=== PATIENT | male | born 1950 | race Caucasian/White ===

== ENCOUNTER → 2019-10-04 11:01 | Outpatient (CLI) | payer MEDICARE, OTHER, SELFPAY ==
[2019-10-04 12:27] LABS: Add Manual Diff / Slide Review NO; Basophils Absolute Auto 100 /uL (0-100); Basophils Percent Auto 0.8 % (0-2); Eosinophils Absolute Auto 200 /uL (0-450); Hematocrit 40.2 % (41-53); Hemoglobin 13.8 g/dL (13.5-17.5); Lymphocytes Absolute Auto 1700 /uL (1100-4500); Lymphocytes Percent Auto 20.3 % (25-40); Mean Corpuscular HGB Conc 34.2 % (30-36); Mean Corpuscular Hemoglobin 29.4 PG (26-34); Mean Corpuscular Volume 85.8 fL (80-100); Monocytes Absolute Auto 500 /uL (0-900); Monocytes Percent Auto 6.4 % (3-14); Neutrophils Absolute Auto 6000 /uL (1500-7000); Neutrophils Percent Auto 70.5 % (50-75); Platelet Count 158 X10^3/uL (150-400); Red Blood Cell Count 4.69 X10^6/uL (4.5-5.9); Red Cell Distribution Width 13.5 % (11.6-14.8); White Blood Cell Count 8.5 X10^3/uL (4.5-11.0)
[2019-10-04 13:00] LABS: Carbon Dioxide 23 mmol/L (22-32); Chloride 107 mmol/L (98-107); HEMOLYSIS < 15 (0-50); Potassium 4.8 mmol/L (3.4-5.1); Sodium 138 mmol/L (137-145)
== END ==
PROVIDERS: PCP Family Medicine; Referring Provider Orthopaedic Surgery; Visit Provider Orthopaedic Surgery
DX: Z01.818 Encounter for other preprocedural examination (principal); Z01.812 Encounter for preprocedural laboratory examination
CPT/HCPCS: 36415; 80051; 85025; 93005; 93010

== ENCOUNTER → 2019-12-07 07:02 | Outpatient (CLI) | payer MEDICARE, OTHER, SELFPAY ==
[2019-12-07 09:09] LABS: Cholesterol 230 mg/dL (140-199); HDL Cholesterol 44 mg/dL (40-60); LDL Cholesterol Calculated 153 mg/dL (<100); Triglycerides 167 mg/dL (35-150)
[2019-12-07 09:20] LABS: Vitamin D 25 Hydroxy (D3) 37.9 ng/mL (30.0-100.0)
[2019-12-07 09:24] LABS: Free T3, Triiodothyronine Free 3.13 pg/mL (2.77-5.27); Free T4, Direct Thyroxine 0.95 ng/dL (0.78-2.19)
[2019-12-07 09:38] LABS: Thyroid Stimulating Hormone 0.705 uIU/mL (0.47-4.68)
[2019-12-07 09:40] LABS: Prostate Specific Antigen 13.8 ng/mL (0.10-4.00)
== END ==
PROVIDERS: PCP Family Medicine; Referring Provider Family Medicine; Visit Provider Family Medicine
DX: E55.9 Vitamin D deficiency, unspecified (principal); Z13.220 Encounter for screening for lipoid disorders; Z13.29 Encounter for screening for other suspected endocrine disorder; E78.5 Hyperlipidemia, unspecified; R97.20 Elevated prostate specific antigen [PSA]
CPT/HCPCS: 36415; 80061; 82306; 84153; 84439; 84443; 84481

== ENCOUNTER → 2020-01-13 08:03 | Outpatient (CLI) | payer MEDICARE, OTHER, SELFPAY ==
--- NOTE | 2020-01-13 09:28 | DI.CT.S_ITS ---
PROCEDURE: CT HEAD/BRAIN WO CON INDICATIONS: new headache, right eye pain x 1 month TECHNIQUE: Noncontrast 4.5 mm thick angled axial sections acquired from the foramen magnum to the vertex, with coronal and sagittal reformats. For radiation dose reduction, the following was used: automated exposure control, adjustment of mA and/or kV according to patient size. COMPARISON: None. FINDINGS: Image quality: Excellent. CSF spaces: Basal cisterns are patent. No extra-axial fluid collections. The ventricles are symmetric in size and shape. Brain: No intracranial bleeds or masses. There is cerebral volume loss for age, with resultant ventricular and sulcal prominence. There are periventricular and deep white matter chronic small vessel ischemic changes. There is intracranial internal carotid artery and vertebral artery atherosclerosis. Skull and face: Calvarium and visualized facial bones appear intact, without suspicious lesions. Sinuses: Visualized sinuses and mastoids are clear. IMPRESSION: No acute intracranial disease process. Dictated by: Shira Ha MD, PhD on 01/13/2020 at 10:49 Approved by: Shira Ha MD, PhD on 01/13/2020 at 10:52
== END ==
PROVIDERS: PCP Family Medicine; Referring Provider Family Medicine; Visit Provider Family Medicine
DX: H57.11 Ocular pain, right eye (principal); R51.9 Headache, unspecified
CPT/HCPCS: 70450

== ENCOUNTER → 2020-08-30 07:11 | Outpatient (CLI) | payer MEDICARE, OTHER, SELFPAY ==
[2020-08-30 08:07] LABS: Add Manual Diff / Slide Review NO; Basophils Absolute Auto 100 /uL (0-100); Basophils Percent Auto 0.8 % (0-2); Eosinophils Absolute Auto 300 /uL (0-450); Eosinophils Percent Auto 3.3 % (2-4); Hematocrit 42.8 % (41-53); Hemoglobin 14.3 g/dL (13.5-17.5); Lymphocytes Absolute Auto 1900 /uL (1100-4500); Lymphocytes Percent Auto 19.7 % (25-40); Mean Corpuscular HGB Conc 33.3 % (30-36); Mean Corpuscular Hemoglobin 29.1 PG (26-34); Mean Corpuscular Volume 87.4 fL (80-100); Monocytes Absolute Auto 600 /uL (0-900); Neutrophils Absolute Auto 6700 /uL (1500-7000); Neutrophils Percent Auto 70.2 % (50-75); Platelet Count 146 X10^3/uL (150-400); Red Cell Distribution Width 13.7 % (11.6-14.8); White Blood Cell Count 9.5 X10^3/uL (4.5-11.0)
[2020-08-30 08:26] LABS: Alanine Aminotransferase 14 IU/L (<50); Albumin 4.3 g/dL (3.5-5.0); Albumin Globulin Ratio 1.9 (1.0-2.8); Alkaline Phosphatase 60 U/L (38-126); Aspartate Aminotransferase 20 IU/L (17-59); BUN Creatinine Ratio 22.8 (6-22); Bilirubin Total 0.4 mg/dL (0.2-1.3); Blood Urea Nitrogen 28 mg/dL (9-20); Calcium 10.4 mg/dL (8.4-10.2); Carbon Dioxide 23 mmol/L (22-32); Chloride 108 mmol/L (98-107); Cholesterol 198 mg/dL (140-199); Globulin 2.3 g/dL (1.7-4.1); Glucose 92 mg/dL (80-110); HDL Cholesterol 44 mg/dL (40-60); HEMOLYSIS < 15 (0-50); LDL Cholesterol Calculated 135 mg/dL (<100); Potassium 5.1 mmol/L (3.4-5.1); Sodium 139 mmol/L (137-145); Total Protein 6.6 g/dL (6.3-8.2); Triglycerides 97 mg/dL (35-150)
[2020-08-31 09:33] LABS: Fecal Immunochemical Test Positive (Negative)
== END ==
PROVIDERS: PCP Family Medicine; Referring Provider Family Medicine; Visit Provider Family Medicine
DX: E78.2 Mixed hyperlipidemia (principal); Z12.11 Encounter for screening for malignant neoplasm of colon
CPT/HCPCS: 36415; 80053; 80061; 82274; 85025

== ENCOUNTER → 2020-08-31 09:09 | Outpatient (CLI) | payer MEDICARE, OTHER, SELFPAY ==
--- NOTE | 2020-08-31 | DI.US.S_ITS ---
PROCEDURE: US RENAL COMPLETE INDICATIONS: URINARY RETENTION TECHNIQUE: Real-time scanning was performed of the kidneys and bladder, with image documentation. COMPARISON: [facility], CT, IVP (ABD & PEL WWO CONTRAST), 01/17/2015, 10:00. FINDINGS: Kidneys: Kidneys are normal in size. Right kidney measures 9.7 cm long; left kidney measures 11.6 cm long. Right renal cortical thickness is 1.4 cm; left renal cortical thickness is 1.4 cm. Renal cortical echotexture is normal. No hydronephrosis. No suspicious solid mass lesions. On the right, there is a nonobstructing 6 mm stone seen anteriorly and inferiorly. On the left, there is a 3 cm simple appearing cyst seen involving the medial mid kidney. Bladder: Pre-void bladder volume is 386 mL. Post-void residual is 348 mL. Pre-void images demonstrate no intraluminal masses or stones. On pre-void images, neither of the ureteral jets are noted with color Doppler interrogation. (Of note, ureteral jets may not be detectable in up to 25% of cases due to insufficient differences in specific gravity between ureteral and bladder urine). Miscellaneous: No free pelvic fluid. IMPRESSION: Urinary retention, with a postvoid residual of 348 cc. There is no hydronephrosis. There is an apparent nonobstructing right-sided kidney stone measuring 6 mm. Eighth 3 cm simple cyst is seen involving the left kidney. Dictated by: Benja Rene M.D. on 08/31/2020 at 11:09 Approved by: Benja Rene M.D. on 08/31/2020 at 11:12
== END ==
PROVIDERS: PCP Family Medicine; Referring Provider Urology; Visit Provider Urology
DX: R33.9 Retention of urine, unspecified (principal); N20.0 Calculus of kidney; N28.1 Cyst of kidney, acquired
CPT/HCPCS: 76770

== ENCOUNTER → 2020-09-22 11:57 | Outpatient (CLI) | payer MEDICARE, OTHER, SELFPAY ==
--- NOTE | 2020-09-22 11:59 | DI.CT.S_ITS ---
PROCEDURE: CT LUMBAR SPINE WO CON INDICATIONS: pain TECHNIQUE: Noncontrast 3 mm thick sections acquired from the T12 level to the sacrum. Sagittal and coronal reformats were constructed. For radiation dose reduction, the following was used: automated exposure control. COMPARISON: [facility], CT, L-SPINE WITHOUT CONTRAST, 04/20/2013, 10:30. FINDINGS: Image quality: Excellent. Bones: There is mild grade 1 retrolisthesis of L1 on L2 and L2 on L3. There is posterior fusion L2-S1 with paired posterior rods and pedicle screws. Interbody devices at L2-L3, L3-L4, L4-L5, and L5-S1 are present. There is new anterior fusion hardware at L5-S1. T12-L1: Severe disc height loss. Mild diffuse disc bulge with superimposed right paracentral protrusion. Mild bilateral facet hypertrophy. Mild canal stenosis. Moderate bilateral foraminal stenosis, increased from the prior examination. L1-L2: Severe disc height loss. Disc vacuum phenomenon. Moderate diffuse disc bulge/osteophyte. Mild facet and and ligamentum flavum hypertrophy. Mild epidural lipomatosis. Increased, moderate canal stenosis. Increased, moderate to severe bilateral foraminal stenosis with probable L1 nerve root compression. L2-L3: Status post fusion. Mild facet and ligamentum flavum hypertrophy. Mild canal stenosis. Moderate bilateral foraminal stenosis. No significant change. L3-L4: Status post fusion. Mild facet hypertrophy bilaterally. Mild canal stenosis. Mild bilateral foraminal stenosis. No significant change L4-L5: Status post fusion. Mild bilateral facet hypertrophy. Mild canal stenosis. Moderate bilateral foraminal stenosis. No significant change. L5-S1: Status post fusion. Bilateral facet hypertrophy. Mild canal stenosis. Moderate to severe bilateral foraminal stenosis with mild L5 nerve root compression. No significant change. Soft tissues: No retroperitoneal masses or hematomas. Visualized aorta is normal in caliber. There is a nonobstructing 3 mm calculus within the inferior pole right kidney posteriorly. IMPRESSION: 1. Postsurgical sequelae. 2. Multilevel degenerative disc and facet disease, as well as ligamentum flavum hypertrophy and epidural lipomatosis. 3. Mild multilevel canal stenosis. 4. Multilevel foraminal stenoses, worst at L1-L2 and L5-S1 where there is probable associated intraforaminal nerve root compression. 5. Nonobstructing right renal calculus. Dictated by: Susan Carranza M.D. on 09/22/2020 at 12:49 Approved by: Susan Carranza M.D. on 09/22/2020 at 12:54
--- NOTE | 2020-09-22 11:59 | DI.CT.S_ITS ---
PROCEDURE: CT SOFT TISSUE NECK WO CON INDICATIONS: pain TECHNIQUE: Non-contrast 3.0 mm axial sections acquired from the sella to the aortic arch. Additional oblique axial 3.0 mm sections acquired through the pharynx. 3 mm thick coronal and sagittal reformats were generated. For radiation dose reduction, the following was used: automated exposure control. COMPARISON: None. FINDINGS: Skull Base: The visualized intracranial contents, skull, and orbits are unremarkable. Visualized paranasal sinuses are clear. Pharynx and Larynx: The nasopharyngeal airway is patent and midline. Parapharyngeal soft tissues including palantine tonsils and base of the tongue are normal. Retropharyngeal space unremarkable. Normal appearance of the false and true vocal cords. Muscles and Fascial Planes: Fascial planes are well maintained. No abscess or mass lesion. Lymph Nodes: No evidence of adenopathy. Vasculature: Unremarkable. Submandibular and Parotid Glands: Normal in size and attenuation. Thyroid: Unremarkable. No enlarged or calcified nodules. Bones: No acute fracture. No osteolytic or blastic lesion is evident. Normal bone mineralization. C5-6 and C6-7 well-healed interbody fusion with posterior nelia and screw instrumentation in position. No hardware failure loosening. Disc space narrowing and endplate sclerosis noted at C3-4, C4-5 and C7-T1. Moderate severe central stenosis C3-4. Lung Apices: The visualized lung apices are clear. Lack of intravenous contrast precludes definitive evaluation of solid and vascular structures IMPRESSION: C5-6 and C6-7 interbody fusion and instrumentation with degenerative cervical spine changes. Otherwise unremarkable non-contrast CT neck Dictated by: Naveen Cabrera M.D. on 09/22/2020 at 14:29 Approved by: Naveen Cabrera M.D. on 09/22/2020 at 14:36
--- NOTE | 2020-09-22 11:59 | DI.CT.S_ITS ---
PROCEDURE: CT PEL WO CON INDICATIONS: pain TECHNIQUE: Noncontrast 3 mm axial sections acquired through the bony pelvis, with coronal and sagittal reformatting. COMPARISON: None. FINDINGS: Image quality: Excellent. Bones: Patient is status post prior fusion of lumbar spine with beam hardening artifact seen in lower lumbar spine. No acute pelvic fracture or dislocation is seen. Pelvic ring is intact. Symmetric appearing bilateral hip joint [id number] osteoarthritic changes are seen with joint space narrowing and subchondral sclerosis. There is prior fixation of left femoral neck with surgical screw tracts seen. No evidence of avascular necrosis of femoral head. Mild bilateral sacroiliac joint osteoarthritic changes are noted without evidence of ankylosis or bony erosion. No compression fracture is seen in visualized lower lumbar spine. Soft tissues: There is no pelvic free fluid or free air. No bowel wall thickening. Extensive sigmoid diverticulosis is seen without evidence of acute diverticulitis. Bladder wall thickness is normal. No pelvic lymphadenopathy. No muscle or soft tissue abnormality is seen. IMPRESSION: 1. [id number]-[id number] bilateral hip joint osteoarthritis. No acute hip fracture or dislocation. No evidence of avascular necrosis of femoral head. 2. Prior internal fixation of left femoral neck with postsurgical changes. Patient is status post extensive fusion of lumbar spine. No gross acute compression fracture or spondylolisthesis. 3. No ankylosis or bony erosion is seen in bilateral sacroiliac joints. 4. No gross pelvic soft tissue abnormality. Dictated by: Hany Mann M.D. on 09/22/2020 at 13:29 Approved by: Hany Mann M.D. on 09/22/2020 at 13:55
--- NOTE | 2020-09-22 12:47 | DI.CT.S_ITS ---
PROCEDURE: CT THORACIC SPINE WO CON INDICATIONS: pain TECHNIQUE: Noncontrast 3 mm thick sections acquired through the region of interest in the thoracic spine. Sagittal and coronal reformats were then constructed. For radiation dose reduction, the following was used: automated exposure control. COMPARISON: [facility], CT, ABDOMEN/PELVIS WITH CONTRAST, 12/27/2013, 16:54. FINDINGS: Image quality: Excellent. Bones: Diffuse osteopenia. Postsurgical change with partially visualized posterior lumbar spinal fixation. Multilevel degenerative endplate sclerosis and spurring. Diffuse facet arthropathy. Spinal electrodes are noted at the level of the midthoracic spine. Multilevel degenerative vacuum disc phenomenon is seen. There is severe T10-T11 and T12-L1 disc height loss. Chronic osseous fusion of C6-C7 is only partially visualized. Soft tissues: No paravertebral masses or hematomas. Visualized posteromedial lungs appear clear. Large hiatal hernia. Nonspecific 2.5 cm exophytic right renal cystic lesion which is probably unchanged since 2013. IMPRESSION: Multilevel spondylosis and facet arthropathy as above. Diffuse osteopenia Large hiatal hernia. No acute fracture. Dictated by: Willis Montaño M.D. on 09/22/2020 at 13:24 Approved by: Willis Montaño M.D. on 09/22/2020 at 13:29
== END ==
PROVIDERS: PCP Family Medicine; Referring Provider Family Medicine; Visit Provider Family Medicine
DX: M54.2 Cervicalgia (principal); M47.812 Spondylosis without myelopathy or radiculopathy, cervical region; M47.814 Spondylosis without myelopathy or radiculopathy, thoracic region; M48.9 Spondylopathy, unspecified; M47.816 Spondylosis without myelopathy or radiculopathy, lumbar region; M51.36 Other intervertebral disc degeneration, lumbar region; M48.061 Spinal stenosis, lumbar region without neurogenic claudication; M48.07 Spinal stenosis, lumbosacral region; M85.88 Other specified disorders of bone density and structure, other site; M16.0 Bilateral primary osteoarthritis of hip; N20.0 Calculus of kidney; K44.9 Diaphragmatic hernia without obstruction or gangrene; Z98.1 Arthrodesis status; Z98.890 Other specified postprocedural states
CPT/HCPCS: 70490; 72128; 72131; 72192

== ENCOUNTER → 2020-10-11 09:45 | Outpatient (CLI) | payer MEDICARE, OTHER, SELFPAY ==
[2020-10-11 11:06] LABS: COVID19 -Nasal RAPID Negative (Negative)
== END ==
PROVIDERS: PCP Family Medicine; Referring Provider Surgery; Visit Provider Surgery
DX: Z20.822 Contact with and (suspected) exposure to COVID-19 (principal)
CPT/HCPCS: 87635; C9803

== ENCOUNTER 2020-10-12 12:33 | Day surgery (SDC) | payer MEDICARE, OTHER, SELFPAY ==
[2020-10-12] MEDS: LACTATED RINGERS 1,000 ML 100 ML IV (12:43)
[2020-10-12 12:50] VITALS: BMI 25.8
[2020-10-12 12:56] VITALS: BP 125/78; PULSE 60; RESP 16; TEMP 36.6; O2SAT 100
--- NOTE | 2020-10-12 13:52 | PM.HP.1 ---
History of Present Illness History of Present Illness Date Patient Seen: 10/12/20 Time Patient Seen: 13:53 Chief complaint: COLONOSCOPY Narrative: Screening colonoscopy for colon cancer, last scope was 10 years ago. He was told he has diverticulosis on CT scan. No GI symptoms to speak of. Father was in his 60's when diagnosed with colon cancer and he was a drinker. Patient History Medical History Asthma (~2016) Bladder cancer (~2009) Cervical spine disease (~1997) Degenerative joint disease (DJD) of lumbar spine (~2012) Depression (~1997) Elevated blood pressure reading without diagnosis of hypertension Elevated PSA, between 10 and less than 20 ng/ml Fractures (~2000) GERD (gastroesophageal reflux disease) Hearing loss (~2011) Hyperlipidemia, mixed Vitamin D deficiency Wears glasses Surgical History Anesthesia History of bladder surgery (~2009) History of fusion of cervical spine (~1997) History of fusion of lumbar spine (~2012) History of surgery (~2014) Family & Social History Family History Father No problems noted. Mother Renal failure Brother Cancer Brother Cancer Grandfather History of heart disease Grandmother History of heart disease Grandfather Black lung disease Grandmother Stroke Social History: household members spouse Tobacco & Substance use: Smoking Status Former smoker alcohol intake never Substance Use Type does not use Meds Home Medications and Allergies Home Medications Medication Instructions Recorded Confirmed Type CHOLECALCIFEROL (VITAMIN D3) #0 02/19/10 08/25/20 History (Vitamin D3) VITAMIN C - #0 02/19/10 08/25/20 History (VITAMIN C) [BETA GLUCON] #0 02/19/10 08/25/20 History [GLUCOSAMINE] #0 02/19/10 08/25/20 History [OMEGA 3] #0 02/19/10 08/25/20 History acetaminophen 500 mg capsule 1,000 mg PO Q6H PRN 01/04/20 10/12/20 History ibuprofen 200 mg capsule 400 mg PO Q8H 01/04/20 10/12/20 History omeprazole 20 mg capsule,delayed 20 mg PO DAILY 01/04/20 08/25/20 History release pregabalin 150 mg capsule See Rx Instructions .ROUTE 07/27/20 10/12/20 Rx .COMPLEX #180 cap sodium,potassium,mag sulfates 17.5 See Rx Instructions PO .COMPLEX 09/28/20 Rx gram-3.13 gram-1.6 gram oral soln #354 ml (Suprep Bowel Prep Kit) fexofenadine 180 mg tablet 180 mg PO DAILY 10/12/20 10/12/20 History pregabalin 150 mg capsule mg 10/12/20 History Allergies Allergy/AdvReac Type Severity Reaction Status Date / Time No Known Allergies Allergy Uncoded 10/12/20 12:44 Review of Systems Review of Systems ROS: Yes All systems reviewed with the patient and are negative except as otherwise documented Exam Vital Signs (past 8 hours): - 10/12/20 12:56 Temperature 97.9 F Pulse Rate 60 Respiratory Rate 16 Blood Pressure 125/78 Pulse Oximetry 100 Oxygen Delivery Method Room Air Const General: cooperative and healthy appearing Nutritional Appearance: average body habitus HENND Head: normocephalic and atraumatic Ears: external ears normal Nose: external nose normal Face and sinus: normal facial exam Eyes Alignment and Position: alignment normal Sclera: sclerae normal Neck Neck: trachea midline Chest Chest: normal inspection of the chest Resp Effort & Inspection: normal respiratory effort and able to speak in complete sentences Cardio Rate: regular rate Rhythm: regular rhythm GI Inspection: normal to inspection and distended Palpation: soft Skin General: no rashes or lesions noted Hair: normal Neuro General: patient alert, patient awake and patient oriented x3 Extrem General: full ROM Psych Appearance: grossly normal Affect: normal affect Judgment: judgment good Assessment & Plan Assessment & Plan narrative: colon cancer screening with colonoscopy using moderate sedation COVID-19 COVID-19 status: Negative Time Spent With Patient Time with patient: less than 15 minutes
[2020-10-12] MEDS: MIDAZOLAM 5 MG/5 ML VIAL IV (14:13)
[2020-10-12] MEDS: fentaNYL 250 MCG/5 ML INJ IV (14:13)
[2020-10-12 14:25] VITALS: BP 117/65; PULSE 80; RESP 18; TEMP 36.6; O2SAT 96
[2020-10-12 14:30] VITALS: BP 111/73; PULSE 78; RESP 16; O2SAT 96
[2020-10-12 14:37] VITALS: BP 120/82; PULSE 74; RESP 16; O2SAT 96
[2020-10-12 14:39] VITALS: BP 132/84; PULSE 75; RESP 18; TEMP 36.7; O2SAT 97
--- NOTE | 2020-10-12 16:14 | PM.OP.1 ---
Operative Date/Time/Diagnoses Date of procedure: 10/12/20 Time of procedure: 16:14 Pre-op diagnosis: colon cancer screening Post-op diagnosis: same Procedure & Clinicians Procedure: Colonoscopy with moderate sedation Same procedure as scheduled: Yes Indications: Colon cancer screening Surgeon: Brianne Rausch Click Yes if Unassisted: Yes Anesthesia Type: Sedation Operative Notes Findings: Moderate diverticulosis. No polyps. Blood products transfused: none Procedure in detail: Preop diagnosis: Colon cancer screening Postop diagnosis: Same Operative procedure: Colonoscopy with moderate sedation Surgeon: Marjorie Rausch MD Anesthetic fentanyl and Versed, see nursing notes for doses Findings: Moderate diverticulosis in the sigmoid colon. No polyps identified. Patient placed in lateral position. Rectal exam performed showing normal tone no masses. Colonoscope inserted into the rectum and advanced to the ileocecal valve with minimal difficulty. Insufflation and extractions scope with the above findings. Impression: no polyps identified. Moderate diverticulosis. Plan: Repeat colonoscopy in 10 years Complications: none Post-operative Condition: stable Disposition: PACU
== END 2020-10-12 15:00 | disposition home or self-care (01) ==
PROVIDERS: PCP Family Medicine; Referring Provider Surgery; Visit Provider Surgery
PROC: 0DJD8ZZ Inspection of Lower Intestinal Tract, Via Natural or Artificial Opening Endoscopic (ICD-10-PCS; CPT 45378; principal; 2020-10-12 13:45)
DX: Z12.11 Encounter for screening for malignant neoplasm of colon (principal); Z80.0 Family history of malignant neoplasm of digestive organs; K57.30 Diverticulosis of large intestine without perforation or abscess without bleeding
CPT/HCPCS: G0105; J2250; J3010

== ENCOUNTER → 2021-01-03 14:37 | Outpatient (CLI) | payer MEDICARE, OTHER, SELFPAY ==
[2021-01-03 15:34] LABS: COVID19 -Nasal RAPID Negative (Negative)
== END ==
PROVIDERS: PCP Family Medicine; Referring Provider Nurse Practitioner Family; Visit Provider Nurse Practitioner Family
DX: R30.9 Painful micturition, unspecified (principal); R35.0 Frequency of micturition; R50.9 Fever, unspecified; R52 Pain, unspecified; Z20.822 Contact with and (suspected) exposure to COVID-19
CPT/HCPCS: 87077; 87086; 87186; 87635

== ENCOUNTER → 2021-08-09 10:31 | Outpatient (CLI) | payer MEDICARE, OTHER, SELFPAY ==
[2021-08-09 12:12] LABS: BUN Creatinine Ratio 21.7 (6-22); Blood Urea Nitrogen 26 mg/dL (9-20); Calcium 9.1 mg/dL (8.4-10.2); Carbon Dioxide 19 mmol/L (22-32); Chloride 112 mmol/L (98-107); Estimated Glomerular Filt Rate > 60 mL/min (>60); Glucose 98 mg/dL (80-110); HEMOLYSIS < 15 (0-50); Potassium 4.8 mmol/L (3.4-5.1); Sodium 139 mmol/L (137-145)
== END ==
PROVIDERS: Family Provider Family Medicine; PCP Family Medicine; Referring Provider Specialist; Visit Provider Specialist
DX: E55.9 Vitamin D deficiency, unspecified (principal); E78.2 Mixed hyperlipidemia; N39.0 Urinary tract infection, site not specified; R03.0 Elevated blood-pressure reading, without diagnosis of hypertension; R97.20 Elevated prostate specific antigen [PSA]
CPT/HCPCS: 36415; 80048; 84153

== ENCOUNTER 2021-09-27 11:15 | Outpatient (RCR) | payer MEDICARE, OTHER, SELFPAY ==
--- NOTE | 2021-08-09 18:39 | PT.OIE ---
Current Diagnoses Retention of urine, unspecified (08/09/21) Extravasation of urine (08/09/21) Past Medical History (Last Updated 07/31/21 @ 08:17 by Marshall Anguiano MD) Asthma (~2016) Bladder cancer (~2009) Cervical spine disease (~1997) Degenerative joint disease (DJD) of lumbar spine (~2012) Depression (~1997) Elevated blood pressure reading without diagnosis of hypertension Elevated PSA, between 10 and less than 20 ng/ml Fractures (~2000) GERD (gastroesophageal reflux disease) Hearing loss (~2011) History of arthritis History of bladder surgery (~2009) History of fusion of cervical spine (~1997) History of fusion of lumbar spine (~2012) History of kidney stones History of knee replacement History of primary bladder cancer History of surgery (~2014) Hx of prostate biopsy Hx of vasectomy Hyperlipidemia, mixed Prostate cancer Right nephrolithiasis Urinary retention Vitamin D deficiency Wears glasses Past Surgical History (Last Reviewed 07/31/21 @ 08:08 by Marshall Anguiano MD) Anesthesia History of bladder surgery (~2009) History of fusion of cervical spine (~1997) History of fusion of lumbar spine (~2012) History of knee replacement History of surgery (~2014) Hx of prostate biopsy Hx of vasectomy Visit Care Team Role Provider Type Brian Abdalla DO Family Provider Physician Primary Care Provider Specialty: Family Practice Address: [address] [place] [address], [facility] Email: Marshall Anguiano MD Attending Provider Physician Referring Provider Specialty: Urology Address: [address] [place] [address], [facility] Email: Physical Therapy Initial Evaluation PT-OP-A Visit Information Start: 08/09/21 13:48 Freq: Status: Active Protocol: Document 08/09/21 13:45 [facility] (Rec: 08/09/21 14:19 [facility] [id number]) Out-Patient Physical Therapy Visit Information Visit Information Visit Type Initial Evaluation Visit Start Time 13:45 Visit Stop Time 14:30 Total Visit Minutes 45 Visit Number 1 Evaluation Information Evaluation Date 08/09/21 PT-OP-B Current Condition Start: 08/09/21 13:48 Freq: Status: Active Protocol: Document 08/09/21 13:45 [facility] (Rec: 08/09/21 14:19 [facility] [id number]) Current Condition History of Current Condition Onset Date 2009 Current Complaints urinary retention History of Current Condition 71 yo male with Hx of bladder cancer in 2009, tuberculine infusion and at that time he wasn't fully emptying his bladder. Mr Woodward reports has had 6 spinal surgeries and last summer he was feeling like if he got up at night he couldn't pee at all His back surgeries were from L2-S1 In 2012 he underwent a 5 level fusion then the next year he had a non union and he went back in for a complete revision. He reports there was a lot of bony growth in the fusion itself. He spends his winter in [place] he walks 3 miles per day. He reports lack of sensation of needing to void, he needs to self catherathizes x the past 9 months. Recently Mr. Woodward was diagnosed with [place] 3=3+6 adenocarcinoma of the prostate with a PSA of 19. He is referred to PT for his urinary retention Treatment Goals Patient/Caregiver Goals pt reports his goals include improved voiding and ability to fully empty his bladder PT-OP-C Subjective Start: 08/09/21 13:48 Freq: Status: Active Protocol: Document 08/09/21 17:41 [facility] (Rec: 08/16/21 18:39 [facility] [id number]) Patient Questionnaires Pelvic Pain and Urgency/Frequency Patient Symptom Scale Pelvic Pain Score 9 PT-OP-I Pelvic Floor Start: 08/09/21 13:48 Freq: Status: Active Protocol: Document 08/09/21 17:41 [facility] (Rec: 08/16/21 18:39 [facility] [id number]) Pelvic Floor Assessment Urine Pelvic Floor Surgery Yes Urinary Symptoms Incomplete Emptying Other Urinary Symptoms difficulty starting and stopping the stream of urine, pt self catheterizes 3 times per day and voids on his own 3 -4 times per day. He goes to bed at 10:00 and wakes up to void at 2:00 and at 4:00 pt also reports decreased sensation that he needs to void SEMG (uV) Baseline 4.0 Recruitment Pattern Fair Holding Poor/Slow Stability of Hold Poor/Slow Contraction Ability Muscle Endurance (Seconds) 5 Comments Pelvic Floor Comments There is tightness in the suprapubic fasica and surrounding the bladder, pt has a resting tone of 4.0 uv on EMG biofeedback. His average contraction on EMG biofeedback is 7.1 uv with a max of 27.9 uv PT-OP-J Posture/Palpation/Skin Start: 08/09/21 13:48 Freq: Status: Active Protocol: Document 08/09/21 17:41 [facility] (Rec: 08/16/21 18:39 [facility] [id number]) Palpation Assessment Location suprapubic fascia Palpation Location suprapubic fascia Palpation Findings Soft Tissue Tightness,Muscle Guarding Palpation Details tightness and guarding surrounding the bladder and suprapubic fascia PT-OP-Q Treatments Start: 08/09/21 13:48 Freq: Status: Active Protocol: Document 08/09/21 13:45 [facility] (Rec: 08/09/21 14:19 [facility] [id number]) Therapeutic Exercises Supine Exercises pelvic floor long holds Reps/Minutes x 10 reps cobra stretch Reps/Minutes 2 reps holding 30-60 seconds PT-OP-T Assessment and Plan Start: 08/09/21 13:48 Freq: Status: Active Protocol: Document 08/09/21 17:41 [facility] (Rec: 08/16/21 18:39 [facility] [id number]) Physical Therapy Assessment Rehab Potential Rehabilitation Potential Good Evaluation Complexity Number of Personal Factors/Comorbidities 1-2 Number of Body Systems Impaired 3 Clinical Presentation at Evaluation Stable Impairments Impairments Activity Tolerance,Sensation, Soft Tissue Mobility,Strength Goals 4 Impairment Elevated resting tone of the pelvic floor muscles at 4.0 on EMG biofeedback Short Term Goal (STG) Mr Woodward is able to relax his pelvic floor to baseline on EMG biofeedback to promote improved ability to void STG Duration 6 weeks 3 Impairment Decreased pelvic floor endurance [employer] Goal (LTG) Mr Woodward is able to increase his pelvic floor endurance to 10 second hold time in supine with full pelvic floor relaxation in between contractions LTG Duration 12 weeks 2 Impairment pt reports decreased sensation that he needs to void Short Term Goal (STG) Mr. Woodward is educated on timed voiding using the catheter and /or self voiding every 2.5-3 hours throughout the day STG Duration 4 weeks 1 Impairment urinary retention and pt need to self catheterize 3 times per day [employer] Goal (LTG) pt is educated on relaxed awarensess of the pelvic floor and abdominal wall to improve fully emptying his bladder LTG Duration 12 weeks Assessment Summary Assessment Mr. Woodward is a 71 year old male referred to PT with urinary retention. He has a history of bladder cancer in 2009 and was treated with 6 weeks of BCG installations. On cystocopic report in October 2020 there was bilobar prostate obstruction found. He has a history of post void residual volumes of 4-600 cc. 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 He has a history of cervical fusions in which he feels he has gotten weaker overall from. He does report walking 3 times a day despite decreased strength. He notes that it seems his sensation that he needs to void also seems to be decreasing. He self catheterizes 3 times per day and tries to void on his own 3-4 times per day. With exam today there is tightness in the suprapubic fascia and surrounding the bladder. Mr Woodward was educated in stretches for this area to help decrease myofascial tightness. With EMG biofeedback the resting tone of his pelvic floor was elevated at 4.0 uv demonstrating decreased ability to fully relax his pelvic floor. He was able to contract to 27.9 uv but his average was lower at 7.1 uv. His endurance for pelvic floor contractions is limited. I started Mr. Woodward with pelvic floor contract/relax today focusing on fully relaxing his pelvic floor between contraction. He was educated on relaxed awareness of his abdomen and pelvic floor with voiding. Mr Woodward is a good candidate for PT. Physical Therapy Plan Frequency and Duration Frequency of Treatment 1x/Week Duration of Treatment 12 Plan of Care Start Date 08/09/21 Plan of Care End Date 11/01/21 Therapeutic Interventions Therapeutic Interventions Home Exercise Program,Manual Therapy,Neuromuscular Re- education,Patient/Caregiver Education,Self-Care/Home Management,Soft Tissue Mobilization Modalities Biofeedback Next Visit Focus/Plan Next Note Type Treatment Note Next Visit Plan MFR over the suprapubic fascia , stretches for the pelvic floor. EMG biofeedback for pelvic floor endruance training
--- NOTE | 2021-08-09 18:40 | PT.OPPOC ---
Physical, Occupational & Speech Therapy At [facility] Current Diagnoses Retention of urine, unspecified (08/09/21) Extravasation of urine (08/09/21) Visit Care Team Role Provider Type Brian Abdalla DO Family Provider Physician Primary Care Provider Specialty: Family Practice Address: [address] [place] [address], [facility] Email: Marshall Anguiano MD Attending Provider Physician Referring Provider Specialty: Urology Address: [address] [place] [address], [id number] Email: Plan Of Care PT-OP-T Assessment and Plan Start: 08/09/21 13:48 Freq: Status: Active Protocol: Document 08/09/21 17:41 [facility] (Rec: 08/16/21 18:39 [facility] [id number]) Physical Therapy Assessment Rehab Potential Rehabilitation Potential Good Evaluation Complexity Number of Personal Factors/Comorbidities 1-2 Number of Body Systems Impaired 3 Clinical Presentation at Evaluation Stable Impairments Impairments Activity Tolerance,Sensation, Soft Tissue Mobility,Strength Goals 4 Impairment Elevated resting tone of the pelvic floor muscles at 4.0 on EMG biofeedback Short Term Goal (STG) Mr Woodward is able to relax his pelvic floor to baseline on EMG biofeedback to promote improved ability to void STG Duration 6 weeks 3 Impairment Decreased pelvic floor endurance Grain Combine Driver Goal (LTG) Mr Woodward is able to increase his pelvic floor endurance to 10 second hold time in supine with full pelvic floor relaxation in between contractions LTG Duration 12 weeks 2 Impairment pt reports decreased sensation that he needs to void Short Term Goal (STG) Mr. Woodward is educated on timed voiding using the catheter and /or self voiding every 2.5-3 hours throughout the day STG Duration 4 weeks 1 Impairment urinary retention and pt need to self catheterize 3 times per day Assisted Goal (LTG) pt is educated on relaxed awareness of the pelvic floor and abdominal wall to improve fully emptying his bladder LTG Duration 12 weeks Assessment Summary Assessment Mr. Woodward is a 71 year old male referred to PT with urinary retention. He has a history of bladder cancer in 2009 and was treated with 6 weeks of BCG installations. On cystocopic report in October 2020 there was bilobar prostate obstruction found. He has a history of post void residual volumes of 4-600 cc. 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 He has a history of cervical fusions in which he feels he has gotten weaker overall from. He does report walking 3 times a day despite decreased strength. He notes that it seems his sensation that he needs to void also seems to be decreasing. He self catheterizes 3 times per day and tries to void on his own 3-4 times per day. With exam today there is tightness in the suprapubic fascia and surrounding the bladder. Mr Woodward was educated in stretches for this area to help decrease myofascial tightness. With EMG biofeedback the resting tone of his pelvic floor was elevated at 4.0 uv demonstrating decreased ability to fully relax his pelvic floor. He was able to contract to 27.9 uv but his average was lower at 7.1 uv. His endurance for pelvic floor contractions is limited. I started Mr. Woodward with pelvic floor contract/relax today focusing on fully relaxing his pelvic floor between contraction. He was educated on relaxed awareness of his abdomen and pelvic floor with voiding. Mr Woodward is a good candidate for PT. Physical Therapy Plan Frequency and Duration Frequency of Treatment 1x/Week Duration of Treatment 12 Plan of Care Start Date 08/09/21 Plan of Care End Date 11/01/21 Therapeutic Interventions Therapeutic Interventions Home Exercise Program,Manual Therapy,Neuromuscular Re- education,Patient/Caregiver Education,Self-Care/Home Management,Soft Tissue Mobilization Modalities Biofeedback Next Visit Focus/Plan Next Note Type Treatment Note Next Visit Plan MFR over the suprapubic fascia , stretches for the pelvic floor. EMG biofeedback for pelvic floor endruance training Plan of Care Dates Plan of Care Start Date 08/09/21 Plan of Care End Date 11/01/21 Electronically Signed by: Natalie Pizarro, PT 08/16/21 [id number] If you are in agreement with this Plan of Care, please return a signed and dated copy. I have reviewed this Plan of Care and certify that the skilled therapy services above are required to meet the patient?s needs. Physician Signature Date Printed Name and Credentials Clinical Instructor Signature Printed Name and Credentials
--- NOTE | 2021-08-23 18:39 | PT.OTN ---
Current Diagnoses Retention of urine, unspecified (08/23/21) Extravasation of urine (08/23/21) Physical Therapy Treatment Note PT-OP-A Visit Information Start: 08/09/21 13:48 Freq: Status: Active Protocol: Document 08/23/21 09:00 [facility] (Rec: 08/23/21 09:48 [facility] [id number]) Out-Patient Physical Therapy Visit Information Visit Information Visit Type Treatment Note Visit Start Time 09:00 Visit Stop Time 09:45 Total Visit Minutes 45 Visit Number 2 PT-OP-B Current Condition Start: 08/09/21 13:48 Freq: Status: Active Protocol: Document 08/09/21 13:45 [facility] (Rec: 08/09/21 14:19 [facility] [id number]) Current Condition History of Current Condition Onset Date 2009 Current Complaints urinary retention History of Current Condition 71 yo male with Hx of bladder cancer in 2009, tuberculine infusion and at that time he wasn't fully emptying his bladder. Mr Woodward reports has had 6 spinal surgeries and last summer he was feeling like if he got up at night he couldn't pee at all His back surgeries were from L2-S1 In 2012 he underwent a 5 level fusion then the next year he had a non union and he went back in for a complete revision. He reports there was a lot of bony growth in the fusion itself. He spends his winter in [place] he walks 3 miles per day. He reports lack of sensation of needing to void, he needs to self catherathizes x the past 9 months. Recently Mr. 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 He is referred to PT for his urinary retention Treatment Goals Patient/Caregiver Goals pt reports his goals include improved voiding and ability to fully empty his bladder PT-OP-C Subjective Start: 08/09/21 13:48 Freq: Status: Active Protocol: Document 08/23/21 09:00 [facility] (Rec: 08/23/21 09:48 [facility] [id number]) OP-PT Subjective Patient Comments Patient Comments pt notes he feels like when he started doing his exercises he can do the contraction on the left side but her is not feeling it on the right and he does get a hot burning pain on the right side. He has a history of having his appendix out at age 12 and a hernia repair in 1972 with sutures He does have a history of lumbar fusions 2013 fused from L2-S1 PT-OP-I Pelvic Floor Start: 08/09/21 13:48 Freq: Status: Active Protocol: Document 08/09/21 17:41 [facility] (Rec: 08/16/21 18:39 [facility] [id number]) Pelvic Floor Assessment Urine Pelvic Floor Surgery Yes Urinary Symptoms Incomplete Emptying Other Urinary Symptoms difficulty starting and stopping the stream of urine, pt self catheterizes 3 times per day and voids on his own 3 -4 times per day. He goes to bed at 10:00 and wakes up to void at 2:00 and at 4:00 pt also reports decreased sensation that he needs to void SEMG (uV) Baseline 4.0 Recruitment Pattern Fair Holding Poor/Slow Stability of Hold Poor/Slow Contraction Ability Muscle Endurance (Seconds) 5 Comments Pelvic Floor Comments There is tightness in the suprapubic fasica and surrounding the bladder, pt has a resting tone of 4.0 uv on EMG biofeedback. His average contraction on EMG biofeedback is 7.1 uv with a max of 27.9 uv PT-OP-J Posture/Palpation/Skin Start: 08/09/21 13:48 Freq: Status: Active Protocol: Document 08/09/21 17:41 [facility] (Rec: 08/16/21 18:39 [facility] [id number]) Palpation Assessment Location suprapubic fascia Palpation Location suprapubic fascia Palpation Findings Soft Tissue Tightness,Muscle Guarding Palpation Details tightness and guarding surrounding the bladder and suprapubic fascia PT-OP-Q Treatments Start: 08/09/21 13:48 Freq: Status: Active Protocol: Document 08/23/21 09:00 [facility] (Rec: 08/23/21 09:48 [facility] [id number]) Therapeutic Exercises Supine Exercises pelvic floor long holds Reps/Minutes x 10 reps 15.4 uv and max 41.1 uv Comments elevated resting tone at 7 uv cobra stretch Reps/Minutes hold on this stretch as it was bothering pts back Standing Exercises standing doorway stretch Reps/Minutes 2 reps hold 1-2 min each Manual Therapy Treatment Soft Tissue Mobilization bladder mobilizations Body Position Supine Comments good tolerance, right sided tightness due to hx of appendix surgery and hernia MFR of the suprapubic fascia Body Position Supine Self-Care/Home Management Treatment Education Other Education education on miracle balls to release the sacral attachments B as pt has pain in this area and is having a difficult time relaxing pelvic floor. PT-OP-T Assessment and Plan Start: 08/09/21 13:48 Freq: Status: Active Protocol: Document 08/23/21 09:00 [facility] (Rec: 08/23/21 09:48 [facility] [id number]) Physical Therapy Assessment Goals 4 Impairment Elevated resting tone of the pelvic floor muscles at 4.0 on EMG biofeedback Short Term Goal (STG) Mr Woodward is able to relax his pelvic floor to baseline on EMG biofeedback to promote improved ability to void STG Duration 6 weeks 3 Impairment Decreased pelvic floor endurance Halfway Goal (LTG) Mr Woodward is able to increase his pelvic floor endurance to 10 second hold time in supine with full pelvic floor relaxation in between contractions LTG Duration 12 weeks 2 Impairment pt reports decreased sensation that he needs to void Short Term Goal (STG) Mr. Woodward is educated on timed voiding using the catheter and /or self voiding every 2.5-3 hours throughout the day STG Duration 4 weeks 1 Impairment urinary retention and pt need to self catheterize 3 times per day Glove Cleaner Goal (LTG) pt is educated on relaxed awarensess of the pelvic floor and abdominal wall to improve fully emptying his bladder LTG Duration 12 weeks Assessment Summary Assessment worked on fascial release in the suprapubic fascia and right side of abdominal wall. When performing his pelvic floor exercises Fabian was pushing his abdomen away from his spine which was most likely irritating the hernia region. We reviewed how to do his exercises correctly to avoid straining. Physical Therapy Plan Frequency and Duration Frequency of Treatment 1x/Week Duration of Treatment 12 Plan of Care Start Date 08/09/21 Plan of Care End Date 11/01/21 Therapeutic Interventions Therapeutic Interventions Home Exercise Program,Manual Therapy,Neuromuscular Re- education,Patient/Caregiver Education,Self-Care/Home Management,Soft Tissue Mobilization Modalities Biofeedback Next Visit Focus/Plan Next Note Type Treatment Note Next Visit Plan MFR over the suprapubic fascia , stretches for the pelvic floor. EMG biofeedback for pelvic floor endruance training
--- NOTE | 2021-08-29 13:50 | PT.OTN ---
Current Diagnoses Retention of urine, unspecified (08/29/21) Extravasation of urine (08/29/21) Physical Therapy Treatment Note PT-OP-A Visit Information Start: 08/09/21 13:48 Freq: Status: Active Protocol: Document 08/29/21 11:15 [facility] (Rec: 08/29/21 12:00 [facility] [id number]) Out-Patient Physical Therapy Visit Information Visit Information Visit Type Treatment Note Visit Start Time 11:15 Visit Stop Time 12:00 Total Visit Minutes 45 Visit Number 3 PT-OP-B Current Condition Start: 08/09/21 13:48 Freq: Status: Active Protocol: Document 08/09/21 13:45 [facility] (Rec: 08/09/21 14:19 [facility] [id number]) Current Condition History of Current Condition Onset Date 2009 Current Complaints urinary retention History of Current Condition 71 yo male with Hx of bladder cancer in 2009, tuberculine infusion and at that time he wasn't fully emptying his bladder. Mr Woodward reports has had 6 spinal surgeries and last summer he was feeling like if he got up at night he couldn't pee at all His back surgeries were from L2-S1 In 2012 he underwent a 5 level fusion then the next year he had a non union and he went back in for a complete revision. He reports there was a lot of bony growth in the fusion itself. He spends his winter in [place] he walks 3 miles per day. He reports lack of sensation of needing to void, he needs to self catherathizes x the past 9 months. Recently Mr. 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 He is referred to PT for his urinary retention Treatment Goals Patient/Caregiver Goals pt reports his goals include improved voiding and ability to fully empty his bladder PT-OP-C Subjective Start: 08/09/21 13:48 Freq: Status: Active Protocol: Document 08/29/21 11:15 [facility] (Rec: 08/29/21 12:00 [facility] [id number]) OP-PT Subjective Patient Comments Patient Comments pt is measuring his urine and 60% catheter and 40 void until now and the last couple of days it has been 50/50 percent . He is noticing that his strength is still left sided and he feels he lacks endurance. PT-OP-I Pelvic Floor Start: 08/09/21 13:48 Freq: Status: Active Protocol: Document 08/09/21 17:41 [facility] (Rec: 08/16/21 18:39 [facility] [id number]) Pelvic Floor Assessment Urine Pelvic Floor Surgery Yes Urinary Symptoms Incomplete Emptying Other Urinary Symptoms difficulty starting and stopping the stream of urine, pt self catheterizes 3 times per day and voids on his own 3 -4 times per day. He goes to bed at 10:00 and wakes up to void at 2:00 and at 4:00 pt also reports decreased sensation that he needs to void SEMG (uV) Baseline 4.0 Recruitment Pattern Fair Holding Poor/Slow Stability of Hold Poor/Slow Contraction Ability Muscle Endurance (Seconds) 5 Comments Pelvic Floor Comments There is tightness in the suprapubic fasica and surrounding the bladder, pt has a resting tone of 4.0 uv on EMG biofeedback. His average contraction on EMG biofeedback is 7.1 uv with a max of 27.9 uv PT-OP-J Posture/Palpation/Skin Start: 08/09/21 13:48 Freq: Status: Active Protocol: Document 08/09/21 17:41 [facility] (Rec: 08/16/21 18:39 [facility] [id number]) Palpation Assessment Location suprapubic fascia Palpation Location suprapubic fascia Palpation Findings Soft Tissue Tightness,Muscle Guarding Palpation Details tightness and guarding surrounding the bladder and suprapubic fascia PT-OP-Q Treatments Start: 08/09/21 13:48 Freq: Status: Active Protocol: Document 08/29/21 11:15 [facility] (Rec: 08/29/21 12:00 [facility] [id number]) Therapeutic Exercises Supine Exercises iliopsoas stretch Reps/Minutes x 1 min Comments марина test position pelvic floor long holds Comments 5.8 average rest as low as 3.4 uv Manual Therapy Treatment Soft Tissue Mobilization bladder mobilizations Body Position Supine Comments good tolerance, right sided tightness due to hx of appendix surgery and hernia MFR of the suprapubic fascia Body Position Supine Comments Right >Left sided tightness PT-OP-T Assessment and Plan Start: 08/09/21 13:48 Freq: Status: Active Protocol: Document 08/29/21 11:15 [facility] (Rec: 08/29/21 12:00 [facility] [id number]) Physical Therapy Assessment Goals 4 Impairment Elevated resting tone of the pelvic floor muscles at 4.0 on EMG biofeedback Short Term Goal (STG) Mr Woodward is able to relax his pelvic floor to baseline on EMG biofeedback to promote improved ability to void STG Duration 6 weeks 3 Impairment Decreased pelvic floor endurance Dog Or Horse Racing Official Goal (LTG) Mr Woodward is able to increase his pelvic floor endurance to 10 second hold time in supine with full pelvic floor relaxation in between contractions LTG Duration 12 weeks 2 Impairment pt reports decreased sensation that he needs to void Short Term Goal (STG) Mr. Woodward is educated on timed voiding using the catheter and /or self voiding every 2.5-3 hours throughout the day STG Duration 4 weeks 1 Impairment urinary retention and pt need to self catheterize 3 times per day Dog Or Horse Racing Official Goal (LTG) pt is educated on relaxed awareness of the pelvic floor and abdominal wall to improve fully emptying his bladder LTG Duration 12 weeks Physical Therapy Plan Frequency and Duration Frequency of Treatment 1x/Week Duration of Treatment 12 Plan of Care Start Date 08/09/21 Plan of Care End Date 11/01/21 Therapeutic Interventions Therapeutic Interventions Home Exercise Program,Manual Therapy,Neuromuscular Re- education,Patient/Caregiver Education,Self-Care/Home Management,Soft Tissue Mobilization Modalities Biofeedback Next Visit Focus/Plan Next Note Type Treatment Note Next Visit Plan diaphragmatic breathing, MFR over the suprapubic fascia, stretches for the pelvic floor . EMG biofeedback for pelvic floor endruance training
--- NOTE | 2021-08-29 13:55 | PT.OTN ---
Current Diagnoses Retention of urine, unspecified (08/29/21) Extravasation of urine (08/29/21) Physical Therapy Treatment Note PT-OP-A Visit Information Start: 08/09/21 13:48 Freq: Status: Active Protocol: Document 08/29/21 11:15 [facility] (Rec: 08/29/21 12:00 [facility] [id number]) Out-Patient Physical Therapy Visit Information Visit Information Visit Type Treatment Note Visit Start Time 11:15 Visit Stop Time 12:00 Total Visit Minutes 45 Visit Number 3 PT-OP-B Current Condition Start: 08/09/21 13:48 Freq: Status: Active Protocol: Document 08/09/21 13:45 [facility] (Rec: 08/09/21 14:19 [facility] [id number]) Current Condition History of Current Condition Onset Date 2009 Current Complaints urinary retention History of Current Condition 71 yo male with Hx of bladder cancer in 2009, tuberculine infusion and at that time he wasn't fully emptying his bladder. Mr Woodward reports has had 6 spinal surgeries and last summer he was feeling like if he got up at night he couldn't pee at all His back surgeries were from L2-S1 In 2012 he underwent a 5 level fusion then the next year he had a non union and he went back in for a complete revision. He reports there was a lot of bony growth in the fusion itself. He spends his winter in [place] he walks 3 miles per day. He reports lack of sensation of needing to void, he needs to self catherathizes x the past 9 months. Recently Mr. 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 He is referred to PT for his urinary retention Treatment Goals Patient/Caregiver Goals pt reports his goals include improved voiding and ability to fully empty his bladder PT-OP-C Subjective Start: 08/09/21 13:48 Freq: Status: Active Protocol: Document 08/29/21 11:15 [facility] (Rec: 08/29/21 12:00 [facility] [id number]) OP-PT Subjective Patient Comments Patient Comments pt is measuring his urine and 60% catheter and 40 void until now and the last couple of days it has been 50/50 percent . He is noticing that his strength is still left sided and he feels he lacks endurance. PT-OP-I Pelvic Floor Start: 08/09/21 13:48 Freq: Status: Active Protocol: Document 08/09/21 17:41 [facility] (Rec: 08/16/21 18:39 [facility] [id number]) Pelvic Floor Assessment Urine Pelvic Floor Surgery Yes Urinary Symptoms Incomplete Emptying Other Urinary Symptoms difficulty starting and stopping the stream of urine, pt self catheterizes 3 times per day and voids on his own 3 -4 times per day. He goes to bed at 10:00 and wakes up to void at 2:00 and at 4:00 pt also reports decreased sensation that he needs to void SEMG (uV) Baseline 4.0 Recruitment Pattern Fair Holding Poor/Slow Stability of Hold Poor/Slow Contraction Ability Muscle Endurance (Seconds) 5 Comments Pelvic Floor Comments There is tightness in the suprapubic fasica and surrounding the bladder, pt has a resting tone of 4.0 uv on EMG biofeedback. His average contraction on EMG biofeedback is 7.1 uv with a max of 27.9 uv PT-OP-J Posture/Palpation/Skin Start: 08/09/21 13:48 Freq: Status: Active Protocol: Document 08/09/21 17:41 [facility] (Rec: 08/16/21 18:39 [facility] [id number]) Palpation Assessment Location suprapubic fascia Palpation Location suprapubic fascia Palpation Findings Soft Tissue Tightness,Muscle Guarding Palpation Details tightness and guarding surrounding the bladder and suprapubic fascia PT-OP-Q Treatments Start: 08/09/21 13:48 Freq: Status: Active Protocol: Document 08/29/21 11:15 [facility] (Rec: 08/29/21 12:00 [facility] [id number]) Therapeutic Exercises Supine Exercises iliopsoas stretch Reps/Minutes x 1 min Comments марина test position pelvic floor long holds Comments 5.8 average rest as low as 3.4 uv Manual Therapy Treatment Soft Tissue Mobilization bladder mobilizations Body Position Supine Comments good tolerance, right sided tightness due to hx of appendix surgery and hernia MFR of the suprapubic fascia Body Position Supine Comments Right >Left sided tightness Self-Care/Home Management Treatment Activities Self-Care/Home Management Activities HEP reviewed, modified chest stretch in doorway, time spent discussing previous bladder surgery with resulting scar tissue PT-OP-T Assessment and Plan Start: 08/09/21 13:48 Freq: Status: Active Protocol: Document 08/29/21 11:15 [facility] (Rec: 08/29/21 12:00 [facility] [id number]) Physical Therapy Assessment Goals 4 Impairment Elevated resting tone of the pelvic floor muscles at 4.0 on EMG biofeedback Short Term Goal (STG) Mr Woodward is able to relax his pelvic floor to baseline on EMG biofeedback to promote improved ability to void STG Duration 6 weeks 3 Impairment Decreased pelvic floor endurance Skilled Nursing Goal (LTG) Mr Woodward is able to increase his pelvic floor endurance to 10 second hold time in supine with full pelvic floor relaxation in between contractions LTG Duration 12 weeks 2 Impairment pt reports decreased sensation that he needs to void Short Term Goal (STG) Mr. Woodward is educated on timed voiding using the catheter and /or self voiding every 2.5-3 hours throughout the day STG Duration 4 weeks 1 Impairment urinary retention and pt need to self catheterize 3 times per day Skilled Nursing Goal (LTG) pt is educated on relaxed awarensess of the pelvic floor and abdominal wall to improve fully emptying his bladder LTG Duration 12 weeks Assessment Summary Assessment Fabian was able to lower his resting tone on EMG biofeedback today as compared to previous visit. He is working on pelvic floor relaxation with voiding and feels it is a little better. Continue working the suprapubic fascia and pelvic floor coordination/relaxation Physical Therapy Plan Frequency and Duration Frequency of Treatment 1x/Week Duration of Treatment 12 Plan of Care Start Date 08/09/21 Plan of Care End Date 11/01/21 Therapeutic Interventions Therapeutic Interventions Home Exercise Program,Manual Therapy,Neuromuscular Re- education,Patient/Caregiver Education,Self-Care/Home Management,Soft Tissue Mobilization Modalities Biofeedback Next Visit Focus/Plan Next Note Type Treatment Note Next Visit Plan diaphragmatic breathing, MFR over the suprapubic fascia, stretches for the pelvic floor . EMG biofeedback for pelvic floor endruance training
--- NOTE | 2021-08-29 13:55 | PT.OTN ---
Current Diagnoses Retention of urine, unspecified (08/29/21) Extravasation of urine (08/29/21) Physical Therapy Treatment Note PT-OP-A Visit Information Start: 08/09/21 13:48 Freq: Status: Active Protocol: Document 08/29/21 11:15 [facility] (Rec: 08/29/21 12:00 [facility] [id number]) Out-Patient Physical Therapy Visit Information Visit Information Visit Type Treatment Note Visit Start Time 11:15 Visit Stop Time 12:00 Total Visit Minutes 45 Visit Number 3 PT-OP-B Current Condition Start: 08/09/21 13:48 Freq: Status: Active Protocol: Document 08/09/21 13:45 [facility] (Rec: 08/09/21 14:19 [facility] [id number]) Current Condition History of Current Condition Onset Date 2009 Current Complaints urinary retention History of Current Condition 71 yo male with Hx of bladder cancer in 2009, tuberculine infusion and at that time he wasn't fully emptying his bladder. Mr Woodward reports has had 6 spinal surgeries and last summer he was feeling like if he got up at night he couldn't pee at all His back surgeries were from L2-S1 In 2012 he underwent a 5 level fusion then the next year he had a non union and he went back in for a complete revision. He reports there was a lot of bony growth in the fusion itself. He spends his winter in [place] he walks 3 miles per day. He reports lack of sensation of needing to void, he needs to self catherathizes x the past 9 months. Recently Mr. 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 He is referred to PT for his urinary retention Treatment Goals Patient/Caregiver Goals pt reports his goals include improved voiding and ability to fully empty his bladder PT-OP-C Subjective Start: 08/09/21 13:48 Freq: Status: Active Protocol: Document 08/29/21 11:15 [facility] (Rec: 08/29/21 12:00 [facility] [id number]) OP-PT Subjective Patient Comments Patient Comments pt is measuring his urine and 60% catheter and 40 void until now and the last couple of days it has been 50/50 percent . He is noticing that his strength is still left sided and he feels he lacks endurance. PT-OP-I Pelvic Floor Start: 08/09/21 13:48 Freq: Status: Active Protocol: Document 08/09/21 17:41 [facility] (Rec: 08/16/21 18:39 [facility] [id number]) Pelvic Floor Assessment Urine Pelvic Floor Surgery Yes Urinary Symptoms Incomplete Emptying Other Urinary Symptoms difficulty starting and stopping the stream of urine, pt self catheterizes 3 times per day and voids on his own 3 -4 times per day. He goes to bed at 10:00 and wakes up to void at 2:00 and at 4:00 pt also reports decreased sensation that he needs to void SEMG (uV) Baseline 4.0 Recruitment Pattern Fair Holding Poor/Slow Stability of Hold Poor/Slow Contraction Ability Muscle Endurance (Seconds) 5 Comments Pelvic Floor Comments There is tightness in the suprapubic fasica and surrounding the bladder, pt has a resting tone of 4.0 uv on EMG biofeedback. His average contraction on EMG biofeedback is 7.1 uv with a max of 27.9 uv PT-OP-J Posture/Palpation/Skin Start: 08/09/21 13:48 Freq: Status: Active Protocol: Document 08/09/21 17:41 [facility] (Rec: 08/16/21 18:39 [facility] [id number]) Palpation Assessment Location suprapubic fascia Palpation Location suprapubic fascia Palpation Findings Soft Tissue Tightness,Muscle Guarding Palpation Details tightness and guarding surrounding the bladder and suprapubic fascia PT-OP-Q Treatments Start: 08/09/21 13:48 Freq: Status: Active Protocol: Document 08/29/21 11:15 [facility] (Rec: 08/29/21 12:00 [facility] [id number]) Therapeutic Exercises Supine Exercises TA with heel slides Reps/Minutes x 10 reps iliopsoas stretch Reps/Minutes x 1 min Comments марина test position pelvic floor long holds Comments 5.8 average rest as low as 3.4 uv Manual Therapy Treatment Soft Tissue Mobilization bladder mobilizations Body Position Supine Comments good tolerance, right sided tightness due to hx of appendix surgery and hernia MFR of the suprapubic fascia Body Position Supine Comments Right >Left sided tightness Self-Care/Home Management Treatment Activities Self-Care/Home Management Activities HEP reviewed, modified chest stretch in doorway, time spent discussing previous bladder surgery with resulting scar tissue PT-OP-T Assessment and Plan Start: 08/09/21 13:48 Freq: Status: Active Protocol: Document 08/29/21 11:15 [facility] (Rec: 08/29/21 12:00 [facility] [id number]) Physical Therapy Assessment Goals 4 Impairment Elevated resting tone of the pelvic floor muscles at 4.0 on EMG biofeedback Short Term Goal (STG) Mr Woodward is able to relax his pelvic floor to baseline on EMG biofeedback to promote improved ability to void STG Duration 6 weeks 3 Impairment Decreased pelvic floor endurance Grants Assistant Goal (LTG) Mr Woodward is able to increase his pelvic floor endurance to 10 second hold time in supine with full pelvic floor relaxation in between contractions LTG Duration 12 weeks 2 Impairment pt reports decreased sensation that he needs to void Short Term Goal (STG) Mr. Woodward is educated on timed voiding using the catheter and /or self voiding every 2.5-3 hours throughout the day STG Duration 4 weeks 1 Impairment urinary retention and pt need to self catheterize 3 times per day Detention Goal (LTG) pt is educated on relaxed awarensess of the pelvic floor and abdominal wall to improve fully emptying his bladder LTG Duration 12 weeks Assessment Summary Assessment Fabian was able to lower his resting tone on EMG biofeedback today as compared to previous visit. He is working on pelvic floor relaxation with voiding and feels it is a little better. Continue working the suprapubic fascia and pelvic floor coordination/relaxation Physical Therapy Plan Frequency and Duration Frequency of Treatment 1x/Week Duration of Treatment 12 Plan of Care Start Date 08/09/21 Plan of Care End Date 11/01/21 Therapeutic Interventions Therapeutic Interventions Home Exercise Program,Manual Therapy,Neuromuscular Re- education,Patient/Caregiver Education,Self-Care/Home Management,Soft Tissue Mobilization Modalities Biofeedback Next Visit Focus/Plan Next Note Type Treatment Note Next Visit Plan diaphragmatic breathing, MFR over the suprapubic fascia, stretches for the pelvic floor . EMG biofeedback for pelvic floor endruance training
--- NOTE | 2021-09-11 13:15 | PT.OTN ---
Current Diagnoses Retention of urine, unspecified (09/11/21) Extravasation of urine (09/11/21) Physical Therapy Treatment Note PT-OP-A Visit Information Start: 08/09/21 13:48 Freq: Status: Active Protocol: Document 09/11/21 09:00 [facility] (Rec: 09/11/21 09:43 [facility] [id number]) Out-Patient Physical Therapy Visit Information Visit Information Visit Type Treatment Note Visit Start Time 09:00 Visit Stop Time 09:45 Total Visit Minutes 45 Visit Number 4 PT-OP-B Current Condition Start: 08/09/21 13:48 Freq: Status: Active Protocol: Document 08/09/21 13:45 [facility] (Rec: 08/09/21 14:19 [facility] [id number]) Current Condition History of Current Condition Onset Date 2009 Current Complaints urinary retention History of Current Condition 71 yo male with Hx of bladder cancer in 2009, tuberculine infusion and at that time he wasn't fully emptying his bladder. Mr Woodward reports has had 6 spinal surgeries and last summer he was feeling like if he got up at night he couldn't pee at all His back surgeries were from L2-S1 In 2012 he underwent a 5 level fusion then the next year he had a non union and he went back in for a complete revision. He reports there was a lot of bony growth in the fusion itself. He spends his winter in [place] he walks 3 miles per day. He reports lack of sensation of needing to void, he needs to self catherathizes x the past 9 months. Recently Mr. 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 He is referred to PT for his urinary retention Treatment Goals Patient/Caregiver Goals pt reports his goals include improved voiding and ability to fully empty his bladder PT-OP-C Subjective Start: 08/09/21 13:48 Freq: Status: Active Protocol: Document 09/11/21 09:00 [facility] (Rec: 09/11/21 09:43 [facility] [id number]) OP-PT Subjective Patient Comments Patient Comments pt reports he is still staying 50/50. With the exercises the left side will feel like tired muscles and the right side can be a little sore. He saw Dr Zhong for his appt and it sounds like he will need his prostate out. His cystoscopy is the middle of next month. Patient Reported Progress Same PT-OP-I Pelvic Floor Start: 08/09/21 13:48 Freq: Status: Active Protocol: Document 08/09/21 17:41 [facility] (Rec: 08/16/21 18:39 [facility] [id number]) Pelvic Floor Assessment Urine Pelvic Floor Surgery Yes Urinary Symptoms Incomplete Emptying Other Urinary Symptoms difficulty starting and stopping the stream of urine, pt self catheterizes 3 times per day and voids on his own 3 -4 times per day. He goes to bed at 10:00 and wakes up to void at 2:00 and at 4:00 pt also reports decreased sensation that he needs to void SEMG (uV) Baseline 4.0 Recruitment Pattern Fair Holding Poor/Slow Stability of Hold Poor/Slow Contraction Ability Muscle Endurance (Seconds) 5 Comments Pelvic Floor Comments There is tightness in the suprapubic fasica and surrounding the bladder, pt has a resting tone of 4.0 uv on EMG biofeedback. His average contraction on EMG biofeedback is 7.1 uv with a max of 27.9 uv PT-OP-J Posture/Palpation/Skin Start: 08/09/21 13:48 Freq: Status: Active Protocol: Document 08/09/21 17:41 [facility] (Rec: 08/16/21 18:39 [facility] [id number]) Palpation Assessment Location suprapubic fascia Palpation Location suprapubic fascia Palpation Findings Soft Tissue Tightness,Muscle Guarding Palpation Details tightness and guarding surrounding the bladder and suprapubic fascia PT-OP-Q Treatments Start: 08/09/21 13:48 Freq: Status: Active Protocol: Document 09/11/21 09:00 [facility] (Rec: 09/11/21 09:43 [facility] [id number]) Therapeutic Exercises Supine Exercises hip roll outs Reps/Minutes 2 x 10 reps Comments given to pt for HEP, able to get to baseline on EMG biofeedback diaphragmatic breathing Reps/Minutes x 4 min iliopsoas stretch Supine Exercise Name right side Reps/Minutes x 1 min Comments марина test position pelvic floor long holds Reps/Minutes x 10 reps average 8.6 uv 2.1 resting Comments resting tone 2.0 following diaphragmatic breathing Manual Therapy Treatment Soft Tissue Mobilization bladder mobilizations Body Position Supine Comments good tolerance, right sided tightness due to hx of appendix surgery and hernia MFR of the suprapubic fascia Body Position Supine Comments Right >Left sided tightness PT-OP-T Assessment and Plan Start: 08/09/21 13:48 Freq: Status: Active Protocol: Document 09/11/21 09:00 [facility] (Rec: 09/11/21 13:15 [facility] [id number]) Physical Therapy Assessment Goals 4 Impairment Elevated resting tone of the pelvic floor muscles at 4.0 on EMG biofeedback Short Term Goal (STG) Mr Woodward is able to relax his pelvic floor to baseline on EMG biofeedback to promote improved ability to void STG Duration 6 weeks 3 Impairment Decreased pelvic floor endurance [facility] Goal (LTG) Mr Woodward is able to increase his pelvic floor endurance to 10 second hold time in supine with full pelvic floor relaxation in between contractions LTG Duration 12 weeks 2 Impairment pt reports decreased sensation that he needs to void Short Term Goal (STG) Mr. Woodward is educated on timed voiding using the catheter and /or self voiding every 2.5-3 hours throughout the day STG Duration 4 weeks 1 Impairment urinary retention and pt need to self catheterize 3 times per day Stevedoring Superintendent Goal (LTG) pt is educated on relaxed awareness of the pelvic floor and abdominal wall to improve fully emptying his bladder LTG Duration 12 weeks Assessment Summary Assessment With roll outs Fabian was able to relax to baseline, he was given roll outs for HEP Physical Therapy Plan Frequency and Duration Frequency of Treatment 1x/Week Duration of Treatment 12 Plan of Care Start Date 08/09/21 Plan of Care End Date 11/01/21 Therapeutic Interventions Therapeutic Interventions Home Exercise Program,Manual Therapy,Neuromuscular Re- education,Patient/Caregiver Education,Self-Care/Home Management,Soft Tissue Mobilization Modalities Biofeedback Next Visit Focus/Plan Next Note Type Treatment Note Next Visit Plan check in with pts ability to void with working on roll outs to relax baseline and diaphragmatic breathing.
--- NOTE | 2021-09-27 11:57 | PT.OTN ---
Current Diagnoses Retention of urine, unspecified (09/27/21) Extravasation of urine (09/27/21) Physical Therapy Treatment Note PT-OP-A Visit Information Start: 08/09/21 13:48 Freq: Status: Active Protocol: Document 09/27/21 11:22 [facility] (Rec: 09/27/21 11:56 [facility] [id number]) Out-Patient Physical Therapy Visit Information Visit Information Visit Type Treatment Note Visit Start Time 11:22 Visit Stop Time 11:42 Total Visit Minutes 20 Visit Number 6 PT-OP-B Current Condition Start: 08/09/21 13:48 Freq: Status: Active Protocol: Document 08/09/21 13:45 [facility] (Rec: 08/09/21 14:19 [facility] [id number]) Current Condition History of Current Condition Onset Date 2009 Current Complaints urinary retention History of Current Condition 71 yo male with Hx of bladder cancer in 2009, tuberculine infusion and at that time he wasn't fully emptying his bladder. Mr Woodward reports has had 6 spinal surgeries and last summer he was feeling like if he got up at night he couldn't pee at all His back surgeries were from L2-S1 In 2012 he underwent a 5 level fusion then the next year he had a non union and he went back in for a complete revision. He reports there was a lot of bony growth in the fusion itself. He spends his winter in [place] he walks 3 miles per day. He reports lack of sensation of needing to void, he needs to self catherathizes x the past 9 months. Recently Mr. 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 He is referred to PT for his urinary retention Treatment Goals Patient/Caregiver Goals pt reports his goals include improved voiding and ability to fully empty his bladder PT-OP-C Subjective Start: 08/09/21 13:48 Freq: Status: Active Protocol: Document 09/27/21 11:22 [facility] (Rec: 09/27/21 11:56 [facility] [id number]) OP-PT Subjective Patient Comments Patient Comments pt is scheduled for surgery friday as additional cancer was found in the bladder, he will under go bladder resection, no prostate surgery at this point. The section of the urethra is scared and inflammed. He will be catherazied x 5 days post surgery. He is doing a bone scan next friday and surgery is scheduled for Friday the . He is noticing it doesn't take as long to establish a stream now and the stream seems to be pretty good. PT-OP-I Pelvic Floor Start: 08/09/21 13:48 Freq: Status: Active Protocol: Document 08/09/21 17:41 [facility] (Rec: 08/16/21 18:39 [facility] [id number]) Pelvic Floor Assessment Urine Pelvic Floor Surgery Yes Urinary Symptoms Incomplete Emptying Other Urinary Symptoms difficulty starting and stopping the stream of urine, pt self catheterizes 3 times per day and voids on his own 3 -4 times per day. He goes to bed at 10:00 and wakes up to void at 2:00 and at 4:00 pt also reports decreased sensation that he needs to void SEMG (uV) Baseline 4.0 Recruitment Pattern Fair Holding Poor/Slow Stability of Hold Poor/Slow Contraction Ability Muscle Endurance (Seconds) 5 Comments Pelvic Floor Comments There is tightness in the suprapubic fasica and surrounding the bladder, pt has a resting tone of 4.0 uv on EMG biofeedback. His average contraction on EMG biofeedback is 7.1 uv with a max of 27.9 uv PT-OP-J Posture/Palpation/Skin Start: 08/09/21 13:48 Freq: Status: Active Protocol: Document 08/09/21 17:41 [facility] (Rec: 08/16/21 18:39 [facility] [id number]) Palpation Assessment Location suprapubic fascia Palpation Location suprapubic fascia Palpation Findings Soft Tissue Tightness,Muscle Guarding Palpation Details tightness and guarding surrounding the bladder and suprapubic fascia PT-OP-Q Treatments Start: 08/09/21 13:48 Freq: Status: Active Protocol: Document 09/27/21 11:22 [facility] (Rec: 09/27/21 11:56 [facility] [id number]) Self-Care/Home Management Treatment Activities Self-Care/Home Management Activities time was spent today reviewing HEP and post surgical anti inflammatory measures. Pt was educated in seated verses supine posture for post op strengthening care PT-OP-T Assessment and Plan Start: 08/09/21 13:48 Freq: Status: Active Protocol: Document 09/27/21 11:22 [facility] (Rec: 09/27/21 11:56 [facility] [id number]) Physical Therapy Assessment Goals 4 Impairment Elevated resting tone of the pelvic floor muscles at 4.0 on EMG biofeedback Short Term Goal (STG) Mr Woodward is able to relax his pelvic floor to baseline on EMG biofeedback to promote improved ability to void Excellent progress with pelvic floor relaxation to baseline, this however has not make significant improvements with his ability to void STG Duration 6 weeks 3 Impairment Decreased pelvic floor endurance Senior Program Planner Goal (LTG) Mr Woodward is able to increase his pelvic floor endurance to 10 second hold time in supine with full pelvic floor relaxation in between contractions GOAL MET LTG Duration 12 weeks 2 Impairment pt reports decreased sensation that he needs to void Short Term Goal (STG) Mr. Woodward is educated on timed voiding using the catheter and /or self voiding every 2.5-3 hours throughout the day No change STG Duration 4 weeks 1 Impairment urinary retention and pt need to self catheterize 3 times per day Senior Program Planner Goal (LTG) pt is educated on relaxed awarensess of the pelvic floor and abdominal wall to improve fully emptying his bladder Pt has been educated on relaxed awareness of his abdominals and pelvic floor. LTG Duration 12 weeks Assessment Summary Assessment At this point pt will be DC's from PT as he is undergoing bladder resection due to additional cancer being present within his bladder. We discussed his HEP today and he feels comfortable with what to do post op for pelvic floor strengthening. He was given exercises that assist with pelvic floor strength to do post op until he feels ready to contract his pelvic floor or until he is able to isolate his pelvic floor. Fbaian is demonstrating full pelvic floor relaxation on EMG biofeedback and he is able to sustain a pelvic floor contraction x 10 seconds in supine. I would be happy to assit with any pelvic floor strengthening and relaxation again in the future should Fabian need further care Physical Therapy Plan Discharge Physical Therapy Discharge Reasons Change in Medical Status Discharge Comments pt undergoing bladder resection surgery for additional bladder cancer found. He will be d/c from PT at this time
== END 2022-08-02 13:12 ==
LOC: PHYS 11:15
PROVIDERS: Family Provider Family Medicine; PCP Family Medicine; Referring Provider Specialist; Visit Provider Specialist
DX: R39.0 Extravasation of urine (principal); R33.9 Retention of urine, unspecified
CPT/HCPCS: 97110; 97140; 97161; 97535

== ENCOUNTER → 2021-09-28 11:57 | Outpatient (CLI) | payer MEDICARE, OTHER, SELFPAY ==
--- NOTE | 2021-09-28 11:58 | DI.CT.S_ITS ---
PROCEDURE: CT CHEST ABD PEL W CON INDICATIONS: 71-year-old male with recurrent prostate cancer, staging for bladder cancer TECHNIQUE: After the administration of intravenous contrast, 5 mm thick sections acquired from the lung apices to the symphysis. 2.5 mm thick coronal and sagittal reformats were acquired. Additional 7 mm thick coronal maximum intensity projection (MIP) reformats acquired through the lungs. For radiation dose reduction, the following was used: automated exposure control, adjustment of mA and/or kV according to patient size. COMPARISON: [facility], CT, L-SPINE WITH CONTRAST, 05/16/2017, 11:18. [facility], CT, CT LUMBAR SPINE WO CON, 09/22/2020, 12:09. FINDINGS: Chest: Cardiovascular: Heart size is normal. No evidence of pulmonary embolism, aortic aneurysm or dissection. Lungs and pleural spaces: Small scattered calcified granulomas noted. Left upper lobe 4 mm nodule noted on image 5/160. Platelike atelectasis or scarring noted in both lower lobes. Lymph nodes: No mediastinal, hilar or axillary adenopathy. Mediastinum: Unremarkable. Moderate hiatal hernia noted. Thyroid within normal limits. Chest Wall and Bones: Sclerotic degenerative endplate changes noted at T11-12 and T2 and at L1-2, similar prior exam. Epidural stimulator noted. No suspicious lytic or blastic lesion. Abdomen and Pelvis: Liver: The liver is diffusely decreased in attenuation without focal mass lesion. Biliary system: No calcified cholelithiasis or pericholecystic inflammation. No intra or extrahepatic bile duct dilatation. Pancreas: Unremarkable without mass or inflammation evident. Spleen: Normal in size and density. Adrenals: Normal morphology and density. Reproductive system: Unremarkable as visualized. Urinary system: Normal renal size and attenuation. Tiny 3 mm right renal nonobstructive calculus noted. No hydronephrosis bilaterally.. Urinary bladder unremarkable. Gastrointestinal system: The bowel is unremarkable with no evidence of bowel obstruction or inflammation. The stomach appears unremarkable. No findings to suggest acute appendicitis. Multiple diverticula arise from the sigmoid colon without evidence of diverticulitis. Lymph nodes: No mesenteric or retroperitoneal adenopathy. Peritoneal spaces: No free air. No free fluid. Vasculature: Aortic atherosclerotic vascular calcification noted without evidence of aneurysm. Abdominal wall: Left inguinal hernia contains fat without bowel involvement Musculoskeletal: Extensive interbody and posterolateral fusion with large a nelia and screw posterior construct as well as low-profile L5-S1 instrumentation. No evidence of hardware failure loosening. No lytic or blastic lesion. Left posterolateral intramuscular lipoma noted measuring 4.5 cm involving the abdominal wall IMPRESSION: 1. Unremarkable appearing urinary bladder and prostate. No lytic or blastic osseous lesion. 2. Non-specific 4 mm left upper lobe nodule noted. Consider short-term interval follow-up in 6 months. 3. Moderate hiatal hernia, atherosclerotic vascular calcification without aneurysm, additional chronic changes detailed above Approved by: Naveen Cabrera M.D. on 09/28/2021 at 18:15
[2021-09-28 12:29] LABS: Blood Urea Nitrogen 26 mg/dL (9-20); Calcium 9.1 mg/dL (8.4-10.2); Carbon Dioxide 22 mmol/L (22-32); Chloride 107 mmol/L (98-107); Estimated Glomerular Filt Rate > 60 mL/min (>60); Glucose 89 mg/dL (80-110); HEMOLYSIS < 15 (0-50); Potassium 4.7 mmol/L (3.4-5.1); Sodium 138 mmol/L (137-145)
[2021-09-28 12:59] LABS: Prostate Specific Antigen 14.9 ng/mL (0.10-4.00)
== END ==
PROVIDERS: Family Provider Family Medicine; PCP Family Medicine; Referring Provider Specialist; Visit Provider Specialist
DX: C61 Malignant neoplasm of prostate (principal); C67.9 Malignant neoplasm of bladder, unspecified; K57.30 Diverticulosis of large intestine without perforation or abscess without bleeding; K40.90 Unilateral inguinal hernia, without obstruction or gangrene, not specified as recurrent; R91.1 Solitary pulmonary nodule; I70.0 Atherosclerosis of aorta; Z98.1 Arthrodesis status
CPT/HCPCS: 36415; 71260; 74177; 80048; 84153

== ENCOUNTER → 2021-10-02 09:59 | Outpatient (CLI) | payer MEDICARE, OTHER, SELFPAY ==
--- NOTE | 2021-10-02 10:00 | DI.NM.S_ITS ---
PROCEDURE: NM BONE SCAN WHOLE BODY RADIOPHARMACEUTICAL: 21.3 mCi Tc-99m MDP IV. INDICATIONS: recurrent prostate cancer TECHNIQUE: Delayed whole-body scintigrams were obtained approximately 3-4 hours after intravenous injection of radiotracer. Anterior and posterior views were acquired from vertex to feet. Additional left and right oblique views of the thoracic cage were obtained. COMPARISON: [facility], CT, CT CHEST ABD PEL W CON, 09/28/2021, 13:51. [facility], CT, CT LUMBAR SPINE WO CON, 09/22/2020, 12:09. [facility], CT, CT THORACIC SPINE WO CON, 09/22/2020, 12:09. FINDINGS: There is increased activity in the sternomanubrial junction. The comparison CT dated 09/28/2021 showed degenerative changes in the area. No blastic bone lesions. There is intense abnormal uptake is also seen in T12 and L1. There is severe degenerative disc disease in the lower thoracic and upper lumbar spine. Extensive postsurgical changes are noted in the lower thoracic and lumbar spine. No lesions are identified in skull, clavicles, scapulae, ribs, bony pelvis, and visualized shafts of the long bones. There is low level increased uptake in cervical, thoracic and lumbar spine with distribution indistinguishable from degenerative disc and facet disease; early metastasis to spine could be obscured by degenerative changes. There are foci of increased periarticular activity involving shoulders, sternoclavicular joints, elbows, wrists, hands, hips, SI joints, left knee, left ankle and both feet, compatible with degenerative/arthritic changes. There is total knee arthroplasty in right knee. IMPRESSION: 1. Intense abnormal uptake in the area T11 and L1. On the comparison CT dated 09/28/2021, there are severe degenerative disc disease and extensive postsurgical changes in the lower thoracic and lumbar spine. If there is high clinical suspicion for metastatic disease, MRI with and without contrast is recommended. 2. Increased uptake at the sternomanubrial junction is most likely degenerative in nature. 3. Degenerative/arthritic changes in multiple peripheral joints. Dictated by: Porfirio Potter M.D. on 10/02/2021 at 16:34 Approved by: Porfirio Potter M.D. on 10/02/2021 at 16:40
== END ==
PROVIDERS: Family Provider Family Medicine; PCP Family Medicine; Referring Provider Specialist; Visit Provider Specialist
DX: C61 Malignant neoplasm of prostate (principal); M51.35 Other intervertebral disc degeneration, thoracolumbar region
CPT/HCPCS: 78306; A9503

== ENCOUNTER → 2021-10-03 15:11 | Outpatient (CLI) | payer MEDICARE, OTHER, SELFPAY ==
[2021-10-03 15:48] LABS: COVID19 -Nasal RAPID Negative (Negative)
== END ==
PROVIDERS: Family Provider Family Medicine; PCP Family Medicine; Visit Provider Specialist
DX: Z20.822 Contact with and (suspected) exposure to COVID-19 (principal)
CPT/HCPCS: 87635; C9803

== ENCOUNTER 2021-10-05 07:41 | Day surgery (SDC) | payer MEDICARE, OTHER, SELFPAY ==
[2021-10-02 12:39] VITALS: BMI 25.8
[2021-10-05] VITALS (8 sets, daily range): BP systolic 107–144; BP diastolic 60–80; PULSE 53–80; RESP 14–16; TEMP 36.6–36.8; O2SAT 94–98; BMI 25.8
--- NOTE | 2021-10-05 | PATH_ITS ---
[facility] Accession Number: [id number] . 01 Material submitted: . bladder, trigone - LEFT TRIGONE BIOPSY . 01 Diagnosis: Left Trigone Biopsy: Low grade papillary urothelial carcinoma, non-invasive. Please see cancer case summary. . CASE SUMMARY: . Specimen Procedure: Biopsy. . Tumor Tumor site: Trigone. Histologic type: Papillary urothelial carcinoma, noninvasive. Histologic grade: Low grade. . Tumor extent: Non-invasive; no invasion into lamina propria identified. . Lymphovascular invasion: Not identified. . Muscularis propria: Present and not involved by tumor. MRV 10/08/2021 1520 Local . 01 Comment: As part of routine quality control systems manager, this case was also reviewed by Dr. Rizzo, who agrees with the interpretation. . 01 Electronically signed: . Rachel Goss MD, Pathologist NPI- [id number] . 01 Gross description: . LEFT TRIGONE BIOPSY: Received in formalin are multiple fragment(s) of jorge, soft tissue measuring 0.1 x 0.1 x 0.1 cm to 0.7 x 0.6 x 0.2 cm submitted entirely in 1 cassette(s) /WINNIE 10/08/2021 0902 Local . 01 Pathologist provided ICD-10: C67.9 . 01 CPT . 590326 Specimen Comment: A courtesy copy of this report has been sent to [phone] Performed at: 01 [facility] [address] [place] [address], [place], [place] [id number] MD Roge Cruz MD Phone: [phone]
[2021-10-05] MEDS: LACTATED RINGERS 1,000 ML 42 ML IV (08:22)
--- NOTE | 2021-10-05 08:48 | PM.PREOP ---
Pre-operative Note COVID-19 Criteria for continued procedure: Expected advancement of disease process, Possibility delay results in more complex future surgery or treatment, Deterioration of the patient's condition or overall health, Delay expected to result in less-positive ultimate med/surg outcome and Non-surgical alternatives not available or appropriate per current SOC Interval Note History & Physical reviewed/Exam performed by Physician: Yes Changes to H&P: No
[2021-10-05] MEDS: CEFAZOLIN 2 GM/20 ML SYRINGE IV (09:35)
[2021-10-05] MEDS: WATER FOR INJECTION,STERILE 20 ML, mitoMYcin 20 MG INTRAVESIC (09:57)
--- NOTE | 2021-10-05 09:58 | SUR.OPER ---
Lithotomy on padded OR bed, head on pillow, arms secured on padded arm boards at <90 degrees abduction. Legs secured in padded yellow fins stirrups.
[2021-10-05] MEDS: BELLADONNA/OPIUM SUPPOSITORIES 1 EACH PR (10:00)
[2021-10-05] MEDS: fentaNYL 100 MCG/2 ML INJ IV (10:10)
--- NOTE | 2021-10-05 10:10 | PM.OP.1 ---
Operative Date/Time/Diagnoses Date of procedure: 10/05/21 Time of procedure: 09:50 Pre-op diagnosis: 1. Recurrent bladder cancer. Post-op diagnosis: same Procedure & Clinicians Procedure: 1. Transurethral resection of bladder tumor (0.5-2 cm). 2. Cystoscopy/installation mitomycin-C (20 mg). Same procedure as scheduled: Yes Indications: 1. Recurrent bladder cancer. Surgeon: Marshall Anguiano Click Yes if Unassisted: Yes Anesthesia Type: General Operative Notes Findings: 1. Urethra-normal caliber without annular stricture or lesion. 2. External sphincter-coapted with normal overlying urothelium. 3. Prostate-approximately 4 cm length with obstructing lateral lobe hyperplasia. 4. Bladder-2+ trabeculation. Normal right ureteral orifice. Left ureteral orifice is somewhat patulous and somewhat retracted adjacent to previous well-healed resection bed. There is a exophytic papillary, and a adjacent flat neoplasm immediately medial and slightly posterior to the right ureteral orifice. Closure Type: not applicable Specimen(s): other (Bladder neoplasm-left trigone) Applied: catheter ([address] Lora catheter.) Estimated Blood Loss (mL): 1 Blood products transfused: none Procedure in detail: The patient was positioned supine was administered general anesthesia. He was then repositioned semi lithotomy and the lower abdomen, genitalia, and groin were then prepped and draped in sterile fashion. The resectoscope was then advanced lower urinary tract under direct visualization with the findings as described above. The resectoscope was then fitted with the cold cup biopsy forceps. Multiple cold cup resections were then performed with consequent removal of the entire visible neoplasm. The specimens were submitted to pathology for routine gross and microscopic examination. The cold cup forceps were then removed and the resectoscope was fitted with a cautery loop. The cold cup resection bed and surrounding urothelium were then cauterized for hemostasis and residual tissue destruction. Left ureteral orifice remained intact. The bladder was then left partially filled and the resectoscope was removed. A [address] Lora catheter was then passed lower urinary tract, the balloon was inflated to 10 cc, and the contents were drained. A 20 cc solution containing 20 mg of mitomycin-C were then instilled in the bladder and the integral catheter plug was left in place for anticipated 2 hour postoperative retention of mitomycin. The patient was then repositioned in supine, was awakened, was transferred to a gurney and transported to recovery in stable condition. Complications: none Post-operative Condition: stable Disposition: PACU Plan for aftercare: 1. Discharge home. 2. Supervised catheter removal and voiding trial in the Urology Clinic 10/08/2021.
[2021-10-05] MEDS: OXYCODONE/ACETAMINOPHEN 5/325 TABLET 1 TAB PO ×2 (11:27→12:29)
--- NOTE | 2021-10-05 13:53 | SUR.PHASEII ---
1200 - Mytocycin drained per protocol. Leg bag attached with instructions given. Large delgadillo drainage sent for night-time usage. Pt verbalizes understanding. delgadillo draining light pink-colored urine initially then clears to clear yellow.
== END 2021-10-05 12:30 | disposition home or self-care (01) ==
PROVIDERS: Family Provider Family Medicine; PCP Family Medicine; Referring Provider Specialist; Visit Provider Specialist
PROC: 0TBB8ZZ Excision of Bladder, Via Natural or Artificial Opening Endoscopic (ICD-10-PCS; CPT 52234; principal; 2021-10-05 09:15)
DX: C67.0 Malignant neoplasm of trigone of bladder (principal); C61 Malignant neoplasm of prostate; R33.9 Retention of urine, unspecified
CPT/HCPCS: 52234; 00912; J0690; J2250; J2405; J2704; J3010; J9280

== ENCOUNTER → 2021-10-07 09:27 | Outpatient (CLI) | payer MEDICARE, OTHER, SELFPAY | PROVIDERS: Family Provider Family Medicine; PCP Family Medicine; Visit Provider Physician Assistant | DX: R50.9 Fever, unspecified (principal) | CPT/HCPCS: 87086 ==

== ENCOUNTER → 2022-02-02 10:41 | Outpatient (CLI) | payer MEDICARE, OTHER, SELFPAY ==
--- NOTE | 2022-02-02 10:44 | DI.MRI.S_ITS ---
PROCEDURE: MR THORACIC SPINE WO/W CON INDICATIONS: abnormal bone scan TECHNIQUE: Noncontrast sagittal T1 spin echo and T2 fast spin echo, sagittal STIR, axial T1 and T2 fast spin echo through the thoracic spine. After the administration of contrast, axial and sagittal T1 spin echo with fat saturation through the thoracic spine. COMPARISON: [facility], CT, CT CHEST ABD PEL W CON, 09/28/2021, 13:51. [facility], MR, T-SPINE WITHOUT CONTRAST, 11/01/2015, 10:21. [facility], NM, NM BONE SCAN WHOLE BODY, 10/02/2021, 14:14. FINDINGS: Image quality: Postsurgical artifact from fusion as well as stimulator cord wires are noted. Alignment and curvature: There is osseous fusion within the lower lumbar spine. Posterior fusion is present at L1-2. Spinal cord stimulator wires are noted within the posterior aspect of the CT canal to approximately the level of T6-7. Marrow: Marrow is of normal overall signal. Prominent appearance of reactive endplate changes are present at T10-11, T11-12 and T12-L1. There is no appreciable abnormal enhancement within this region. No acute vertebral body compression fractures. Spinal cord: Visualized spinal cord is of normal signal and size, without abnormal enhancement. Paraspinous soft tissues: No paravertebral masses or abnormal enhancement. Miscellaneous: The foramina appear widely patent at all scanned levels. Multilevel scattered disc bulges are present including a small posterior central protrusion at T8-9. There has been marked progression of spinal stenosis at T10-11 and T11-12 compared to prior exam secondary to disc bulges. Multilevel disc desiccation is present throughout the thoracic spine. IMPRESSION: Multilevel degenerative disc space narrowing as above. Areas of abnormal bone scan at T11 and L1 corresponds to prominent degenerative and postsurgical change. However, there are no findings to indicate metastatic disease. Dictated by: Ayla Crooks M.D. on 02/04/2022 at 10:27 Approved by: Ayla Crooks M.D. on 02/04/2022 at 11:04
--- NOTE | 2022-02-02 10:59 | DI.MRI.S_ITS ---
PROCEDURE: MR PELIS WO/W CON INDICATIONS: Prostate CA TECHNIQUE: Coronal HASTE, axial T1 FSE with fat saturation, 3-plane nonbreath-hold T2 FSE. After the administration of contrast, dynamic axial, delayed axial and coronal VIBE or 2-D FLASH with fat saturation through the pelvis. Optional diffusion weighted imaging and ADC may be performed. COMPARISON: None. FINDINGS: Image quality: Degraded by metallic artifact from the spine. Prostate: 3.9 x 5.3 x 4.5 cm, for an estimated volume of 48 cc. Transitional zone heterogenous nodules are present, either well encapsulated or mostly encapsulated, compatible with PI-RADS 1 or 2 likely BPH nodules. Mildly T2 hypointense heterogenous striated appearance of the peripheral zone is commonly seen with current or prior prostatitis, PI-RADS 2. These findings can obscure small cancers. Right base anterior peripheral zone measuring 13 x 13 mm. T2 score 3. DWI score 3. DCE positive. PI-RADS 4. Left base anterior peripheral zone measuring 11 x 10 mm. T2 score 3. DWI score 3. DCE positive. PI-RADS 4. Genitourinary system: Bladder is irregular with mucosal hyperemia. No hydronephrosis. Bowel and peritoneum: No pathologic ascites or bowel obstruction. There are colonic diverticula. Nodes and vessels: Indeterminate prominent pelvic lymph nodes are present. None are seen none enlarged by size criteria. No aneurysm in the field of view. Soft tissues: Fat containing left inguinal hernia. Bones: No suspicious osseous lesions. Partially visualized lumbar fusion hardware. IMPRESSION: PI-RADS 4 lesions bilaterally as above. Irregular appearance with mucosal enhancement of the urinary bladder. Correlate with cystoscopy findings. Prominent pelvic lymph nodes are indeterminate, not enlarged by size criteria at this time. Dictated by: Nj Infante M.D. on 02/04/2022 at 9:05 Approved by: Nj Infante M.D. on 02/04/2022 at 9:17
== END ==
PROVIDERS: Family Provider Family Medicine; PCP Family Medicine; Referring Provider Family Medicine; Visit Provider Family Medicine
DX: C61 Malignant neoplasm of prostate (principal); R94.8 Abnormal results of function studies of other organs and systems; K57.90 Diverticulosis of intestine, part unspecified, without perforation or abscess without bleeding; K40.90 Unilateral inguinal hernia, without obstruction or gangrene, not specified as recurrent; Z98.1 Arthrodesis status
CPT/HCPCS: 72157; 72197; A9579

== ENCOUNTER → 2022-02-02 11:00 | Outpatient (CLI) | payer MEDICARE, OTHER, SELFPAY | PROVIDERS: Family Provider Family Medicine; PCP Family Medicine; Referring Provider Specialist; Visit Provider Specialist | DX: C61 Malignant neoplasm of prostate (principal) ==

== ENCOUNTER 2022-02-05 17:25 | Inpatient (IN) | payer MEDICARE, OTHER, SELFPAY ==
[2022-02-05] VITALS (19 sets, daily range): BP systolic 102–118; BP diastolic 56–67; PULSE 76–111; RESP 17–22; TEMP 36.8–38.4; O2SAT 93–97; BMI 28.5; BMI 28.1
--- NOTE | 2022-02-05 17:27 | DI.RAD.S_ITS ---
PROCEDURE: XR CHEST 1V INDICATIONS: suspected sepsis TECHNIQUE: One view of the chest was acquired. COMPARISON: [facility], CT, CT CHEST ABD PEL W CON, 09/28/2021, 13:51. The comparison exams may be incomplete. FINDINGS: Surgical changes and devices: None. Lungs and pleura: Lungs are clear. No pleural effusions or pneumothorax. Mediastinum: Mediastinal contours appear normal. Heart size is normal. Bones and chest wall: No suspicious bony lesions. Overlying soft tissues appear unremarkable. There is a nerve stimulator in the mid to lower thoracic spine. IMPRESSION: No acute cardiopulmonary disease. Dictated by: Porfirio Potter M.D. on 02/05/2022 at 18:14 Approved by: Porfirio Potter M.D. on 02/05/2022 at 18:16
[2022-02-05] MEDS: SODIUM CHLORIDE 0.9% 1,000 ML 1000 ML IV ×2 (17:39→18:37)
[2022-02-05 17:45] LABS: Add Manual Diff / Slide Review NO; Basophils Absolute Auto 0 /uL (0-100); Basophils Percent Auto 0.4 % (0-2); Eosinophils Absolute Auto 0 /uL (0-450); Eosinophils Percent Auto 0.2 % (2-4); Hematocrit 37.2 % (41-53); Hemoglobin 12.7 g/dL (13.5-17.5); Lymphocytes Absolute Auto 500 /uL (1100-4500); Mean Corpuscular HGB Conc 34.2 % (30-36); Mean Corpuscular Hemoglobin 27.9 PG (26-34); Mean Corpuscular Volume 81.8 fL (80-100); Monocytes Absolute Auto 400 /uL (0-900); Monocytes Percent Auto 4.7 % (3-14); Neutrophils Absolute Auto 7100 /uL (1500-7000); Neutrophils Percent Auto 88.7 % (50-75); Platelet Count 145 X10^3/uL (150-400); Red Blood Cell Count 4.55 X10^6/uL (4.5-5.9); Red Cell Distribution Width 13.9 % (11.6-14.8)
--- NOTE | 2022-02-05 17:45 | PC.NURSE ---
Addendum entered by Yaw Amaro R.N. 02/06/22 01:06: Pt reports he self cath's and has not been able to do so since Friday due to my hands shaking and not feeling well. Pt states he can make a little dribble out from time to time but has not had a full void since Friday. Provider aware. Verbal order of bladder scan. Original Note: RT called for consult. RT at bedside.
[2022-02-05 17:56] LABS: INR 1.3 (0.9-1.3); Prothrombin Time 14.5 SECONDS (10.1-12.7)
[2022-02-05 17:58] LABS: PTT Partial Thromboplastin Tim 30 SECONDS (26-36)
[2022-02-05 18:00] LABS: Alanine Aminotransferase 21 IU/L (<50); Albumin 3.7 g/dL (3.5-5.0); Albumin Globulin Ratio 1.1 (1.0-2.8); Alkaline Phosphatase 89 U/L (38-126); Aspartate Aminotransferase 21 IU/L (17-59); BUN Creatinine Ratio 20.9 (6-22); Bilirubin Total 0.6 mg/dL (0.2-1.3); Blood Urea Nitrogen 58 mg/dL (9-20); Calcium 8.7 mg/dL (8.4-10.2); Carbon Dioxide 16 mmol/L (22-32); Chloride 102 mmol/L (98-107); Creatine Kinase 51 U/L (55-170); Estimated Glomerular Filt Rate 23 mL/min (>60); Globulin 3.3 g/dL (1.7-4.1); Glucose 158 mg/dL (80-110); HEMOLYSIS < 15 (0-50); Lipase 35 U/L (23-300); Potassium 3.9 mmol/L (3.4-5.1); Sodium 138 mmol/L (137-145)
--- NOTE | 2022-02-05 18:07 | DI.CT.S_ITS ---
PROCEDURE: CT ABDOMEN PELVIS WO CON INDICATIONS: sepsis prostate ca, [place] TECHNIQUE: Axial sections were acquired from the lung bases to the pubic symphysis. Coronal and sagittal reformats were performed. For radiation dose reduction, the following was used: automated exposure control, adjustment of mA and/or kV according to patient size. COMPARISON: CT, IVP (ABD & PEL WWO CONTRAST), 01/17/2015, 10:00. [facility], CT, CT CHEST ABD PEL W CON, 09/28/2021, 13:51. The comparison exams may be incomplete. FINDINGS: Image quality: Excellent. Lung bases: Bibasilar consolidation or atelectasis. There is a moderate-sized hiatal hernia. Heart: No significant findings. URINARY: Right Kidney: There is a 2 mm nonobstructive stone in the inferior pole of the right kidney. No hydronephrosis. Right Ureter: No hydroureter. Left Kidney: No stones or hydronephrosis. There is a 2 cm exophytic cyst in left kidney. Left Ureter: No hydroureter. Bladder: No stones. Bladder is contracted with a Lora catheter. Bladder wall appears thickened. ABDOMEN: Liver: Unremarkable. Gallbladder: Gallbladder is distended. No radiopaque stones. Biliary ducts: Unremarkable. Pancreas: Unremarkable. Spleen: Unremarkable. Adrenal Glands: Unremarkable. Stomach and Bowel: Stomach, small bowel loops, and colon are normal in caliber. There are numerous colonic diverticula. No CT findings to suggest acute diverticulitis. Peritoneum: There is a small amount of intraperitoneal fluid. No free air. Ventral Wall: There is a fat containing left flank hernia. Abdominal Nodes: No enlarged retroperitoneal or mesenteric lymph nodes. Vessels: Aorta and inferior vena cava are normal in size. PELVIS: Pelvic Organs: Unremarkable. Pelvic Nodes: Unremarkable. Miscellaneous: Small fat containing inguinal inguinal hernia is seen. Bones: Severe degenerative and postsurgical changes in lumbar spine. There is [id number] levoscoliosis. A nerve stimulator is noted. IMPRESSION: 1. A source for sepsis is not definitively identified. 2. Bladder wall appears thickened. Bladder is, however, contracted with a Lora catheter. Recommend clinical correlation for cystitis. 3. Diverticulosis without diverticulitis. 4. Hydropic gallbladder. No radiopaque gallstones. If there is clinically indicated, ultrasound may be helpful. 5. A 2 mm nonobstructive right renal stone. New line 6. A fat containing hernia in the left flank. 6. Moderate-sized hiatal hernia. 7. A small amount of free fluid in pelvis. 8. Bibasilar consolidation or atelectasis. The preliminary result was discussed with Dr. Holloway. Dictated by: Porfirio Potter M.D. on 02/05/2022 at 18:43 Approved by: Porfirio Potter M.D. on 02/05/2022 at 19:37
--- NOTE | 2022-02-05 18:09 | ED_ITS ---
HPI - Fever General Chief Complaint: Fever Stated Complaint: Fever Time Seen by Provider: 02/05/22 17:32 History of Present Illness HPI Narrative: Patient is a 72-year-old male history of prostate cancer, self catheterize presents today with fever chills and inability to self cath for the last 4 days. He says 4 days ago he started having fever and shaking and due to that shaking he was unable to self catheterize. He had multiple episodes of diarrhea the following day was nonbloody. He has since taken Imodium which is stop the diarrhea. He denies any abdominal pain any nausea. He is currently febrile. He started having cough. Denies any severe abdominal pain. He has had de creased intake. He is followed by Dr. Anguiano urology. He denies any chest pain or shortness of breath. He has nonproductive cough now. Related Data Home Medications Medication Instructions Recorded Confirmed ascorbic acid (vitamin C) 500 mg 500 mg PO DAILY ##0 02/19/10 02/05/22 tablet (Vitamin C) cholecalciferol (vitamin D3) 10 10 mcg PO DAILY ##0 02/19/10 02/05/22 mcg (400 unit) tablet (Vitamin D3) glucosamine sulfate 500 mg tablet 1 tab PO DAILY ##0 02/19/10 02/05/22 acetaminophen 500 mg capsule 1,300 mg PO TID 01/04/20 02/05/22 omeprazole 20 mg capsule,delayed 20 mg PO DAILY 01/04/20 02/05/22 release fexofenadine 30 mg tablet 30 mg PO DAILY 10/05/21 02/05/22 Previous Rx's Medication Instructions Recorded tamsulosin 0.4 mg capsule 0.8 mg PO DAILY #180 caps 09/06/21 pregabalin 150 mg capsule See Rx Instructions .Route 11/08/21 .COMPLEX #270 caps lorazepam 0.5 mg tablet 0.5 mg PO DAILY PRN Claustrophobia 11/19/21 #2 tabs Allergies Allergy/AdvReac Type Severity Reaction Status Date / Time No Known Drug Allergies Allergy Verified 01/03/22 09:23 Review of Systems Review of Systems Narrative: GENERAL: See HPI HEENT: Denies sinus pain, ear pain, sore throat, difficulty swallowing, neck pain RESPIRATORY: + cough see HPI CARDIOVASCULAR: Denies chest pain, palpitations, orthopnea, edema GASTROINTESTINAL: Denies nausea, vomiting, abdominal pain, diarrhea, constipation, melena. : See HPI MUSCULOSKELETAL: Denies weakness, joint pain, or bony pain SKIN: No rash, no erythema, no pruritus NEUROLOGIC: Denies weakness, dizziness, headache, numbness, change in speech, confusion PSYCHIATRIC: No concerning psychosocial issues. 12 point review of systems is negative except for those stated above and HPI Patient History Medical History Asthma (~2016) Bladder cancer (~2009) Cervical spine disease (~1997) Degenerative joint disease (DJD) of lumbar spine (~2012) Depression (~1997) Elevated blood pressure reading without diagnosis of hypertension Elevated PSA, between 10 and less than 20 ng/ml Fractures (~2000) GERD (gastroesophageal reflux disease) Hearing loss (~2011) History of arthritis History of kidney stones History of primary bladder cancer Hyperlipidemia, mixed Macular degeneration of right eye (01/2022) Presence of neurostimulator (01/25/22) Prostate cancer Recurrent malignant neoplasm of bladder Right nephrolithiasis Self-catheterizes urinary bladder Urinary retention Urinary retention Vitamin D deficiency Wears glasses Surgical History Anesthesia History of bladder surgery (~2009) History of fusion of cervical spine (~1997) History of fusion of lumbar spine (~2012) History of knee replacement History of surgery (~2014) History of urologic surgery (10/05/21) Hx of appendectomy (1963) Hx of colonoscopy (10/12/20) Hx of prostate biopsy Hx of right inguinal hernia repair (1971) Hx of vasectomy Family History Father Cancer Mother Renal failure Brother Cancer Hypertension Brother Cancer Grandfather History of heart disease Grandmother History of heart disease Grandfather Black lung disease Grandmother Stroke Mother Renal failure Daughter Urinary tract infection Son Kidney stones Social History marital status: number of children: 2 household members: spouse Smoking Status: Former smoker Tobacco: How many years used: 10 alcohol intake: former substance use type: does not use caffeine: Yes Type(s) of exercise: independent ambulation, bicycling and regular exercise frequency: daily duration: > 90 minutes/day Smoking Status: Former smoker Substance Use Type: does not use Exam Initial Vital Signs Initial Vital Signs: Vital Signs Temperature 101.2 F H 02/05/22 17:16 Pulse Rate 93 H 02/05/22 17:16 Respiratory Rate 22 02/05/22 17:16 Blood Pressure 118/60 02/05/22 17:16 Pulse Oximetry 93 02/05/22 17:16 Oxygen Delivery Method 02/05/22 17:16 GENERAL: Awake alert 72-year-old male, warm to touch HEENT: Head atraumatic,EOMI, pupils reactive, face symmetric, moist mucous membranes CARDIOVASCULAR: Regular rate and rhythm without murmurs, rubs or gallops. RESPIRATORY: Breath sounds equal bilaterally, no wheezes rales or rhonchi. ABDOMEN: Soft, nontender. Normoactive bowel sounds all 4 quadrants. No guarding or rebound. : No CVA tenderness Lora catheter is replaced and draining EXTREMITIES: Normal range of motion, no clubbing or edema. Neurovascularly intact NEUROLOGICAL: Alert and oriented x4.Normal gait and speech. SKIN: Warm, dry, no laceration, no petechiae, no rashes or lesions. Course Orders Ordered: ED Orders 02/05/22 18:41 Blood Culture Stat 02/05/22 19:35 Covid-19 + FLU A/B + RSV - PCR Stat Albuterol/Ipratropium (Albuterol/Ipratropium 3 Ml Ampul) 3 ml INH [id number] [facility] Last Admin: 02/06/22 01:14 Dose: 3 ml Documented By: ECTOR Enoxaparin Sodium (Enoxaparin 30 Mg/0.3 Ml Syringe) 30 mg SUBCUT DAILY [facility] Sodium Chloride (Normal Saline 0.9%) 1,000 mls @ 100 mls/hr IV CONT [facility] Last Admin: 02/05/22 20:58 Dose: 100 mls/hr Documented By: HERNAN Meropenem 500 mg/ Sodium (Chloride) 100 mls @ 200 mls/hr IV Q12H [facility] Last Infusion: 02/05/22 21:30 Dose: 0 mls/hr Documented By: Admin: 02/05/22 20:59 Dose: 200 mls/hr Documented By: HERNAN Vancomycin HCl (Vancomycin) 1,250 mg in 250 mls @ 250 mls/hr IV Q24H [facility] Lorazepam (Lorazepam 0.5 Mg Tablet) 0.5 mg PO DAILY PRN PRN Reason: Claustrophobia Last Admin: 02/05/22 21:55 Dose: 0.5 mg Documented By: HERNAN Naloxone HCl (Naloxone 0.4 Mg/Ml Vial) 0.2 mg IV Q2MIN PRN PRN Reason: Opiate Reversal Ondansetron HCl (Ondansetron 4 Mg/2 Ml Inj) 4 mg IV Q8HR PRN PRN Reason: Nausea And Vomiting Oxycodone HCl (Oxycodone Ir 5 Mg Tablet) 5 mg PO Q3H PRN PRN Reason: Pain, Moderate (4-10) Last Admin: 02/05/22 22:18 Dose: 5 mg Documented By: HERNAN Pantoprazole Sodium (Pantoprazole Dr 20 Mg Tablet) 20 mg PO DAILY [facility] Prednisone (Prednisone 20 Mg Tablet) 40 mg PO DAILY [facility] Pregabalin (Pregabalin 75 Mg Capsule) 150 mg PO Q8H [facility] Last Admin: 02/05/22 20:59 Dose: 150 mg Documented By: HERNAN Tamsulosin HCl (Tamsulosin 0.4 Mg Capsule) 0.8 mg PO DAILY [facility] Discontinued Medications Acetaminophen (Acetaminophen 325 Mg Tablet) 975 mg PO NOW ONE Stop: 02/05/22 18:14 Last Admin: 02/05/22 19:43 Dose: Not Given Documented By: AMIRA Albuterol/Ipratropium (Albuterol/Ipratropium 3 Ml Ampul) 3 ml INH RTQ4HR PRN PRN Reason: Shortness Of Breath Last Admin: 02/05/22 21:14 Dose: 3 ml Documented By: ECTOR Sodium Chloride (Normal Saline 0.9%) 1,000 mls @ 1,000 mls/hr IV BOLUS ONE Stop: 02/05/22 18:25 Last Infusion: 02/05/22 19:29 Dose: 0 mls/hr Documented By: Admin: 02/05/22 17:39 Dose: 1,000 mls/hr Documented By: AMIRA Sodium Chloride (Normal Saline 0.9%) 1,000 mls @ 1,000 mls/hr IV BOLUS ONE Stop: 02/05/22 19:06 Last Infusion: 02/05/22 19:43 Dose: 0 mls/hr Documented By: Admin: 02/05/22 18:37 Dose: 1,000 mls/hr Documented By: AMIRA Piperacillin Sod/Tazobactam (Sod 4.5 gm/ Sodium Chloride) 100 mls @ 200 mls/hr IV NOW ONE Stop: 02/05/22 18:09 Last Infusion: 02/05/22 19:15 Dose: 0 mls/hr Documented By: Admin: 02/05/22 18:40 Dose: 200 mls/hr Documented By: AMIRA Sodium Chloride (Normal Saline 0.9%) 2,548.74 mls @ 849.58 mls/hr 30 ml/kg infuse over 3 hr (2548.74 ml) IV NOW ONE Stop: 02/05/22 21:35 Last Infusion: 02/05/22 20:23 Dose: 0 mls/hr Documented By: Admin: 02/05/22 19:11 Dose: 849.58 mls/hr Documented By: AMIRA Vancomycin HCl/Dextrose (Vancomycin) 1,500 mg in 300 mls @ 200 mls/hr IV NOW ONE Stop: 02/05/22 20:05 Last Infusion: 02/05/22 20:24 Dose: 0 mls/hr Documented By: Admin: 02/05/22 19:16 Dose: 200 mls/hr Documented By: AMIRA Meropenem 1 gm/ Sodium (Chloride) 100 mls @ 200 mls/hr IV Q8H [facility] Last Admin: 02/05/22 22:39 Dose: Not Given Documented By: HERNAN Vancomycin HCl (Vancomycin Per Pharmacy) 1 request MISC NOW ONE Stop: 02/05/22 20:34 Vital Signs Vital signs: Vital Signs - 8 hr 02/05/22 19:42 02/05/22 19:20 02/05/22 19:20 Temperature 99.0 F Pulse Rate 77 Respiratory Rate 19 Blood Pressure 109/60 Pulse Oximetry 95 02/05/22 19:30 02/05/22 19:30 02/05/22 19:41 Temperature Pulse Rate 78 76 Respiratory Rate 19 17 Blood Pressure 111/62 Pulse Oximetry 96 97 02/05/22 19:41 Temperature Pulse Rate Respiratory Rate Blood Pressure 105/61 Pulse Oximetry MDM - Fever Lab Data Result diagrams: 02/05/22 17:05 02/05/22 17:05 Labs: Lab Results 02/05/22 02/05/22 02/05/22 Range/Units 17:05 17:05 17:05 WBC 8.0 (4.5-11.0) X10^3/uL RBC 4.55 (4.5-5.9) X10^6/uL Hgb 12.7 L (13.5-17.5) g/dL Hct 37.2 L (41-53) % MCV 81.8 (80-100) fL MCH 27.9 (26-34) PG MCHC 34.2 (30-36) % RDW 13.9 (11.6-14.8) % Plt Count 145 L (150-400) X10^3/uL Neut % (Auto) 88.7 H (50-75) % Lymph % (Auto) 6.0 L (25-40) % Ada % (Auto) 4.7 (3-14) % Eos % (Auto) 0.2 L (2-4) % Baso % (Auto) 0.4 (0-2) % Neut # (Auto) 7100 H (1044-1496) /uL Lymph # (Auto) 500 L (9129-7884) /uL Ada # (Auto) 400 (0-900) /uL Eos # (Auto) 0 (0-450) /uL Baso # (Auto) 0 (0-100) /uL PT 14.5 H (10.1-12.7) SECONDS INR 1.3 (0.9-1.3) APTT 30 (26-36) SECONDS Sodium 138 (137-145) mmol/L Potassium 3.9 (3.4-5.1) mmol/L Chloride 102 (98-107) mmol/L Carbon Dioxide 16 L (22-32) mmol/L BUN 58 H (9-20) mg/dL Creatinine 2.78 H (0.66-1.25) mg/dL Estimated GFR 23 L (>60) mL/min BUN/Creatinine Ratio 20.9 (6-22) Glucose 158 H (80-110) mg/dL Hemoglobin A1c (4.0-6.0) % Lactate (0.7-2.1) mmol/L Calcium 8.7 (8.4-10.2) mg/dL Magnesium (1.6-2.3) mg/dL Total Bilirubin 0.6 (0.2-1.3) mg/dL AST 21 (17-59) IU/L ALT 21 (<50) IU/L Alkaline Phosphatase 89 (38-126) U/L Total Creatine Kinase 51 L (55-170) U/L CK-MB (CK-2) TNP CK-MB (CK-2) Rel Index TNP Troponin I 0.041 H (0.01-0.034) ng/mL NT-Pro-B Natriuret Pep (<125) pg/mL Total Protein 7.0 (6.3-8.2) g/dL Albumin 3.7 (3.5-5.0) g/dL Globulin 3.3 (1.7-4.1) g/dL Albumin/Globulin Ratio 1.1 (1.0-2.8) Lipase 35 (23-300) U/L Procalcitonin 40.8 H (<0.5) ng/mL Urine Color Urine Appearance Urine pH (4.5-8.0) Ur Specific [place] (1.000-1.035) Urine Protein (Negative) Urine Glucose (UA) (Negative) g/dL Urine Ketones (NEGATIVE) Urine Occult Blood (Negative) Urine Nitrate (Negative) Urine Bilirubin (NEGATIVE) Ur Bilirubin Confirm (Negative) Urine Urobilinogen (0.2) E.U./dL Ur Leukocyte Esterase (NEGATIVE) Urine RBC (0-5/HPF) Urine WBC (0-5/HPF) Urine Bacteria (None) Ur Culture Indicated? SARS-CoV-2 (PCR) (Negative) Influenza A (RT-PCR) (NEGATIVE) Influenza B (RT-PCR) (NEGATIVE) RSV (PCR) (Negative) 02/05/22 02/05/22 02/05/22 Range/Units 17:05 17:55 17:55 WBC (4.5-11.0) X10^3/uL RBC (4.5-5.9) X10^6/uL Hgb (13.5-17.5) g/dL Hct (41-53) % MCV (80-100) fL MCH (26-34) PG MCHC (30-36) % RDW (11.6-14.8) % Plt Count (150-400) X10^3/uL Neut % (Auto) (50-75) % Lymph % (Auto) (25-40) % Ada % (Auto) (3-14) % Eos % (Auto) (2-4) % Baso % (Auto) (0-2) % Neut # (Auto) (1276-6580) /uL Lymph # (Auto) (8091-1107) /uL Ada # (Auto) (0-900) /uL Eos # (Auto) (0-450) /uL Baso # (Auto) (0-100) /uL PT (10.1-12.7) SECONDS INR (0.9-1.3) APTT (26-36) SECONDS Sodium (137-145) mmol/L Potassium (3.4-5.1) mmol/L Chloride (98-107) mmol/L Carbon Dioxide (22-32) mmol/L BUN (9-20) mg/dL Creatinine (0.66-1.25) mg/dL Estimated GFR (>60) mL/min BUN/Creatinine Ratio (6-22) Glucose (80-110) mg/dL Hemoglobin A1c 5.9 (4.0-6.0) % Lactate 3.0 H (0.7-2.1) mmol/L Calcium (8.4-10.2) mg/dL Magnesium 1.9 (1.6-2.3) mg/dL Total Bilirubin (0.2-1.3) mg/dL AST (17-59) IU/L ALT (<50) IU/L Alkaline Phosphatase (38-126) U/L Total Creatine Kinase (55-170) U/L CK-MB (CK-2) CK-MB (CK-2) Rel Index Troponin I (0.01-0.034) ng/mL NT-Pro-B Natriuret Pep (<125) pg/mL Total Protein (6.3-8.2) g/dL Albumin (3.5-5.0) g/dL Globulin (1.7-4.1) g/dL Albumin/Globulin Ratio (1.0-2.8) Lipase (23-300) U/L Procalcitonin (<0.5) ng/mL Urine Color Urine Appearance Urine pH (4.5-8.0) Ur Specific [place] (1.000-1.035) Urine Protein (Negative) Urine Glucose (UA) (Negative) g/dL Urine Ketones (NEGATIVE) Urine Occult Blood (Negative) Urine Nitrate (Negative) Urine Bilirubin (NEGATIVE) Ur Bilirubin Confirm (Negative) Urine Urobilinogen (0.2) E.U./dL Ur Leukocyte Esterase (NEGATIVE) Urine RBC (0-5/HPF) Urine WBC (0-5/HPF) Urine Bacteria (None) Ur Culture Indicated? SARS-CoV-2 (PCR) (Negative) Influenza A (RT-PCR) (NEGATIVE) Influenza B (RT-PCR) (NEGATIVE) RSV (PCR) (Negative) 02/05/22 02/05/22 02/05/22 Range/Units 17:55 18:15 19:35 WBC (4.5-11.0) X10^3/uL RBC (4.5-5.9) X10^6/uL Hgb (13.5-17.5) g/dL Hct (41-53) % MCV (80-100) fL MCH (26-34) PG MCHC (30-36) % RDW (11.6-14.8) % Plt Count (150-400) X10^3/uL Neut % (Auto) (50-75) % Lymph % (Auto) (25-40) % Ada % (Auto) (3-14) % Eos % (Auto) (2-4) % Baso % (Auto) (0-2) % Neut # (Auto) (1687-1367) /uL Lymph # (Auto) (7484-8685) /uL Ada # (Auto) (0-900) /uL Eos # (Auto) (0-450) /uL Baso # (Auto) (0-100) /uL PT (10.1-12.7) SECONDS INR (0.9-1.3) APTT (26-36) SECONDS Sodium (137-145) mmol/L Potassium (3.4-5.1) mmol/L Chloride (98-107) mmol/L Carbon Dioxide (22-32) mmol/L BUN (9-20) mg/dL Creatinine (0.66-1.25) mg/dL Estimated GFR (>60) mL/min BUN/Creatinine Ratio (6-22) Glucose (80-110) mg/dL Hemoglobin A1c (4.0-6.0) % Lactate (0.7-2.1) mmol/L Calcium (8.4-10.2) mg/dL Magnesium (1.6-2.3) mg/dL Total Bilirubin (0.2-1.3) mg/dL AST (17-59) IU/L ALT (<50) IU/L Alkaline Phosphatase (38-126) U/L Total Creatine Kinase (55-170) U/L CK-MB (CK-2) CK-MB (CK-2) Rel Index Troponin I (0.01-0.034) ng/mL NT-Pro-B Natriuret Pep 473 H (<125) pg/mL Total Protein (6.3-8.2) g/dL Albumin (3.5-5.0) g/dL Globulin (1.7-4.1) g/dL Albumin/Globulin Ratio (1.0-2.8) Lipase (23-300) U/L Procalcitonin (<0.5) ng/mL Urine Color Yellow Urine Appearance Sl cloudy Urine pH 5.0 (4.5-8.0) Ur Specific [place] 1.025 (1.000-1.035) Urine Protein 2+ H (Negative) Urine Glucose (UA) Negative (Negative) g/dL Urine Ketones Trace H (NEGATIVE) Urine Occult Blood 3+ H (Negative) Urine Nitrate Negative (Negative) Urine Bilirubin 1+ H (NEGATIVE) Ur Bilirubin Confirm Negative (Negative) Urine Urobilinogen 0.2 (0.2) E.U./dL Ur Leukocyte Esterase 1+ H (NEGATIVE) Urine RBC 0-1/hpf (0-5/HPF) Urine WBC 30-100/hpf H (0-5/HPF) Urine Bacteria Many (>30) H (None) Ur Culture Indicated? Specimen cultured SARS-CoV-2 (PCR) Negative (Negative) Influenza A (RT-PCR) Flu a negative (NEGATIVE) Influenza B (RT-PCR) Flu b negative (NEGATIVE) RSV (PCR) Negative (Negative) Urine Dip Bedside Urine Glucose Negative Bedside Urine Bilirubin - Negative Bedside Urine Ketone +/- 5 Urine Specific [place] 1.025 Bedside Urine Occult Blood +++ Bedside Urine pH 5.5 Bedside Urine Protein ++ 100 Bedside Urine Leukocytes + 70 Esterase Imaging Data Chest x-ray: Radiologist's Impression: XRay Report Signed Patient: Fabian Woodward MR#: [id number] : 1950 Acct:[id number] Age/Sex: 72 / M Date of Service: 02/05/22 Loc: ED Accession Number: [id number] ?? Procedure: XR chest 1V Ordering Provider: Sea Barragan D.O. PROCEDURE:? XR CHEST 1V ? INDICATIONS:? suspected sepsis ? TECHNIQUE:? One view of the chest was acquired.? ? COMPARISON:? [facility], CT, CT CHEST ABD PEL W CON, 09/28/2021, 13:51.? The comparison exams may be incomplete. ? FINDINGS:? ? Surgical changes and devices:? None.? ? Lungs and pleura:? Lungs are clear.? No pleural effusions or pneumothorax.? ? Mediastinum:? Mediastinal contours appear normal.? Heart size is normal.? ? Bones and chest wall:? No suspicious bony lesions.? Overlying soft tissues appear unremarkable.? There is a nerve stimulator in the mid to lower thoracic spine. ? IMPRESSION:? No acute cardiopulmonary disease. ? ? Dictated by: Porfirio Potter M.D. on 02/05/2022 at 18:14 ? ? CT scan - abdomen/pelvis: Radiologist's Impression: Signed Patient: Fabian Woodward MR#: [id number] : 1950 Acct:[id number] Age/Sex: 72 / M Date of Service: 02/05/22 Loc: ED Accession Number: [id number] ?? Procedure: CT abdomen pelvis wo con Ordering Provider: Ana Holloway D.O. PROCEDURE:? CT ABDOMEN PELVIS WO CON ? INDICATIONS:? sepsis prostate ca, [place] ? TECHNIQUE:? Axial sections were acquired from the lung bases to the pubic symphysis.? Coronal and sagittal reformats were performed.? For radiation dose reduction, the following was used: ?automated exposure control, adjustment of mA and/or kV according to patient size.? ? COMPARISON:? CT, IVP (ABD & PEL WWO CONTRAST), 01/17/2015, 10:00.? [facility], CT, CT CHEST ABD PEL W CON, 09/28/2021, 13:51.? The comparison exams may be incomplete. ? FINDINGS:? Image quality:? Excellent.? ? Lung bases:? Bibasilar consolidation or atelectasis.? There is a moderate-sized hiatal hernia.? Heart:? No significant findings. ? URINARY: Right Kidney:? There is a 2 mm nonobstructive stone in the inferior pole of the right kidney.? No hydronephrosis.? Right Ureter:? No hydroureter.? ? Left Kidney: ? No stones or hydronephrosis.? There is a 2 cm exophytic cyst in left kidney. Left Ureter:? No hydroureter.? ? Bladder:? No stones. Bladder is contracted with a Lora catheter.? Bladder wall appears thickened. ? ABDOMEN: Liver:? Unremarkable.? ? Gallbladder:? Gallbladder is distended.? No radiopaque stones.? ? Biliary ducts:? Unremarkable.? ? Pancreas:? Unremarkable.? ? Spleen:? Unremarkable.? ? Adrenal Glands:? Unremarkable.? ? ? Stomach and Bowel:? Stomach, small bowel loops, and colon are normal in caliber.? There are numerous colonic diverticula.? No CT findings to suggest acute diverticulitis. Peritoneum:? There is a small amount of intraperitoneal fluid.? No free air.? ? Ventral Wall: ? There is a fat containing left flank hernia.? Abdominal Nodes:? No enlarged retroperitoneal or mesenteric lymph nodes.? Vessels:? Aorta and inferior vena cava are normal in size.? ? PELVIS: Pelvic Organs:? Unremarkable.? ? Pelvic Nodes: Unremarkable. Miscellaneous:? Small fat containing inguinal inguinal hernia is seen. ? ? ? Bones:? Severe degenerative and postsurgical changes in lumbar spine.? There is [id number] levoscoliosis.? A nerve stimulator is noted. ? IMPRESSION:? ? 1. A source for sepsis is not definitively identified.? 2. Bladder wall appears thickened.? Bladder is, however, contracted with a Lora catheter.? Recommend clinical correlation for cystitis. 3. Diverticulosis without diverticulitis. 4. Hydropic gallbladder.? No radiopaque gallstones.? If there is clinically indicated, ultrasound may be helpful.? 5. A 2 mm nonobstructive right renal stone.? New line 6. A fat containing hernia in the left flank. 6. Moderate-sized hiatal hernia.? 7. A small amount of free fluid in pelvis.? 8. Bibasilar consolidation or atelectasis. ? The preliminary result was discussed with Dr. Holloway. ? ? ? Dictated by: Porfirio Potter M.D. on 02/05/2022 at 18:43 ? ? Approved by: Porfirio Potter M.D. on 02/05/2022 at 19:37 ? ECG Data Interpretation: Sinus rhythm rate 91 MN old 154 QRS [address] changes or T-wave inversions MDM Narrative Medical decision making narrative: Patient is a 72-year-old male who self catheterizes, his fate febrile urinalysis seems to be the source of infection he has many bacteria and leukocytes. He actually does not have leukocytosis but does have an elevated lactate of 3.0 and his significantly elevated procalcitonin. He has minimal abdominal pain CT does not show any other source. He has no meningeal signs. It was done without IV contrast. He is found to have acute acute kidney injury with creatinine greater than 2 possibly from dehydration and or obstruction Lora catheter has been placed. He is urinating without any difficulty. He is given Zosyn and vancomycin empirically. Chest x-ray is clear COVID influenza RSV also are negative. He has very minimal cough no difficulty breathing is or speaking. Jorge Luis, accepts patient. Discharge Plan Departure Patient Disposition: Admitted As Inpatient Clinical Impression: Sepsis Admit Date/Time: 02/05/22 19:49 Admit Provider: Adela Kang
[2022-02-05 18:12] LABS: Troponin I 0.041 ng/mL (0.01-0.034)
[2022-02-05 18:17] LABS: Procalcitonin 40.8 ng/mL (<0.5)
[2022-02-05] MEDS: PIPERACILLIN/TAZO 4.5 GM in SODIUM CHLORIDE 0.9% 100 ML IV (18:40)
[2022-02-05] MEDS: SODIUM CHLORIDE 0.9% 849.58 ML IV (19:11)
[2022-02-05] MEDS: VANCOMYCIN 1,500 MG/300 ML PIGGYBACK 200 MG IV (19:16)
--- NOTE | 2022-02-05 19:34 | PC.NURSE ---
Pt reports having taken 2300 mg in last 24 hours. Provider aware. Per provider hold tylenol.
[2022-02-05 19:35] LABS: Reflexed Lactate in 2 Hours Y
--- NOTE | 2022-02-05 20:24 | PC.NURSE ---
30 ml / kg completed w/ total IV fluids per Dr. Holloway.
[2022-02-05 20:57] LABS: Influenza A - CEPHEID Flu A NEGATIVE (NEGATIVE); Influenza B - CEPHEID Flu B NEGATIVE (NEGATIVE)
[2022-02-05] MEDS: SODIUM CHLORIDE 0.9% 1,000 ML 100 ML IV (20:58)
[2022-02-05] MEDS: PREGABALIN 75 MG CAPSULE 150 MG PO (20:59)
[2022-02-05] MEDS: MEROPENEM 500 MG in SODIUM CHLORIDE 0.9% 100 ML 200 MG IV (20:59)
--- NOTE | 2022-02-05 21:00 | PC.NURSE ---
Patient admitted to 222 for septic workup and management. Patient A&Ox4, able to answer admission questions. Patient c/o feeling SOB and also started to have severe shivers. Oral temperature on admission 98.9, BP stable, 92% RA. Patient having auditory expiratory wheezes and stated that chest started to feel tight. GREYSON Kang made aware. Scheduled duoneb ordered. RT at bedside. After duoneb, patient still having difficult time breathing and still shaking. Oral temperature 98.3. GREYSON Kang made aware. PO ativan given as well as PRN oxycodone for back pain. ~2300 Patient shivering less and looks more comfortable, but still has expiratory wheezes. GREYSON Kang updated on patient's status.
[2022-02-05 21:01] LABS: Appearance Urine UA SL CLOUDY; Bilirubin Urine UA 1+ (NEGATIVE); Color Urine UA YELLOW; Glucose Urine UA NEGATIVE (Negative); Ketones Urine UA TRACE (NEGATIVE); Leukocyte Esterase Urine UA 1+ (NEGATIVE); Nitrite Urine UA NEGATIVE (Negative); Occult Blood Urine UA 3+ (Negative); Protein Urine UA 2+ (Negative); Specific Gravity Urine UA 1.025 (1.000-1.035); Urobilinogen Urine UA 0.2 E.U./dL (0.2)
[2022-02-05 21:03] LABS: Magnesium 1.9 mg/dL (1.6-2.3)
[2022-02-05 21:05] LABS: Bacteria Urine Many (>30); Culture Indicated Urine Specimen Cultured; Ictotest Urine Negative (Negative); RBC Urine 0-1/HPF (0-5/HPF); WBC Urine 30-100/HPF (0-5/HPF)
[2022-02-05 21:05] LABS: Hemoglobin A1C% w Est Avg Glu 5.9 % (4.0-6.0)
[2022-02-05 21:10] LABS: COVID-19 CEPHEID 4-PLEX PCR Negative (Negative); Respiratory Syncytial Virus Negative (Negative)
[2022-02-05 21:13] LABS: NT-proBNP (BNP-Adult 18+) 473 pg/mL (<125)
[2022-02-05] MEDS: ALBUTEROL/IPRATROPIUM 3 ML AMPUL INH (21:14)
[2022-02-05] MEDS: LORazepam 0.5 MG TABLET PO (21:55)
[2022-02-05] MEDS: OXYCODONE IR 5 MG TABLET PO (22:18)
--- NOTE | 2022-02-05 22:21 | P.HP_ITS ---
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 Patient recently underwent battery change (MRI compatible) for his InterStim device 01/25/[address] [address] Wilson, cystoscopy with Dr. Anguiano urology 01/03/2022 (Q3 months), and is scheduled for a radical prostatectomy 02/25/2022. He presented to the ED complaining of fever, body aches, chills, severe body shaking, diarrhea (nonBloody), non productive cough, SOB, decreased oral intake and inability to self cath for the last 4 days. He took Imodium this past am, diarrhea has since resolved.? He denies chest pain, sore throat, nasal congestion, ear or eye discomfort, recent exposure COVID/viruses abdominal pain, flank pain, suprapubic pain, dysuria, urgency, frequency, hematuria, nausea, skin wounds or infections, is not currently undergoing any treatment for cancer, denies recent illness injury or trauma.? Patient was febrile 101, blood pressures were soft 110/56, 91, slightly tachypneic 22, O2 saturation 94% on room air in ED, and delgadillo was placed. Patient met SIRS/Sepsis criteria, received sepsis rehydration, Zosyn and vancomycin antibiotics. Upon admit patient febrile temp 99? BP 103/58 HR 80 R 19, O2 saturation 93% on room air, severe whole body shaking throughout exam temp recheck 98.3, patient has no white count HGB 12.7, HCT 37.2, platelets 145, does have mild left shift neutrophils #[id number]. BUN 58, bicarb 16, creatinine 2.78, glucose 158, GFR 23. P atient's urine was reported to be negative for nitrates, lipase WNL, lactic 3.0, procalcitonin 40.8, troponin 0.041. (I personally reviewed) EKG NSR at a rate of [address] or T-wave changes. SOFA Score:4. Chest x-ray was negative for any acute cardiopulmonary process. Abdominal pelvis CT: Bladder wall appears thickened, Delgadillo in place. Diverticulosis without diverticulitis, noted Hydropic gallbladder.?no radiopaque gallstones, 2 mm nonobstructive right renal stone, fat containing hernia left flank, moderate-sized hiatal hernia, a small amount of free fluid in pelvis, and lungs with bibasilar consolidation and or atelectasis.? Patient admitted for sepsis without septic shock unknown etiology, [place], and mild anemia Patient History Medical History Asthma (~2016) Bladder cancer (~2009) Cervical spine disease (~1997) Degenerative joint disease (DJD) of lumbar spine (~2012) Depression (~1997) Elevated blood pressure reading without diagnosis of hypertension Elevated PSA, between 10 and less than 20 ng/ml Fractures (~2000) GERD (gastroesophageal reflux disease) Hearing loss (~2011) History of arthritis History of kidney stones History of primary bladder cancer Hyperlipidemia, mixed Macular degeneration of right eye (01/2022) Presence of neurostimulator (01/25/22) Prostate cancer Recurrent malignant neoplasm of bladder Right nephrolithiasis Self-catheterizes urinary bladder Urinary retention Urinary retention Vitamin D deficiency Wears glasses Surgical History Anesthesia History of bladder surgery (~2009) History of fusion of cervical spine (~1997) History of fusion of lumbar spine (~2012) History of knee replacement History of surgery (~2014) History of urologic surgery (10/05/21) Hx of appendectomy (1963) Hx of colonoscopy (10/12/20) Hx of prostate biopsy Hx of right inguinal hernia repair (1971) Hx of vasectomy Family & Social History Family History Father Cancer Mother Renal failure Brother Cancer Hypertension Brother Cancer Grandfather History of heart disease Grandmother History of heart disease Grandfather Black lung disease Grandmother Stroke Mother Renal failure Daughter Urinary tract infection Son Kidney stones Social History: household members spouse Prior Living Arrangements House Safety & Behavioral: Feels Safe in Current Yes Environment Been Physically Hurt or No Threatened By a Person Tobacco & Substance use: Smoking Status Former smoker alcohol intake former Substance Use Type does not use Meds Home Medications and Allergies Home Medications Medication Instructions Recorded Confirmed Type ascorbic acid (vitamin C) 500 mg 500 mg PO DAILY ##0 02/19/10 02/05/22 History tablet (Vitamin C) cholecalciferol (vitamin D3) 10 10 mcg PO DAILY ##0 02/19/10 02/05/22 History mcg (400 unit) tablet (Vitamin D3) glucosamine sulfate 500 mg tablet 1 tab PO DAILY ##0 02/19/10 02/05/22 History acetaminophen 500 mg capsule 1,300 mg PO TID 01/04/20 02/05/22 History omeprazole 20 mg capsule,delayed 20 mg PO DAILY 01/04/20 02/05/22 History release tamsulosin 0.4 mg capsule 0.8 mg PO DAILY #180 caps 09/06/21 02/05/22 Rx fexofenadine 30 mg tablet 30 mg PO DAILY 10/05/21 02/05/22 History pregabalin 150 mg capsule See Rx Instructions .Route 11/08/21 02/05/22 Rx .COMPLEX #270 caps lorazepam 0.5 mg tablet 0.5 mg PO DAILY PRN Claustrophobia 11/19/21 02/05/22 Rx #2 tabs Allergies Allergy/AdvReac Type Severity Reaction Status Date / Time No Known Drug Allergies Allergy Verified 01/03/22 09:23 Review of Systems Review of Systems Narrative: All 12 point systems reviewed with the patient and are negative except otherwise documented. Exam Vital Signs (past 8 hours): - 02/05/22 17:43 02/05/22 17:45 02/05/22 17:45 Temperature Pulse Rate 91 H 91 H Respiratory Rate Blood Pressure 110/56 L Pulse Oximetry 94 94 Oxygen Delivery Method 02/05/22 18:00 02/05/22 18:00 02/05/22 18:20 Temperature Pulse Rate 87 83 Respiratory Rate 22 Blood Pressure 106/59 L Pulse Oximetry 94 94 Oxygen Delivery Method 02/05/22 18:20 02/05/22 18:34 02/05/22 18:41 Temperature Pulse Rate 84 Respiratory Rate Blood Pressure 114/58 L 108/65 Pulse Oximetry Oxygen Delivery Method 02/05/22 18:41 02/05/22 18:50 02/05/22 18:50 Temperature Pulse Rate 81 80 Respiratory Rate 22 19 Blood Pressure 107/59 L Pulse Oximetry 95 94 Oxygen Delivery Method 02/05/22 19:00 02/05/22 19:00 02/05/22 19:02 Temperature Pulse Rate 80 Respiratory Rate 18 Blood Pressure 102/58 L 106/58 L Pulse Oximetry 93 Oxygen Delivery Method 02/05/22 19:02 02/05/22 19:10 02/05/22 19:10 Temperature Pulse Rate 79 80 Respiratory Rate 19 19 Blood Pressure 103/58 L Pulse Oximetry 93 93 Oxygen Delivery Method 02/05/22 19:42 02/05/22 17:16 02/05/22 19:20 Temperature 99.0 F 101.2 F H Pulse Rate 93 H Respiratory Rate 22 Blood Pressure 118/60 109/60 Pulse Oximetry 93 Oxygen Delivery Method Room Air 02/05/22 19:20 02/05/22 19:30 02/05/22 19:30 Temperature Pulse Rate 77 78 Respiratory Rate 19 19 Blood Pressure 111/62 Pulse Oximetry 95 96 Oxygen Delivery Method 02/05/22 19:41 02/05/22 19:41 02/05/22 19:50 Temperature Pulse Rate 76 77 Respiratory Rate 17 18 Blood Pressure 105/61 Pulse Oximetry 97 94 Oxygen Delivery Method 02/05/22 19:50 02/05/22 20:30 02/05/22 21:18 Temperature 98.9 F Pulse Rate 82 Respiratory Rate 21 Blood Pressure 104/59 L 115/58 L Pulse Oximetry 94 Oxygen Delivery Method Room Air Oxygen Delivery Method Room Air Narrative Exam Narrative: General: Patient is a well-developed, well-nourished moderately ill appearing male, constant whole body shaking during admit exam, mild SOB, in no acute distress at this time, hemodynamically stable. HEENT: Normocephalic, atraumatic, extraocular muscles intact, oral pharynx is clear and mucous membranes are dry. Neck is supple and symmetric, trachea is midline, no adenopathy, no thyroid enlargement, nontender, no masses palpated. Negative for JVD Chest: Breathing without no nasal flaring, retractions, abd muscles or tachypneic, is slightly labored. Lungs: Auscultation of all lung morillo are clear without adventitious sounds, wheezes, rhonchi, or rales, significantly decreased bilaterally, poor air exchange, shallow breathing, tight. Cardio: S1 & S2 with regular rate and rhythm without murmur, rubs, or gallops, no carotid bruit, no cardiac pulsations present. Abdomen: Soft nontender, negative for organomegaly, or masses. Bowel sounds are present in all 4 quadrants without guarding or rebound, no CVA tenderness. Musculoskeletal: Muscle strength and tone appear equal within normal limits, no deformity, crepitus, effusions, cyanosis, clubbing or edema present. Full range of motion intact radial and pedal pulses are normal. Skin: Warm dry and intact without rashes, ulcerations or petechiae. Neuro: Alert and orientated x3, all extremities: sensation to touch intact, no gross deficits noted of cranial nerves. Psych: Patient has a well-kept appearance, appropriate affect, mental status attitude thought context and judgment are appropriate for age. Objective Labs Result Diagrams: 02/05/22 17:05 02/05/22 17:05 Labs: Laboratory Results - last 24 hr 02/05/22 02/05/22 02/05/22 17:05 17:05 17:05 WBC 8.0 RBC 4.55 Hgb 12.7 L Hct 37.2 L MCV 81.8 MCH 27.9 MCHC 34.2 RDW 13.9 Plt Count 145 L Neut % (Auto) 88.7 H Lymph % (Auto) 6.0 L [place] % (Auto) 4.7 Eos % (Auto) 0.2 L Baso % (Auto) 0.4 Neut # (Auto) 7100 H Lymph # (Auto) 500 L [place] # (Auto) 400 Eos # (Auto) 0 Baso # (Auto) 0 PT 14.5 H INR 1.3 APTT 30 Sodium 138 Potassium 3.9 Chloride 102 Carbon Dioxide 16 L BUN 58 H Creatinine 2.78 H Estimated GFR 23 L BUN/Creatinine Ratio 20.9 Glucose 158 H Hemoglobin A1c Lactate Calcium 8.7 Magnesium Total Bilirubin 0.6 AST 21 ALT 21 Alkaline Phosphatase 89 Total Creatine Kinase 51 L CK-MB (CK-2) TNP CK-MB (CK-2) Rel Index TNP Troponin I 0.041 H NT-Pro-B Natriuret Pep Total Protein 7.0 Albumin 3.7 Globulin 3.3 Albumin/Globulin Ratio 1.1 Lipase 35 Procalcitonin 40.8 H Urine Color Urine Appearance Urine pH Ur Specific [place] Urine Protein Urine Glucose (UA) Urine Ketones Urine Occult Blood Urine Nitrate Urine Bilirubin Ur Bilirubin Confirm Urine Urobilinogen Ur Leukocyte Esterase Urine RBC Urine WBC Urine Bacteria Ur Culture Indicated? SARS-CoV-2 (PCR) Influenza A (RT-PCR) Influenza B (RT-PCR) RSV (PCR) 02/05/22 02/05/22 02/05/22 17:05 17:55 17:55 WBC RBC Hgb Hct MCV MCH MCHC RDW Plt Count Neut % (Auto) Lymph % (Auto) [place] % (Auto) Eos % (Auto) Baso % (Auto) Neut # (Auto) Lymph # (Auto) [place] # (Auto) Eos # (Auto) Baso # (Auto) PT INR APTT Sodium Potassium Chloride Carbon Dioxide BUN Creatinine Estimated GFR BUN/Creatinine Ratio Glucose Hemoglobin A1c 5.9 Lactate 3.0 H Calcium Magnesium 1.9 Total Bilirubin AST ALT Alkaline Phosphatase Total Creatine Kinase CK-MB (CK-2) CK-MB (CK-2) Rel Index Troponin I NT-Pro-B Natriuret Pep Total Protein Albumin Globulin Albumin/Globulin Ratio Lipase Procalcitonin Urine Color Urine Appearance Urine pH Ur Specific [place] Urine Protein Urine Glucose (UA) Urine Ketones Urine Occult Blood Urine Nitrate Urine Bilirubin Ur Bilirubin Confirm Urine Urobilinogen Ur Leukocyte Esterase Urine RBC Urine WBC Urine Bacteria Ur Culture Indicated? SARS-CoV-2 (PCR) Influenza A (RT-PCR) Influenza B (RT-PCR) RSV (PCR) 02/05/22 02/05/22 02/05/22 17:55 18:15 19:35 WBC RBC Hgb Hct MCV MCH MCHC RDW Plt Count Neut % (Auto) Lymph % (Auto) [place] % (Auto) Eos % (Auto) Baso % (Auto) Neut # (Auto) Lymph # (Auto) [place] # (Auto) Eos # (Auto) Baso # (Auto) PT INR APTT Sodium Potassium Chloride Carbon Dioxide BUN Creatinine Estimated GFR BUN/Creatinine Ratio Glucose Hemoglobin A1c Lactate Calcium Magnesium Total Bilirubin AST ALT Alkaline Phosphatase Total Creatine Kinase CK-MB (CK-2) CK-MB (CK-2) Rel Index Troponin I NT-Pro-B Natriuret Pep 473 H Total Protein Albumin Globulin Albumin/Globulin Ratio Lipase Procalcitonin Urine Color Yellow Urine Appearance Sl cloudy Urine pH 5.0 Ur Specific [place] 1.025 Urine Protein 2+ H Urine Glucose (UA) Negative Urine Ketones Trace H Urine Occult Blood 3+ H Urine Nitrate Negative Urine Bilirubin 1+ H Ur Bilirubin Confirm Negative Urine Urobilinogen 0.2 Ur Leukocyte Esterase 1+ H Urine RBC 0-1/hpf Urine WBC 30-100/hpf H Urine Bacteria Many (>30) H Ur Culture Indicated? Specimen cultured SARS-CoV-2 (PCR) Negative Influenza A (RT-PCR) Flu a negative Influenza B (RT-PCR) Flu b negative RSV (PCR) Negative Assessment & Plan Assessment & Plan narrative: Fabian Woodward is a 72-year-old male presented complaining of fever, body aches, chills, severe body shaking, rigors, diarrhea (nonBloody), non productive cough, SOB, decreased oral intake and inability to self cath for the last 4 days. Patient was febrile 101, blood pressures were soft 110/56, 91, slightly tachypneic 22, O2 saturation 94% on room air in ED, and delgadillo was placed. Patient met SIRS/Sepsis criteria in ED, received sepsis rehydration, Zosyn and vancomycin antibiotics. This patient requires acute care inpatient [facility] for sepsis without septic shock unknown etiology, [place], and mild anemia, likely secondary to urinary retention/ possible UTI, after failing outpatient management. 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 These factors increase the difficulty and complexity of medical and surgical interventions and increases the chances of poor outcomes such as morbidity and mortality. Patient admitted to acute care to determine source of infectious process, monitor for septic shock, empiric antibiotic management, rehydrate to resolve [place], monitor anemia, trend troponins, steroids and nebulizing treatments for worsening shortness of breath, monitor urinary retention, and facilitating patient's ability to self-catheterize. 1. Sepsis without septic shock, as a result of hypovolemia, and infectious process of unknown etiology, likely from chronic urinary retention (UTI) requiring CIC, secondary to adenoma carcinoma of prostate, acute on chronic, hypovolemia (diarrhea) present on admission -hypovolemia resulting in [place] (renal) organ dysfunction. -possible infection has developed status post surgical procedure 01/25/22 for Interstim battery replacement.- If patient condition deteriorates, blood and urine cultures are unremarkable consider LP. -Possible cholecystitis: abd/pelvis CT showed hydropic gallbladder without stones, and patient has no abd pain, WBC, but positive left shift-if clinical suspicion increases-consider abdominal ultrasound. -ED:Temp: 101, 110/56, 91, 22, O2 saturation 94% on room air -met SIRS/Sepsis criteria, received sepsis rehydration, Zosyn and vancomycin antibiotics-In ED -temp 99? BP 103/58 HR 80 R 19, O2 saturation 93% on room air, severe whole body shaking throughout exam, SOFA Score:4, temp recheck 98.3 -no white count, neutrophils #7100. BUN 58, bicarb 16, creatinine 2.78, glucose 158, GFR 23, lactic 3.0, procalcitonin 40.8. -patient initiated meropenem vancomycin: High risk for MDR, ESBL, broad- spectrum antibiotics gram-negative and gram-positive coverage-Complicated UTI- per-up-to date -Chest x-ray negative. -Abdominal pelvis CT: Bladder wall appears thickened, Delgadillo in place. Diverticulosis without diverticulitis, noted Hydropic gallbladder.?no radiopaque gallstones, 2 mm nonobstructive right renal stone, fat containing hernia left flank, moderate-sized hiatal hernia, a small amount of free fluid in pelvis, and lungs with bibasilar consolidation and or atelectasis -urine: negative- culture ordered, Bld cultures pending x2 -history of G3/3, PT1 urothelial carcinoma, current G1/pT1c adenoma carcinoma of prostate, resulting in chronic urinary retention requiring CIC -InterStim neurostimulator in place and intermittent catheterization -battery change (MRI compatible) InterStim device 01/25/2022 Dr. Wilson, -cystoscopy with Dr. Anguiano urology 01/03/2022 (Q3 months) -scheduled for a radical prostatectomy 02/25/2022. -I personally reviewed chart notes from Dr. Anguiano urology, Dr. Rausch general surgery, Dr. [facility], all diagnostic imaging, labs, and EKG. -Delgadillo placed -monitor I&O -NS@100cc/hr -Monitor for septic shock: Notify for SBP<110, DBP<80, HR >110 x 30min, increasing respiratory demand. -monitor for hypothermia, apply Sai Hugger if needed once patient is sustained afebrile. 2. [place], acute, suspect UTI, due to chronic urinary retention resulting from adenoma carcinoma of the prostate, acute on chronic, requiring CIC, present on admission -Admit:BUN 58, bicarb 16, creatinine 2.78, glucose 158, GFR 23. Labs 2021: BUN 26, creatinine 1.24, GFR>60 -patient reports that he was unable to self-catheterize for chronic urinary retention for approximately the last 4 days, Patient normally post void catheterization 3-4 times daily. -Delgadillo in place -Monitor electrolytes, I&O -NS@100cc/hr -Abd/Pelvic CT: 2 mm nonobstructive right renal stone. small amount of free fluid in pelvis 3.History of G3/3, PT1 urothelial carcinoma, Current G1/pT1c adenoma carcinoma of prostate, acute on chronic, with chronic urinary retention, acute on chronic, present on admission -If patient is not improving, or urological complications are worsening recommend Urology Consult -cystoscopy with Dr. Anguiano urology 01/03/2022 (Q3 months) -scheduled for a radical prostatectomy 02/25/2022. -Not on any current medications or treatments for metastatic disease. -continue Flomax -pt able to d/c when her is able to resume self Cath. 4. Myocardial injury, asymptomatic, acute, likely secondary to infectious process demand ischemia, present on admission -initial troponin 0.041-will trend x3 -EKG: NSR, rate 91, without ST or T-wave changes. on tele for monitoring. 5.Asthma, exacerbation with cough & SOB, Mild, acute on chronic, present on admission -patient slightly tachypneic on admission, breath sounds are bilaterally d ecreased poor air exchange, tight, shallow breathing -DuoNeb q.4 hours, hold HFA albuterol inhaler -respiratory consult -incentive spirometry -if patient is able to produce sputum will complete sputum culture -prednisone 40mg PO Qday -COVID,influenza A/B, RSV: negative -Chest x-ray negative, Abd/Pelvic CT:lungs with bibasilar consolidation and or atelectasis 6. Hyperlipidemia, mixed, chronic, present on admission -continue Lipitor 7. DJD, cervical and lumbar status post fusions, OA/spondylosis, acute on chronic, present on admission -continue Lyrica oxycodone for pain management 8. GERD, chronic, present on admission -continue omeprazole 9. Diverticulosis without diverticulitis, as evidence by CT imaging, acute,with multiple hernias, chronic, present on admission -Abd/Pelvis CT: Diverticulosis without diverticulitis, fat containing hernia left flank, moderate-sized hiatal hernia, a small amount of free fluid in pelvis 10. Anemia, mild, acute, with mild thrombocytopenia, likely secondary to acute infectious process and recent surgical interventions, present on admission -HGB 12.7, HCT 37.2, platelets 145. Labs 08/30/2020 H&H WNL, platelet 146. -Monitor hematology coagulation labs, PT/INR WNL -The patient's mild anemia may impact his oxygenation. Code status:Full Surrogate decision maker: Ailin BAUTISTA PCR:Negative DVT/VTE prophylaxis: Lovenox & SCD's Disposition: Patient admitted to acute care to determine source of infectious process, empiric antibiotic management, rehydrate to resolve [place], monitor anemia, steroids and nebulizing treatments for worsening shortness of breath, monitor urinary retention, and facilitating patient's ability to self-ca theterize. Patient's expected length of stay greater than 2 midnights. I have utilized all available immediate resources to obtain, update, or review the patient's current medications. I confirmed that the patient's advanced care plan is present, Code status is documented and/or surrogate decision maker is listed in the patient's medical record. Time Spent With Patient Critical Care time: I spent a total of [] minutes of critical care time on this patient's care today; this time is exclusive of procedural time.
[2022-02-05 23:56] LABS: Troponin I 0.046 ng/mL (0.01-0.034)
[2022-02-06] VITALS (31 sets, daily range): BP systolic 96–139; BP diastolic 53–77; PULSE 73–120; RESP 10–28; TEMP 32–39.9; O2SAT 92–100
[2022-02-06 00:10] LABS: Lactate 2HR (Lactic Acid Rflx) 0.8 mmol/L (0.7-2.1)
[2022-02-06] MEDS: ALBUTEROL/IPRATROPIUM 3 ML AMPUL INH ×4 (01:14→19:05)
[2022-02-06] MEDS: LORazepam 0.5 MG TABLET PO ×2 (03:51→09:53)
[2022-02-06] MEDS: ACETAMINOPHEN 325 MG TABLET 975 MG PO ×2 (03:52→17:41)
--- NOTE | 2022-02-06 04:09 | PC.NURSE ---
0400 telemetry reading showed patient to be in afib. GREYSON Kang made aware. EKG ordered.
[2022-02-06] MEDS: PREGABALIN 75 MG CAPSULE 150 MG PO ×3 (05:21→20:59)
[2022-02-06 06:16] LABS: Add Manual Diff / Slide Review NO; Basophils Absolute Auto 0 /uL (0-100); Basophils Percent Auto 0.5 % (0-2); Eosinophils Absolute Auto 100 /uL (0-450); Eosinophils Percent Auto 1.4 % (2-4); Hematocrit 31.6 % (41-53); Hemoglobin 10.5 g/dL (13.5-17.5); Lymphocytes Absolute Auto 400 /uL (1100-4500); Lymphocytes Percent Auto 5.7 % (25-40); Mean Corpuscular HGB Conc 33.1 % (30-36); Mean Corpuscular Hemoglobin 27.4 PG (26-34); Mean Corpuscular Volume 82.8 fL (80-100); Monocytes Absolute Auto 400 /uL (0-900); Monocytes Percent Auto 6.2 % (3-14); Neutrophils Absolute Auto 5400 /uL (1500-7000); Neutrophils Percent Auto 86.2 % (50-75); Platelet Count 110 X10^3/uL (150-400); Red Blood Cell Count 3.82 X10^6/uL (4.5-5.9); Red Cell Distribution Width 14.2 % (11.6-14.8); White Blood Cell Count 6.3 X10^3/uL (4.5-11.0)
[2022-02-06 06:26] LABS: Lactate (Lactic Acid) 0.7 mmol/L (0.7-2.1); Magnesium 1.8 mg/dL (1.6-2.3)
[2022-02-06 06:29] LABS: Alanine Aminotransferase 18 IU/L (<50); Albumin 2.9 g/dL (3.5-5.0); Alkaline Phosphatase 65 U/L (38-126); Aspartate Aminotransferase 23 IU/L (17-59); BUN Creatinine Ratio 21.9 (6-22); Bilirubin Total 0.4 mg/dL (0.2-1.3); Blood Urea Nitrogen 53 mg/dL (9-20); Calcium 6.8 mg/dL (8.4-10.2); Carbon Dioxide 16 mmol/L (22-32); Chloride 106 mmol/L (98-107); Estimated Glomerular Filt Rate 28 mL/min (>60); Globulin 2.9 g/dL (1.7-4.1); Glucose 107 mg/dL (80-110); HEMOLYSIS < 15 (0-50); Potassium 3.5 mmol/L (3.4-5.1); Sodium 134 mmol/L (137-145); Total Protein 5.8 g/dL (6.3-8.2)
[2022-02-06 06:46] LABS: Procalcitonin 30.7 ng/mL (<0.5)
[2022-02-06 07:01] LABS: TSH w/ Reflex to FT4 0.11 uIU/mL (0.47-4.68)
--- NOTE | 2022-02-06 07:10 | DI.RAD.S_ITS ---
PROCEDURE: XR CHEST 1V INDICATIONS: sob, chf? TECHNIQUE: One view of the chest was acquired. COMPARISON: [facility], CR, XR CHEST 1V, 02/05/2022, 17:53. FINDINGS: Surgical changes and devices: Presume stimulator wires are noted overlying the midthoracic spine Lungs and pleura: Mild increased retrocardiac opacity. Mild interval trace costophrenic angle blunting. Mediastinum: Mediastinal contours appear normal. Heart size is mildly enlarged. Bones and chest wall: No suspicious bony lesions. Overlying soft tissues appear unremarkable. IMPRESSION: Mild increased retrocardiac opacity. This could represent focal edema versus developing airspace disease such as pneumonia. Also suspected developing trace effusions. Dictated by: Ayla Crooks M.D. on 02/06/2022 at 8:54 Approved by: Ayla Crooks M.D. on 02/06/2022 at 8:55
[2022-02-06 07:31] LABS: Free T4, Direct Thyroxine 1.19 ng/dL (0.78-2.19)
[2022-02-06 07:54] LABS: NT-proBNP (BNP-Adult 18+) 700 pg/mL (<125)
[2022-02-06] MEDS: PANTOPRAZOLE DR 20 MG TABLET PO (09:13)
[2022-02-06] MEDS: ENOXAPARIN 30 MG/0.3 ML SYRINGE SUBCUT (09:13)
[2022-02-06] MEDS: TAMSULOSIN 0.4 MG CAPSULE 0.8 MG PO (09:13)
[2022-02-06] MEDS: OXYCODONE IR 5 MG TABLET PO (09:14)
[2022-02-06 09:31] LABS: Enterococcus species Not Detected (Not Detect); Listeria monocytogenes Not Detected (Not Detect); Staphylococcus species Not Detected (Not Detect); Streptococcus agalactiae (Gr B Not Detected (Not Detect); Streptococcus pneumonia Not Detected (Not Detect); Streptococcus pyogenes (Gr A) Not Detected (Not Detect); Streptococcus species Not Detected (Not Detect)
[2022-02-06 09:32] LABS: Acinetobacter baumannii Not Detected (Not Detect); Candida albicans Not Detected (Not Detect); Candida glabrata Not Detected (Not Detect); Candida krusei Not Detected (Not Detect); Candida parapsilosis Not Detected (Not Detect); Candida tropicalis Not Detected (Not Detect); E. coli Detected (Not Detect); Enterobacter cloacae complex Not Detected (Not Detect); Enterobacteriaceae species Detected (Not Detect); Haemophilus influenzae Not Detected (Not Detect); KPC (carbapenem-resist gene) Not Detected (Not Detect); Neisseria meningitidis Not Detected (Not Detect); Proteus species Not Detected (Not Detect); Pseudomonas aeruginosa Not Detected (Not Detect); Serratia marcescens Not Detected (Not Detect)
--- NOTE | 2022-02-06 10:39 | PC.NURSE ---
@0950 I went in to check on Pt, at the time pt was getting breathing treatment via RT. Pt was audibly wheezy,shaking. @1000 i took vital signs bp 137/77 HR 120 RR 22 TEMP 98.9 ORAL AND O2 SAT 96 on 2L nasal Cannula. Pt had blue lips but good blood return less than [address] Morales and he ordered for Pt to be transferred to ICU and I transferred care @1267.
[2022-02-06 10:59] LABS: PCO2 ABG 22.8 mmHg (35-45); PO2 ABG 67 mmHg (80-100); pH ABG 7.39 (7.35-7.45)
[2022-02-06 11:00] LABS: Fractionated Inspired Oxygen 32; HCO3 ABG 14 mmol/L (22-26); Oxygen Saturation ABG 93 % (95-100); TCO2 ABG 14 mmol/L (21-31)
--- NOTE | 2022-02-06 11:34 | PM.CN.EICU ---
History of Present Illness Consult details IF CAMERA ACTIVATED, patient seen via real-time interactive audiovisual communication: Camera activated Chief complaint: Fever Consent obtained for tele-collar baster care: Yes Patient Location: ICU Provider location (State): [place] Other participants/roles: Dr. Campoverde Narrative: 72-year-old male presented complaining of fever, body aches, chills, severe body shaking, rigors, diarrhea (nonBloody), non productive cough, SOB, decreased oral intake and inability to self cath for the last 4 days. Patient was febrile 101, blood pressures were soft 110/56, 91, slightly tachypneic 22, O2 saturation 94% on room air in ED, and delgadillo was placed. Patient met SIRS/Sepsis criteria in ED, received sepsis rehydration, Zosyn and vancomycin antibiotics. This patient requires acute care inpatient hospital management for sepsis without septic shock unknown etiology, [place], and mild anemia, likely secondary to urinary retention/ possible UTI, after failing outpatient management. 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 These factors increase the difficulty and complexity of medical and surgical interventions and increases the chances of poor outcomes such as morbidity and mortality. Patient admitted to acute care to determine source of infectious process, monitor for septic shock, empiric antibiotic management, rehydrate to resolve [place], monitor anemia, trend troponins, steroids and nebulizing treatments for worsening shortness of breath, monitor urinary retention, and facilitating patient's ability to self-catheterize. FOR[facility], LATER [facility] Medical History Asthma (~2016) Bladder cancer (~2009) Cervical spine disease (~1997) Degenerative joint disease (DJD) of lumbar spine (~2012) Depression (~1997) Elevated blood pressure reading without diagnosis of hypertension Elevated PSA, between 10 and less than 20 ng/ml Fractures (~2000) GERD (gastroesophageal reflux disease) Hearing loss (~2011) History of arthritis History of kidney stones History of primary bladder cancer Hyperlipidemia, mixed Macular degeneration of right eye (01/2022) Presence of neurostimulator (01/25/22) Prostate cancer Recurrent malignant neoplasm of bladder Right nephrolithiasis Self-catheterizes urinary bladder Urinary retention Urinary retention Vitamin D deficiency Wears glasses Surgical History Anesthesia History of bladder surgery (~2009) History of fusion of cervical spine (~1997) History of fusion of lumbar spine (~2012) History of knee replacement History of surgery (~2014) History of urologic surgery (10/05/21) Hx of appendectomy (1963) Hx of colonoscopy (10/12/20) Hx of prostate biopsy Hx of right inguinal hernia repair (1971) Hx of vasectomy Family History Father Cancer Mother Renal failure Brother Cancer Hypertension Brother Cancer Grandfather History of heart disease Grandmother History of heart disease Grandfather Black lung disease Grandmother Stroke Mother Renal failure Daughter Urinary tract infection Son Kidney stones Social History marital status: number of children: 2 household members: spouse Smoking Status: Former smoker Tobacco: How many years used: 10 alcohol intake: former substance use type: does not use caffeine: Yes Type(s) of exercise: independent ambulation, bicycling and regular exercise frequency: daily duration: > 90 minutes/day Current Medications Current Medications Medications: Home Medications ascorbic acid (vitamin C) 500 mg tablet (Vitamin C) 500 mg PO DAILY ##0 02/19/10 [History Confirmed 02/05/22] cholecalciferol (vitamin D3) 10 mcg (400 unit) tablet (Vitamin D3) 10 mcg PO DAILY ##0 02/19/10 [History Confirmed 02/05/22] glucosamine sulfate 500 mg tablet 1 tab PO DAILY ##0 02/19/10 [History Confirmed 02/05/22] acetaminophen 500 mg capsule 1,300 mg PO TID 01/04/20 [History Confirmed 02/05/22] omeprazole 20 mg capsule,delayed release 20 mg PO DAILY 01/04/20 [History Confirmed 02/05/22] tamsulosin 0.4 mg capsule 0.8 mg PO DAILY #180 caps 09/06/21 [Rx Confirmed 02/05/22] fexofenadine 30 mg tablet 30 mg PO DAILY 10/05/21 [History Confirmed 02/05/22] pregabalin 150 mg capsule See Rx Instructions .Route .COMPLEX #270 caps 11/08/21 [Rx Confirmed 02/05/22] lorazepam 0.5 mg tablet 0.5 mg PO DAILY PRN Claustrophobia #2 tabs 11/19/21 [Rx Confirmed 02/05/22] Visit Medications (administered) Generic Name Dose Route Start Last Admin Trade Name Freq PRN Reason Stop Dose Admin Acetaminophen 975 mg 02/06/22 03:32 02/06/22 03:52 Acetaminophen 325 Mg Tablet PO 975 mg Q8H PRN Administration Fever/Mild Pain (1-3) Albuterol/Ipratropium 3 ml 02/05/22 23:00 02/06/22 09:39 Albuterol/Ipratropium 3 Ml Ampul INH 3 ml [id number] MARA Administration Enoxaparin Sodium 30 mg 02/06/22 09:00 02/06/22 09:13 Enoxaparin 30 Mg/0.3 Ml Syringe SUBCUT 30 mg DAILY MARA Administration Oxycodone HCl 5 mg 02/05/22 20:26 02/06/22 09:14 Oxycodone Ir 5 Mg Tablet PO 5 mg Q3H PRN Administration Pain, Moderate (4-10) Pantoprazole Sodium 20 mg 02/06/22 09:00 02/06/22 09:[address] 20 Mg Tablet PO 20 mg DAILY MARA Administration Pregabalin 150 mg 02/05/22 21:00 02/06/22 05:21 Pregabalin 75 Mg Capsule PO 150 mg Q8H MARA Administration Tamsulosin HCl 0.8 mg 02/06/22 09:00 02/06/22 09:13 Tamsulosin 0.4 Mg Capsule PO 0.8 mg DAILY MARA Administration Exam Vital Signs (past 8 hours): - 02/06/22 03:52 02/06/22 04:00 02/06/22 05:04 Temperature 103.8 F H 103.8 F H 99.4 F Pulse Rate 103 H Respiratory Rate 21 Blood Pressure 126/65 Pulse Oximetry 94 Oxygen Delivery Method Oxygen Flow Rate 2 Fraction of Inspired Oxygen 02/06/22 05:24 02/06/22 08:00 02/06/22 08:12 Temperature 99.4 F Pulse Rate Respiratory Rate Blood Pressure Pulse Oximetry 97 Oxygen Delivery Method Nasal Cannula Nasal Cannula Oxygen Flow Rate 2 Fraction of Inspired Oxygen 02/06/22 08:17 02/06/22 08:37 02/06/22 09:39 Temperature 98.1 F Pulse Rate 83 100 H Respiratory Rate 20 20 Blood Pressure 135/69 Pulse Oximetry 98 94 Oxygen Delivery Method Nasal Cannula Nasal Cannula Oxygen Flow Rate 2 2 2 Fraction of Inspired Oxygen 98 02/06/22 10:00 02/06/22 10:53 02/06/22 10:24 Temperature 98.9 F 102.5 F H Pulse Rate 120 H 110 H Respiratory Rate 22 22 Blood Pressure 137/77 139/63 122/66 Pulse Oximetry 96 Oxygen Delivery Method Oxygen Flow Rate 2 Fraction of Inspired Oxygen 30 30 Fraction of Inspired Oxygen 30 Oxygen Delivery Method Nasal Cannula Oxygen Flow Rate 2 Objective Labs Result Diagrams: 02/06/22 05:37 02/06/22 05:37 Labs: Laboratory Results - last 24 hr 02/05/22 02/05/22 02/05/22 17:05 17:05 17:05 WBC 8.0 RBC 4.55 Hgb 12.7 L Hct 37.2 L MCV 81.8 MCH 27.9 MCHC 34.2 RDW 13.9 Plt Count 145 L Neut % (Auto) 88.7 H Lymph % (Auto) 6.0 L [place] % (Auto) 4.7 Eos % (Auto) 0.2 L Baso % (Auto) 0.4 Neut # (Auto) 7100 H Lymph # (Auto) 500 L [place] # (Auto) 400 Eos # (Auto) 0 Baso # (Auto) 0 PT 14.5 H INR 1.3 APTT 30 ABG pH ABG pCO2 ABG pO2 ABG HCO3 ABG Total CO2 ABG O2 Saturation ABG Base Excess FiO2 Sodium 138 Potassium 3.9 Chloride 102 Carbon Dioxide 16 L BUN 58 H Creatinine 2.78 H Estimated GFR 23 L BUN/Creatinine Ratio 20.9 Glucose 158 H Hemoglobin A1c Lactate Calcium 8.7 Magnesium Total Bilirubin 0.6 AST 21 ALT 21 Alkaline Phosphatase 89 Total Creatine Kinase 51 L CK-MB (CK-2) TNP CK-MB (CK-2) Rel Index TNP Troponin I 0.041 H NT-Pro-B Natriuret Pep Total Protein 7.0 Albumin 3.7 Globulin 3.3 Albumin/Globulin Ratio 1.1 Lipase 35 Procalcitonin 40.8 H TSH Free T4 Urine Color Urine Appearance Urine pH Ur Specific [place] Urine Protein Urine Glucose (UA) Urine Ketones Urine Occult Blood Urine Nitrate Urine Bilirubin Ur Bilirubin Confirm Urine Urobilinogen Ur Leukocyte Esterase Urine RBC Urine WBC Urine Bacteria Ur Culture Indicated? A. baumannii (PCR) Noemi albicans (PCR) C. glabrata (PCR) C. krusei (PCR) C. parapsilosis (PCR) C. tropicalis (PCR) SARS-CoV-2 (PCR) Enterobacteriac sp PCR E. cloacae complex PCR Enterococcus sp PCR E. coli (PCR) H. influenzae (PCR) Influenza A (RT-PCR) Influenza B (RT-PCR) Klebsiella oxytoca PCR Klebsiella pneumoniae List. monocytogenes PCR N. meningitidis (PCR) Proteus species (PCR) RSV (PCR) Serratia marcescens PCR Staphylococcus sp PCR Staph aureus (PCR) mecA-Methicil Res Gene Streptococcus sp PCR Group A Strep (PCR) Strep agalactiae (PCR) Strep pneumoniae (PCR) P. aeruginosa (PCR) Abigail/B-Vanco Res Genes KPC-Carbap Res Gene PCR 02/05/22 02/05/22 02/05/22 17:05 17:05 17:55 WBC RBC Hgb Hct MCV MCH MCHC RDW Plt Count Neut % (Auto) Lymph % (Auto) [place] % (Auto) Eos % (Auto) Baso % (Auto) Neut # (Auto) Lymph # (Auto) [place] # (Auto) Eos # (Auto) Baso # (Auto) PT INR APTT ABG pH ABG pCO2 ABG pO2 ABG HCO3 ABG Total CO2 ABG O2 Saturation ABG Base Excess FiO2 Sodium Potassium Chloride Carbon Dioxide BUN Creatinine Estimated GFR BUN/Creatinine Ratio Glucose Hemoglobin A1c Lactate 3.0 H Calcium Magnesium 1.9 Total Bilirubin AST ALT Alkaline Phosphatase Total Creatine Kinase CK-MB (CK-2) CK-MB (CK-2) Rel Index Troponin I NT-Pro-B Natriuret Pep Total Protein Albumin Globulin Albumin/Globulin Ratio Lipase Procalcitonin TSH Free T4 Urine Color Urine Appearance Urine pH Ur Specific [place] Urine Protein Urine Glucose (UA) Urine Ketones Urine Occult Blood Urine Nitrate Urine Bilirubin Ur Bilirubin Confirm Urine Urobilinogen Ur Leukocyte Esterase Urine RBC Urine WBC Urine Bacteria Ur Culture Indicated? A. baumannii (PCR) Not detected Noemi albicans (PCR) Not detected C. glabrata (PCR) Not detected C. krusei (PCR) Not detected C. parapsilosis (PCR) Not detected C. tropicalis (PCR) Not detected SARS-CoV-2 (PCR) Enterobacteriac sp PCR Detected H E. cloacae complex PCR Not detected Enterococcus sp PCR Not detected E. coli (PCR) Detected H H. influenzae (PCR) Not detected Influenza A (RT-PCR) Influenza B (RT-PCR) Klebsiella oxytoca PCR Not detected Klebsiella pneumoniae Not detected List. monocytogenes PCR Not detected N. meningitidis (PCR) Not detected Proteus species (PCR) Not detected RSV (PCR) Serratia marcescens PCR Not detected Staphylococcus sp PCR Not detected Staph aureus (PCR) Not detected mecA-Methicil Res Gene TNP Streptococcus sp PCR Not detected Group A Strep (PCR) Not detected Strep agalactiae (PCR) Not detected Strep pneumoniae (PCR) Not detected P. aeruginosa (PCR) Not detected Abigail/B-Vanco Res Genes TNP KPC-Carbap Res Gene PCR Not detected 02/05/22 02/05/22 02/05/22 17:55 17:55 18:15 WBC RBC Hgb Hct MCV MCH MCHC RDW Plt Count Neut % (Auto) Lymph % (Auto) [place] % (Auto) Eos % (Auto) Baso % (Auto) Neut # (Auto) Lymph # (Auto) [place] # (Auto) Eos # (Auto) Baso # (Auto) PT INR APTT ABG pH ABG pCO2 ABG pO2 ABG HCO3 ABG Total CO2 ABG O2 Saturation ABG Base Excess FiO2 Sodium Potassium Chloride Carbon Dioxide BUN Creatinine Estimated GFR BUN/Creatinine Ratio Glucose Hemoglobin A1c 5.9 Lactate Calcium Magnesium Total Bilirubin AST ALT Alkaline Phosphatase Total Creatine Kinase CK-MB (CK-2) CK-MB (CK-2) Rel Index Troponin I NT-Pro-B Natriuret Pep 473 H Total Protein Albumin Globulin Albumin/Globulin Ratio Lipase Procalcitonin TSH Free T4 Urine Color Yellow Urine Appearance Sl cloudy Urine pH 5.0 Ur Specific [place] 1.025 Urine Protein 2+ H Urine Glucose (UA) Negative Urine Ketones Trace H Urine Occult Blood 3+ H Urine Nitrate Negative Urine Bilirubin 1+ H Ur Bilirubin Confirm Negative Urine Urobilinogen 0.2 Ur Leukocyte Esterase 1+ H Urine RBC 0-1/hpf Urine WBC 30-100/hpf H Urine Bacteria Many (>30) H Ur Culture Indicated? Specimen cultured A. baumannii (PCR) Noemi albicans (PCR) C. glabrata (PCR) C. krusei (PCR) C. parapsilosis (PCR) C. tropicalis (PCR) SARS-CoV-2 (PCR) Enterobacteriac sp PCR E. cloacae complex PCR Enterococcus sp PCR E. coli (PCR) H. influenzae (PCR) Influenza A (RT-PCR) Influenza B (RT-PCR) Klebsiella oxytoca PCR Klebsiella pneumoniae List. monocytogenes PCR N. meningitidis (PCR) Proteus species (PCR) RSV (PCR) Serratia marcescens PCR Staphylococcus sp PCR Staph aureus (PCR) mecA-Methicil Res Gene Streptococcus sp PCR Group A Strep (PCR) Strep agalactiae (PCR) Strep pneumoniae (PCR) P. aeruginosa (PCR) Abigail/B-Vanco Res Genes KPC-Carbap Res Gene PCR 02/05/22 02/05/22 02/05/22 19:35 23:00 23:50 WBC RBC Hgb Hct MCV MCH MCHC RDW Plt Count Neut % (Auto) Lymph % (Auto) [place] % (Auto) Eos % (Auto) Baso % (Auto) Neut # (Auto) Lymph # (Auto) [place] # (Auto) Eos # (Auto) Baso # (Auto) PT INR APTT ABG pH ABG pCO2 ABG pO2 ABG HCO3 ABG Total CO2 ABG O2 Saturation ABG Base Excess FiO2 Sodium Potassium Chloride Carbon Dioxide BUN Creatinine Estimated GFR BUN/Creatinine Ratio Glucose Hemoglobin A1c Lactate 0.8 Calcium Magnesium Total Bilirubin AST ALT Alkaline Phosphatase Total Creatine Kinase CK-MB (CK-2) CK-MB (CK-2) Rel Index Troponin I 0.046 H NT-Pro-B Natriuret Pep Total Protein Albumin Globulin Albumin/Globulin Ratio Lipase Procalcitonin TSH Free T4 Urine Color Urine Appearance Urine pH Ur Specific [place] Urine Protein Urine Glucose (UA) Urine Ketones Urine Occult Blood Urine Nitrate Urine Bilirubin Ur Bilirubin Confirm Urine Urobilinogen Ur Leukocyte Esterase Urine RBC Urine WBC Urine Bacteria Ur Culture Indicated? A. baumannii (PCR) Noemi albicans (PCR) C. glabrata (PCR) C. krusei (PCR) C. parapsilosis (PCR) C. tropicalis (PCR) SARS-CoV-2 (PCR) Negative Enterobacteriac sp PCR E. cloacae complex PCR Enterococcus sp PCR E. coli (PCR) H. influenzae (PCR) Influenza A (RT-PCR) Flu a negative Influenza B (RT-PCR) Flu b negative Klebsiella oxytoca PCR Klebsiella pneumoniae List. monocytogenes PCR N. meningitidis (PCR) Proteus species (PCR) RSV (PCR) Negative Serratia marcescens PCR Staphylococcus sp PCR Staph aureus (PCR) mecA-Methicil Res Gene Streptococcus sp PCR Group A Strep (PCR) Strep agalactiae (PCR) Strep pneumoniae (PCR) P. aeruginosa (PCR) Abigail/B-Vanco Res Genes KPC-Carbap Res Gene PCR 02/06/22 02/06/22 02/06/22 05:37 05:37 05:37 WBC 6.3 RBC 3.82 L Hgb 10.5 L Hct 31.6 L MCV 82.8 MCH 27.4 MCHC 33.1 RDW 14.2 Plt Count 110 L Neut % (Auto) 86.2 H Lymph % (Auto) 5.7 L [place] % (Auto) 6.2 Eos % (Auto) 1.4 L Baso % (Auto) 0.5 Neut # (Auto) 5400 Lymph # (Auto) 400 L [place] # (Auto) 400 Eos # (Auto) 100 Baso # (Auto) 0 PT INR APTT ABG pH ABG pCO2 ABG pO2 ABG HCO3 ABG Total CO2 ABG O2 Saturation ABG Base Excess FiO2 Sodium 134 L Potassium 3.5 Chloride 106 Carbon Dioxide 16 L BUN 53 H Creatinine 2.42 H Estimated GFR 28 L BUN/Creatinine Ratio 21.9 Glucose 107 Hemoglobin A1c Lactate Calcium 6.8 L Magnesium Total Bilirubin 0.4 AST 23 ALT 18 Alkaline Phosphatase 65 Total Creatine Kinase CK-MB (CK-2) CK-MB (CK-2) Rel Index Troponin I 0.090 H NT-Pro-B Natriuret Pep Total Protein 5.8 L Albumin 2.9 L Globulin 2.9 Albumin/Globulin Ratio 1.0 Lipase Procalcitonin 30.7 H TSH Free T4 Urine Color Urine Appearance Urine pH Ur Specific [place] Urine Protein Urine Glucose (UA) Urine Ketones Urine Occult Blood Urine Nitrate Urine Bilirubin Ur Bilirubin Confirm Urine Urobilinogen Ur Leukocyte Esterase Urine RBC Urine WBC Urine Bacteria Ur Culture Indicated? A. baumannii (PCR) Noemi albicans (PCR) C. glabrata (PCR) C. krusei (PCR) C. parapsilosis (PCR) C. tropicalis (PCR) SARS-CoV-2 (PCR) Enterobacteriac sp PCR E. cloacae complex PCR Enterococcus sp PCR E. coli (PCR) H. influenzae (PCR) Influenza A (RT-PCR) Influenza B (RT-PCR) Klebsiella oxytoca PCR Klebsiella pneumoniae List. monocytogenes PCR N. meningitidis (PCR) Proteus species (PCR) RSV (PCR) Serratia marcescens PCR Staphylococcus sp PCR Staph aureus (PCR) mecA-Methicil Res Gene Streptococcus sp PCR Group A Strep (PCR) Strep agalactiae (PCR) Strep pneumoniae (PCR) P. aeruginosa (PCR) Abigail/B-Vanco Res Genes KPC-Carbap Res Gene PCR 02/06/22 02/06/22 02/06/22 05:37 05:37 05:37 WBC RBC Hgb Hct MCV MCH MCHC RDW Plt Count Neut % (Auto) Lymph % (Auto) [place] % (Auto) Eos % (Auto) Baso % (Auto) Neut # (Auto) Lymph # (Auto) [place] # (Auto) Eos # (Auto) Baso # (Auto) PT INR APTT ABG pH ABG pCO2 ABG pO2 ABG HCO3 ABG Total CO2 ABG O2 Saturation ABG Base Excess FiO2 Sodium Potassium Chloride Carbon Dioxide BUN Creatinine Estimated GFR BUN/Creatinine Ratio Glucose Hemoglobin A1c Lactate 0.7 Calcium Magnesium 1.8 Total Bilirubin AST ALT Alkaline Phosphatase Total Creatine Kinase CK-MB (CK-2) CK-MB (CK-2) Rel Index Troponin I NT-Pro-B Natriuret Pep Total Protein Albumin Globulin Albumin/Globulin Ratio Lipase Procalcitonin TSH 0.11 L Free T4 1.19 Urine Color Urine Appearance Urine pH Ur Specific [place] Urine Protein Urine Glucose (UA) Urine Ketones Urine Occult Blood Urine Nitrate Urine Bilirubin Ur Bilirubin Confirm Urine Urobilinogen Ur Leukocyte Esterase Urine RBC Urine WBC Urine Bacteria Ur Culture Indicated? A. baumannii (PCR) Noemi albicans (PCR) C. glabrata (PCR) C. krusei (PCR) C. parapsilosis (PCR) C. tropicalis (PCR) SARS-CoV-2 (PCR) Enterobacteriac sp PCR E. cloacae complex PCR Enterococcus sp PCR E. coli (PCR) H. influenzae (PCR) Influenza A (RT-PCR) Influenza B (RT-PCR) Klebsiella oxytoca PCR Klebsiella pneumoniae List. monocytogenes PCR N. meningitidis (PCR) Proteus species (PCR) RSV (PCR) Serratia marcescens PCR Staphylococcus sp PCR Staph aureus (PCR) mecA-Methicil Res Gene Streptococcus sp PCR Group A Strep (PCR) Strep agalactiae (PCR) Strep pneumoniae (PCR) P. aeruginosa (PCR) Abigail/B-Vanco Res Genes KPC-Carbap Res Gene PCR 02/06/22 02/06/22 05:37 11:24 WBC RBC Hgb Hct MCV MCH MCHC RDW Plt Count Neut % (Auto) Lymph % (Auto) [place] % (Auto) Eos % (Auto) Baso % (Auto) Neut # (Auto) Lymph # (Auto) [place] # (Auto) Eos # (Auto) Baso # (Auto) PT INR APTT ABG pH 7.39 ABG pCO2 22.8 L* ABG pO2 67 L ABG HCO3 14 L ABG Total CO2 14 L ABG O2 Saturation 93 L ABG Base Excess -11.0 L FiO2 32 Sodium Potassium Chloride Carbon Dioxide BUN Creatinine Estimated GFR BUN/Creatinine Ratio Glucose Hemoglobin A1c Lactate Calcium Magnesium Total Bilirubin AST ALT Alkaline Phosphatase Total Creatine Kinase CK-MB (CK-2) CK-MB (CK-2) Rel Index Troponin I NT-Pro-B Natriuret Pep 700 H Total Protein Albumin Globulin Albumin/Globulin Ratio Lipase Procalcitonin TSH Free T4 Urine Color Urine Appearance Urine pH Ur Specific [place] Urine Protein Urine Glucose (UA) Urine Ketones Urine Occult Blood Urine Nitrate Urine Bilirubin Ur Bilirubin Confirm Urine Urobilinogen Ur Leukocyte Esterase Urine RBC Urine WBC Urine Bacteria Ur Culture Indicated? A. baumannii (PCR) Noemi albicans (PCR) C. glabrata (PCR) C. krusei (PCR) C. parapsilosis (PCR) C. tropicalis (PCR) SARS-CoV-2 (PCR) Enterobacteriac sp PCR E. cloacae complex PCR Enterococcus sp PCR E. coli (PCR) H. influenzae (PCR) Influenza A (RT-PCR) Influenza B (RT-PCR) Klebsiella oxytoca PCR Klebsiella pneumoniae List. monocytogenes PCR N. meningitidis (PCR) Proteus species (PCR) RSV (PCR) Serratia marcescens PCR Staphylococcus sp PCR Staph aureus (PCR) mecA-Methicil Res Gene Streptococcus sp PCR Group A Strep (PCR) Strep agalactiae (PCR) Strep pneumoniae (PCR) P. aeruginosa (PCR) Abigail/B-Vanco Res Genes KPC-Carbap Res Gene PCR Assessment & Plan Assessment & Plan narrative: 72 year old mamle admitted severe sepsis likley 2.2 to UTI vs other acute resp failure w/hypoxia acute renal failure pt seen with bedside nurse and Dr. Campoverde chart/labs/imaging reviewed currently/febrile to 102, HD stable mental status intact cxr -congestion ct -thick bladder, no hydro see report for full details creat 2.72 pa02 65 Plan -neurochecks/seizure precautions -avoid benzos/opiods -bipap/hf support keep sat above 92%, keep pa02 abvoe 55 -nebs -check serial ekg/trop -check echo -check syed cx -broad spec abx -check ruq sono -check serial cbc/coags, transfuse prn -pressors prn -may need diuiresis -low threshold for intubation -monitor ins/outs -replace lyts prn -keep glucose 140-180s -gi/dvt ppx -please call eICU if condition changes total ccm time 45 mins Time Spent With Patient Critical Care time: I spent a total of [] minutes of critical care time on this patient's care today; this time is exclusive of procedural time.
--- NOTE | 2022-02-06 11:39 | PC.NURSE ---
10:15 Pt transferred from rm 222 to ICU 227, Dx sepsis. Temp 102.5, tylenol administered prior to tx. Placed on bipap 12/8 rate 10 FiO2 30%. Sats 99%. ECG done. Tele[employer] notified of pt transfer and monitored visit occurred.
[2022-02-06 11:47] LABS: Add Manual Diff / Slide Review NO; Basophils Absolute Auto 0 /uL (0-100); Basophils Percent Auto 0.5 % (0-2); Eosinophils Absolute Auto 0 /uL (0-450); Eosinophils Percent Auto 0.2 % (2-4); Hematocrit 33.7 % (41-53); Hemoglobin 11.2 g/dL (13.5-17.5); Lymphocytes Absolute Auto 500 /uL (1100-4500); Lymphocytes Percent Auto 5.9 % (25-40); Mean Corpuscular HGB Conc 33.3 % (30-36); Mean Corpuscular Hemoglobin 27.4 PG (26-34); Mean Corpuscular Volume 82.1 fL (80-100); Monocytes Absolute Auto 400 /uL (0-900); Monocytes Percent Auto 5.6 % (3-14); Neutrophils Absolute Auto 6800 /uL (1500-7000); Neutrophils Percent Auto 87.8 % (50-75); Platelet Count 122 X10^3/uL (150-400); Red Blood Cell Count 4.11 X10^6/uL (4.5-5.9); Red Cell Distribution Width 14.6 % (11.6-14.8); White Blood Cell Count 7.7 X10^3/uL (4.5-11.0)
[2022-02-06 11:58] LABS: Alanine Aminotransferase 20 IU/L (<50); Albumin Globulin Ratio 1.2 (1.0-2.8); Alkaline Phosphatase 71 U/L (38-126); Aspartate Aminotransferase 28 IU/L (17-59); BUN Creatinine Ratio 23.4 (6-22); Bilirubin Total 0.4 mg/dL (0.2-1.3); Blood Urea Nitrogen 52 mg/dL (9-20); Calcium 6.9 mg/dL (8.4-10.2); Carbon Dioxide 13 mmol/L (22-32); Chloride 106 mmol/L (98-107); Estimated Glomerular Filt Rate 31 mL/min (>60); Globulin 2.5 g/dL (1.7-4.1); Glucose 110 mg/dL (80-110); HEMOLYSIS < 15 (0-50); Sodium 134 mmol/L (137-145); Total Protein 5.5 g/dL (6.3-8.2)
[2022-02-06 12:11] LABS: Troponin I 0.076 ng/mL (0.01-0.034)
[2022-02-06] MEDS: MEROPENEM 1 GM in SODIUM CHLORIDE 0.9% 100 ML IV ×2 (12:24→23:53)
[2022-02-06] MEDS: CHLORHEXIDINE GLUCONATE 15 ML CUP PO ×3 (12:27→23:53)
--- NOTE | 2022-02-06 13:36 | PM.PN.1 ---
Subjective Subjective Date Patient Seen: 02/06/22 Time Patient Seen: 08:00 Interval history: Notified by staff about change in patient clinical condition. Worsening shortness of breath. Patient was seen with increased work of breathing and shortness of breath with significant respiratory distress. He was placed on nasal cannula oxygen with O2 sats in the mid 90s on 2L oxygen. He was sinus tachycardia in the 110s-120s. He was noted to be positive 8L fluid due to resuscitation overnight. Chest xray was concerning for developing congestion. He was transferred to ICU to be placed on BIPAP. Exam Vital Signs (past 8 hours): - 02/06/22 08:00 02/06/22 08:12 02/06/22 08:17 Temperature 98.1 F Pulse Rate 83 Respiratory Rate 20 Blood Pressure 135/69 Pulse Oximetry 97 98 Oxygen Delivery Method Nasal Cannula Nasal Cannula Oxygen Flow Rate 2 2 Fraction of Inspired Oxygen 02/06/22 08:37 02/06/22 09:39 02/06/22 10:00 Temperature 98.9 F Pulse Rate 100 H 120 H Respiratory Rate 20 22 Blood Pressure 137/77 Pulse Oximetry 94 96 Oxygen Delivery Method Nasal Cannula Nasal Cannula Oxygen Flow Rate 2 2 2 Fraction of Inspired Oxygen 98 02/06/22 10:53 02/06/22 10:24 02/06/22 11:00 Temperature 102.5 F H Pulse Rate 110 H Respiratory Rate 22 Blood Pressure 139/63 122/66 122/66 Pulse Oximetry Oxygen Delivery Method Oxygen Flow Rate Fraction of Inspired Oxygen 30 30 02/06/22 11:00 02/06/22 12:00 02/06/22 12:00 Temperature Pulse Rate 113 H 107 H Respiratory Rate 23 23 Blood Pressure 110/65 Pulse Oximetry 99 95 Oxygen Delivery Method Oxygen Flow Rate Fraction of Inspired Oxygen 02/06/22 13:00 02/06/22 13:00 02/06/22 13:26 Temperature Pulse Rate 105 H Respiratory Rate 23 Blood Pressure 111/57 L 111/57 L Pulse Oximetry 95 Oxygen Delivery Method Oxygen Flow Rate Fraction of Inspired Oxygen 30 Fraction of Inspired Oxygen 30 Oxygen Delivery Method Nasal Cannula Oxygen Flow Rate 2 Narrative Exam Narrative: GEN: severe respiratory distress CV: tachycardic, no murmurs PULM: crackles bilaterally ABD: soft, nontender, nondistended, no organomegaly EXT: warm and well perfused with no edema Objective Labs Result Diagrams: 02/06/22 11:30 02/06/22 11:30 Labs: Laboratory Results - last 24 hr 02/05/22 02/05/22 02/05/22 17:05 17:05 17:05 WBC 8.0 RBC 4.55 Hgb 12.7 L Hct 37.2 L MCV 81.8 MCH 27.9 MCHC 34.2 RDW 13.9 Plt Count 145 L Neut % (Auto) 88.7 H Lymph % (Auto) 6.0 L [place] % (Auto) 4.7 Eos % (Auto) 0.2 L Baso % (Auto) 0.4 Neut # (Auto) 7100 H Lymph # (Auto) 500 L [place] # (Auto) 400 Eos # (Auto) 0 Baso # (Auto) 0 PT 14.5 H INR 1.3 APTT 30 ABG pH ABG pCO2 ABG pO2 ABG HCO3 ABG Total CO2 ABG O2 Saturation ABG Base Excess FiO2 Sodium 138 Potassium 3.9 Chloride 102 Carbon Dioxide 16 L BUN 58 H Creatinine 2.78 H Estimated GFR 23 L BUN/Creatinine Ratio 20.9 Glucose 158 H Hemoglobin A1c Lactate Calcium 8.7 Magnesium Total Bilirubin 0.6 AST 21 ALT 21 Alkaline Phosphatase 89 Total Creatine Kinase 51 L CK-MB (CK-2) TNP CK-MB (CK-2) Rel Index TNP Troponin I 0.041 H NT-Pro-B Natriuret Pep Total Protein 7.0 Albumin 3.7 Globulin 3.3 Albumin/Globulin Ratio 1.1 Lipase 35 Procalcitonin 40.8 H TSH Free T4 Urine Color Urine Appearance Urine pH Ur Specific [place] Urine Protein Urine Glucose (UA) Urine Ketones Urine Occult Blood Urine Nitrate Urine Bilirubin Ur Bilirubin Confirm Urine Urobilinogen Ur Leukocyte Esterase Urine RBC Urine WBC Urine Bacteria Ur Culture Indicated? Nasal Screen MRSA (PCR) A. baumannii (PCR) Noemi albicans (PCR) C. glabrata (PCR) C. krusei (PCR) C. parapsilosis (PCR) C. tropicalis (PCR) SARS-CoV-2 (PCR) Enterobacteriac sp PCR E. cloacae complex PCR Enterococcus sp PCR E. coli (PCR) H. influenzae (PCR) Influenza A (RT-PCR) Influenza B (RT-PCR) Klebsiella oxytoca PCR Klebsiella pneumoniae List. monocytogenes PCR N. meningitidis (PCR) Proteus species (PCR) RSV (PCR) Serratia marcescens PCR Staphylococcus sp PCR Staph aureus (PCR) mecA-Methicil Res Gene Streptococcus sp PCR Group A Strep (PCR) Strep agalactiae (PCR) Strep pneumoniae (PCR) P. aeruginosa (PCR) Abigail/B-Vanco Res Genes KPC-Carbap Res Gene PCR 02/05/22 02/05/22 02/05/22 17:05 17:05 17:55 WBC RBC Hgb Hct MCV MCH MCHC RDW Plt Count Neut % (Auto) Lymph % (Auto) [place] % (Auto) Eos % (Auto) Baso % (Auto) Neut # (Auto) Lymph # (Auto) [place] # (Auto) Eos # (Auto) Baso # (Auto) PT INR APTT ABG pH ABG pCO2 ABG pO2 ABG HCO3 ABG Total CO2 ABG O2 Saturation ABG Base Excess FiO2 Sodium Potassium Chloride Carbon Dioxide BUN Creatinine Estimated GFR BUN/Creatinine Ratio Glucose Hemoglobin A1c Lactate 3.0 H Calcium Magnesium 1.9 Total Bilirubin AST ALT Alkaline Phosphatase Total Creatine Kinase CK-MB (CK-2) CK-MB (CK-2) Rel Index Troponin I NT-Pro-B Natriuret Pep Total Protein Albumin Globulin Albumin/Globulin Ratio Lipase Procalcitonin TSH Free T4 Urine Color Urine Appearance Urine pH Ur Specific [place] Urine Protein Urine Glucose (UA) Urine Ketones Urine Occult Blood Urine Nitrate Urine Bilirubin Ur Bilirubin Confirm Urine Urobilinogen Ur Leukocyte Esterase Urine RBC Urine WBC Urine Bacteria Ur Culture Indicated? Nasal Screen MRSA (PCR) A. baumannii (PCR) Not detected Noemi albicans (PCR) Not detected C. glabrata (PCR) Not detected C. krusei (PCR) Not detected C. parapsilosis (PCR) Not detected C. tropicalis (PCR) Not detected SARS-CoV-2 (PCR) Enterobacteriac sp PCR Detected H E. cloacae complex PCR Not detected Enterococcus sp PCR Not detected E. coli (PCR) Detected H H. influenzae (PCR) Not detected Influenza A (RT-PCR) Influenza B (RT-PCR) Klebsiella oxytoca PCR Not detected Klebsiella pneumoniae Not detected List. monocytogenes PCR Not detected N. meningitidis (PCR) Not detected Proteus species (PCR) Not detected RSV (PCR) Serratia marcescens PCR Not detected Staphylococcus sp PCR Not detected Staph aureus (PCR) Not detected mecA-Methicil Res Gene TNP Streptococcus sp PCR Not detected Group A Strep (PCR) Not detected Strep agalactiae (PCR) Not detected Strep pneumoniae (PCR) Not detected P. aeruginosa (PCR) Not detected Abigail/B-Vanco Res Genes TNP KPC-Carbap Res Gene PCR Not detected 02/05/22 02/05/22 02/05/22 17:55 17:55 18:15 WBC RBC Hgb Hct MCV MCH MCHC RDW Plt Count Neut % (Auto) Lymph % (Auto) [place] % (Auto) Eos % (Auto) Baso % (Auto) Neut # (Auto) Lymph # (Auto) [place] # (Auto) Eos # (Auto) Baso # (Auto) PT INR APTT ABG pH ABG pCO2 ABG pO2 ABG HCO3 ABG Total CO2 ABG O2 Saturation ABG Base Excess FiO2 Sodium Potassium Chloride Carbon Dioxide BUN Creatinine Estimated GFR BUN/Creatinine Ratio Glucose Hemoglobin A1c 5.9 Lactate Calcium Magnesium Total Bilirubin AST ALT Alkaline Phosphatase Total Creatine Kinase CK-MB (CK-2) CK-MB (CK-2) Rel Index Troponin I NT-Pro-B Natriuret Pep 473 H Total Protein Albumin Globulin Albumin/Globulin Ratio Lipase Procalcitonin TSH Free T4 Urine Color Yellow Urine Appearance Sl cloudy Urine pH 5.0 Ur Specific [place] 1.025 Urine Protein 2+ H Urine Glucose (UA) Negative Urine Ketones Trace H Urine Occult Blood 3+ H Urine Nitrate Negative Urine Bilirubin 1+ H Ur Bilirubin Confirm Negative Urine Urobilinogen 0.2 Ur Leukocyte Esterase 1+ H Urine RBC 0-1/hpf Urine WBC 30-100/hpf H Urine Bacteria Many (>30) H Ur Culture Indicated? Specimen cultured Nasal Screen MRSA (PCR) A. baumannii (PCR) Noemi albicans (PCR) C. glabrata (PCR) C. krusei (PCR) C. parapsilosis (PCR) C. tropicalis (PCR) SARS-CoV-2 (PCR) Enterobacteriac sp PCR E. cloacae complex PCR Enterococcus sp PCR E. coli (PCR) H. influenzae (PCR) Influenza A (RT-PCR) Influenza B (RT-PCR) Klebsiella oxytoca PCR Klebsiella pneumoniae List. monocytogenes PCR N. meningitidis (PCR) Proteus species (PCR) RSV (PCR) Serratia marcescens PCR Staphylococcus sp PCR Staph aureus (PCR) mecA-Methicil Res Gene Streptococcus sp PCR Group A Strep (PCR) Strep agalactiae (PCR) Strep pneumoniae (PCR) P. aeruginosa (PCR) Abigail/B-Vanco Res Genes KPC-Carbap Res Gene PCR 02/05/22 02/05/22 02/05/22 19:35 23:00 23:50 WBC RBC Hgb Hct MCV MCH MCHC RDW Plt Count Neut % (Auto) Lymph % (Auto) [place] % (Auto) Eos % (Auto) Baso % (Auto) Neut # (Auto) Lymph # (Auto) [place] # (Auto) Eos # (Auto) Baso # (Auto) PT INR APTT ABG pH ABG pCO2 ABG pO2 ABG HCO3 ABG Total CO2 ABG O2 Saturation ABG Base Excess FiO2 Sodium Potassium Chloride Carbon Dioxide BUN Creatinine Estimated GFR BUN/Creatinine Ratio Glucose Hemoglobin A1c Lactate 0.8 Calcium Magnesium Total Bilirubin AST ALT Alkaline Phosphatase Total Creatine Kinase CK-MB (CK-2) CK-MB (CK-2) Rel Index Troponin I 0.046 H NT-Pro-B Natriuret Pep Total Protein Albumin Globulin Albumin/Globulin Ratio Lipase Procalcitonin TSH Free T4 Urine Color Urine Appearance Urine pH Ur Specific [place] Urine Protein Urine Glucose (UA) Urine Ketones Urine Occult Blood Urine Nitrate Urine Bilirubin Ur Bilirubin Confirm Urine Urobilinogen Ur Leukocyte Esterase Urine RBC Urine WBC Urine Bacteria Ur Culture Indicated? Nasal Screen MRSA (PCR) A. baumannii (PCR) Noemi albicans (PCR) C. glabrata (PCR) C. krusei (PCR) C. parapsilosis (PCR) C. tropicalis (PCR) SARS-CoV-2 (PCR) Negative Enterobacteriac sp PCR E. cloacae complex PCR Enterococcus sp PCR E. coli (PCR) H. influenzae (PCR) Influenza A (RT-PCR) Flu a negative Influenza B (RT-PCR) Flu b negative Klebsiella oxytoca PCR Klebsiella pneumoniae List. monocytogenes PCR N. meningitidis (PCR) Proteus species (PCR) RSV (PCR) Negative Serratia marcescens PCR Staphylococcus sp PCR Staph aureus (PCR) mecA-Methicil Res Gene Streptococcus sp PCR Group A Strep (PCR) Strep agalactiae (PCR) Strep pneumoniae (PCR) P. aeruginosa (PCR) Abigail/B-Vanco Res Genes KPC-Carbap Res Gene PCR 02/06/22 02/06/22 02/06/22 05:37 05:37 05:37 WBC 6.3 RBC 3.82 L Hgb 10.5 L Hct 31.6 L MCV 82.8 MCH 27.4 MCHC 33.1 RDW 14.2 Plt Count 110 L Neut % (Auto) 86.2 H Lymph % (Auto) 5.7 L [place] % (Auto) 6.2 Eos % (Auto) 1.4 L Baso % (Auto) 0.5 Neut # (Auto) 5400 Lymph # (Auto) 400 L [place] # (Auto) 400 Eos # (Auto) 100 Baso # (Auto) 0 PT INR APTT ABG pH ABG pCO2 ABG pO2 ABG HCO3 ABG Total CO2 ABG O2 Saturation ABG Base Excess FiO2 Sodium 134 L Potassium 3.5 Chloride 106 Carbon Dioxide 16 L BUN 53 H Creatinine 2.42 H Estimated GFR 28 L BUN/Creatinine Ratio 21.9 Glucose 107 Hemoglobin A1c Lactate Calcium 6.8 L Magnesium Total Bilirubin 0.4 AST 23 ALT 18 Alkaline Phosphatase 65 Total Creatine Kinase CK-MB (CK-2) CK-MB (CK-2) Rel Index Troponin I 0.090 H NT-Pro-B Natriuret Pep Total Protein 5.8 L Albumin 2.9 L Globulin 2.9 Albumin/Globulin Ratio 1.0 Lipase Procalcitonin 30.7 H TSH Free T4 Urine Color Urine Appearance Urine pH Ur Specific [place] Urine Protein Urine Glucose (UA) Urine Ketones Urine Occult Blood Urine Nitrate Urine Bilirubin Ur Bilirubin Confirm Urine Urobilinogen Ur Leukocyte Esterase Urine RBC Urine WBC Urine Bacteria Ur Culture Indicated? Nasal Screen MRSA (PCR) A. baumannii (PCR) Noemi albicans (PCR) C. glabrata (PCR) C. krusei (PCR) C. parapsilosis (PCR) C. tropicalis (PCR) SARS-CoV-2 (PCR) Enterobacteriac sp PCR E. cloacae complex PCR Enterococcus sp PCR E. coli (PCR) H. influenzae (PCR) Influenza A (RT-PCR) Influenza B (RT-PCR) Klebsiella oxytoca PCR Klebsiella pneumoniae List. monocytogenes PCR N. meningitidis (PCR) Proteus species (PCR) RSV (PCR) Serratia marcescens PCR Staphylococcus sp PCR Staph aureus (PCR) mecA-Methicil Res Gene Streptococcus sp PCR Group A Strep (PCR) Strep agalactiae (PCR) Strep pneumoniae (PCR) P. aeruginosa (PCR) Abigail/B-Vanco Res Genes KPC-Carbap Res Gene PCR 02/06/22 02/06/22 02/06/22 05:37 05:37 05:37 WBC RBC Hgb Hct MCV MCH MCHC RDW Plt Count Neut % (Auto) Lymph % (Auto) [place] % (Auto) Eos % (Auto) Baso % (Auto) Neut # (Auto) Lymph # (Auto) [place] # (Auto) Eos # (Auto) Baso # (Auto) PT INR APTT ABG pH ABG pCO2 ABG pO2 ABG HCO3 ABG Total CO2 ABG O2 Saturation ABG Base Excess FiO2 Sodium Potassium Chloride Carbon Dioxide BUN Creatinine Estimated GFR BUN/Creatinine Ratio Glucose Hemoglobin A1c Lactate 0.7 Calcium Magnesium 1.8 Total Bilirubin AST ALT Alkaline Phosphatase Total Creatine Kinase CK-MB (CK-2) CK-MB (CK-2) Rel Index Troponin I NT-Pro-B Natriuret Pep Total Protein Albumin Globulin Albumin/Globulin Ratio Lipase Procalcitonin TSH 0.11 L Free T4 1.19 Urine Color Urine Appearance Urine pH Ur Specific [place] Urine Protein Urine Glucose (UA) Urine Ketones Urine Occult Blood Urine Nitrate Urine Bilirubin Ur Bilirubin Confirm Urine Urobilinogen Ur Leukocyte Esterase Urine RBC Urine WBC Urine Bacteria Ur Culture Indicated? Nasal Screen MRSA (PCR) A. baumannii (PCR) Noemi albicans (PCR) C. glabrata (PCR) C. krusei (PCR) C. parapsilosis (PCR) C. tropicalis (PCR) SARS-CoV-2 (PCR) Enterobacteriac sp PCR E. cloacae complex PCR Enterococcus sp PCR E. coli (PCR) H. influenzae (PCR) Influenza A (RT-PCR) Influenza B (RT-PCR) Klebsiella oxytoca PCR Klebsiella pneumoniae List. monocytogenes PCR N. meningitidis (PCR) Proteus species (PCR) RSV (PCR) Serratia marcescens PCR Staphylococcus sp PCR Staph aureus (PCR) mecA-Methicil Res Gene Streptococcus sp PCR Group A Strep (PCR) Strep agalactiae (PCR) Strep pneumoniae (PCR) P. aeruginosa (PCR) Abigail/B-Vanco Res Genes KPC-Carbap Res Gene PCR 02/06/22 02/06/22 02/06/22 05:37 10:30 11:24 WBC RBC Hgb Hct MCV MCH MCHC RDW Plt Count Neut % (Auto) Lymph % (Auto) [place] % (Auto) Eos % (Auto) Baso % (Auto) Neut # (Auto) Lymph # (Auto) [place] # (Auto) Eos # (Auto) Baso # (Auto) PT INR APTT ABG pH 7.39 ABG pCO2 22.8 L* ABG pO2 67 L ABG HCO3 14 L ABG Total CO2 14 L ABG O2 Saturation 93 L ABG Base Excess -11.0 L FiO2 32 Sodium Potassium Chloride Carbon Dioxide BUN Creatinine Estimated GFR BUN/Creatinine Ratio Glucose Hemoglobin A1c Lactate Calcium Magnesium Total Bilirubin AST ALT Alkaline Phosphatase Total Creatine Kinase CK-MB (CK-2) CK-MB (CK-2) Rel Index Troponin I NT-Pro-B Natriuret Pep 700 H Total Protein Albumin Globulin Albumin/Globulin Ratio Lipase Procalcitonin TSH Free T4 Urine Color Urine Appearance Urine pH Ur Specific [place] Urine Protein Urine Glucose (UA) Urine Ketones Urine Occult Blood Urine Nitrate Urine Bilirubin Ur Bilirubin Confirm Urine Urobilinogen Ur Leukocyte Esterase Urine RBC Urine WBC Urine Bacteria Ur Culture Indicated? Nasal Screen MRSA (PCR) Negative for mrsa A. baumannii (PCR) Noemi albicans (PCR) C. glabrata (PCR) C. krusei (PCR) C. parapsilosis (PCR) C. tropicalis (PCR) SARS-CoV-2 (PCR) Enterobacteriac sp PCR E. cloacae complex PCR Enterococcus sp PCR E. coli (PCR) H. influenzae (PCR) Influenza A (RT-PCR) Influenza B (RT-PCR) Klebsiella oxytoca PCR Klebsiella pneumoniae List. monocytogenes PCR N. meningitidis (PCR) Proteus species (PCR) RSV (PCR) Serratia marcescens PCR Staphylococcus sp PCR Staph aureus (PCR) mecA-Methicil Res Gene Streptococcus sp PCR Group A Strep (PCR) Strep agalactiae (PCR) Strep pneumoniae (PCR) P. aeruginosa (PCR) Abigail/B-Vanco Res Genes KPC-Carbap Res Gene PCR 02/06/22 02/06/22 02/06/22 11:30 11:30 11:30 WBC 7.7 RBC 4.11 L Hgb 11.2 L Hct 33.7 L MCV 82.1 MCH 27.4 MCHC 33.3 RDW 14.6 Plt Count 122 L Neut % (Auto) 87.8 H Lymph % (Auto) 5.9 L [place] % (Auto) 5.6 Eos % (Auto) 0.2 L Baso % (Auto) 0.5 Neut # (Auto) 6800 Lymph # (Auto) 500 L [place] # (Auto) 400 Eos # (Auto) 0 Baso # (Auto) 0 PT INR APTT ABG pH ABG pCO2 ABG pO2 ABG HCO3 ABG Total CO2 ABG O2 Saturation ABG Base Excess FiO2 Sodium 134 L Potassium 4.0 Chloride 106 Carbon Dioxide 13 L BUN 52 H Creatinine 2.22 H Estimated GFR 31 L BUN/Creatinine Ratio 23.4 H Glucose 110 Hemoglobin A1c Lactate Calcium 6.9 L Magnesium Total Bilirubin 0.4 AST 28 ALT 20 Alkaline Phosphatase 71 Total Creatine Kinase CK-MB (CK-2) CK-MB (CK-2) Rel Index Troponin I 0.076 H NT-Pro-B Natriuret Pep Total Protein 5.5 L Albumin 3.0 L Globulin 2.5 Albumin/Globulin Ratio 1.2 Lipase Procalcitonin TSH Free T4 Urine Color Urine Appearance Urine pH Ur Specific [place] Urine Protein Urine Glucose (UA) Urine Ketones Urine Occult Blood Urine Nitrate Urine Bilirubin Ur Bilirubin Confirm Urine Urobilinogen Ur Leukocyte Esterase Urine RBC Urine WBC Urine Bacteria Ur Culture Indicated? Nasal Screen MRSA (PCR) A. baumannii (PCR) Noemi albicans (PCR) C. glabrata (PCR) C. krusei (PCR) C. parapsilosis (PCR) C. tropicalis (PCR) SARS-CoV-2 (PCR) Enterobacteriac sp PCR E. cloacae complex PCR Enterococcus sp PCR E. coli (PCR) H. influenzae (PCR) Influenza A (RT-PCR) Influenza B (RT-PCR) Klebsiella oxytoca PCR Klebsiella pneumoniae List. monocytogenes PCR N. meningitidis (PCR) Proteus species (PCR) RSV (PCR) Serratia marcescens PCR Staphylococcus sp PCR Staph aureus (PCR) mecA-Methicil Res Gene Streptococcus sp PCR Group A Strep (PCR) Strep agalactiae (PCR) Strep pneumoniae (PCR) P. aeruginosa (PCR) Abigail/B-Vanco Res Genes KPC-Carbap Res Gene PCR PFSH Medical History Asthma (~2016) Bladder cancer (~2009) Cervical spine disease (~1997) Degenerative joint disease (DJD) of lumbar spine (~2012) Depression (~1997) Elevated blood pressure reading without diagnosis of hypertension Elevated PSA, between 10 and less than 20 ng/ml Fractures (~2000) GERD (gastroesophageal reflux disease) Hearing loss (~2011) History of arthritis History of kidney stones History of primary bladder cancer Hyperlipidemia, mixed Macular degeneration of right eye (01/2022) Presence of neurostimulator (01/25/22) Prostate cancer Recurrent malignant neoplasm of bladder Right nephrolithiasis Self-catheterizes urinary bladder Urinary retention Urinary retention Vitamin D deficiency Wears glasses Surgical History Anesthesia History of bladder surgery (~2009) History of fusion of cervical spine (~1997) History of fusion of lumbar spine (~2012) History of knee replacement History of surgery (~2014) History of urologic surgery (10/05/21) Hx of appendectomy (1963) Hx of colonoscopy (10/12/20) Hx of prostate biopsy Hx of right inguinal hernia repair (1971) Hx of vasectomy Family History Father Cancer Mother Renal failure Brother Cancer Hypertension Brother Cancer Grandfather History of heart disease Grandmother History of heart disease Grandfather Black lung disease Grandmother Stroke Mother Renal failure Daughter Urinary tract infection Son Kidney stones Social History marital status: number of children: 2 household members: spouse Smoking Status: Former smoker Tobacco: How many years used: 10 alcohol intake: former substance use type: does not use caffeine: Yes Type(s) of exercise: independent ambulation, bicycling and regular exercise frequency: daily duration: > 90 minutes/day Assessment & Plan Assessment & Plan narrative: 1. Severe sepsis from UTI with bacteremia secondary to self-cath -he has positive UA, with pending urine cultures, suspect secondary to self catheterizing -blood cultures are presumptive positive -continue meropenem at sepsis/renal dosing -follow up cultures -abdominal ultrasound ordered due to abdominal imaging noted gallbladder findings -back where interstim device placed looks clean with no erythema, doubt source of infect 2. Acute hypoxic respiratory failure -suspect secondary to volume resuscitation -BNP elevated, chest xray showed fluid overload -transferred to the ICU for BIPAP -hold off on lasix for now as just got fluid resuscitation -appreciate ICU consult 3. [place] -suspect secondary to sepsis and hypovolemia -no evidence of hydronephrosis of abdominal imaging -trend creatinine daily -delgadillo in place, with good urine output, monitor urine output closely 4. Cardiac demand ischemia -troponin downtrending -no chest pain, doubt acs -check ECHO for wall motion abnormality Time Spent With Patient Critical Care time: I spent a total of [] minutes of critical care time on this patient's care today; this time is exclusive of procedural time.
--- NOTE | 2022-02-06 13:45 | DI.ECHO.S_ITS ---
[facility]---------[facility] +---------+ : : [address] [place] [address] : : : : [phone] : : : : Phone: [phone] Echocardiogram Report + + :Name: ANDRE GAMBOA Study Date: 02/06/2022 Height: 68 in : :[facility] ReadingLocation: Weight: 185 lb : : Gender: Male BSA: 2.0 m2 : :: 1950 Age: 72 yrs BP: 110/65 mmHg: :Reason For Study: SHORTNESS OF BREATH : :Ordering Physician: DIAMANTE, : :SAKINA Performed By: Nereida Goncalves : :Referring: SAKINA BOBBY : + + Interpretation Summary The ejection fraction is estimated to be 55-60%. The right ventricle is mildly dilated. The right ventricular systolic function is normal. There is mild mitral regurgitation. There is mild aortic regurgitation. There is mild tricuspid regurgitation. Right ventricular systolic pressure is estimated to be 40 mmHg plus the clinically estimated CVP which cannot be estimated on this exam. Procedure: A two-dimensional transthoracic echocardiogram with color flow and Doppler was performed. The study quality was technically adequate. There is no prior echocardiogram noted for this patient. The patient was in sinus tachycardia with heart rates between 98-104 bpm during the exam. Left Ventricle: The left ventricle is normal in size. Left ventricular wall thickness is at the upper limits of normal. The ejection fraction is estimated to be 55-60%. Left ventricular wall motion is normal. Right Ventricle: The right ventricle is mildly dilated. The right ventricular systolic function is normal. Atria: The left atrium is mildly dilated. Right atrial size is normal. There is no Doppler evidence for an interatrial shunt. Mitral Valve: The mitral valve is normal in structure and function. There is mild mitral regurgitation. Aortic Valve: The aortic valve is trileaflet. The aortic valve opens well. There is no aortic valve stenosis. There is mild aortic regurgitation. Tricuspid Valve: The tricuspid valve is normal in structure and function. There is mild tricuspid regurgitation. Right ventricular systolic pressure is estimated to be 40 mmHg plus the clinically estimated CVP which cannot be estimated on this exam. Pulmonic Valve: The pulmonic valve leaflets are thin and pliable; valve motion is normal. There is trace pulmonic regurgitation. Great Vessels: The aortic root is normal size. The dimensions of the ascending aorta are normal. The inferior vena cava was not visualized. Pericardium/ Pleura There is no pericardial effusion. There is no pleural effusion. MMode/2D Measurements & Calculations LVIDd: 4.9 cm LVOT diam: 2.1 cm LVIDs: 3.0 cm Ao root diam: 3.4 cm FS: 37.9 % asc Aorta Diam: 3.1 cm EPSS: 1.4 cm Ao Arch Diam (Prox Trans): 3.1 cm IVSd: 0.94 cm LVPWd: 1.1 cm LV brito. diameter/BSA (cm/m^2): 2.5 LV sys. diameter/BSA (cm/m^2): 1.5 LA A2 area: 21.7 cm2 RA long axis: 5.6 cm LA A4 area: 25.1 cm2 RA area: 19.7 cm2 LA length (vol): 6.8 cm RA vol: 59.0 ml LA vol: 67.9 ml RA : 29.9 ml/m2 LA vol index: 34.3 ml/m2 RVD1 (basal): 4.2 cm RVD2 (mid): 3.7 cm TAPSE: 2.1 cm Doppler Measurements & Calculations Ao V2 max: 161.5 cm/sec LVOT Max Jerardo: 108.1 cm/sec Ao V2 mean: 109.9 cm/sec LV V1 max P.7 mmHg Ao max P.4 mmHg LV V1 VTI: 16.8 cm Ao mean P.4 mmHg NEDA(I,D): 2.4 cm2 Ao V2 VTI: 23.2 cm NEDA(V,D): 2.3 cm2 sev ratio: 0.73 NEDA indexed to BSA (cm^2/m^2): 1.2 MV E max jerardo: 66.1 cm/sec TR max jerardo: 318.2 cm/sec MV A max jerardo: 59.9 cm/sec TR max P.5 mmHg MV E/A: 1.1 PA V2 max: 113.1 cm/sec Med Peak E' Jerardo: 5.2 cm/sec PA V2 mean: 77.7 cm/sec E/E' med: 12.7 PA mean P.7 mmHg Lat Peak E' Jerardo: 7.2 cm/sec PA pr(Accel): 54.6 mmHg E/E' lat: 9.1 E/e' average: 10.9 MV dec time: 0.21 sec SV(LVOT): 56.8 ml Reading Physician:10:24 AM
--- NOTE | 2022-02-06 13:46 | DI.US.S_ITS ---
PROCEDURE: US ABDOMEN LIMITED INDICATIONS: PAIN TECHNIQUE: Real-time focused scanning was performed of the abdomen, with image documentation. COMPARISON: [facility], CT, CT CHEST ABD PEL W CON, 09/28/2021, 13:51. FINDINGS: Liver: Homogeneous echotexture. No evidence of focal mass lesion. No intra hepatic biliary ductal dilatation. Gallbladder: Gallbladder is distended at 10.8 x 5.8 x 5.8 cm. No gallbladder wall thickening, cholelithiasis or pericholecystic fluid. No Armendariz sign. Common Bile Duct: 4.6 mm. Pancreas: Unremarkable as visualized IMPRESSION: 1. Gallbladder distension. No cholelithiasis or gallbladder inflammation. Consider 2. Approved by: Naveen Cabrera M.D. on 02/06/2022 at 17:23
--- NOTE | 2022-02-06 15:39 | CM.DANOTE ---
Initial DCP Assessment Note Pt is a 72 yo male, resident of [place], arrives complaining of fever, body aches, chills, severe body shaking, rigors, diarrhea, non productive cough, SOB, decreased oral intake and inability to self cath for the last 4 days. Hx of prostate CA Patient admitted for management of Sepsis Patient moved to ICU today d/t worsening SOB, placed on bipap and being monitored closely PCP: Terrance Abdalla Payer: JAZMINE/Robina Met w/patient and spouse to introduce self and role, both in good spirits. 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 Patient/spouse appreciative for the visit and plan to get in touch w/CM team if any DC questions or concerns arise Patient may benefit from PT eval closer to DC, r/o need for HH closer to DC as well DOROTA Ayala Discharge Planning/Care Management CM Discharge Assessment Start: 02/06/22 15:34 Freq: Status: Active Protocol: Document 02/06/22 15:34 BK (Rec: 02/06/22 15:39 [id number]) Discharge Planning Assessment Assigned Plumbing Designer DOROTA Aguillon DPOA/Assigned Designee Name Ailin Handy, marvin Contact Information [phone] Advance Directives? Yes Advance Directives on File Yes Prior Living Arrangements House Household Members spouse Type of transportation used prior to Relies on Others admit Independent with ADL's Yes Is patient alert and oriented? Yes Barriers to Discharge No Comment At this time, spouse would like to care for patient at home upon discharge, r/o HH closer to DC- spouse does not think HH will be needed Discharge Plan Home Transportation Arrangement Family Referrals Initiated None needed Additional Comment Following closely to r/o HH
--- NOTE | 2022-02-06 18:09 | PC.NURSE ---
174 - After pt finished dinner, noted to be more dyspenic, face flushed - temp 103.8. Tylenol given, ice packs placed. notified of temp.
[2022-02-06 20:15] LABS: Clostridium Difficile Tox PCR Negative for C. diff (Negative)
--- NOTE | 2022-02-06 20:40 | PM.ICURNDS ---
- Date Patient Seen: 02/06/22 Time Patient Seen: 20:40 :: This patient was seen via real time interactive two-way audiovisual telecommunication. Note: doing well afebrile, hd stable on HFNC adequate urine output continue currenty icu care
[2022-02-06] MEDS: SODIUM CHLORIDE 0.9% FLUSH 10 ML IV (20:59)
[2022-02-07] VITALS (93 sets, daily range): BP systolic 86–140; BP diastolic 52–72; PULSE 66–178; RESP 8–36; TEMP 36.7–37.7; O2SAT 84–100
[2022-02-07] MEDS: METOPROLOL TARTRATE 5 MG/5 ML INJ 2.5 MG IV (03:20)
[2022-02-07] MEDS: ACETAMINOPHEN 325 MG TABLET 975 MG PO ×3 (03:32→18:09)
[2022-02-07] MEDS: SODIUM CHLORIDE 0.9% FLUSH 10 ML IV ×3 (04:00→20:17)
[2022-02-07] MEDS: FUROSEMIDE 20 MG/2 ML VIAL IV (04:00)
[2022-02-07] MEDS: ALBUTEROL 2.5 MG/3 ML NEB (ADULT) INH (04:03)
[2022-02-07 04:26] LABS: Hematocrit 33.1 % (41-53); Hemoglobin 11.1 g/dL (13.5-17.5); Mean Corpuscular HGB Conc 33.6 % (30-36); Mean Corpuscular Hemoglobin 27.4 PG (26-34); Mean Corpuscular Volume 81.6 fL (80-100); Platelet Count 96 X10^3/uL (150-400); Red Blood Cell Count 4.05 X10^6/uL (4.5-5.9); Red Cell Distribution Width 14.4 % (11.6-14.8); White Blood Cell Count 5.6 X10^3/uL (4.5-11.0)
[2022-02-07 04:30] LABS: Alanine Aminotransferase 19 IU/L (<50); Alkaline Phosphatase 65 U/L (38-126); Aspartate Aminotransferase 32 IU/L (17-59); BUN Creatinine Ratio 24.7 (6-22); Bilirubin Total 0.4 mg/dL (0.2-1.3); Bilirubin Unconjugated 0.3 mg/dL (0.0-1.1); Blood Urea Nitrogen 53 mg/dL (9-20); Calcium 7.2 mg/dL (8.4-10.2); Carbon Dioxide 15 mmol/L (22-32); Chloride 110 mmol/L (98-107); Estimated Glomerular Filt Rate 32 mL/min (>60); Globulin 2.9 g/dL (1.7-4.1); Glucose 105 mg/dL (80-110); HEMOLYSIS < 15 (0-50); Potassium 3.9 mmol/L (3.4-5.1); Sodium 135 mmol/L (137-145); Total Protein 5.9 g/dL (6.3-8.2)
[2022-02-07] MEDS: DIGOXIN 500 MCG/2 ML AMPUL IV (04:42)
[2022-02-07] MEDS: AMIODARONE 150 MG/100 ML PIGGYBACK 600 MG IV (05:35)
[2022-02-07] MEDS: PREGABALIN 75 MG CAPSULE 150 MG PO ×3 (05:36→20:16)
[2022-02-07] MEDS: CHLORHEXIDINE GLUCONATE 15 ML CUP PO (05:36)
[2022-02-07] MEDS: AMIODARONE 360 MG/200 ML PIGGYBACK 33.3 MG IV (05:43)
--- NOTE | 2022-02-07 05:58 | PC.NURSE ---
Addendum entered by Katie Steiner R.N. 02/07/22 06:33: Patient converted to NSR at 0630, HR 74, BP 95/56(71), RR 16, SpO2 99% on HHF, total UOP for shift 1350ml. Original Note: Space Technologist Note-Patient is drowsy, oriented x4. Remains on HHFNC 28% FIO2/40L, SpO2 98%, only desats to 93% when removed, RR 20s, coarse crackles RRR, exp wheezes/crackles LLL. At 0300, developed audible wheezes after patient went into new onset A-fib RVR, rate up to 170s, verified by EKG, BP low, but stable, see vital trends, denies chest pain, pressure, or palpitations, describes congestion and coughing In-house hospitalist notified, 2.5mg IV metoprolol given, not effective, 20mg IV Lasix and neb tx given for wheezes-was effective. Packing And Final Assembly Supervisor notified, 500mcg IV digoxin given-not effective, amiodarone infusion started with loading dose, HR starting to trend downward. Patient is dozing, BP 105/60(75), SpO2 99%, RR 17
[2022-02-07] MEDS: ALBUTEROL/IPRATROPIUM 3 ML AMPUL INH ×5 (07:13→22:12)
[2022-02-07] MEDS: PANTOPRAZOLE DR 20 MG TABLET PO (08:08)
[2022-02-07] MEDS: ENOXAPARIN 30 MG/0.3 ML SYRINGE SUBCUT (08:08)
[2022-02-07] MEDS: TAMSULOSIN 0.4 MG CAPSULE 0.8 MG PO (08:08)
--- NOTE | 2022-02-07 08:49 | P.PN_ITS ---
Subjective Subjective Date Patient Seen: 02/07/22 Time Patient Seen: 14:56 Exam Vital Signs (past 8 hours): - 02/07/22 01:00 02/07/22 01:00 02/07/22 02:00 Pulse Rate 87 Respiratory Rate 19 Blood Pressure 132/69 126/68 Pulse Oximetry 97 Oxygen Delivery Method Oxygen Flow Rate Fraction of Inspired Oxygen 02/07/22 02:00 02/07/22 02:15 02/07/22 02:30 Pulse Rate 93 H 91 H 97 H Respiratory Rate 23 25 H 34 H Blood Pressure Pulse Oximetry 98 97 97 Oxygen Delivery Method Oxygen Flow Rate Fraction of Inspired Oxygen 02/07/22 02:45 02/07/22 02:58 02/07/22 02:58 Pulse Rate 92 H 161 H Respiratory Rate 26 H 25 H Blood Pressure 101/68 Pulse Oximetry 98 98 Oxygen Delivery Method Oxygen Flow Rate Fraction of Inspired Oxygen 02/07/22 03:00 02/07/22 03:02 02/07/22 03:02 Pulse Rate 144 H 140 H Respiratory Rate 33 H 29 H Blood Pressure 117/61 Pulse Oximetry 98 98 Oxygen Delivery Method Oxygen Flow Rate Fraction of Inspired Oxygen 02/07/22 03:08 02/07/22 04:04 02/07/22 03:15 Pulse Rate 135 H 137 H 134 H Respiratory Rate 22 20 22 Blood Pressure 117/61 Pulse Oximetry 97 97 97 Oxygen Delivery Method High Flow Nasal Cannula Oxygen Flow Rate 40 Fraction of Inspired Oxygen 28 02/07/22 03:20 02/07/22 03:20 02/07/22 03:29 Pulse Rate 143 H Respiratory Rate 26 H Blood Pressure 113/69 115/67 Pulse Oximetry 97 Oxygen Delivery Method Oxygen Flow Rate Fraction of Inspired Oxygen 02/07/22 03:29 02/07/22 03:30 02/07/22 03:40 Pulse Rate 143 H 145 H Respiratory Rate 22 17 Blood Pressure 86/52 L Pulse Oximetry 97 96 Oxygen Delivery Method Oxygen Flow Rate Fraction of Inspired Oxygen 02/07/22 03:40 02/07/22 03:45 02/07/22 03:46 Pulse Rate 141 H 131 H 150 H Respiratory Rate 31 H 27 H 18 Blood Pressure Pulse Oximetry 98 98 98 Oxygen Delivery Method Oxygen Flow Rate Fraction of Inspired Oxygen 02/07/22 03:46 02/07/22 04:00 02/07/22 04:00 Pulse Rate 153 H Respiratory Rate 21 Blood Pressure 110/72 112/61 Pulse Oximetry 97 Oxygen Delivery Method Oxygen Flow Rate Fraction of Inspired Oxygen 02/07/22 04:15 02/07/22 04:42 02/07/22 04:00 Pulse Rate 163 H 178 H Respiratory Rate 16 Blood Pressure 99/60 Pulse Oximetry 96 Oxygen Delivery Method Heated High Flow Oxygen Flow Rate Fraction of Inspired Oxygen 02/07/22 04:20 02/07/22 04:20 02/07/22 04:30 Pulse Rate 162 H 167 H Respiratory Rate 25 H 20 Blood Pressure 95/57 L Pulse Oximetry 96 96 Oxygen Delivery Method Oxygen Flow Rate Fraction of Inspired Oxygen 02/07/22 04:40 02/07/22 04:40 02/07/22 04:45 Pulse Rate 174 H 174 H Respiratory Rate 17 14 Blood Pressure 99/60 Pulse Oximetry 95 96 Oxygen Delivery Method Oxygen Flow Rate Fraction of Inspired Oxygen 02/07/22 05:00 02/07/22 05:00 02/07/22 05:15 Pulse Rate 172 H Respiratory Rate 17 Blood Pressure 97/62 99/66 Pulse Oximetry 96 Oxygen Delivery Method Oxygen Flow Rate Fraction of Inspired Oxygen 02/07/22 05:15 02/07/22 05:30 02/07/22 05:30 Pulse Rate 167 H 166 H Respiratory Rate 12 8 L Blood Pressure 105/67 Pulse Oximetry 94 95 Oxygen Delivery Method Oxygen Flow Rate Fraction of Inspired Oxygen 02/07/22 05:40 02/07/22 05:40 02/07/22 05:45 Pulse Rate 164 H 153 H Respiratory Rate 18 14 Blood Pressure 109/57 L Pulse Oximetry 96 95 Oxygen Delivery Method Oxygen Flow Rate Fraction of Inspired Oxygen 02/07/22 05:50 02/07/22 05:50 02/07/22 06:00 Pulse Rate 150 H Respiratory Rate 17 Blood Pressure 118/61 105/60 Pulse Oximetry 97 Oxygen Delivery Method Oxygen Flow Rate Fraction of Inspired Oxygen 02/07/22 06:00 02/07/22 06:10 02/07/22 07:13 Pulse Rate 153 H 144 H 89 Respiratory Rate 15 20 18 Blood Pressure 105/60 Pulse Oximetry 99 99 99 Oxygen Delivery Method Heated High Flow Oxygen Flow Rate 40 Fraction of Inspired Oxygen 27 02/07/22 07:05 02/07/22 07:15 02/07/22 07:16 Pulse Rate 66 69 Respiratory Rate 17 28 H Blood Pressure 108/64 Pulse Oximetry 98 100 Oxygen Delivery Method Oxygen Flow Rate Fraction of Inspired Oxygen 02/07/22 07:16 02/07/22 07:30 02/07/22 07:30 Pulse Rate 74 75 Respiratory Rate 27 H 27 H Blood Pressure 106/61 Pulse Oximetry 99 99 Oxygen Delivery Method Oxygen Flow Rate Fraction of Inspired Oxygen 02/07/22 07:45 02/07/22 08:00 02/07/22 08:00 Pulse Rate 74 Respiratory Rate 36 H Blood Pressure 102/59 L Pulse Oximetry 98 Oxygen Delivery Method Nasal Cannula Oxygen Flow Rate Fraction of Inspired Oxygen 02/07/22 08:15 02/07/22 08:15 Pulse Rate 73 Respiratory Rate 24 Blood Pressure 106/61 Pulse Oximetry 100 Oxygen Delivery Method Oxygen Flow Rate Fraction of Inspired Oxygen Fraction of Inspired Oxygen 27 SaO2/FiO2 Ratio 366 Oxygen Delivery Method Nasal Cannula Oxygen Flow Rate 40 Narrative Exam Narrative: GEN: severe respiratory distress CV: tachycardic, no murmurs PULM: crackles bilaterally ABD: soft, nontender, nondistended, no organomegaly EXT: warm and well perfused with no edema Objective Labs Result Diagrams: 02/07/22 03:40 02/07/22 03:40 Labs: Laboratory Results - last 24 hr 02/05/22 02/06/22 02/06/22 17:05 10:30 11:24 WBC RBC Hgb Hct MCV MCH MCHC RDW Plt Count Neut % (Auto) Lymph % (Auto) [place] % (Auto) Eos % (Auto) Baso % (Auto) Neut # (Auto) Lymph # (Auto) [place] # (Auto) Eos # (Auto) Baso # (Auto) ABG pH 7.39 ABG pCO2 22.8 L* ABG pO2 67 L ABG HCO3 14 L ABG Total CO2 14 L ABG O2 Saturation 93 L ABG Base Excess -11.0 L FiO2 32 Sodium Potassium Chloride Carbon Dioxide BUN Creatinine Estimated GFR BUN/Creatinine Ratio Glucose Calcium Total Bilirubin Conjugated Bilirubin Unconjugated Bilirubin AST ALT Alkaline Phosphatase Troponin I Total Protein Albumin Globulin Albumin/Globulin Ratio Nasal Screen MRSA (PCR) Negative for mrsa A. baumannii (PCR) Not detected Noemi albicans (PCR) Not detected C. glabrata (PCR) Not detected C. krusei (PCR) Not detected C. parapsilosis (PCR) Not detected C. tropicalis (PCR) Not detected C. difficile Tox (PCR) Enterobacteriac sp PCR Detected H E. cloacae complex PCR Not detected Enterococcus sp PCR Not detected E. coli (PCR) Detected H H. influenzae (PCR) Not detected Klebsiella oxytoca PCR Not detected Klebsiella pneumoniae Not detected List. monocytogenes PCR Not detected N. meningitidis (PCR) Not detected Proteus species (PCR) Not detected Serratia marcescens PCR Not detected Staphylococcus sp PCR Not detected Staph aureus (PCR) Not detected mecA-Methicil Res Gene TNP Streptococcus sp PCR Not detected Group A Strep (PCR) Not detected Strep agalactiae (PCR) Not detected Strep pneumoniae (PCR) Not detected P. aeruginosa (PCR) Not detected Abigail/B-Vanco Res Genes TNP KPC-Carbap Res Gene PCR Not detected 02/06/22 02/06/22 02/06/22 11:30 11:30 11:30 WBC 7.7 RBC 4.11 L Hgb 11.2 L Hct 33.7 L MCV 82.1 MCH 27.4 MCHC 33.3 RDW 14.6 Plt Count 122 L Neut % (Auto) 87.8 H Lymph % (Auto) 5.9 L [place] % (Auto) 5.6 Eos % (Auto) 0.2 L Baso % (Auto) 0.5 Neut # (Auto) 6800 Lymph # (Auto) 500 L [place] # (Auto) 400 Eos # (Auto) 0 Baso # (Auto) 0 ABG pH ABG pCO2 ABG pO2 ABG HCO3 ABG Total CO2 ABG O2 Saturation ABG Base Excess FiO2 Sodium 134 L Potassium 4.0 Chloride 106 Carbon Dioxide 13 L BUN 52 H Creatinine 2.22 H Estimated GFR 31 L BUN/Creatinine Ratio 23.4 H Glucose 110 Calcium 6.9 L Total Bilirubin 0.4 Conjugated Bilirubin Unconjugated Bilirubin AST 28 ALT 20 Alkaline Phosphatase 71 Troponin I 0.076 H Total Protein 5.5 L Albumin 3.0 L Globulin 2.5 Albumin/Globulin Ratio 1.2 Nasal Screen MRSA (PCR) A. baumannii (PCR) Noemi albicans (PCR) C. glabrata (PCR) C. krusei (PCR) C. parapsilosis (PCR) C. tropicalis (PCR) C. difficile Tox (PCR) Enterobacteriac sp PCR E. cloacae complex PCR Enterococcus sp PCR E. coli (PCR) H. influenzae (PCR) Klebsiella oxytoca PCR Klebsiella pneumoniae List. monocytogenes PCR N. meningitidis (PCR) Proteus species (PCR) Serratia marcescens PCR Staphylococcus sp PCR Staph aureus (PCR) mecA-Methicil Res Gene Streptococcus sp PCR Group A Strep (PCR) Strep agalactiae (PCR) Strep pneumoniae (PCR) P. aeruginosa (PCR) Abigail/B-Vanco Res Genes KPC-Carbap Res Gene PCR 02/06/22 02/07/22 02/07/22 18:50 03:40 03:40 WBC 5.6 RBC 4.05 L Hgb 11.1 L Hct 33.1 L MCV 81.6 MCH 27.4 MCHC 33.6 RDW 14.4 Plt Count 96 L Neut % (Auto) Lymph % (Auto) [place] % (Auto) Eos % (Auto) Baso % (Auto) Neut # (Auto) Lymph # (Auto) [place] # (Auto) Eos # (Auto) Baso # (Auto) ABG pH ABG pCO2 ABG pO2 ABG HCO3 ABG Total CO2 ABG O2 Saturation ABG Base Excess FiO2 Sodium 135 L Potassium 3.9 Chloride 110 H Carbon Dioxide 15 L BUN 53 H Creatinine 2.15 H Estimated GFR 32 L BUN/Creatinine Ratio 24.7 H Glucose 105 Calcium 7.2 L Total Bilirubin 0.4 Conjugated Bilirubin 0.0 Unconjugated Bilirubin 0.3 AST 32 ALT 19 Alkaline Phosphatase 65 Troponin I Total Protein 5.9 L Albumin 3.0 L Globulin 2.9 Albumin/Globulin Ratio 1.0 Nasal Screen MRSA (PCR) A. baumannii (PCR) Noemi albicans (PCR) C. glabrata (PCR) C. krusei (PCR) C. parapsilosis (PCR) C. tropicalis (PCR) C. difficile Tox (PCR) Negative for c. diff Enterobacteriac sp PCR E. cloacae complex PCR Enterococcus sp PCR E. coli (PCR) H. influenzae (PCR) Klebsiella oxytoca PCR Klebsiella pneumoniae List. monocytogenes PCR N. meningitidis (PCR) Proteus species (PCR) Serratia marcescens PCR Staphylococcus sp PCR Staph aureus (PCR) mecA-Methicil Res Gene Streptococcus sp PCR Group A Strep (PCR) Strep agalactiae (PCR) Strep pneumoniae (PCR) P. aeruginosa (PCR) Abigail/B-Vanco Res Genes KPC-Carbap Res Gene PCR [facility] Medical History Asthma (~2016) Bladder cancer (~2009) Cervical spine disease (~1997) Degenerative joint disease (DJD) of lumbar spine (~2012) Depression (~1997) Elevated blood pressure reading without diagnosis of hypertension Elevated PSA, between 10 and less than 20 ng/ml Fractures (~2000) GERD (gastroesophageal reflux disease) Hearing loss (~2011) History of arthritis History of kidney stones History of primary bladder cancer Hyperlipidemia, mixed Macular degeneration of right eye (01/2022) Presence of neurostimulator (01/25/22) Prostate cancer Recurrent malignant neoplasm of bladder Right nephrolithiasis Self-catheterizes urinary bladder Urinary retention Urinary retention Vitamin D deficiency Wears glasses Surgical History Anesthesia History of bladder surgery (~2009) History of fusion of cervical spine (~1997) History of fusion of lumbar spine (~2012) History of knee replacement History of surgery (~2014) History of urologic surgery (10/05/21) Hx of appendectomy (1963) Hx of colonoscopy (10/12/20) Hx of prostate biopsy Hx of right inguinal hernia repair (1971) Hx of vasectomy Family History Father Cancer Mother Renal failure Brother Cancer Hypertension Brother Cancer Grandfather History of heart disease Grandmother History of heart disease Grandfather Black lung disease Grandmother Stroke Mother Renal failure Daughter Urinary tract infection Son Kidney stones Social History marital status: number of children: 2 household members: spouse Smoking Status: Former smoker Tobacco: How many years used: 10 alcohol intake: former substance use type: does not use caffeine: Yes Type(s) of exercise: independent ambulation, bicycling and regular exercise frequency: daily duration: > 90 minutes/day Assessment & Plan Assessment & Plan narrative: 1. Severe sepsis from UTI with E. coli bacteremia secondary to self-cath -he has positive UA, E. coli positive urine and likely blood, suspect secondary to self catheterizing -blood cultures positive with GNR's, awaiting sensitivity -continue meropenem at sepsis/renal dosing, likely downgrade to rocephin once blood cx sens returns -abdominal ultrasound with distended gallbladder but no other signs of acute cholecystitis -back where interstim device placed looks clean with no erythema, doubt source of infect 2. Acute hypoxic respiratory failure, resolved -suspect secondary to volume resuscitation -BNP elevated, chest xray showed fluid overload -transferred to the ICU for BIPAP which was then weaned off -hold off on lasix for now as just got fluid resuscitation -appreciate ICU consult 3. [place] -suspect secondary to sepsis and hypovolemia -no evidence of hydronephrosis of abdominal imaging -trend creatinine daily -delgadillo in place, with good urine output, monitor urine output closely 4. Cardiac demand ischemia -troponin downtrending -no chest pain, doubt acs -echo with EF 55-60% 5. NAGMA with compensation respiratory alkalosis -anion gap of 12, hyperchloremic, bicarb 15, pH 7.39 -possibly due to acute diarrhea and bicarb losses Code status is full code. COVID negative. DVT prophylaxis with Lovenox. Proxy is Ailin Handy. I have reviewed home meds and used all available resources to reconcile the home meds. Dispo: Still ICU status given respiratory failure and coli bacteremia. Several days until discharge. Time Spent With Patient Critical Care time: I spent a total of [] minutes of critical care time on this patient's care today; this time is exclusive of procedural time.
--- NOTE | 2022-02-07 09:30 | PM.PN.EICU ---
Subjective Subjective IF CAMERA ACTIVATED, patient seen via real-time interactive audiovisual communication: Camera activated Consent obtained for tele-horse wrangler care: Yes Patient Location: ICU Provider location (State): [place] Other participants/roles: Dr. Cabrera Current Medications Current Medications Medications: Home Medications ascorbic acid (vitamin C) 500 mg tablet (Vitamin C) 500 mg PO DAILY ##0 02/19/10 [History Confirmed 02/05/22] cholecalciferol (vitamin D3) 10 mcg (400 unit) tablet (Vitamin D3) 10 mcg PO DAILY ##0 02/19/10 [History Confirmed 02/05/22] glucosamine sulfate 500 mg tablet 1 tab PO DAILY ##0 02/19/10 [History Confirmed 02/05/22] acetaminophen 500 mg capsule 1,300 mg PO TID 01/04/20 [History Confirmed 02/05/22] omeprazole 20 mg capsule,delayed release 20 mg PO DAILY 01/04/20 [History Confirmed 02/05/22] tamsulosin 0.4 mg capsule 0.8 mg PO DAILY #180 caps 09/06/21 [Rx Confirmed 02/05/22] fexofenadine 30 mg tablet 30 mg PO DAILY 10/05/21 [History Confirmed 02/05/22] pregabalin 150 mg capsule See Rx Instructions .Route .COMPLEX #270 caps 11/08/21 [Rx Confirmed 02/05/22] lorazepam 0.5 mg tablet 0.5 mg PO DAILY PRN Claustrophobia #2 tabs 11/19/21 [Rx Confirmed 02/05/22] Visit Medications (administered) Generic Name Dose Route Start Last Admin Trade Name Freq PRN Reason Stop Dose Admin Acetaminophen 975 mg 02/06/22 03:32 02/07/22 03:32 Acetaminophen 325 Mg Tablet PO 975 mg Q8H PRN Administration Fever/Mild Pain (1-3) Albuterol/Ipratropium 3 ml 02/05/22 23:00 02/07/22 07:13 Albuterol/Ipratropium 3 Ml Ampul INH 3 ml [id number] MARA Administration Chlorhexidine Gluconate 15 ml 02/06/22 12:00 02/07/22 05:36 Chlorhexidine Gluconate 15 Ml Cup PO 15 ml Q6HR MARA Administration Enoxaparin Sodium 30 mg 02/06/22 09:00 02/07/22 08:08 Enoxaparin 30 Mg/0.3 Ml Syringe SUBCUT 30 mg DAILY MARA Administration Meropenem 1 gm/ Sodium 100 mls @ 200 mls/hr 02/06/22 12:15 02/07/22 02:03 Chloride IV Infused Q12H MARA Infusion Amiodarone HCl/Dextrose 360 mg in 200 mls @ 33.333 mls/hr 02/07/22 05:17 02/07/22 05:43 Nexterone IV 02/07/22 11:16 33.3 mls/hr NOW ONE 33.3 mls/hr Administration Protocol Pregabalin 150 mg 02/05/22 21:00 02/07/22 05:36 Pregabalin 75 Mg Capsule PO 150 mg Q8H MARA Administration Sodium Chloride 10 ml 02/06/22 19:59 02/07/22 04:00 Sodium Chloride 0.9% Flush IV 10 ml PRN PRN Administration Flush Sodium Chloride 10 ml 02/06/22 21:00 02/07/22 08:09 Sodium Chloride 0.9% Flush IV 10 ml BID MARA Administration Tamsulosin HCl 0.8 mg 02/06/22 09:00 02/07/22 08:08 Tamsulosin 0.4 Mg Capsule PO 0.8 mg DAILY MARA Administration Objective Labs Result Diagrams: 02/07/22 03:40 02/07/22 03:40 Labs: Laboratory Results - last 24 hr 02/05/22 02/06/22 02/06/22 17:05 10:30 11:24 WBC RBC Hgb Hct MCV MCH MCHC RDW Plt Count Neut % (Auto) Lymph % (Auto) [place] % (Auto) Eos % (Auto) Baso % (Auto) Neut # (Auto) Lymph # (Auto) [place] # (Auto) Eos # (Auto) Baso # (Auto) ABG pH 7.39 ABG pCO2 22.8 L* ABG pO2 67 L ABG HCO3 14 L ABG Total CO2 14 L ABG O2 Saturation 93 L ABG Base Excess -11.0 L FiO2 32 Sodium Potassium Chloride Carbon Dioxide BUN Creatinine Estimated GFR BUN/Creatinine Ratio Glucose Calcium Total Bilirubin Conjugated Bilirubin Unconjugated Bilirubin AST ALT Alkaline Phosphatase Troponin I Total Protein Albumin Globulin Albumin/Globulin Ratio Nasal Screen MRSA (PCR) Negative for mrsa A. baumannii (PCR) Not detected Noemi albicans (PCR) Not detected C. glabrata (PCR) Not detected C. krusei (PCR) Not detected C. parapsilosis (PCR) Not detected C. tropicalis (PCR) Not detected C. difficile Tox (PCR) Enterobacteriac sp PCR Detected H E. cloacae complex PCR Not detected Enterococcus sp PCR Not detected E. coli (PCR) Detected H H. influenzae (PCR) Not detected Klebsiella oxytoca PCR Not detected Klebsiella pneumoniae Not detected List. monocytogenes PCR Not detected N. meningitidis (PCR) Not detected Proteus species (PCR) Not detected Serratia marcescens PCR Not detected Staphylococcus sp PCR Not detected Staph aureus (PCR) Not detected mecA-Methicil Res Gene TNP Streptococcus sp PCR Not detected Group A Strep (PCR) Not detected Strep agalactiae (PCR) Not detected Strep pneumoniae (PCR) Not detected P. aeruginosa (PCR) Not detected Abigail/B-Vanco Res Genes TNP KPC-Carbap Res Gene PCR Not detected 02/06/22 02/06/22 02/06/22 11:30 11:30 11:30 WBC 7.7 RBC 4.11 L Hgb 11.2 L Hct 33.7 L MCV 82.1 MCH 27.4 MCHC 33.3 RDW 14.6 Plt Count 122 L Neut % (Auto) 87.8 H Lymph % (Auto) 5.[address] [place] % (Auto) 5.6 Eos % (Auto) 0.2 L Baso % (Auto) 0.5 Neut # (Auto) 6800 Lymph # (Auto) [address] [place] # (Auto) 400 Eos # (Auto) 0 Baso # (Auto) 0 ABG pH ABG pCO2 ABG pO2 ABG HCO3 ABG Total CO2 ABG O2 Saturation ABG Base Excess FiO2 Sodium 134 L Potassium 4.0 Chloride 106 Carbon Dioxide 13 L BUN 52 H Creatinine 2.22 H Estimated GFR 31 L BUN/Creatinine Ratio 23.4 H Glucose 110 Calcium 6.9 L Total Bilirubin 0.4 Conjugated Bilirubin Unconjugated Bilirubin AST 28 ALT 20 Alkaline Phosphatase 71 Troponin I 0.076 H Total Protein 5.5 L Albumin 3.0 L Globulin 2.5 Albumin/Globulin Ratio 1.2 Nasal Screen MRSA (PCR) A. baumannii (PCR) Noemi albicans (PCR) C. glabrata (PCR) C. krusei (PCR) C. parapsilosis (PCR) C. tropicalis (PCR) C. difficile Tox (PCR) Enterobacteriac sp PCR E. cloacae complex PCR Enterococcus sp PCR E. coli (PCR) H. influenzae (PCR) Klebsiella oxytoca PCR Klebsiella pneumoniae List. monocytogenes PCR N. meningitidis (PCR) Proteus species (PCR) Serratia marcescens PCR Staphylococcus sp PCR Staph aureus (PCR) mecA-Methicil Res Gene Streptococcus sp PCR Group A Strep (PCR) Strep agalactiae (PCR) Strep pneumoniae (PCR) P. aeruginosa (PCR) Abigail/B-Vanco Res Genes KPC-Carbap Res Gene PCR 02/06/22 02/07/22 02/07/22 18:50 03:40 03:40 WBC 5.6 RBC 4.05 L Hgb 11.1 L Hct 33.1 L MCV 81.6 MCH 27.4 MCHC 33.6 RDW 14.4 Plt Count 96 L Neut % (Auto) Lymph % (Auto) [place] % (Auto) Eos % (Auto) Baso % (Auto) Neut # (Auto) Lymph # (Auto) [place] # (Auto) Eos # (Auto) Baso # (Auto) ABG pH ABG pCO2 ABG pO2 ABG HCO3 ABG Total CO2 ABG O2 Saturation ABG Base Excess FiO2 Sodium 135 L Potassium 3.9 Chloride 110 H Carbon Dioxide 15 L BUN 53 H Creatinine 2.15 H Estimated GFR 32 L BUN/Creatinine Ratio 24.7 H Glucose 105 Calcium 7.2 L Total Bilirubin 0.4 Conjugated Bilirubin 0.0 Unconjugated Bilirubin 0.3 AST 32 ALT 19 Alkaline Phosphatase 65 Troponin I Total Protein 5.9 L Albumin 3.0 L Globulin 2.9 Albumin/Globulin Ratio 1.0 Nasal Screen MRSA (PCR) A. baumannii (PCR) Noemi albicans (PCR) C. glabrata (PCR) C. krusei (PCR) C. parapsilosis (PCR) C. tropicalis (PCR) C. difficile Tox (PCR) Negative for c. diff Enterobacteriac sp PCR E. cloacae complex PCR Enterococcus sp PCR E. coli (PCR) H. influenzae (PCR) Klebsiella oxytoca PCR Klebsiella pneumoniae List. monocytogenes PCR N. meningitidis (PCR) Proteus species (PCR) Serratia marcescens PCR Staphylococcus sp PCR Staph aureus (PCR) mecA-Methicil Res Gene Streptococcus sp PCR Group A Strep (PCR) Strep agalactiae (PCR) Strep pneumoniae (PCR) P. aeruginosa (PCR) Abigail/B-Vanco Res Genes KPC-Carbap Res Gene PCR Exam Vital Signs (past 8 hours): - 02/07/22 02:00 02/07/22 02:00 02/07/22 02:15 Temperature Pulse Rate 93 H 91 H Respiratory Rate 23 25 H Blood Pressure 126/68 Pulse Oximetry 98 97 Oxygen Delivery Method Oxygen Flow Rate Fraction of Inspired Oxygen 02/07/22 02:30 02/07/22 02:45 02/07/22 02:58 Temperature Pulse Rate 97 H 92 H 161 H Respiratory Rate 34 H 26 H 25 H Blood Pressure Pulse Oximetry 97 98 98 Oxygen Delivery Method Oxygen Flow Rate Fraction of Inspired Oxygen 02/07/22 02:58 02/07/22 03:00 02/07/22 03:02 Temperature Pulse Rate 144 H 140 H Respiratory Rate 33 H 29 H Blood Pressure 101/68 Pulse Oximetry 98 98 Oxygen Delivery Method Oxygen Flow Rate Fraction of Inspired Oxygen 02/07/22 03:02 02/07/22 03:08 02/07/22 04:04 Temperature Pulse Rate 135 H 137 H Respiratory Rate 22 20 Blood Pressure 117/61 117/61 Pulse Oximetry 97 97 Oxygen Delivery Method High Flow Nasal Cannula Oxygen Flow Rate 40 Fraction of Inspired Oxygen 28 02/07/22 03:15 02/07/22 03:20 02/07/22 03:20 Temperature Pulse Rate 134 H 143 H Respiratory Rate 22 26 H Blood Pressure 113/69 Pulse Oximetry 97 97 Oxygen Delivery Method Oxygen Flow Rate Fraction of Inspired Oxygen 02/07/22 03:29 02/07/22 03:29 02/07/22 03:30 Temperature Pulse Rate 143 H 145 H Respiratory Rate 22 17 Blood Pressure 115/67 Pulse Oximetry 97 96 Oxygen Delivery Method Oxygen Flow Rate Fraction of Inspired Oxygen 02/07/22 03:40 02/07/22 03:40 02/07/22 03:45 Temperature Pulse Rate 141 H 131 H Respiratory Rate 31 H 27 H Blood Pressure 86/52 L Pulse Oximetry 98 98 Oxygen Delivery Method Oxygen Flow Rate Fraction of Inspired Oxygen 02/07/22 03:46 02/07/22 03:46 02/07/22 04:00 Temperature Pulse Rate 150 H Respiratory Rate 18 Blood Pressure 110/72 112/61 Pulse Oximetry 98 Oxygen Delivery Method Oxygen Flow Rate Fraction of Inspired Oxygen 02/07/22 04:00 02/07/22 04:15 02/07/22 04:42 Temperature Pulse Rate 153 H 163 H 178 H Respiratory Rate 21 16 Blood Pressure 99/60 Pulse Oximetry 97 96 Oxygen Delivery Method Oxygen Flow Rate Fraction of Inspired Oxygen 02/07/22 04:00 02/07/22 04:20 02/07/22 04:20 Temperature Pulse Rate 162 H Respiratory Rate 25 H Blood Pressure 95/57 L Pulse Oximetry 96 Oxygen Delivery Method Heated High Flow Oxygen Flow Rate Fraction of Inspired Oxygen 02/07/22 04:30 02/07/22 04:40 02/07/22 04:40 Temperature Pulse Rate 167 H 174 H Respiratory Rate 20 17 Blood Pressure 99/60 Pulse Oximetry 96 95 Oxygen Delivery Method Oxygen Flow Rate Fraction of Inspired Oxygen 02/07/22 04:45 02/07/22 05:00 02/07/22 05:00 Temperature Pulse Rate 174 H 172 H Respiratory Rate 14 17 Blood Pressure 97/62 Pulse Oximetry 96 96 Oxygen Delivery Method Oxygen Flow Rate Fraction of Inspired Oxygen 02/07/22 05:15 02/07/22 05:15 02/07/22 05:30 Temperature Pulse Rate 167 H Respiratory Rate 12 Blood Pressure 99/66 105/67 Pulse Oximetry 94 Oxygen Delivery Method Oxygen Flow Rate Fraction of Inspired Oxygen 02/07/22 05:30 02/07/22 05:40 02/07/22 05:40 Temperature Pulse Rate 166 H 164 H Respiratory Rate 8 L 18 Blood Pressure 109/57 L Pulse Oximetry 95 96 Oxygen Delivery Method Oxygen Flow Rate Fraction of Inspired Oxygen 02/07/22 05:45 02/07/22 05:50 02/07/22 05:50 Temperature Pulse Rate 153 H 150 H Respiratory Rate 14 17 Blood Pressure 118/61 Pulse Oximetry 95 97 Oxygen Delivery Method Oxygen Flow Rate Fraction of Inspired Oxygen 02/07/22 06:00 02/07/22 06:00 02/07/22 06:10 Temperature Pulse Rate 153 H 144 H Respiratory Rate 15 20 Blood Pressure 105/60 105/60 Pulse Oximetry 99 99 Oxygen Delivery Method Oxygen Flow Rate Fraction of Inspired Oxygen 02/07/22 07:13 02/07/22 07:05 02/07/22 07:15 Temperature Pulse Rate 89 66 69 Respiratory Rate 18 17 28 H Blood Pressure Pulse Oximetry 99 98 100 Oxygen Delivery Method Heated High Flow Oxygen Flow Rate 40 Fraction of Inspired Oxygen 27 02/07/22 07:16 02/07/22 07:16 02/07/22 07:30 Temperature Pulse Rate 74 Respiratory Rate 27 H Blood Pressure 108/64 106/61 Pulse Oximetry 99 Oxygen Delivery Method Oxygen Flow Rate Fraction of Inspired Oxygen 02/07/22 07:30 02/07/22 07:45 02/07/22 08:00 Temperature Pulse Rate 75 Respiratory Rate 27 H Blood Pressure 102/59 L Pulse Oximetry 99 Oxygen Delivery Method Nasal Cannula Oxygen Flow Rate Fraction of Inspired Oxygen 02/07/22 08:00 02/07/22 08:15 02/07/22 08:15 Temperature Pulse Rate 74 73 Respiratory Rate 36 H 24 Blood Pressure 106/61 Pulse Oximetry 98 100 Oxygen Delivery Method Oxygen Flow Rate Fraction of Inspired Oxygen 02/07/22 08:30 02/07/22 08:30 02/07/22 08:45 Temperature Pulse Rate 72 Respiratory Rate 20 Blood Pressure 108/66 98/54 L Pulse Oximetry 98 Oxygen Delivery Method Oxygen Flow Rate Fraction of Inspired Oxygen 02/07/22 08:45 02/07/22 09:00 02/07/22 08:00 Temperature 98.7 F Pulse Rate 73 71 Respiratory Rate 20 18 Blood Pressure Pulse Oximetry 95 95 Oxygen Delivery Method Oxygen Flow Rate Fraction of Inspired Oxygen Fraction of Inspired Oxygen 27 SaO2/FiO2 Ratio 366 Oxygen Delivery Method Nasal Cannula Oxygen Flow Rate 40 Assessment & Plan Assessment & Plan narrative: 72 year old male admitted severe sepsis likley 2.2 UTI w/ Gram -ve bacteremia acute resp failure w/hypoxia 2/2 volume overload acute renal failure atrial fib w/rvr pt seen with bedside nurse chart/labs/imaging reviewed events overnight noted, had fiv rvr, did not respond to digosin, started on amio drip with rate control given 20mg of lasix this am currently afebrile, HD stable HR 70s sats 96% on 1l NC appears comfortable in bed eating mental status intact US -ve for acute joss creat improved Plan -continue neurochecks/seizure precautions -continue to avoid benzos/opiods -NC to keep sat above 92%, keep pa02 above 55 -nebs -echo done results pending -repeat bmp this afternoon, can give more diuretics -amio drip for now, if bp improves can use bb, may need AC -monitor ins/outs -replace lyts prn -keep glucose 140-180s -gi/dvt ppx -please call eICU if condition changes total ccm time 45 mins Time Spent With Patient Critical Care time: I spent a total of [] minutes of critical care time on this patient's care today; this time is exclusive of procedural time.
[2022-02-07] MEDS: FUROSEMIDE 40 MG/4 ML VIAL 20 MG IV (11:31)
[2022-02-07] MEDS: AMIODARONE 540 MG/300 ML PIGGYBACK 16.7 MG IV ×2 (11:47→23:51)
[2022-02-07] MEDS: MEROPENEM 1 GM in SODIUM CHLORIDE 0.9% 100 ML IV ×2 (12:29→23:32)
[2022-02-07 16:03] LABS: Blood Urea Nitrogen 50 mg/dL (9-20); Calcium 7.1 mg/dL (8.4-10.2); Carbon Dioxide 17 mmol/L (22-32); Chloride 104 mmol/L (98-107); Estimated Glomerular Filt Rate 36 mL/min (>60); Glucose 140 mg/dL (80-110); HEMOLYSIS < 15 (0-50); Potassium 3.7 mmol/L (3.4-5.1); Sodium 134 mmol/L (137-145)
--- NOTE | 2022-02-07 20:36 | PM.ICURNDS ---
- Date Patient Seen: 02/07/22 Time Patient Seen: 20:36 :: This patient was seen via real time interactive two-way audiovisual telecommunication. Note: afebrile, HD stable 1lNC feeling well adeqaute urine ouput remains on amio continue current care
[2022-02-07] MEDS: KETOROLAC 30 MG/ML VIAL 15 MG IV (23:32)
[2022-02-07] MEDS: ONDANSETRON 4 MG/2 ML INJ IV (23:32)
[2022-02-07] MEDS: SENNOSIDES 8.6 MG TABLET 17.2 MG PO (23:34)
[2022-02-08] VITALS (30 sets, daily range): BP systolic 118–138; BP diastolic 59–76; PULSE 64–93; RESP 14–25; TEMP 36.2–38.4; O2SAT 90–99
[2022-02-08 02:03] LABS: Bilirubin Urine UA NEGATIVE (NEGATIVE); Color Urine UA YELLOW; Glucose Urine UA NEGATIVE (Negative); Ketones Urine UA NEGATIVE (NEGATIVE); Leukocyte Esterase Urine UA 1+ (NEGATIVE); Nitrite Urine UA NEGATIVE (Negative); Occult Blood Urine UA 3+ (Negative); Protein Urine UA 2+ (Negative); Urobilinogen Urine UA 0.2 E.U./dL (0.2)
[2022-02-08 02:06] LABS: Appearance Urine UA Slightly Cloudy
[2022-02-08 02:10] LABS: Bacteria Urine Moderate (10-30); Granular Casts Urine 0-1/LPF; RBC Urine 30-100/HPF (0-5/HPF); Squamous Epithelial Cell Urine 1-5 /HPF (0-5/HPF); WBC Urine 10-30/HPF (0-5/HPF)
[2022-02-08 02:11] LABS: Culture Indicated Urine Specimen Cultured
[2022-02-08 04:30] LABS: Add Manual Diff / Slide Review NO; Basophils Absolute Auto 0 /uL (0-100); Basophils Percent Auto 0.3 % (0-2); Eosinophils Absolute Auto 100 /uL (0-450); Eosinophils Percent Auto 1.8 % (2-4); Hematocrit 31.2 % (41-53); Hemoglobin 10.6 g/dL (13.5-17.5); Lymphocytes Absolute Auto 800 /uL (1100-4500); Lymphocytes Percent Auto 11.5 % (25-40); Mean Corpuscular Hemoglobin 27.4 PG (26-34); Mean Corpuscular Volume 80.6 fL (80-100); Monocytes Absolute Auto 600 /uL (0-900); Monocytes Percent Auto 7.9 % (3-14); Neutrophils Absolute Auto 5500 /uL (1500-7000); Neutrophils Percent Auto 78.5 % (50-75); Platelet Count 114 X10^3/uL (150-400); Red Blood Cell Count 3.88 X10^6/uL (4.5-5.9); Red Cell Distribution Width 14.6 % (11.6-14.8); White Blood Cell Count 7.1 X10^3/uL (4.5-11.0)
[2022-02-08 04:33] LABS: BUN Creatinine Ratio 25.1 (6-22); Blood Urea Nitrogen 46 mg/dL (9-20); Calcium 7.4 mg/dL (8.4-10.2); Carbon Dioxide 18 mmol/L (22-32); Chloride 104 mmol/L (98-107); Estimated Glomerular Filt Rate 38 mL/min (>60); Glucose 150 mg/dL (80-110); HEMOLYSIS < 15 (0-50); Phosphorous 3.6 mg/dL (2.3-3.7); Potassium 3.8 mmol/L (3.4-5.1); Sodium 134 mmol/L (137-145)
[2022-02-08 04:34] LABS: Magnesium 2.1 mg/dL (1.6-2.3)
--- NOTE | 2022-02-08 06:39 | PC.NURSE ---
Rn Physician Office Note-Patient is A/Ox4, still weak and mildly fatigued but able to ambulate small amount in room with walker and SBA. Up to BSC x2, attempting to have BM, first time at 2300, developed nausea and belching, denied passing flatus. Also stated he started having tenderness to left groin throughtout the day that has gotten worse rate 8/10, sharp, urine has hematuria. Informed Hospitalist, order received for Toradol 15mg IV x1 and senna PO. These were given along with IV Zofran per prn, patient was able to sleep for approximately 4 hrs. Up to BSC again at 0400, still no BM, but is passing flatus, denies nausea, pain decreased a little UAC sent. Amiodarone still infusing at 16.7ml/hr, remains in SR with occasional PACs. No shortness of breath, SpO2 >96% on 1L NC, removed at 0500, sats >91%.
[2022-02-08] MEDS: ALBUTEROL/IPRATROPIUM 3 ML AMPUL INH ×3 (08:57→20:12)
[2022-02-08] MEDS: TAMSULOSIN 0.4 MG CAPSULE 0.8 MG PO (09:27)
[2022-02-08] MEDS: SODIUM CHLORIDE 0.9% FLUSH 10 ML IV ×2 (09:27→20:51)
--- NOTE | 2022-02-08 09:45 | PM.PN.EICU ---
Subjective Subjective IF CAMERA ACTIVATED, patient seen via real-time interactive audiovisual communication: Camera activated Consent obtained for tele-manager web care: Yes Patient Location: ICU Provider location (State): [place] Other participants/roles: Dr Cabrera Current Medications Current Medications Medications: Home Medications ascorbic acid (vitamin C) 500 mg tablet (Vitamin C) 500 mg PO DAILY ##0 02/19/10 [History Confirmed 02/05/22] cholecalciferol (vitamin D3) 10 mcg (400 unit) tablet (Vitamin D3) 10 mcg PO DAILY ##0 02/19/10 [History Confirmed 02/05/22] glucosamine sulfate 500 mg tablet 1 tab PO DAILY ##0 02/19/10 [History Confirmed 02/05/22] acetaminophen 500 mg capsule 1,300 mg PO TID 01/04/20 [History Confirmed 02/05/22] omeprazole 20 mg capsule,delayed release 20 mg PO DAILY 01/04/20 [History Confirmed 02/05/22] tamsulosin 0.4 mg capsule 0.8 mg PO DAILY #180 caps 09/06/21 [Rx Confirmed 02/05/22] fexofenadine 30 mg tablet 30 mg PO DAILY 10/05/21 [History Confirmed 02/05/22] pregabalin 150 mg capsule See Rx Instructions .Route .COMPLEX #270 caps 11/08/21 [Rx Confirmed 02/05/22] lorazepam 0.5 mg tablet 0.5 mg PO DAILY PRN Claustrophobia #2 tabs 11/19/21 [Rx Confirmed 02/05/22] Visit Medications (administered) Generic Name Dose Route Start Last Admin Trade Name Freq PRN Reason Stop Dose Admin Acetaminophen 975 mg 02/06/22 03:32 02/07/22 18:09 Acetaminophen 325 Mg Tablet PO 975 mg Q8H PRN Administration Fever/Mild Pain (1-3) Albuterol/Ipratropium 3 ml 02/05/22 23:00 02/08/22 08:57 Albuterol/Ipratropium 3 Ml Ampul INH 3 ml [id number] MARA Administration Chlorhexidine Gluconate 15 ml 02/06/22 12:00 02/08/22 06:31 Chlorhexidine Gluconate 15 Ml Cup PO Not Given Q6HR MARA Ondansetron HCl 4 mg 02/05/22 20:26 02/07/22 23:32 Ondansetron 4 Mg/2 Ml Inj IV 4 mg Q8HR PRN Administration Nausea And Vomiting Pregabalin 150 mg 02/05/22 21:00 02/08/22 07:30 Pregabalin 75 Mg Capsule PO Not Given Q8H MARA Sennosides 17.2 mg 02/07/22 23:00 02/07/22 23:34 Sennosides 8.6 Mg Tablet PO 17.2 mg BEDTIME MARA Administration Sodium Chloride 10 ml 02/06/22 19:59 02/07/22 04:00 Sodium Chloride 0.9% Flush IV 10 ml PRN PRN Administration Flush Sodium Chloride 10 ml 02/06/22 21:00 02/08/22 09:27 Sodium Chloride 0.9% Flush IV 10 ml BID MARA Administration Tamsulosin HCl 0.8 mg 02/06/22 09:00 02/08/22 09:27 Tamsulosin 0.4 Mg Capsule PO 0.8 mg DAILY MARA Administration Objective Labs Result Diagrams: 02/08/22 03:44 02/08/22 03:44 Labs: Laboratory Results - last 24 hr 02/07/22 02/08/22 02/08/22 15:14 01:45 03:44 WBC RBC Hgb Hct MCV MCH MCHC RDW Plt Count Neut % (Auto) Lymph % (Auto) [place] % (Auto) Eos % (Auto) Baso % (Auto) Neut # (Auto) Lymph # (Auto) [place] # (Auto) Eos # (Auto) Baso # (Auto) Sodium 134 L Potassium 3.7 Chloride 104 Carbon Dioxide 17 L BUN 50 H Creatinine 1.92 H Estimated GFR 36 L BUN/Creatinine Ratio 26.0 H Glucose 140 H Calcium 7.1 L Phosphorus 3.6 Magnesium Urine Color Yellow Urine Appearance Slightly cloudy Urine pH 5.0 Ur Specific [place] 1.020 Urine Protein 2+ H Urine Glucose (UA) Negative Urine Ketones Negative Urine Occult Blood 3+ H Urine Nitrate Negative Urine Bilirubin Negative Urine Urobilinogen 0.2 Ur Leukocyte Esterase 1+ H Urine RBC 30-100/hpf H Urine WBC 10-30/hpf H Ur Squamous Epith Cells 1-5 /hpf Urine Bacteria Moderate (10-30) H Granular Casts 0-1/lpf Ur Culture Indicated? Specimen cultured 02/08/22 02/08/22 02/08/22 03:44 03:44 03:44 WBC 7.1 RBC 3.88 L Hgb 10.6 L Hct 31.2 L MCV 80.6 MCH 27.4 MCHC 34.0 RDW 14.6 Plt Count 114 L Neut % (Auto) 78.5 H Lymph % (Auto) 11.5 L [place] % (Auto) 7.9 Eos % (Auto) 1.8 L Baso % (Auto) 0.3 Neut # (Auto) 5500 Lymph # (Auto) 800 L [place] # (Auto) 600 Eos # (Auto) 100 Baso # (Auto) 0 Sodium 134 L Potassium 3.8 Chloride 104 Carbon Dioxide 18 L BUN 46 H Creatinine 1.83 H Estimated GFR 38 L BUN/Creatinine Ratio 25.1 H Glucose 150 H Calcium 7.4 L Phosphorus Magnesium 2.1 Urine Color Urine Appearance Urine pH Ur Specific [place] Urine Protein Urine Glucose (UA) Urine Ketones Urine Occult Blood Urine Nitrate Urine Bilirubin Urine Urobilinogen Ur Leukocyte Esterase Urine RBC Urine WBC Ur Squamous Epith Cells Urine Bacteria Granular Casts Ur Culture Indicated? Exam Vital Signs (past 8 hours): - 02/08/22 02:00 02/08/22 03:00 02/08/22 02:00 Temperature Pulse Rate 72 71 Respiratory Rate 17 15 Blood Pressure 130/69 136/74 130/69 Pulse Oximetry 96 97 Oxygen Delivery Method Oxygen Flow Rate 1 1 02/08/22 02:00 02/08/22 03:00 02/08/22 03:00 Temperature Pulse Rate 72 72 Respiratory Rate 17 17 Blood Pressure 136/74 Pulse Oximetry 96 97 Oxygen Delivery Method Oxygen Flow Rate 02/08/22 04:00 02/08/22 04:00 02/08/22 04:45 Temperature Pulse Rate 73 67 Respiratory Rate 21 18 Blood Pressure Pulse Oximetry 99 Oxygen Delivery Method Room Air Oxygen Flow Rate 02/08/22 04:45 02/08/22 05:00 02/08/22 06:00 Temperature Pulse Rate 66 71 Respiratory Rate 15 17 Blood Pressure 129/69 Pulse Oximetry 96 90 L Oxygen Delivery Method Oxygen Flow Rate 02/08/22 07:00 02/08/22 08:00 02/08/22 08:00 Temperature Pulse Rate 64 74 Respiratory Rate 16 16 Blood Pressure 132/64 Pulse Oximetry 95 Oxygen Delivery Method Room Air Oxygen Flow Rate 02/08/22 07:00 02/08/22 07:35 02/08/22 07:35 Temperature Pulse Rate 67 65 Respiratory Rate 14 16 Blood Pressure 132/64 Pulse Oximetry 95 94 Oxygen Delivery Method Oxygen Flow Rate 02/08/22 08:00 02/08/22 08:14 02/08/22 08:57 Temperature 97.2 F L Pulse Rate 65 76 Respiratory Rate 16 20 Blood Pressure Pulse Oximetry 91 95 Oxygen Delivery Method Room Air Oxygen Flow Rate 02/08/22 09:00 Temperature Pulse Rate 77 Respiratory Rate 19 Blood Pressure Pulse Oximetry 94 Oxygen Delivery Method Oxygen Flow Rate Fraction of Inspired Oxygen 24 SaO2/FiO2 Ratio 395 Oxygen Delivery Method Room Air Oxygen Flow Rate 1 Assessment & Plan Assessment & Plan narrative: 72 year old male admitted severe sepsis likley 2.2 UTI w/ e.coli acute resp failure w/hypoxia 2/2 volume overload acute renal failure atrial fib w/rvr pt seen with bedside nurse chart/labs/imaging reviewed no acute evets overnight afebrile, HD stable, on room air creat 1.7=8 echo ef 55% Plan -avoid opiods -on room air, keep sat above 92% - continue metoprool -afib likely 2/2 to sepsis -ok off amio drip -monitor ins/outs -replace lyts prn -keep glucose 140-180s -gi/dvt ppx -please call eICU if condition changes, ok to downgrade total ccm time 45 mins Time Spent With Patient Critical Care time: I spent a total of [] minutes of critical care time on this patient's care today; this time is exclusive of procedural time.
--- NOTE | 2022-02-08 09:46 | P.PN_ITS ---
Subjective Subjective Date Patient Seen: 02/08/22 Time Patient Seen: 10:00 Interval history: Patient feeling better today overall. Able to work with PT but quite tired afterward. Feels constipated and hasn't had a BM in a few days. Noticed bloody urine overnight. Exam Vital Signs (past 8 hours): - 02/08/22 02:00 02/08/22 03:00 02/08/22 02:00 Temperature Pulse Rate 72 71 Respiratory Rate 17 15 Blood Pressure 130/69 136/74 130/69 Pulse Oximetry 96 97 Oxygen Delivery Method Oxygen Flow Rate 1 1 02/08/22 02:00 02/08/22 03:00 02/08/22 03:00 Temperature Pulse Rate 72 72 Respiratory Rate 17 17 Blood Pressure 136/74 Pulse Oximetry 96 97 Oxygen Delivery Method Oxygen Flow Rate 02/08/22 04:00 02/08/22 04:00 02/08/22 04:45 Temperature Pulse Rate 73 67 Respiratory Rate 21 18 Blood Pressure Pulse Oximetry 99 Oxygen Delivery Method Room Air Oxygen Flow Rate 02/08/22 04:45 02/08/22 05:00 02/08/22 06:00 Temperature Pulse Rate 66 71 Respiratory Rate 15 17 Blood Pressure 129/69 Pulse Oximetry 96 90 L Oxygen Delivery Method Oxygen Flow Rate 02/08/22 07:00 02/08/22 08:00 02/08/22 08:00 Temperature Pulse Rate 64 74 Respiratory Rate 16 16 Blood Pressure 132/64 Pulse Oximetry 95 Oxygen Delivery Method Room Air Oxygen Flow Rate 02/08/22 07:00 02/08/22 07:35 02/08/22 07:35 Temperature Pulse Rate 67 65 Respiratory Rate 14 16 Blood Pressure 132/64 Pulse Oximetry 95 94 Oxygen Delivery Method Oxygen Flow Rate 02/08/22 08:00 02/08/22 08:14 02/08/22 08:57 Temperature 97.2 F L Pulse Rate 65 76 Respiratory Rate 16 20 Blood Pressure Pulse Oximetry 91 95 Oxygen Delivery Method Room Air Oxygen Flow Rate 02/08/22 09:00 Temperature Pulse Rate 77 Respiratory Rate 19 Blood Pressure Pulse Oximetry 94 Oxygen Delivery Method Oxygen Flow Rate Fraction of Inspired Oxygen 24 SaO2/FiO2 Ratio 395 Oxygen Delivery Method Room Air Oxygen Flow Rate 1 Narrative Exam Narrative: GEN: comfortable, diaphoretic CV: tachycardic, no murmurs PULM: improved rales ABD: soft, nontender, nondistended, no organomegaly EXT: warm and well perfused with no edema PSYCH: Alert and oriented Objective Labs Result Diagrams: 02/08/22 03:44 02/08/22 03:44 Labs: Laboratory Results - last 24 hr 02/07/22 02/08/22 02/08/22 15:14 01:45 03:44 WBC RBC Hgb Hct MCV MCH MCHC RDW Plt Count Neut % (Auto) Lymph % (Auto) [place] % (Auto) Eos % (Auto) Baso % (Auto) Neut # (Auto) Lymph # (Auto) [place] # (Auto) Eos # (Auto) Baso # (Auto) Sodium 134 L Potassium 3.7 Chloride 104 Carbon Dioxide 17 L BUN 50 H Creatinine 1.92 H Estimated GFR 36 L BUN/Creatinine Ratio 26.0 H Glucose 140 H Calcium 7.1 L Phosphorus 3.6 Magnesium Urine Color Yellow Urine Appearance Slightly cloudy Urine pH 5.0 Ur Specific [place] 1.020 Urine Protein 2+ H Urine Glucose (UA) Negative Urine Ketones Negative Urine Occult Blood 3+ H Urine Nitrate Negative Urine Bilirubin Negative Urine Urobilinogen 0.2 Ur Leukocyte Esterase 1+ H Urine RBC 30-100/hpf H Urine WBC 10-30/hpf H Ur Squamous Epith Cells 1-5 /hpf Urine Bacteria Moderate (10-30) H Granular Casts 0-1/lpf Ur Culture Indicated? Specimen cultured 02/08/22 02/08/22 02/08/22 03:44 03:44 03:44 WBC 7.1 RBC 3.88 L Hgb 10.6 L Hct 31.2 L MCV 80.6 MCH 27.4 MCHC 34.0 RDW 14.6 Plt Count 114 L Neut % (Auto) 78.5 H Lymph % (Auto) 11.5 L [place] % (Auto) 7.9 Eos % (Auto) 1.8 L Baso % (Auto) 0.3 Neut # (Auto) 5500 Lymph # (Auto) 800 L [place] # (Auto) 600 Eos # (Auto) 100 Baso # (Auto) 0 Sodium 134 L Potassium 3.8 Chloride 104 Carbon Dioxide 18 L BUN 46 H Creatinine 1.83 H Estimated GFR 38 L BUN/Creatinine Ratio 25.1 H Glucose 150 H Calcium 7.4 L Phosphorus Magnesium 2.1 Urine Color Urine Appearance Urine pH Ur Specific [place] Urine Protein Urine Glucose (UA) Urine Ketones Urine Occult Blood Urine Nitrate Urine Bilirubin Urine Urobilinogen Ur Leukocyte Esterase Urine RBC Urine WBC Ur Squamous Epith Cells Urine Bacteria Granular Casts Ur Culture Indicated? [facility] Medical History Asthma (~2016) Bladder cancer (~2009) Cervical spine disease (~1997) Degenerative joint disease (DJD) of lumbar spine (~2012) Depression (~1997) Elevated blood pressure reading without diagnosis of hypertension Elevated PSA, between 10 and less than 20 ng/ml Fractures (~2000) GERD (gastroesophageal reflux disease) Hearing loss (~2011) History of arthritis History of kidney stones History of primary bladder cancer Hyperlipidemia, mixed Macular degeneration of right eye (01/2022) Presence of neurostimulator (01/25/22) Prostate cancer Recurrent malignant neoplasm of bladder Right nephrolithiasis Self-catheterizes urinary bladder Urinary retention Urinary retention Vitamin D deficiency Wears glasses Surgical History Anesthesia History of bladder surgery (~2009) History of fusion of cervical spine (~1997) History of fusion of lumbar spine (~2012) History of knee replacement History of surgery (~2014) History of urologic surgery (10/05/21) Hx of appendectomy (1963) Hx of colonoscopy (10/12/20) Hx of prostate biopsy Hx of right inguinal hernia repair (1971) Hx of vasectomy Family History Father Cancer Mother Renal failure Brother Cancer Hypertension Brother Cancer Grandfather History of heart disease Grandmother History of heart disease Grandfather Black lung disease Grandmother Stroke Mother Renal failure Daughter Urinary tract infection Son Kidney stones Social History marital status: number of children: 2 household members: spouse Smoking Status: Former smoker Tobacco: How many years used: 10 alcohol intake: former substance use type: does not use caffeine: Yes Type(s) of exercise: independent ambulation, bicycling and regular exercise frequency: daily duration: > 90 minutes/day Assessment & Plan Assessment & Plan narrative: 1. Severe sepsis from UTI with E. coli bacteremia secondary to self-cath, improving -he has positive UA, E. coli positive urine and blood, suspect secondary to self catheterizing -blood cultures positive for E. coli sensitive to cephalosporins -stop meropenem and start rocephin, can likely dc on po levaquin to complete 14 days -abdominal ultrasound with distended gallbladder but no other signs of acute cholecystitis -back where interstim device placed looks clean with no erythema 2. Acute hypoxic respiratory failure, resolved -suspect secondary to volume resuscitation in ED -BNP elevated, chest xray showed fluid overload -transferred to the ICU for BIPAP which was then weaned off -lasix 20 IV daily 3. CLINTON, improving -suspect secondary to sepsis and hypovolemia -no evidence of hydronephrosis of abdominal imaging -trend creatinine daily -delgadillo in place, with good urine output, monitor urine output closely 4. Cardiac demand ischemia -troponin downtrending -no chest pain, doubt acs -echo with EF 55-60% 5. NAGMA with compensation respiratory alkalosis, improving -anion gap of 12, hyperchloremic, bicarb 15, pH 7.39 -possibly due to acute diarrhea and bicarb losses 6. Constipation -start milk of mag PRN 7. Acute hematuria -developed bloody urine overnight, no clots -likely secondary to prostate or bladder cancer, recent MR pelvis with bladder mucosal hyperemia -attempted to contact Dr. Anguiano to let him know but no response -monitor and keep delgadillo 8. Bladder cancer s/p tumor removal in 2011 -followed by Dr. Anguiano 9. Prostate cancer -recent MR pelvis reviewed with patient and which showed PI-RADS 4 lesions of anterior prostate -has prostectomy scheduled for Feb 25 Code status is full code. COVID negative. DVT prophylaxis with Lovenox. Proxy is Ailin Handy. I have reviewed home meds and used all available resources to reconcile the home meds. Dispo: Likely home with HH PT on 02/09. Time Spent With Patient Critical Care time: I spent a total of [] minutes of critical care time on this patient's care today; this time is exclusive of procedural time.
--- NOTE | 2022-02-08 09:57 | PT.IIE ---
Current Diagnoses Infection and inflammatory reaction due to other urinary catheter, initial encounter (02/05/22) Surgical History (Last Reviewed 02/05/22 @ 23:53 by Adela Kang [facility]) Anesthesia History of bladder surgery (~2009) History of fusion of cervical spine (~1997) History of fusion of lumbar spine (~2012) History of knee replacement History of surgery (~2014) History of urologic surgery (10/05/21) Hx of appendectomy (1963) Hx of colonoscopy (10/12/20) Hx of prostate biopsy Hx of right inguinal hernia repair (1971) Hx of vasectomy Medical History (Last Reviewed 02/05/22 @ 23:53 [facility] Asthma (~2016) Bladder cancer (~2009) Cervical spine disease (~1997) Degenerative joint disease (DJD) of lumbar spine (~2012) Depression (~1997) Elevated blood pressure reading without diagnosis of hypertension Elevated PSA, between 10 and less than 20 ng/ml Fractures (~2000) GERD (gastroesophageal reflux disease) Hearing loss (~2011) History of arthritis History of kidney stones History of primary bladder cancer Hyperlipidemia, mixed Macular degeneration of right eye (01/2022) Presence of neurostimulator (01/25/22) Prostate cancer Recurrent malignant neoplasm of bladder Right nephrolithiasis Self-catheterizes urinary bladder Urinary retention Urinary retention Vitamin D deficiency Wears glasses Physical Therapy Inpatient Evaluation/Re-Eval M1 PT/OT-IP Prior Functional Status Start: 02/08/22 12:38 Freq: NEEDED Status: Active Protocol: Document 02/08/22 09:57 AB (Rec: 02/08/22 12:58 AB [id number]) Medical Review Prior Functional Status Medical History Reviewed Yes Communication able to make needs known Mobility and Gait pt stated that he is independent with all mobilities and ambulation without AD Activities of Daily Living and IADL's pt is able to self cath Social History Household Members spouse Living Arrangements House Number of Floors (Floors) One Floor Number of Stairs To Enter/Railing? 2 platform steps to enter Home Environment High Toilet,Walk in Shower Home Equipment Front Wheel Walker,Straight Cane,Grab Bars Near Toilet Additional Social History Comment spouse limited with physical assistance she can provide to pt M2 PT-IP Current Condition Start: 02/08/22 12:38 Freq: NEEDED Status: Active Protocol: Document 02/08/22 09:57 AB (Rec: 02/08/22 12:58 AB [email or web address]) Physical Therapy Current Condition Current Condition Evaluation Date 02/08/22 Treatment Diagnosis sepsis; difficulty in walking Onset Date 02/05/22 M3 PT-IP Subjective Start: 02/08/22 12:38 Freq: NEEDED Status: Active Protocol: Document 02/08/22 09:57 AB (Rec: 02/08/22 12:58 AB [email or web address]) Subjective Physical Therapy Visit Type Type Initial Evaluation Visit Start Time 09:57 Visit Stop Time 11:28 Total Visit Minutes 31 Number of REGULATORY AFFAIRS CONSULTANT Visits 0 Physical Therapy Visit Comments Patient Comments agreeable to do PT Therapy Pain Assessment Pain When Pain Assessed At Rest Location Abdomen Scale Used due to constipation per pt M4 PT-IP Mobility and Gait Start: 02/08/22 12:38 Freq: NEEDED Status: Active Protocol: Document 02/08/22 09:57 AB (Rec: 02/08/22 12:58 AB [email or web address]) PT-Bed Mobility Assessment Supine to Sit Supine to Sit Standby Assistance Sit to Supine Sit to Supine Standby Assistance PT-Transfer Assessment Sit to and From Stand Sit to and from Stand Contact Guard Assistance,1 Person Assistance,Use of Upper Extremities Equipment Transfer Assistive Device Gait Belt,Front Wheeled Walker Orthotic/Prosthetic Devices or Brace: No Transfers Transfer Destination Bed,Chair Transfer Technique ambulated Transfer Ability Level of Assist Contact Guard Assistance,1 Person Assistance,Use of Upper Extremities Comments Mobility Comments pt sitting on chair. spouse in room. pt on room air with ( +) SOB. O2 sat RA 95%. completed sit to stand cGA and ambulated in room using FWW ~ 25 ft CGA. sat on EOB and completed sit<>supine SBA. (+ ) SOB. O2 sat 85%. cued for deep breathing. O2 sat increased to 92%. completed sit to stand from EOB CGA and step transfer to chair using FWW CGA. refused further ambulation and stated that he is tired. positioned pt on the chair. O2 sat checked: 85-87 %. cued for deep breathing. O2 increased to 90-92%. call light and table placed within reach. Left pt with hospitalist in room. Gait Assessment Gait Gait Assistance Required: Contact Guard Assist Distance (Feet) 25 Able to Maintain Weight Bearing Status Yes During Gait Assistive Devices Assistive Device Gait Belt,Front Wheeled Walker Orthotic/Prosthetic Devices or Brace: No Gait Deviations General Gait Pattern Decreased Stride Length, Decreased Feet Clearance, Flexed Trunk,Step-to Gait Factors Limiting Gait Function Factors Limiting Gait Function Decreased Activity Tolerance, Decreased Strength,Limited Range of Motion,Pain,Poor Balance,Respiratory Distress PT-Balance Assessment Sitting Balance and Reactions Static Sitting Balance Ability Normal Dynamic Sitting Balance Ability Good Standing Balance and Reactions Static Standing Balance Ability Fair Dynamic Standing Balance Ability Fair Device Used FWW M5 PT-IP Objective Assessments Start: 02/08/22 12:38 Freq: NEEDED Status: Active Protocol: Document 02/08/22 09:57 AB (Rec: 02/08/22 12:58 AB [email or web address]) Orientation Orientation/Cognition Level of Alertness Alert Orientation Name,Place,Situation Language Function Ability Hard of Hearing Safety Awareness Decreased Safety Awareness Memory Description No Deficits Noted Gross Range of Motion Lower Extremity ROM Assessment Within Functional Limits Strength Lower Extremity Strength Hip 4-/5 Knee 4-/5 Coordination Assessment Gross Coordination Gross Coordination WNL Sensation Assessment Sensation Gross Sensation WNL Muscle Tone Muscle Tone WNL Yes M6 PT-IP Treatment Start: 02/08/22 12:38 Freq: NEEDED Status: Active Protocol: Document 02/08/22 09:57 AB (Rec: 02/08/22 12:58 AB [email or web address]) Physical Therapy Treatment Education Education Provided Safety M7 PT-IP Assessment and Plan Start: 02/08/22 12:38 Freq: NEEDED Status: Active Protocol: Document 02/08/22 09:57 AB (Rec: 02/08/22 12:58 AB [email or web address]) PT Summary Assessment and Plan Potential Rehabilitation Potential Fair Status of Condition at Evaluation Evolving Summary Impairments Pain,ROM,Strength,Balance, Coordination,Sensation,Tone, Cognition,Bed Mobility, Transfers,Gait,Activity Tolerance Assessment Summary pt requiring CGA with transfers and ambulation using FWW but has decrease activity tolerance with decrease in O2 sat to 85% with activity. will continue to assess progress. spouse stated that she is limited to the physical assistance she can provide pt . will conduct caregiver training when appropriate. pt also has 2 platform steps to enter the house and will need to complete stair training prior to d/c. d/c plan: home with assist and HHPT vs SNF. Goals Bed Mobility Goal Independent Transfer Goal Independent,Front Wheeled Walker Gait Goal Independent,Front Wheel Walker Gait Distance 150 Other Goals improve transfers and ambulation least restrictive AD or without AD 150 ft SBA up/down 2 platform steps using least restrictive AD or w/o AD SBA Days to Meet Goals 10 Frequency of Treatment Frequency Of Treatment Once a Day Treatment Plan Physical Therapy Treatment Plan Bed Mobility Training,Transfer Training,Gait Training, Therapeutic Exercise,Balance Retraining,Discharge Planning, Hot or Cold Pack,Neuromuscular Re-ed,Coordination Retraining Precautions Other Precautions O2 sat Recommendations To Nursing Amount of Assist Needed 1 Person Assist Discharge Recommendations PT Discharge Recommendations Home with 21/10 Assist Available,Home Health,SNF Rehab,Home vs SNF Transportation Needs at Discharge Private Vehicle,Wheelchair/ Cabulance
[2022-02-08] MEDS: FAMOTIDINE 20 MG/2 ML VIAL IV (10:31)
[2022-02-08] MEDS: METOPROLOL IR 25 MG TABLET PO ×2 (10:51→20:48)
--- NOTE | 2022-02-08 11:16 | CM.DPC ---
DCP Note continued Per Hospitalist, patient is likely to d/c to home tomorrow. Patient's has preference of HH. PLUMBER enters room to meet with patient and . PLUMBER provides Medicare choice list and discusses HH options. Patient and deny preference of agency, only requesting RN home health. PLUMBER contacts [facility] per calender rotation of HH agencies and leaves VM regarding new referral. PLUMBER to fax clinicals F2F and order for HH referral. Plan: Patient to likely d/c to home tomorrow with [facility] referral SUDARSHAN Camara
[2022-02-08] MEDS: CHLORHEXIDINE GLUCONATE 15 ML CUP PO (11:41)
[2022-02-08] MEDS: cefTRIAXone 2,000 MG in SODIUM CHLORIDE 0.9% 100 ML 200 MG IV (11:42)
[2022-02-08] MEDS: FUROSEMIDE 20 MG/2 ML VIAL IV (11:44)
[2022-02-08] MEDS: PREGABALIN 75 MG CAPSULE 150 MG PO ×2 (12:36→20:48)
[2022-02-08] MEDS: ACETAMINOPHEN 325 MG TABLET 975 MG PO ×2 (12:36→21:51)
[2022-02-08] MEDS: MAGNESIUM HYDROXIDE 30 ML UDC PO (12:36)
--- NOTE | 2022-02-08 17:12 | DIET.CONS ---
Dietary Consultation Note Admission Date: 02/05/2022 19:49 Assessment: 72 y/o M admitted with fever, body aches, chills, shaking, rigors, diarrhea, SOB, and decreased oral intake. Treated for sepsis, acute hypoxic respiratory failure, CLINTON, cardiac demand ischemia, and NAGMA. RD consulted for vent (not currently vented) and BMI 28.5, cancer. Fabian was sleeping when RD arrived. Tried to see him 2x earlier today, but he was in with other providers. reports he did not have much sleep last night or today and needs rest. She discussed his nutrition status with this RD. She reports he had an adequate appetite up until one week ago. States he has been eating 3 meals per day plus snacks. No concerns for weight loss or inadequate PO. Diet recall indicates good PO prior to admit. Reports he had diarrhea for 4 days and now feels constipated. EMR does not indicate any significant weight loss. Upon view, no depressed orbitals or temporal regions. Ht: 172.72 cm Wt: 87.5 kg BMI: 28.1 Last BM: 02/05/22 (02/05/22 20:39) MNA: 11 Haseeb Score: 23 Diet: 02/05/22 Breakfast General (Regular) Diet Diet Modifications: Nutrition Percent Meal Consumed 75% 02/08/22 13:56 Percent Meal Consumed 25% 02/08/22 09:33 Percent Meal Consumed 25% 02/07/22 13:00 Percent Meal Consumed 25% 02/06/22 18:00 Labs: RBC 3.88 X10^6/uL (4.5-5.9) L 02/08/22 03:44 Hgb 10.6 g/dL (13.5-17.5) L 02/08/22 03:44 Hct 31.2 % (41-53) L 02/08/22 03:44 Creatinine 1.83 mg/dL (0.66-1.25) H 02/08/22 03:44 Hemoglobin A1c 5.9 % (4.0-6.0) 02/05/22 17:55 Lactate 0.7 mmol/L (0.7-2.1) 02/06/22 05:37 NT-Pro-B Natriuret Pep 700 pg/mL (<125) H 02/06/22 05:37 Nutrition Diagnosis: None at this time Interventions: Reviewed ways to help kcal intake if his appetite is down in the future. If PO <50% please offer Ensure. Monitoring/Evaluations: consult prn Electronically Signed by: Cat Arroyo 02/08/22 17:12 Clinical Diet[address] [id number]
[2022-02-08] MEDS: SENNOSIDES 8.6 MG TABLET 17.2 MG PO (20:48)
[2022-02-08] MEDS: MAG HYDROX/ALUMINUM/SIMETH SUS 20 ML, LIDOCAINE VISCOUS 2% 15 ML PO (21:48)
--- NOTE | 2022-02-08 22:30 | PC.NURSE ---
2044 Patient's reporting patient shivering. Initial temporal temperature 98.3 and rechecked with oral temperature at 97.5. Patient denies pain. Remains in SR with HR 77 BP 135/68. Patient states he started feeling cold while sitting in the chair for a prolonged period of time. Patient's temperature rechecked at 2150 with temperature up to 101.2. MIKA Kang notified of temperature elevation, discussed change to antibiotic change today to Rocephin and administration to acetaminophen per EMAR for fever.
[2022-02-09] VITALS (11 sets, daily range): BP systolic 105–141; BP diastolic 58–71; PULSE 64–82; RESP 18–30; TEMP 36.4–37.2; O2SAT 94–97
[2022-02-09] MEDS: ALBUTEROL/IPRATROPIUM 3 ML AMPUL INH (07:31)
[2022-02-09] MEDS: SODIUM CHLORIDE 0.9% FLUSH 10 ML IV (08:01)
[2022-02-09] MEDS: METOPROLOL IR 25 MG TABLET PO (08:01)
[2022-02-09] MEDS: TAMSULOSIN 0.4 MG CAPSULE 0.8 MG PO (08:01)
[2022-02-09] MEDS: FAMOTIDINE 20 MG/2 ML VIAL IV (08:01)
[2022-02-09] MEDS: cefTRIAXone 2,000 MG in SODIUM CHLORIDE 0.9% 100 ML 200 MG IV (08:10)
--- NOTE | 2022-02-09 10:11 | P.DS_ITS ---
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 Patient recently underwent battery change (MRI compatible) for his InterStim device 01/25/[address] Wilson, cystoscopy with Dr. Anguiano urology 01/03/2022 (Q3 months), and is scheduled for a radical prostatectomy 02/25/2022. He presented to the ED complaining of fever, body aches, chills, severe body shaking, diarrhea (nonBloody), non productive cough, SOB, decreased oral intake and inability to self cath for the last 4 days. He took Imodium this past am, diarrhea has since resolved.? He denies chest pain, sore throat, nasal congestion, ear or eye discomfort, recent exposure COVID/viruses abdominal pain, flank pain, suprapubic pain, dysuria, urgency, frequency, hematuria, nausea, skin wounds or infections, is not currently undergoing any treatment for cancer, denies recent illness injury or trauma.? Patient was febrile 101, blood pressures were soft 110/56, 91, slightly tachypneic 22, O2 saturation 94% on room air in ED, and delgadillo was placed. Patient met SIRS/Sepsis criteria, received sepsis rehydration, Zosyn and vancomycin antibiotics. Upon admit patient febrile temp 99? BP 103/58 HR 80 R 19, O2 saturation 93% on room air, severe whole body shaking throughout exam temp recheck 98.3, patient h as no white count HGB 12.7, HCT 37.2, platelets 145, does have mild left shift neutrophils #[id number]. BUN 58, bicarb 16, creatinine 2.78, glucose 158, GFR 23. Patient's urine was reported to be negative for nitrates, lipase WNL, lactic 3.0, procalcitonin 40.8, troponin 0.041. (I personally reviewed) EKG NSR at a rate of [address] or T-wave changes. SOFA Score:4. Chest x-ray was negative for any acute cardiopulmonary process. Abdominal pelvis CT: Bladder wall appears thickened, Delgadillo in place. Diverticulosis without diverticulitis, noted Hydropic gallbladder.?no radiopaque gallstones, 2 mm nonobstructive right renal stone, fat containing hernia left flank, moderate-sized hiatal hernia, a small amount of free fluid in pelvis, and lungs with bibasilar consolidation and or atelectasis.? Patient admitted for sepsis without septic shock unknown etiology, CLINTON, and mild anemia Discharge Providers Provider Date of admission: 02/05/22 19:49 Discharge Date: 02/09/22 Primary care physician: Terrance Abdalla DO Consults: 02/05/22 20:32 Consult to Dietitian, Adult Routine Comment: Reason For Exam: BMI 28.5, cancer 02/05/22 20:56 Consult to Respiratory Therapy Evaluate & Treat Comment: PRN cough SOB Physician Instructions: Evaluate and treat 02/06/22 10:24 Consult to Dietitian, Adult Routine Comment: Reason For Exam: Patient on Ventilator and NPO Consult to Tele-district court administrator Routine Comment: Consulting Provider: Jaren [employer]int[employer] Reason for consultation: Rn Lactation Consultant services Has provider been notified: Yes 02/08/22 09:44 Consult to Physical Therapy Evaluate & Treat Comment: Physician Instructions: Evaluate and Treat 02/08/22 11:13 Consult to Home Health Routine Comment: ONEIL WEBB Reason For Exam: referral Discharge provider: Jose Mercado DO Summary Hospital Course Discharge Diagnosis: 1. Severe sepsis from UTI with E. coli bacteremia secondary to self- catheterization, improving 2. Acute hypoxic respiratory failure, resolved 3. CL[place]ON, improved 4. Cardiac demand ischemia 5. NAGMA with compensation respiratory alkalosis, improving 6. Constipation 7. Acute hematuria, improved 8. Bladder cancer s/p tumor removal in 2011 9. Prostate cancer Hospital Course: This is a 72 year old male with PMH of prostate and bladder cancer admitted with sepsis. Blood and urine cultures ultimately ended up growing E. coli sensitive to cephalosporins and fluoroquinolones. He did develop acute respiratory failure in the setting of sepsis as well, also likely due to resuscitation in setting of sepsis, along with an elevated troponin which downtrended. His labs continued to improve with improving creatinine and NAGMA. He did develop hematuria during his stay, likely in setting of cystitis and delgadillo placement. He was discharged home to complete 14 day total course of antibiotics. He should follow up with his PCP and urologist within 2 weeks ideally for further management of his delgadillo linda ter. Time Spent with Patient Time spent: Greater than 30 minutes Exam Vital Signs (past 8 hours): - 02/09/22 03:00 02/09/22 04:00 02/09/22 07:38 Temperature 97.5 F L 98.1 F Pulse Rate 64 Respiratory Rate 18 21 Blood Pressure 141/71 H Pulse Oximetry 97 Oxygen Delivery Method Room Air Oxygen Flow Rate 0 02/09/22 07:35 02/09/22 07:36 02/09/22 07:36 Temperature Pulse Rate 69 68 Respiratory Rate Blood Pressure 132/69 Pulse Oximetry 96 97 Oxygen Delivery Method Oxygen Flow Rate 02/09/22 07:38 02/09/22 07:20 02/09/22 08:00 Temperature Pulse Rate 67 82 Respiratory Rate 18 Blood Pressure Pulse Oximetry 96 96 Oxygen Delivery Method Room Air Room Air Oxygen Flow Rate 02/09/22 08:01 02/09/22 08:01 02/09/22 09:00 Temperature Pulse Rate 75 Respiratory Rate Blood Pressure 139/68 Pulse Oximetry 96 96 Oxygen Delivery Method Oxygen Flow Rate 02/09/22 09:01 02/09/22 09:01 Temperature Pulse Rate 82 Respiratory Rate Blood Pressure 108/58 L Pulse Oximetry 96 Oxygen Delivery Method Oxygen Flow Rate Fraction of Inspired Oxygen 24 SaO2/FiO2 Ratio 395 Oxygen Delivery Method Room Air Oxygen Flow Rate 0 Narrative Exam Narrative: GEN: comfortable, diaphoretic CV: RRR, no murmurs PULM: CTA b/l no wheezes, rhonchi, rales. ABD: soft, nontender, nondistended, no organomegaly EXT: warm and well perfused with no edema PSYCH: Alert and oriented Objective Labs Result Diagrams: 02/08/22 03:44 02/08/22 03:44 [facility] Medical History Asthma (~2016) Bladder cancer (~2009) Cervical spine disease (~1997) Degenerative joint disease (DJD) of lumbar spine (~2012) Depression (~1997) Elevated blood pressure reading without diagnosis of hypertension Elevated PSA, between 10 and less than 20 ng/ml Fractures (~2000) GERD (gastroesophageal reflux disease) Hearing loss (~2011) History of arthritis History of kidney stones History of primary bladder cancer Hyperlipidemia, mixed Macular degeneration of right eye (01/2022) Presence of neurostimulator (01/25/22) Prostate cancer Recurrent malignant neoplasm of bladder Right nephrolithiasis Self-catheterizes urinary bladder Urinary retention Urinary retention Vitamin D deficiency Wears glasses Surgical History Anesthesia History of bladder surgery (~2009) History of fusion of cervical spine (~1997) History of fusion of lumbar spine (~2012) History of knee replacement History of surgery (~2014) History of urologic surgery (10/05/21) Hx of appendectomy (1963) Hx of colonoscopy (10/12/20) Hx of prostate biopsy Hx of right inguinal hernia repair (1971) Hx of vasectomy Family History Father Cancer Mother Renal failure Brother Cancer Hypertension Brother Cancer Grandfather History of heart disease Grandmother History of heart disease Grandfather Black lung disease Grandmother Stroke Mother Renal failure Daughter Urinary tract infection Son Kidney stones Social History marital status: number of children: 2 household members: spouse Smoking Status: Former smoker Tobacco: How many years used: 10 alcohol intake: former substance use type: does not use caffeine: Yes Type(s) of exercise: independent ambulation, bicycling and regular exercise frequency: daily duration: > 90 minutes/day Discharge Plan Discharge Plan Patient Disposition: Home Health Service Provider Discharge Comment: You were admitted to the hospital with a bacterial infection which made it into your blood stream. Continue two weeks total of antibiotics, your first dose at home will be tomorrow morning. Please follow up with your urologist and PCP as we discussed. Discharge orders & Medications Prescriptions: New levofloxacin 750 mg tablet 750 mg PO DAILY 10 Days Qty: 10 0RF Continued ascorbic acid (vitamin C) [Vitamin C] 500 mg Tablet 500 mg PO DAILY Qty: 0 cholecalciferol (vitamin D3) [Vitamin D3] 10 mcg (400 unit) Tablet 10 mcg PO DAILY Qty: 0 glucosamine sulfate 500 mg Tablet 1 tab PO DAILY Qty: 0 pregabalin 150 mg capsule See Rx Instructions .ROUTE .COMPLEX Qty: 270 3RF Rx Instructions: Take 1 capsule by mouth every 8 hours lorazepam 0.5 mg tablet 0.5 mg PO DAILY PRN (Reason: Claustrophobia) Qty: 2 0RF Label Comments: For MRI omeprazole 20 mg capsule,delayed release(DR/EC) 20 mg PO DAILY acetaminophen 500 mg capsule 1,300 mg PO TID fexofenadine 30 mg Tablet 30 mg PO DAILY tamsulosin 0.4 mg capsule 0.8 mg PO DAILY Qty: 180 3RF Follow up/Referrals: Terrance Abdalla DO [Primary Care Provider] - Diet/Activity/Treatments Diet: Diet as Tolerated Activity: As tolerated Discharge Data Primary Care Provider: Terrance Abdalla
== END 2022-02-09 12:00 | disposition home health service (06) | DRG 698 ==
LOC: ED 19:37 → AC 19:51 → ICU 02-06 10:10
PROVIDERS: Emergency Medicine; Internal Medicine; Internal Medicine Critical Care Medicine; Admitting Provider Nurse Practitioner Family; Emergency Provider Emergency Medicine; Family Provider Family Medicine; PCP Family Medicine; Referring Provider Family Medicine; Visit Provider Nurse Practitioner Family
DX: T83.511A Infection and inflammatory reaction due to indwelling urethral catheter, initial encounter (principal); A41.51 Sepsis due to Escherichia coli [E. coli]; J96.01 Acute respiratory failure with hypoxia; R65.20 Severe sepsis without septic shock; N17.8 Other acute kidney failure; I24.8 Other forms of acute ischemic heart disease; E87.20 Acidosis, unspecified; N39.0 Urinary tract infection, site not specified; C61 Malignant neoplasm of prostate; E78.2 Mixed hyperlipidemia; M47.812 Spondylosis without myelopathy or radiculopathy, cervical region; M47.816 Spondylosis without myelopathy or radiculopathy, lumbar region; K21.9 Gastro-esophageal reflux disease without esophagitis; D69.6 Thrombocytopenia, unspecified; E86.1 Hypovolemia; K59.00 Constipation, unspecified; I10 Essential (primary) hypertension; Z87.891 Personal history of nicotine dependence; Z20.822 Contact with and (suspected) exposure to COVID-19; Z85.51 Personal history of malignant neoplasm of bladder; R94.8 Abnormal results of function studies of other organs and systems; K57.90 Diverticulosis of intestine, part unspecified, without perforation or abscess without bleeding; K40.90 Unilateral inguinal hernia, without obstruction or gangrene, not specified as recurrent; Z98.1 Arthrodesis status
CPT/HCPCS: 0241U; 36415; 36600; 51798; 71045; 72157; 72197; 74176; 76705; 80048; 80053; 80076; 81001; 81003; 82550; 82805; 83036; 83605; 83690; 83735; 83880; 84100; 84145; 84439; 84443; 84484; 85025; 85027; 85610; 85730; 87040; 87077; 87086; 87150; 87186; 87493; 87797; 93005; 93010; 93306; 94640; 94660; 94760; 96365; 96367; 97162; 99285; 99291; A9579; J0282; J0696; J1160; J1650; J1885; J1940; J2185; J2405; J2543; J7613

== ENCOUNTER → 2022-07-15 07:26 | Outpatient (CLI) | payer MEDICARE, OTHER, SELFPAY ==
[2022-02-05 20:39] VITALS: BMI 28.1
[2022-02-06 13:26] VITALS: PULSE 104; RESP 22; O2SAT 95
--- NOTE | 2022-07-15 07:27 | DI.MRI.S_ITS ---
PROCEDURE: MR CERVICAL SPINE WO CON INDICATIONS: MRI to precede cervical myelogram TECHNIQUE: Noncontrast sagittal T1 spin echo and T2 fast spin echo, sagittal STIR, foraminal oblique sagittal T2 fast spin echo, and axial gradient echo and T2 fast spin echo through the cervical spine. COMPARISON: None. FINDINGS: Image quality: This examination is limited by involuntary motion artifact. There is artifact associated with the metallic hardware. Alignment and Curvature: There is mild retrolisthesis seen at C3-C4, with minimal retrolisthesis at C4-C5. There is a overall accentuated lumbar lordosis. Bone Marrow: Marrow demonstrates normal overall signal. Spinal Cord: Visualized spinal cord has normal size and signal. No cerebellar tonsillar herniation. Paraspinous Soft Tissues: No paravertebral masses. Prevertebral soft tissues are normal in thickness. Bony fusion is seen C5 through C7. Disc spacers are seen at these levels. Posterior fusion can be seen C5 through C7, with removal of portions of the posterior elements. C2-C3: The disc height is well-preserved. Loss of disc signal is seen at this level. A mild degree of generalized disc osteophyte complex is seen. There is moderate right-sided and mild left-sided facet hypertrophy. There is moderate to severe right-sided and moderate left-sided neural foraminal narrowing. The central canal is widely patent. C3-C4: Moderate to severe loss of disc height and disc signal can be seen. At least moderate disc osteophyte complex is seen, which is eccentric to left. Moderate facet joint hypertrophy is seen. There is moderate to severe right-sided and severe left-sided neural foraminal narrowing. Moderate to severe central canal narrowing is seen, with associated ventral cord flattening. C4-C5: [id number] loss of disc height and disc signal can be seen at this level. Mild to moderate disc osteophyte complex is seen. There is prominent facet hypertrophy at this level. There is moderate to severe bilateral neural foraminal narrowing seen, left worse than right. Mild to moderate central canal narrowing is seen at this level. C5-C6: Bony fusion is seen at this site. A mild degree of generalized disc osteophyte complex is seen. There is at least moderate right-sided and mild left-sided facet hypertrophy. There is at least moderate bilateral neural foraminal narrowing seen. No significant central canal narrowing is seen. C6-C7: Bony fusion is seen at this level. A mild degree of generalized disc osteophyte complex is seen. There is moderate right-sided and mild left-sided facet hypertrophy. Mild bilateral neural foraminal narrowing is seen. The central canal is widely patent. C7-T1: No significant abnormality is seen. IMPRESSION: Fusion seen C5 through C7. Degenerative changes are seen, which are worst at C3-C4. Dictated by: Benja Rene M.D. on 07/15/2022 at 11:47 Approved by: Benja Rene M.D. on 07/15/2022 at 11:53
== END ==
PROVIDERS: Family Provider Family Medicine; PCP Family Medicine; Referring Provider Family Medicine; Visit Provider Family Medicine
DX: Z01.818 Encounter for other preprocedural examination; M47.812 Spondylosis without myelopathy or radiculopathy, cervical region; M96.1 Postlaminectomy syndrome, not elsewhere classified; M54.50 Low back pain, unspecified; Z98.1 Arthrodesis status
CPT/HCPCS: 72141

== ENCOUNTER 2022-07-23 08:24 | Outpatient (CLI) | payer MEDICARE, OTHER, SELFPAY ==
[2022-02-05 20:39] VITALS: BMI 28.1
[2022-02-06 13:26] VITALS: PULSE 104; RESP 22; O2SAT 95
[2022-07-23] VITALS (9 sets, daily range): BP systolic 113–138; BP diastolic 64–74; PULSE 53–62; RESP 16–20; TEMP 36.1–36.2; O2SAT 95–100; BMI 25.8
--- NOTE | 2022-07-23 | DI.RAD.S_ITS ---
PROCEDURE: FL INJECT SPINE FOR CT MYELO INDICATIONS: POST LAMI SYNDROME TECHNIQUE: The indications, alternatives, benefits, risks, and complications of the procedure were explained to the patient. Written informed consent was obtained and placed in the chart. The patient was placed in a prone position on the fluoroscopy table, and a site was chosen for percutaneous access under fluoroscopic guidance. The skin was prepped and draped in a sterile fashion. A spinal needle was then used to enter the intrathecal space, with return of clear cerebrospinal fluid. Ten mL of Isovue M-300 were administered intrathecally under fluoroscopic visualization. The needle was then withdrawn, and a bandage applied to the puncture site. The patient was then placed in a Trendelenburg position to allow contrast migration up to the cervical spine. Fluoroscopic spot films were then acquired in various positions. FINDINGS: Nerve stimulator leads are noted in lumbar spine. There are postsurgical changes with discectomy, posterior decompression and surgical fusion at L2-S1, as well as anterior fusion at L5-S1. Postinjection films demonstrate severe central spinal canal at L1-L2 level. Access level: L5-S1 Needle: Spinal needle. Medications: 1% lidocaine for local anaesthesia. Complications: None. Patient transferred to CT for subsequent CT myelogram. IMPRESSION: Successful fluoroscopically guided administration of iodinated contrast into the cervical spinal canal for CT myelogram. Dictated by: Porfirio Potter M.D. on 07/24/2022 at 11:05 Approved by: Porfirio Potter M.D. on 07/24/2022 at 11:11
--- NOTE | 2022-07-23 08:28 | DI.CT.S_ITS ---
PROCEDURE: CT THORACIC MYELOGRAM INDICATIONS: Postlaminectomy syndrome, not elsewhere classified TECHNIQUE: After the administration of 10 mL intrathecal contrast, 3 mm thick sections acquired through the region of interest in the thoracic spine. Sagittal and coronal reformats were then constructed. For radiation dose reduction, the following was used: automated exposure control. COMPARISON: [facility], CT, CT CHEST ABD PEL W CON, 09/28/2021, 13:51. [facility], MR, T-SPINE WITHOUT CONTRAST, 11/01/2015, 10:21. [facility], CT, CT CERVICAL MYELOGRAM, 07/23/2022, 9:24. [facility], CT, CT LUMBAR MYELOGRAM, 07/23/2022, 9:24. FINDINGS: Image quality: Excellent. Bones: Lower cervical spine fixation hardware is partially seen. A thoracic cord stimulator is seen, with the leads located along the posterior epidural space, extending superiorly to the mid T6-T7 level. At the T10-T11 level, there is moderate to severe loss of disc height. Vacuum disc phenomenon is seen at this level. Endplate irregularity and sclerosis can be seen. Moderate disc bulge is seen, with a central disc extrusion, with superior migration of the disc material, as seen on series 6, image 22. There is moderate to severe central canal narrowing is seen, with prominent cord flattening, as on series 4, image 90. There is at least moderate bilateral neural foraminal narrowing seen at this level. At the T11-T12 level, there is at least moderate loss of disc height. There is a central/right disc osteophyte protrusion seen, with moderate central canal narrowing and moderate mass effect upon the ventral spinal cord. Mild bilateral neural foraminal narrowing is seen. At the T12-L1 level, mild retrolisthesis is seen. Moderate loss of disc height is seen. Vacuum disc phenomenon is seen at this level. Endplate irregularity and sclerosis can be seen. There is a central/left disc osteophyte protrusion seen. Moderate to severe bilateral neural foraminal narrowing can be seen. Moderate central canal narrowing is seen. There is associated mass effect upon the ventral spinal cord. Milder degenerative changes are seen elsewhere. Spinal cord: The spinal cord demonstrates normal bulk. Soft tissues: Mild dependent ground-glass opacity can be seen within the lungs. There is a moderate hiatal hernia seen. IMPRESSION: Relatively prominent lower thoracic spine degenerative changes are seen. These degenerative changes are more prominent than on the prior thoracic MRI dated 11/01/2015. A thoracic spine stimulator is seen, with leads seen along the epidural space coursing superiorly to the T6-T7 level. Dictated by: Benja Rene M.D. on 07/23/2022 at 15:50 Approved by: Benja Rene M.D. on 07/23/2022 at 16:00
--- NOTE | 2022-07-23 08:28 | DI.CT.S_ITS ---
PROCEDURE: CT LUMBAR MYELOGRAM INDICATIONS: Postlaminectomy syndrome, not elsewhere classified TECHNIQUE: After the intrathecal administration of 15 mL intrathecal contrast, 3 mm thick sections acquired from T12 to the sacrum. Sagittal and coronal reformats were then constructed. For radiation dose reduction, the following was used: automated exposure control. COMPARISON: [facility], CT, CT CHEST ABD PEL W CON, 09/28/2021, 13:51. [facility], CT, CT LUMBAR SPINE WO CON, 09/22/2020, 12:09. [facility], CT, L-SPINE WITH CONTRAST, 05/16/2017, 11:18. [facility], CT, L-SPINE WITHOUT CONTRAST, 04/20/2013, 10:30. [facility], RF, MYELOGRAM LUMBAR, 05/16/2017, 10:31. [facility], CT, CT CERVICAL MYELOGRAM, 07/23/2022, 9:24. [facility], CT, CT THORACIC MYELOGRAM, 07/23/2022, 9:24. FINDINGS: Image quality: There is artifact associated with the metallic hardware. Artifact from the metallic hardware is reduced by metal reconstruction algorithm. Bones: No spondylolysis or spondylolisthesis. No suspicious bony lesions. No acute fractures. Soft tissues: No retroperitoneal masses. Visualized aorta demonstrates normal caliber. Atherosclerotic calcification is noted. Colonic diverticulosis is seen, without findings of active diverticulitis. There is a nonobstructing right-sided kidney stone seen, as on series 3, image 28 measuring 4 mm. Mild dextroconvex scoliotic curvature is seen. Thoracic spine stimulator leads are partially seen. Extensive postoperative changes are seen, with bilateral pedicle screws L2 through S1. Anteriorly placed fixation device is also seen at L5-S1. Disc spacers are seen at L2-L3, L3-L4, and L4-L5. Vertical fixation rods are seen. No findings of hardware failure or hardware loosening are seen. There has been removal of portions of the posterior elements. Bone grafting material is noted. T12-L1: Moderate loss of disc height is seen. Mild vacuum disc phenomenon can be seen anteriorly. Moderate generalized disc bulge is seen. Posteriorly projected endplate osteophytes are seen. There is a superimposed central/right disc protrusion. No significant neural foraminal narrowing is seen. Moderate central canal narrowing is seen. When comparison is made with the prior images, these findings are similar. L1-L2: At least moderate loss of disc height is seen. Vacuum disc phenomenon is seen at this level. Bridging endplate osteophytes are seen. Endplate irregularity and sclerosis can be seen. Moderate generalized disc bulge is seen. There is a superimposed central disc protrusion. Posteriorly projected endplate osteophytes are seen. Moderate to severe bilateral neural foraminal narrowing can be seen. Moderate central canal narrowing is seen. When comparison is made with the prior images, these findings are similar. L2-L3: Mild generalized disc bulge is seen. Mild bilateral neural foraminal narrowing is seen. No significant canal narrowing is seen. When comparison is made with the prior images, these findings are similar. L3-L4: Mild to moderate disc bulge is seen. No significant neural foraminal or central canal narrowing can be seen. When comparison is made with the prior images, these findings are similar. L4-L5: Vptp-hd-wbaqueoi disc bulge is seen. Moderate bilateral neural foraminal narrowing is seen. Mild central canal narrowing is seen. No significant change from the prior. L5-S1: Mild generalized disc bulge is seen. Moderate bilateral neural foraminal narrowing is seen. The central canal is widely patent. No significant change from the prior. Fusion of the right sacroiliac joint can be seen. Miscellaneous: Nerve roots appear unremarkable throughout. No nerve root clumping to suggest arachnoiditis. IMPRESSION: Extensive postoperative and degenerative changes are seen, which are similar to 2020. Additional findings: 4 mm nonobstructing right-sided kidney stone Diverticulosis, without active diverticulitis Dictated by: Benja Rene M.D. on 07/23/2022 at 12:49 Approved by: Benja Rene M.D. on 07/23/2022 at 13:01
--- NOTE | 2022-07-23 08:28 | DI.CT.S_ITS ---
PROCEDURE: CT CERVICAL MYELOGRAM INDICATIONS: Postlaminectomy syndrome, not elsewhere classified TECHNIQUE: After the administration of 10mL intrathecal contrast, 3 mm thick sections acquired from the skull base to the T1 level. Sagittal and coronal reformats were then constructed. For radiation dose reduction, the following was used: automated exposure control, adjustment of mA and/or kV according to patient size. COMPARISON: [facility], MR, MR CERVICAL SPINE WO CON, 07/15/2022, 7:48. [facility], CT, CT LUMBAR MYELOGRAM, 07/23/2022, 9:24. [facility], CT, CT THORACIC MYELOGRAM, 07/23/2022, 9:24. FINDINGS: Image quality: Excellent. Bones and alignment: No acute fractures. No suspicious bony lesions. Soft tissues: No paraspinal masses. Prevertebral soft tissues are normal in thickness. Visualized neck vasculature appears normal in size. Mild dependent ground-glass opacity can be seen within visualized lungs. Postoperative changes are seen, with laminectomy with strut graft seen from C5 through C7. Posterior pedicle screws can be seen C5 through C7. Bone grafting material is noted. At the C3-C4 level, there is moderate to severe loss of disc height. Vacuum disc phenomenon is seen at this level. Endplate irregularity and sclerosis can be seen. Mild retrolisthesis can be seen at this level. There is at least moderate disc osteophyte complex seen, which is eccentric to the left. Moderate to severe bilateral neural foraminal narrowing can be seen. Moderate to severe central canal narrowing is also seen. Severe central canal narrowing can be seen at this level. Milder degenerative changes are seen elsewhere. Miscellaneous: Visualized intracranial structures appear unremarkable. IMPRESSION: Postoperative changes are seen C5 through C7, with corpectomy with strut graft as well as posterior pedicle screws, with bone grafting material. Multiple levels of degenerative change can be seen, which are overall worst at the C3-C4 level. The degenerative changes are better seen on the recent prior MRI examination. Dictated by: Benja Rene M.D. on 07/23/2022 at 16:00 Approved by: Benja Rene M.D. on 07/23/2022 at 16:05
== END 2022-07-23 12:37 | disposition home or self-care (01) ==
PROVIDERS: Family Provider Family Medicine; PCP Family Medicine; Referring Provider Orthopaedic Surgery; Visit Provider Orthopaedic Surgery
DX: M96.1 Postlaminectomy syndrome, not elsewhere classified (principal)
CPT/HCPCS: 62284; 72126; 72129; 72133; 77003

== ENCOUNTER 2022-08-06 12:02 | Day surgery (SDC) | payer MEDICARE, OTHER, SELFPAY ==
[2022-02-05 20:39] VITALS: BMI 28.1
[2022-02-06 13:26] VITALS: PULSE 104; RESP 22; O2SAT 95
[2022-08-02 14:21] VITALS: BMI 26.6
[2022-08-06] VITALS (7 sets, daily range): BP systolic 126–149; BP diastolic 71–76; PULSE 63–90; RESP 14–18; TEMP 36.5–36.6; O2SAT 95–98; BMI 25.8
--- NOTE | 2022-08-06 12:46 | PM.PREOP ---
Pre-operative Note COVID-19 COVID-19 status: Not tested Interval Note History & Physical reviewed/Exam performed by Physician: Yes Changes to H&P: No ASA Class (for procedural sedation): II
[2022-08-06] MEDS: LACTATED RINGERS 1,000 ML 42 ML IV (12:57)
[2022-08-06] MEDS: CEFAZOLIN 2 GM/100 ML PREMIX 100 ML IV (13:27)
--- NOTE | 2022-08-06 13:47 | SUR.OPER ---
Supine on padded OR bed, head on pillow, arms secured on padded arm boards at <90 degrees abduction, legs uncrossed, safety belt at thigh, tape over blanket over lower legs.
[2022-08-06] MEDS: BUPIVACAINE 0.5% (PF) 30 ML, EPINEPHrine 0.15 MG INJ (13:58)
--- NOTE | 2022-08-06 14:20 | PM.OP.1 ---
Operative Date/Time/Diagnoses Date of procedure: 08/06/22 Time of procedure: 14:20 Pre-op diagnosis: Umbilical hernia Post-op diagnosis: same Procedure & Clinicians Procedure: Open umbilical hernia repair with mesh Same procedure as scheduled: Yes Surgeon: Aidan Toney Anesthesia Type: General Operative Notes Procedure in detail: Ancef was administered. The patient was brought to the operating room, placed on the table in the supine position and general endotracheal anesthesia was induced. The abdomen was prepped and draped in the usual fashion. A time-out was performed. A 5 cm curvilinear incision was made inferior to the umbilicus. The hernia sac was dissected free from the surrounding subcutaneous adipose tissue. The sac was dissected off the umbilical stalk using a combination of cautery, sharp and blunt dissection. The primary defect was about 1.5 cm in diameter. There was 1 additional 1 cm defect just superior to the primary defect. Additional local was injected into the fascia around the defects. The thin bridge of fascia was divided to create defect. There was also a very small right lateral defect that was 5 mm which was closed primarily with a single 0 Ethibond suture. Then the primary defect was closed with about 6 interrupted 0 Ethibond sutures. The hernia sac was dissected free from the fascial ring and allowed to drop back down into the abdomen. The sac was not opened. The subcutaneous adipose tissue was cleared off of the anterior sheath circumferentially about 2 cm in each direction. A piece of polypropylene mesh was trimmed to fit over the fascial closure and secured with Tisseel. Once the Tisseel was dried the umbilical skin was tacked down to the mesh with a single 3-0 Vicryl stitch. The skin was closed with multiple interrupted 3-0 Vicryl dermal sutures followed by a running 4 Monocryl subcuticular closure. Steri-Strips were applied and an abdominal binder was applied. EBL: 10 mL Post-operative Condition: stable Disposition: PACU
[2022-08-06] MEDS: ACETAMINOPHEN 325 MG TABLET 650 MG PO (14:44)
[2022-08-06] MEDS: OXYCODONE IR 5 MG TABLET PO (14:45)
[2022-08-06] MEDS: ONDANSETRON 4 MG/2 ML INJ IV (14:45)
== END 2022-08-06 15:38 | disposition home or self-care (01) ==
PROVIDERS: Family Provider Family Medicine; PCP Family Medicine; Referring Provider Surgery; Visit Provider Surgery
PROC: (CPT 49591; principal; 2022-08-06 13:15)
DX: K42.9 Umbilical hernia without obstruction or gangrene (principal)
CPT/HCPCS: 49591; C1781; J0171; J0330; J0690; J1100; J2405; J2704; J3010

== ENCOUNTER → 2022-09-13 11:40 | Outpatient (CLI) | payer MEDICARE, OTHER, SELFPAY ==
[2022-02-05 20:39] VITALS: BMI 28.1
[2022-02-06 13:26] VITALS: PULSE 104; RESP 22; O2SAT 95
--- NOTE | 2022-09-13 11:41 | DI.RAD.S_ITS ---
PROCEDURE: XR CHEST 2V INDICATIONS: preop screening TECHNIQUE: 2 views of the chest were acquired. COMPARISON: [facility], CT, CT THORACIC MYELOGRAM, 07/23/2022, 9:24. [facility], CR, XR CHEST 1V, 02/06/2022, 7:24. FINDINGS: Surgical changes and devices: L1-L2 posterior lateral nelia and pedicle screw fixation hardware, dorsal column stimulator.. Lungs and pleura: Lungs are clear. No pleural effusions or pneumothorax. Mediastinum: Mediastinal contours are normal. Heart size is normal. Bones and chest wall: No suspicious bony abnormalities. Soft tissues appear unremarkable. Large osteophyte results in spherical density overlying T10-T11 vertebral bodies. IMPRESSION: No evidence acute pulmonary process. Dictated by: Robert Gooden M.D. on 09/13/2022 at 14:25 Approved by: Robert Gooden M.D. on 09/13/2022 at 14:27
== END ==
PROVIDERS: Family Provider Family Medicine; PCP Family Medicine; Referring Provider Family Medicine; Visit Provider Family Medicine
DX: Z01.818 Encounter for other preprocedural examination (principal); Z11.9 Encounter for screening for infectious and parasitic diseases, unspecified; Z22.322 Carrier or suspected carrier of Methicillin resistant Staphylococcus aureus
CPT/HCPCS: 71046; 93005

== ENCOUNTER → 2022-09-16 07:00 | Outpatient (CLI) | payer MEDICARE, OTHER, SELFPAY ==
[2022-02-05 20:39] VITALS: BMI 28.1
[2022-02-06 13:26] VITALS: PULSE 104; RESP 22; O2SAT 95
[2022-09-16 08:08] LABS: Add Manual Diff / Slide Review NO; Basophils Absolute Auto 100 /uL (0-100); Basophils Percent Auto 0.9 % (0-2); Eosinophils Absolute Auto 200 /uL (0-450); Eosinophils Percent Auto 2.9 % (2-4); Hematocrit 36.5 % (41-53); Hemoglobin 12.3 g/dL (13.5-17.5); Lymphocytes Absolute Auto 2000 /uL (1100-4500); Lymphocytes Percent Auto 28.5 % (25-40); Mean Corpuscular HGB Conc 33.8 % (30-36); Mean Corpuscular Hemoglobin 26.8 PG (26-34); Mean Corpuscular Volume 79.2 fL (80-100); Monocytes Absolute Auto 500 /uL (0-900); Monocytes Percent Auto 7.2 % (3-14); Neutrophils Absolute Auto 4300 /uL (1500-7000); Neutrophils Percent Auto 60.5 % (50-75); Platelet Count 138 X10^3/uL (150-400); Red Cell Distribution Width 14.3 % (11.6-14.8); White Blood Cell Count 7.1 X10^3/uL (4.5-11.0)
[2022-09-16 08:26] LABS: INR 1.1 (0.9-1.3); Prothrombin Time 12.3 SECONDS (10.1-12.7)
[2022-09-16 08:32] LABS: Alanine Aminotransferase 13 IU/L (<50); Albumin 4.3 g/dL (3.5-5.0); Albumin Globulin Ratio 1.7 (1.0-2.8); Alkaline Phosphatase 57 U/L (38-126); Aspartate Aminotransferase 17 IU/L (17-59); Bilirubin Total 0.5 mg/dL (0.2-1.3); Blood Urea Nitrogen 29 mg/dL (9-20); Calcium 9.9 mg/dL (8.4-10.2); Carbon Dioxide 24 mmol/L (22-32); Chloride 106 mmol/L (98-107); Estimated Glomerular Filt Rate 54 mL/min (>60); Globulin 2.6 g/dL (1.7-4.1); Glucose 89 mg/dL (80-110); HEMOLYSIS < 15 (0-50); Sodium 138 mmol/L (137-145); Total Protein 6.9 g/dL (6.3-8.2)
[2022-09-16 08:55] LABS: Appearance Urine UA CLEAR; Bilirubin Urine UA NEGATIVE (NEGATIVE); Color Urine UA YELLOW; Glucose Urine UA NEGATIVE (Negative); Ketones Urine UA NEGATIVE (NEGATIVE); Leukocyte Esterase Urine UA NEGATIVE (NEGATIVE); Nitrite Urine UA NEGATIVE (Negative); Occult Blood Urine UA NEGATIVE (Negative); Protein Urine UA NEGATIVE (Negative); Urobilinogen Urine UA 0.2 E.U./dL (0.2); pH Urine UA 5.5 (4.5-8.0)
[2022-09-16 09:06] LABS: Bacteria Urine Occasional (0-1); Culture Indicated Urine Cult Not Indicated; RBC Urine 0-1/HPF (0-5/HPF); Squamous Epithelial Cell Urine 0-1 /HPF (0-5/HPF); WBC Urine 0-1/HPF (0-5/HPF)
[2022-09-17 05:12] LABS: Labcorp Hemoglobin (Hb) A1c 5.8 % (4.8-5.6)
== END ==
PROVIDERS: Family Provider Family Medicine; PCP Family Medicine; Referring Provider Family Medicine; Visit Provider Family Medicine
DX: Z01.818 Encounter for other preprocedural examination (principal); Z11.9 Encounter for screening for infectious and parasitic diseases, unspecified; Z22.322 Carrier or suspected carrier of Methicillin resistant Staphylococcus aureus; R73.9 Hyperglycemia, unspecified; C67.9 Malignant neoplasm of bladder, unspecified
CPT/HCPCS: 80053; 81001; 83036; 85025; 85610

== ENCOUNTER 2022-10-07 10:30 | Outpatient (RCR) | payer MEDICARE, OTHER, SELFPAY ==
[2022-02-05 20:39] VITALS: BMI 28.1
[2022-02-06 13:26] VITALS: PULSE 104; RESP 22; O2SAT 95
--- NOTE | 2022-08-29 16:35 | PT.OIE ---
Current Diagnoses Postural kyphosis, thoracic region (08/29/22) Muscle weakness (generalized) (08/29/22) Arthrodesis status (08/29/22) Past Medical History (Last Reviewed 08/19/22 @ 13:45 by Allen Temple RN) Arthritis Asthma (~2016) Chaparro's esophagus Bladder cancer (~2009) Bladder cancer Cervical spine disease (~1997) Chronic bilateral thoracic back pain Degenerative joint disease (DJD) of lumbar spine (~2012) Depression (~1997) Diverticulosis Elevated blood pressure reading without diagnosis of hypertension Elevated PSA, between 10 and less than 20 ng/ml Fractures (~2000) GERD (gastroesophageal reflux disease) Hearing loss (~2011) History of arthritis History of kidney stones History of primary bladder cancer Hyperlipidemia, mixed Insomnia Macular degeneration of right eye (01/2022) Presence of neurostimulator (01/25/22) Prostate cancer Recurrent malignant neoplasm of bladder Right nephrolithiasis Self-catheterizes urinary bladder Umbilical hernia without obstruction or gangrene Urinary retention Urinary retention Vitamin D deficiency Wears glasses Past Surgical History (Last Reviewed 08/19/22 @ 13:45 by Allen Temple RN) Anesthesia History of bladder surgery (~2009) History of fusion of cervical spine (~1997) History of fusion of lumbar spine (~2012) History of knee replacement (09/2019) History of surgery (~2014) History of urologic surgery (10/05/21) Hx of appendectomy (1963) Hx of colonoscopy (10/12/20) Hx of prostate biopsy Hx of right inguinal hernia repair (1971) Hx of vasectomy Visit Care Team Role Provider Type Terrance Abdalla DO Family Provider Physician Primary Care Provider Specialty: Family Practice Address: [address] [place] [address], [id number] Email: Duong Donald MD Attending Provider Non-Staff Referring Provider Specialty: Orthopedic Surgery Address: [address] [place] [address], [place], [place], [facility] Fax: Email: Physical Therapy Initial Evaluation PT-OP-A Visit Information Start: 08/29/22 09:45 Freq: Status: Active Protocol: Document 08/29/22 09:46 LRN (Rec: 08/29/22 10:32 LRN [id number]) Out-Patient Physical Therapy Visit Information Visit Information Visit Type Initial Evaluation Visit Start Time 09:46 Visit Stop Time 10:31 Total Visit Minutes 47 Visit Number 1 Evaluation Information Evaluation Date 08/29/22 Precautions Precautions 05/2015-Neurostim implant (L2- T12), in Dec new pulse generator; and Lyrica med for LB/Buttocks/leg pain, R TKA, 5 level fusion (L2-S1) with follow up redo of fusion, Cervical fusion 1998 three levels (C2-C4), bladder CA 2011. PT-OP-B Current Condition Start: 08/29/22 09:45 Freq: Status: Active Protocol: Document 08/29/22 09:46 LRN (Rec: 08/29/22 10:32 LRN [id number]) Current Condition History of Current Condition Onset Date 2016 Current Complaints Pain down posterior thighs, across LB and up spine to neck . History of Current Condition Progressive worsing of back/ hips/posterior thighs since 2016, diminishing activity leve. Pt states he is here for a pre-rehab of surgery for fusion T8-L2. He reports having a 5 level fusion in 2014 (L2-S1) when he was living on [facility], but now lives in [place]. 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 States he had a 2nd surgery to redo and correct the non- union and did hospital PT at [facility] following the surgery. Was told his scoliosis was so bad that he would eventually have to do more surgery. Had a mylogram in 2016 and given of option of doing what is planned next month, another 5 level fusion or to let it fuse on it's own. His pain level made him ex intolerant and could only walk 1 mile for the past couple of years. He finally decided to do the surgery, but was not able because of the pandemic. Curvature of spine has gotten bad. T9, T10, T11 is causing the cored to be compressed. Pt states his spinal cord and the nerve coming out of the spine is being pinched. It is being considered to put screws into pelvis as well. Prior Treatments and Tests See above. Treatment Goals Patient/Caregiver Goals Pt goal is to get pre-rehab in prep for fusion of T8-L5. and he is agreeable to a self detention program. Personal Factors Other Personal Factors That May Effect R TKA, 5 level fusion (L2-S1) Therapy/Recovery with follow up redo of fusion, Cervical fusion 1998 three levels (C2-C4), bladder CA 2011, recent tests show clear. PT-OP-C Subjective Start: 08/29/22 09:45 Freq: Status: Active Protocol: Document 08/29/22 09:46 LRN (Rec: 08/29/22 15:02 LRN [id number]) Patient Questionnaires Oswestry Low Back Index Oswestry Score 16/50 (32/100) Oswestry Impairment 20 to 39% Impaired (Score 20- 39) OP-PT Pain Assessment Pain Assessment Grid Paper Pain Assessment Grid Completed Yes Location Posterior hips/thighs Pain Location Details Posterior hips/thighs Intensity 7 Scale Used Numeric (0 - 10) Description Aching,Sharp,Shooting Description- Other Mostly aching Frequency Daily Lower to Upper spine Pain Location Details Lower to Upper spine Intensity 7 Scale Used Numeric (0 - 10) Description Aching,Radiating,Sharp, Shooting Description- Other Radiates up the spine Frequency Daily Low Back Pain Location Details Across low back at sacral level Intensity 7 Scale Used Numeric (0 - 10) Description Aching Frequency Daily PT-OP-H Neuro Start: 08/29/22 09:45 Freq: Status: Active Protocol: Document 08/29/22 09:46 LRN (Rec: 08/29/22 15:02 LRN [id number]) Sensation Evaluation Gross Sensation Gross Sensation WNL PT-OP-J Posture/Palpation/Skin Start: 08/29/22 09:45 Freq: Status: Active Protocol: Document 08/29/22 09:46 LRN (Rec: 08/29/22 15:02 LRN [id number]) Posture Evaluation Position Standing Head/C-Spine Posture Forward Head T-Spine Posture Increased Kyphosis L-Spine Posture Flattened Shoulder Posture (L) Rounded,(R) Rounded,(R) Elevated Scapula Posture (L) Protracted Arm Posture (L) Neutral,(R) Neutral Weight Distribution Balanced Hip Posture (L) Externally Rotated,(R) Externally Rotated Palpation Assessment Location Low Back Palpation Location Across low back at sacral level Palpation Findings Tenderness Palpation Details Pt sensitive to touch in the low back and spine. PT-OP-K Range of Motion Start: 08/29/22 09:45 Freq: Status: Active Protocol: Document 08/29/22 09:46 LRN (Rec: 08/29/22 15:02 LRN [id number]) Lumbar Spine Range of Motion Lumbar Spine Active Degrees Testing Position Standing Flexion 60 Extension 0 Rotation Left 0 Rotation Right 0 Lateral Flexion Left 0 Lateral Flexion Right 0 Comments Trunk flexion is with 58 deg's hip flexion. Hip Goniometric Range of Motion Hip Right Passive Testing Position Supine Extension 0 Internal Rotation 35 External Rotation 65 Left Passive Testing Position Supine Internal Rotation 40 External Rotation 65 Comments Hip Ext: Lacks 2 deg's to neutral due to onset mid back pain. PT-OP-M Strength Start: 08/29/22 09:45 Freq: Status: Active Protocol: Document 08/29/22 09:46 LRN (Rec: 08/29/22 15:02 LRN [id number]) Trunk Strength Trunk Manual Muscle Testing Testing Position Sitting Flexion 3+ Fair+ Extension 3+ Fair+ Rotation Left 3+ Fair+ Rotation Right 3+ Fair+ Lateral Flexion Left 4 Good Lateral Flexion Right 3 Fair Core Stabilization Right SB limited due to back pain. Hip Strength Hip Manual Muscle Testing Right Comments Deferred due to back pain. Left Comments Deferred due to back pain. PT-OP-Q Treatments Start: 08/29/22 09:45 Freq: Status: Active Protocol: Document 08/29/22 09:46 LRN (Rec: 08/29/22 15:02 LRN [id number]) Self-Care/Home Management Treatment Education Patient Education Body Mechanics,Pain Management Other Education Educated and reviewed handout for pain management with RICE technique and Contrast Bath technique. Discussed pain onset in nerves via space (inflammation), pressure (blood flow), irritation of tissues. Discussed results of evaluation, goals, and plan of care (POC). Pt agreeable to goals and POC. Activities Self-Care/Home Management Activities Issued & reviewed RICE and Contrast Bath handouts. PT-OP-T Assessment and Plan Start: 08/29/22 09:45 Freq: Status: Active Protocol: Document 08/29/22 09:46 LRN (Rec: 08/29/22 15:02 LRN [id number]) Physical Therapy Assessment Rehab Potential Rehabilitation Potential Good Evaluation Complexity Number of Personal Factors/Comorbidities 3 or More Number of Body Systems Impaired 4 or More Clinical Presentation at Evaluation Evolving Impairments Impairments Activity Tolerance,Gait,Pain, Posture,ROM,Strength Goals 4 Impairment INACTIVE. FROM PF REHAB 3 Impairment Decreased function per DOM score 32/100. Impairment DOM is 16/50 or 32/100 (20-39% impaired, score 20-39) Tunnel Heading Inspector Goal (LTG) Pt will improve core stability , improve thoracic/hip mobility to obtain improved function to improve post-op fusion care or through improved DOM score. LTG Duration 10/16/22 2 Impairment Pt lacks pre-rehab self care for T8-L5 fusion. Custodial Goal (LTG) Pt will be educated and able to demonstrate appropriate pre -rehab exercises in prep for fusion of T8-L5. LTG Duration 10/16/22 1 Impairment Pt lacks appropriate self care HEP for post fusion care. Short Term Goal (STG) Pt will be educated in proper body mechanics for ADLs, proper sitting/standing posture. STG Duration 09/20/22 Tunnel Heading Inspector Goal (LTG) Pt will be independent in an effective self care HEP for core/hip strengthening, thoracic and hip mobility ex's . LTG Duration 10/16/22 Assessment Summary Assessment Pt is a 72 yo male who presents with very limited lumbar mobility, fairly good rotational hip mobility, and good to fair trunk strength. The pt is apprehensive in participating in physical therapy, understandably so, due to his past experiences and is expected to be cautious and slow with exercises; therefore progress may be very slow. Special testing and MMT of the hips was deferred due to pt's apprehension and back pain as evaluation progressed. The pt will benefit from skilled physical therapy to work towards the above stated goals to prepare him for planned thoracic- lumbar spinal fusion. Physical Therapy Plan Frequency and Duration Frequency of Treatment 2x/Week Plan of Care Start Date 08/29/22 Plan of Care End Date 10/16/22 Therapeutic Interventions Therapeutic Interventions Home Exercise Program,Joint Mobilizations,Manual Therapy, Patient/Caregiver Education, Self-Care/Home Management,Soft Tissue Mobilization,Taping, Therapeutic Activities, Therapeutic Exercises Modalities Cold Pack/Ice Massage,Hot Packs Next Visit Focus/Plan Next Note Type Treatment Note Next Visit Plan 2x/week until surgery unless PT is painful, then pt will be seen 1x/week for progression of a HEP. Assess hip strength and complete hip mobility assessment, check DTR's, palp upper back/shoulders. Initiate Manual: gentle thoracic PA/rot mobs above T10 below C5-6, and rib mobs, avoiding neurostim implant ( T12 -L2) and fusion (L2-S1) and adjacent areas. Exer: Core stab [id number]. HEP: hip ROM ex's (avoiding L -S pain), self rib expansion ( to engage T/S ext) - deep breathing, and core stabilization.
--- NOTE | 2022-08-29 16:35 | PT.OPPOC ---
Physical, Occupational & Speech Therapy At [facility] Current Diagnoses Postural kyphosis, thoracic region (08/29/22) Muscle weakness (generalized) (08/29/22) Arthrodesis status (08/29/22) Visit Care Team Role Provider Type Terrance Abdalla DO Family Provider Physician Primary Care Provider Specialty: Family Practice Address: [address] [place] [address], [employer] Email: Duong Donald MD Attending Provider Non-Staff Referring Provider Specialty: Orthopedic Surgery Address: [address] [place] [address] [address], [place], [address] Fax: Email: Plan Of Care PT-OP-T Assessment and Plan Start: 08/29/22 09:45 Freq: Status: Active Protocol: Document 08/29/22 09:46 LRN (Rec: 08/29/22 15:02 LRN [id number]) Physical Therapy Assessment Rehab Potential Rehabilitation Potential Good Evaluation Complexity Number of Personal Factors/Comorbidities 3 or More Number of Body Systems Impaired 4 or More Clinical Presentation at Evaluation Evolving Impairments Impairments Activity Tolerance,Gait,Pain, Posture,ROM,Strength Goals 4 Impairment INACTIVE. FROM PF REHAB 3 Impairment Decreased function per DOM score 32/100. Impairment DOM is 16/50 or 32/100 (20-39% impaired, score 20-39) Senior Software Development Engineer Goal (LTG) Pt will improve core stability , improve thoracic/hip mobility to obtain improved function to improve post-op fusion care or through improved DOM score. LTG Duration 10/16/22 2 Impairment Pt lacks pre-rehab self care for T8-L5 fusion. Senior Software Development Engineer Goal (LTG) Pt will be educated and able to demonstrate appropriate pre -rehab exercises in prep for fusion of T8-L5. LTG Duration 10/16/22 1 Impairment Pt lacks appropriate self care HEP for post fusion care. Short Term Goal (STG) Pt will be educated in proper body mechanics for ADLs, proper sitting/standing posture. STG Duration 09/20/22 Senior Software Development Engineer Goal (LTG) Pt will be independent in an effective self care HEP for core/hip strengthening, thoracic and hip mobility ex's . LTG Duration 10/16/22 Assessment Summary Assessment Pt is a 72 yo male who presents with very limited lumbar mobility, fairly good rotational hip mobility, and good to fair trunk strength. The pt is apprehensive in participating in physical therapy, understandably so, due to his past experiences and is expected to be cautious and slow with exercises; therefore progress may be very slow. Special testing and MMT of the hips was deferred due to pt's apprehension and back pain as evaluation progressed. The pt will benefit from skilled physical therapy to work towards the above stated goals to prepare him for planned thoracic- lumbar spinal fusion. Physical Therapy Plan Frequency and Duration Frequency of Treatment 2x/Week Plan of Care Start Date 08/29/22 Plan of Care End Date 10/16/22 Therapeutic Interventions Therapeutic Interventions Home Exercise Program,Joint Mobilizations,Manual Therapy, Patient/Caregiver Education, Self-Care/Home Management,Soft Tissue Mobilization,Taping, Therapeutic Activities, Therapeutic Exercises Modalities Cold Pack/Ice Massage,Hot Packs Next Visit Focus/Plan Next Note Type Treatment Note Next Visit Plan 2x/week until surgery unless PT is painful, then pt will be seen 1x/week for progression of a HEP. Assess hip strength and complete hip mobility assessment, check DTR's, palp upper back/shoulders. Initiate Manual: gentle thoracic PA/rot mobs above T10 below C5-6, and rib mobs, avoiding neurostim implant ( T12 -L2) and fusion (L2-S1) and adjacent areas. Exer: Core stab [id number]. HEP: hip ROM ex's (avoiding L -S pain), self rib expansion ( to engage T/S ext) - deep breathing, and core stabilization. Plan of Care Dates Plan of Care Start Date 08/29/22 Plan of Care End Date 10/16/22 Electronically Signed by: Paulette Cerna, PT 08/29/22 [id number] If you are in agreement with this Plan of Care, please return a signed and dated copy. I have reviewed this Plan of Care and certify that the skilled therapy services above are required to meet the patient?s needs. Physician Signature Date Printed Name and Credentials Clinical Instructor Signature Printed Name and Credentials
--- NOTE | 2022-09-23 16:21 | PT.OTN ---
Current Diagnoses Postural kyphosis, thoracic region (09/23/22) Muscle weakness (generalized) (09/23/22) Arthrodesis status (09/23/22) Physical Therapy Treatment Note PT-OP-A Visit Information Start: 08/29/22 09:45 Freq: Status: Active Protocol: Document 09/23/22 10:29 [facility] (Rec: 09/23/22 11:17 [facility] [id number]) Out-Patient Physical Therapy Visit Information Visit Information Visit Type Treatment Note Visit Start Time 10:29 Visit Stop Time 11:25 Total Visit Minutes 45 Visit Number 2 Evaluation Information Evaluation Date 08/29/22 Precautions Precautions 05/2015-Neurostim implant (L2- T12), in Dec new pulse generator; and Lyrica med for LB/Buttocks/leg pain, R TKA, 5 level fusion (L2-S1) with follow up redo of fusion, Cervical fusion 1998 three levels (C2-C4), bladder CA 2011. PT-OP-B Current Condition Start: 08/29/22 09:45 Freq: Status: Active Protocol: Document 09/23/22 10:29 [facility] (Rec: 09/23/22 11:17 [facility] [id number]) Current Condition History of Current Condition Onset Date 2016 Current Complaints Pain down posterior thighs, across LB and up spine to neck . History of Current Condition Progressive worsing of back/ hips/posterior thighs since 2016, diminishing activity leve. Pt states he is here for a pre-rehab of surgery for fusion T8-L2. He reports having a 5 level fusion in 2014 (L2-S1) when he was living on [facility], but now lives in [place]. 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 States he had a 2nd surgery to redo and correct the non- union and did hospital PT at [facility] following the surgery. Was told his scoliosis was so bad that he would eventually have to do more surgery. Had a mylogram in 2016 and given of option of doing what is planned next month, another 5 level fusion or to let it fuse on it's own. His pain level made him ex intolerant and could only walk 1 mile for the past couple of years. He finally decided to do the surgery, but was not able because of the pandemic. Curvature of spine has gotten bad. T9, T10, T11 is causing the cored to be compressed. Pt states his spinal cord and the nerve coming out of the spine is being pinched. It is being considered to put screws into pelvis as well. Prior Treatments and Tests See above. Treatment Goals Patient/Caregiver Goals Pt goal is to get pre-rehab in prep for fusion of T8-L5. and he is agreeable to a self correction program. Personal Factors Other Personal Factors That May Effect R TKA, 5 level fusion (L2-S1) Therapy/Recovery with follow up redo of fusion, Cervical fusion 1998 three levels (C2-C4), bladder CA 2011, recent tests show clear. PT-OP-C Subjective Start: 08/29/22 09:45 Freq: Status: Active Protocol: Document 09/23/22 10:29 [facility] (Rec: 09/23/22 11:17 [facility] [id number]) OP-PT Subjective Patient Comments Patient Comments Prior bad experience with PT after 5 level fusion, felt detrimental included non-union . Doing 4 miles on bike outside, fused T8 up. Surgery October 09; continue fusion L2 to T8, straighten spine at [facility]. PT-OP-H Neuro Start: 08/29/22 09:45 Freq: Status: Active Protocol: Document 08/29/22 09:46 [facility] (Rec: 08/29/22 15:02 [facility] [id number]) Sensation Evaluation Gross Sensation Gross Sensation WNL PT-OP-J Posture/Palpation/Skin Start: 08/29/22 09:45 Freq: Status: Active Protocol: Document 08/29/22 09:46 [facility] (Rec: 08/29/22 15:02 [facility] [id number]) Posture Evaluation Position Standing Head/C-Spine Posture Forward Head T-Spine Posture Increased Kyphosis L-Spine Posture Flattened Shoulder Posture (L) Rounded,(R) Rounded,(R) Elevated Scapula Posture (L) Protracted Arm Posture (L) Neutral,(R) Neutral Weight Distribution Balanced Hip Posture (L) Externally Rotated,(R) Externally Rotated Palpation Assessment Location Low Back Palpation Location Across low back at sacral level Palpation Findings Tenderness Palpation Details Pt sensitive to touch in the low back and spine. PT-OP-K Range of Motion Start: 08/29/22 09:45 Freq: Status: Active Protocol: Document 08/29/22 09:46 [facility] (Rec: 08/29/22 15:02 [facility] [id number]) Lumbar Spine Range of Motion Lumbar Spine Active Degrees Testing Position Standing Flexion 60 Extension 0 Rotation Left 0 Rotation Right 0 Lateral Flexion Left 0 Lateral Flexion Right 0 Comments Trunk flexion is with 58 deg's hip flexion. Hip Goniometric Range of Motion Hip Right Passive Testing Position Supine Extension 0 Internal Rotation 35 External Rotation 65 Left Passive Testing Position Supine Internal Rotation 40 External Rotation 65 Comments Hip Ext: Lacks 2 deg's to neutral due to onset mid back pain. PT-OP-M Strength Start: 08/29/22 09:45 Freq: Status: Active Protocol: Document 08/29/22 09:46 [facility] (Rec: 08/29/22 15:02 LRN [id number]) Trunk Strength Trunk Manual Muscle Testing Testing Position Sitting Flexion 3+ Fair+ Extension 3+ Fair+ Rotation Left 3+ Fair+ Rotation Right 3+ Fair+ Lateral Flexion Left 4 Good Lateral Flexion Right 3 Fair Core Stabilization Right SB limited due to back pain. Hip Strength Hip Manual Muscle Testing Right Comments Deferred due to back pain. Left Comments Deferred due to back pain. PT-OP-Q Treatments Start: 08/29/22 09:45 Freq: Status: Active Protocol: Document 09/23/22 10:29 [facility] (Rec: 09/23/22 11:17 [facility] [id number]) Cardio Equipment Recumbent Stepper (Sci-Fit) Duration (Minutes) 6 Resistance 1 Seat Position 11 Therapeutic Exercises Supine Exercises HS stretch Reps/Minutes 2x30 scap retraction Reps/Minutes 10x Comments bent elbows, cues for core activation ball squeeze Reps/Minutes 10x Comments cues for core act pec stretch Reps/Minutes 30 x 1 chin tuck Reps/Minutes 5x5 TrA Reps/Minutes 5x5 Sitting Exercises shoulder retr, rolls Reps/Minutes 5x Comments tendency to overactivate UT deep breathing Reps/Minutes 3 min Comments cues for inc time exhale sit to stand Reps/Minutes 5x Comments cues for hip hinge, LE alignment Self-Care/Home Management Treatment Education Patient Education Body Mechanics,Home Exercise Program,Pain Management PT-OP-T Assessment and Plan Start: 08/29/22 09:45 Freq: Status: Active Protocol: Document 09/23/22 10:29 [facility] (Rec: 09/23/22 11:17 [facility] [id number]) Physical Therapy Assessment Goals 3 Impairment Decreased function per DOM score 32/100. Impairment Decreased pelvic floor endurance [employer] Goal (LTG) Pt will improve core stability , improve thoracic/hip mobility to obtain improved function to improve post-op fusion care or through improved DOM score. LTG Duration 10/16/22 2 Impairment Pt lacks pre-rehab self care for T8-L5 fusion. Impairment pt reports decreased sensation that he needs to void [employer] Goal (LTG) Pt will be educated and able to demonstrate appropriate pre -rehab exercises in prep for fusion of T8-L5. LTG Duration 10/16/22 1 Impairment Pt lacks appropriate self care HEP for post fusion care. Impairment urinary retention and pt need to self catheterize 3 times per day Short Term Goal (STG) Pt will be educated in proper body mechanics for ADLs, proper sitting/standing posture. STG Duration 09/20/22 F[facility] Goal (LTG) Pt will be independent in an effective self care HEP for core/hip strengthening, thoracic and hip mobility ex's . LTG Duration 10/16/22 Assessment Summary Assessment FAir tolerance for gentle ther ex today with emphasis on postural correction and spinal stab, issued HEP HO. Encouraged use of moist heat for pain management. Physical Therapy Plan Frequency and Duration Frequency of Treatment 2x/Week Plan of Care Start Date 08/29/22 Plan of Care End Date 10/16/22 Therapeutic Interventions Therapeutic Interventions Home Exercise Program,Joint Mobilizations,Manual Therapy, Patient/Caregiver Education, Self-Care/Home Management,Soft Tissue Mobilization,Taping, Therapeutic Activities, Therapeutic Exercises Modalities Cold Pack/Ice Massage,Hot Packs Next Visit Focus/Plan Next Note Type Treatment Note Next Visit Plan ASsess respnse to today's treatment, progress ther ex/ HEP for pre-op spinal stab surgery.
--- NOTE | 2022-09-25 16:11 | PT.OTN ---
Current Diagnoses Postural kyphosis, thoracic region (09/25/22) Muscle weakness (generalized) (09/25/22) Arthrodesis status (09/25/22) Physical Therapy Treatment Note PT-OP-A Visit Information Start: 08/29/22 09:45 Freq: Status: Active Protocol: Document 09/25/22 07:58 [facility] (Rec: 09/25/22 08:46 [facility] [id number]) Out-Patient Physical Therapy Visit Information Visit Information Visit Type Treatment Note Visit Start Time 08:00 Visit Stop Time 08:55 Total Visit Minutes 55 Visit Number 3 Evaluation Information Evaluation Date 08/29/22 Precautions Precautions 05/2015-Neurostim implant (L2- T12), in Dec new pulse generator; and Lyrica med for LB/Buttocks/leg pain, R TKA, 5 level fusion (L2-S1) with follow up redo of fusion, Cervical fusion 1998 three levels (C2-C4), bladder CA 2011. PT-OP-B Current Condition Start: 08/29/22 09:45 Freq: Status: Active Protocol: Document 09/25/22 07:58 [facility] (Rec: 09/25/22 08:46 [facility] [id number]) Current Condition History of Current Condition Onset Date 2016 Current Complaints Pain down posterior thighs, across LB and up spine to neck . History of Current Condition Progressive worsing of back/ hips/posterior thighs since 2016, diminishing activity leve. Pt states he is here for a pre-rehab of surgery for fusion T8-L2. He reports having a 5 level fusion in 2014 (L2-S1) when he was living on [facility], but now lives in [place]. 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 States he had a 2nd surgery to redo and correct the non- union and did hospital PT at [facility] following the surgery. Was told his scoliosis was so bad that he would eventually have to do more surgery. Had a mylogram in 2016 and given of option of doing what is planned next month, another 5 level fusion or to let it fuse on it's own. His pain level made him ex intolerant and could only walk 1 mile for the past couple of years. He finally decided to do the surgery, but was not able because of the pandemic. Curvature of spine has gotten bad. T9, T10, T11 is causing the cored to be compressed. Pt states his spinal cord and the nerve coming out of the spine is being pinched. It is being considered to put screws into pelvis as well. Prior Treatments and Tests See above. Treatment Goals Patient/Caregiver Goals Pt goal is to get pre-rehab in [facility] for fusion of T8-L5. and he is agreeable to a self intermediate program. Personal Factors Other Personal Factors That May Effect R TKA, 5 level fusion (L2-S1) Therapy/Recovery with follow up redo of fusion, Cervical fusion 1998 three levels (C2-C4), bladder CA 2011, recent tests show clear. PT-OP-C Subjective Start: 08/29/22 09:45 Freq: Status: Active Protocol: Document 09/25/22 07:58 [facility] (Rec: 09/25/22 08:46 [facility] [id number]) OP-PT Subjective Patient Comments Patient Comments Has some questions about exercises, has had to make some modifications PT-OP-H Neuro Start: 08/29/22 09:45 Freq: Status: Active Protocol: Document 08/29/22 09:46 [facility] (Rec: 08/29/22 15:02 [facility] [id number]) Sensation Evaluation Gross Sensation Gross Sensation WNL PT-OP-J Posture/Palpation/Skin Start: 08/29/22 09:45 Freq: Status: Active Protocol: Document 08/29/22 09:46 [facility] (Rec: 08/29/22 15:02 [facility] [id number]) Posture Evaluation Position Standing Head/C-Spine Posture Forward Head T-Spine Posture Increased Kyphosis L-Spine Posture Flattened Shoulder Posture (L) Rounded,(R) Rounded,(R) Elevated Scapula Posture (L) Protracted Arm Posture (L) Neutral,(R) Neutral Weight Distribution Balanced Hip Posture (L) Externally Rotated,(R) Externally Rotated Palpation Assessment Location Low Back Palpation Location Across low back at sacral level Palpation Findings Tenderness Palpation Details Pt sensitive to touch in the low back and spine. PT-OP-K Range of Motion Start: 08/29/22 09:45 Freq: Status: Active Protocol: Document 08/29/22 09:46 [facility] (Rec: 08/29/22 15:02 [facility]N [id number]) Lumbar Spine Range of Motion Lumbar Spine Active Degrees Testing Position Standing Flexion 60 Extension 0 Rotation Left 0 Rotation Right 0 Lateral Flexion Left 0 Lateral Flexion Right 0 Comments Trunk flexion is with 58 deg's hip flexion. Hip Goniometric Range of Motion Hip Right Passive Testing Position Supine Extension 0 Internal Rotation 35 External Rotation 65 Left Passive Testing Position Supine Internal Rotation 40 External Rotation 65 Comments Hip Ext: Lacks 2 deg's to neutral due to onset mid back pain. PT-OP-M Strength Start: 08/29/22 09:45 Freq: Status: Active Protocol: Document 08/29/22 09:46 [facility] (Rec: 08/29/22 15:02 LRN [id number]) Trunk Strength Trunk Manual Muscle Testing Testing Position Sitting Flexion 3+ Fair+ Extension 3+ Fair+ Rotation Left 3+ Fair+ Rotation Right 3+ Fair+ Lateral Flexion Left 4 Good Lateral Flexion Right 3 Fair Core Stabilization Right SB limited due to back pain. Hip Strength Hip Manual Muscle Testing Right Comments Deferred due to back pain. Left Comments Deferred due to back pain. PT-OP-Q Treatments Start: 08/29/22 09:45 Freq: Status: Active Protocol: Document 09/25/22 07:58 [facility] (Rec: 09/25/22 08:46 [facility] [id number]) Cardio Equipment Recumbent Stepper (Sci-Fit) Duration (Minutes) 7 Resistance 1 Seat Position 11 Therapeutic Exercises Supine Exercises supine clam Equipment Used L4 TB Reps/Minutes 10x5 Comments cues for core activation, small movement chest press Equipment Used wand Reps/Minutes 5x Comments cues for core stab shoulder flex Reps/Minutes 5x Comments emphasis on core stab glut set Reps/Minutes 10x Comments cues for core stab HS stretch Reps/Minutes 2x30 scap retraction Reps/Minutes 10x Comments bent elbows, cues for core activation ball squeeze Reps/Minutes 10x Comments cues for core act pec stretch Reps/Minutes 30 x 1 Comments pillows under arms chin tuck Reps/Minutes 5x5 TrA Reps/Minutes 5x5 Self-Care/Home Management Treatment Education Patient Education Body Mechanics,Home Exercise Program,Pain Management PT-OP-R Modalities Start: 08/29/22 09:45 Freq: Status: Active Protocol: Document 09/25/22 07:58 [facility] (Rec: 09/25/22 16:11 [facility] [id number]) Hot Pack/Cold Pack Treatment Hot Pack Location t/s,l/s Patient Position Hooklying Treatment Duration (minutes) 15 Patient Tolerance Good PT-OP-T Assessment and Plan Start: 08/29/22 09:45 Freq: Status: Active Protocol: Document 09/25/22 07:58 [facility] (Rec: 09/25/22 08:46 [facility] [id number]) Physical Therapy Assessment Impairments Impairments Activity Tolerance,Gait,Pain, Posture,ROM,Strength Goals 3 Impairment Decreased function per DOM score 32/100. Impairment Decreased pelvic floor endurance [employer] Goal (LTG) Pt will improve core stability , improve thoracic/hip mobility to obtain improved function to improve post-op fusion care or through improved DOM score. LTG Duration 10/16/22 2 Impairment Pt lacks pre-rehab self care for T8-L5 fusion. Impairment pt reports decreased sensation that he needs to void [employer] Goal (LTG) Pt will be educated and able to demonstrate appropriate pre -rehab exercises in prep for fusion of T8-L5. LTG Duration 10/16/22 1 Impairment Pt lacks appropriate self care HEP for post fusion care. Impairment urinary retention and pt need to self catheterize 3 times per day Short Term Goal (STG) Pt will be educated in proper body mechanics for ADLs, proper sitting/standing posture. STG Duration 09/20/22 Intermediate Goal (LTG) Pt will be independent in an effective self care HEP for core/hip strengthening, thoracic and hip mobility ex's . LTG Duration 10/16/22 Assessment Summary Assessment Patient needed moderate cues for core activation, muscle relaxation in between reps, intensity at level that doesn' t increase his symptoms. Physical Therapy Plan Frequency and Duration Frequency of Treatment 2x/Week Plan of Care Start Date 08/29/22 Plan of Care End Date 10/16/22 Therapeutic Interventions Therapeutic Interventions Home Exercise Program,Joint Mobilizations,Manual Therapy, Patient/Caregiver Education, Self-Care/Home Management,Soft Tissue Mobilization,Taping, Therapeutic Activities, Therapeutic Exercises Modalities Cold Pack/Ice Massage,Hot Packs Next Visit Focus/Plan Next Note Type Treatment Note Next Visit Plan Continue gentle progression of core strengthening and stabilizaiton.
--- NOTE | 2022-09-30 16:12 | PT.OTN ---
Current Diagnoses Postural kyphosis, thoracic region (09/30/22) Muscle weakness (generalized) (09/30/22) Arthrodesis status (09/30/22) Physical Therapy Treatment Note PT-OP-A Visit Information Start: 08/29/22 09:45 Freq: Status: Active Protocol: Document 09/30/22 07:56 [facility] (Rec: 09/30/22 08:46 [facility] [id number]) Out-Patient Physical Therapy Visit Information Visit Information Visit Type Treatment Note Visit Start Time 08:00 Visit Stop Time 08:45 Total Visit Minutes 45 Visit Number 4 Evaluation Information Evaluation Date 08/29/22 Precautions Precautions 05/2015-Neurostim implant (L2- T12), in Dec new pulse generator; and Lyrica med for LB/Buttocks/leg pain, R TKA, 5 level fusion (L2-S1) with follow up redo of fusion, Cervical fusion 1998 three levels (C2-C4), bladder CA 2011. PT-OP-B Current Condition Start: 08/29/22 09:45 Freq: Status: Active Protocol: Document 09/30/22 07:56 [facility] (Rec: 09/30/22 08:46 [facility] [id number]) Current Condition History of Current Condition Onset Date 2016 Current Complaints Pain down posterior thighs, across LB and up spine to neck . History of Current Condition Progressive worsing of back/ hips/posterior thighs since 2016, diminishing activity leve. Pt states he is here for a pre-rehab of surgery for fusion T8-L2. He reports having a 5 level fusion in 2014 (L2-S1) when he was living on [facility], but now lives in [place]. 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 States he had a 2nd surgery to redo and correct the non- union and did hospital PT at [facility] following the surgery. Was told his scoliosis was so bad that he would eventually have to do more surgery. Had a mylogram in 2016 and given of option of doing what is planned next month, another 5 level fusion or to let it fuse on it's own. His pain level made him ex intolerant and could only walk 1 mile for the past couple of years. He finally decided to do the surgery, but was not able because of the pandemic. Curvature of spine has gotten bad. T9, T10, T11 is causing the cored to be compressed. Pt states his spinal cord and the nerve coming out of the spine is being pinched. It is being considered to put screws into pelvis as well. Prior Treatments and Tests See above. Treatment Goals Patient/Caregiver Goals Pt goal is to get pre-rehab in prep for fusion of T8-L5. and he is agreeable to a self chcf program. Personal Factors Other Personal Factors That May Effect R TKA, 5 level fusion (L2-S1) Therapy/Recovery with follow up redo of fusion, Cervical fusion 1998 three levels (C2-C4), bladder CA 2011, recent tests show clear. PT-OP-C Subjective Start: 08/29/22 09:45 Freq: Status: Active Protocol: Document 09/30/22 07:56 [facility] (Rec: 09/30/22 08:46 [facility] [id number]) OP-PT Subjective Patient Comments Patient Comments Reports being stiff today, trying to get some projects done at home prior to his surgery. Refused heat or ice at end of session; reports neither seems that helplful. PT-OP-H Neuro Start: 08/29/22 09:45 Freq: Status: Active Protocol: Document 08/29/22 09:46 [facility] (Rec: 08/29/22 15:02 [facility] [id number]) Sensation Evaluation Gross Sensation Gross Sensation WNL PT-OP-J Posture/Palpation/Skin Start: 08/29/22 09:45 Freq: Status: Active Protocol: Document 08/29/22 09:46 [facility] (Rec: 08/29/22 15:02 [facility] [id number]) Posture Evaluation Position Standing Head/C-Spine Posture Forward Head T-Spine Posture Increased Kyphosis L-Spine Posture Flattened Shoulder Posture (L) Rounded,(R) Rounded,(R) Elevated Scapula Posture (L) Protracted Arm Posture (L) Neutral,(R) Neutral Weight Distribution Balanced Hip Posture (L) Externally Rotated,(R) Externally Rotated Palpation Assessment Location Low Back Palpation Location Across low back at sacral level Palpation Findings Tenderness Palpation Details Pt sensitive to touch in the low back and spine. PT-OP-K Range of Motion Start: 08/29/22 09:45 Freq: Status: Active Protocol: Document 08/29/22 09:46 [facility] (Rec: 08/29/22 15:02 [facility] [id number]) Lumbar Spine Range of Motion Lumbar Spine Active Degrees Testing Position Standing Flexion 60 Extension 0 Rotation Left 0 Rotation Right 0 Lateral Flexion Left 0 Lateral Flexion Right 0 Comments Trunk flexion is with 58 deg's hip flexion. Hip Goniometric Range of Motion Hip Right Passive Testing Position Supine Extension 0 Internal Rotation 35 External Rotation 65 Left Passive Testing Position Supine Internal Rotation 40 External Rotation 65 Comments Hip Ext: Lacks 2 deg's to neutral due to onset mid back pain. PT-OP-M Strength Start: 08/29/22 09:45 Freq: Status: Active Protocol: Document 08/29/22 09:46 [facility] (Rec: 08/29/22 15:02 [facility] [id number]) Trunk Strength Trunk Manual Muscle Testing Testing Position Sitting Flexion 3+ Fair+ Extension 3+ Fair+ Rotation Left 3+ Fair+ Rotation Right 3+ Fair+ Lateral Flexion Left 4 Good Lateral Flexion Right 3 Fair Core Stabilization Right SB limited due to back pain. Hip Strength Hip Manual Muscle Testing Right Comments Deferred due to back pain. Left Comments Deferred due to back pain. PT-OP-Q Treatments Start: 08/29/22 09:45 Freq: Status: Active Protocol: Document 09/30/22 07:56 [facility] (Rec: 09/30/22 08:46 [facility] [id number]) Cardio Equipment Recumbent Stepper (Sci-Fit) Duration (Minutes) 8 Resistance 1 Seat Position 12 Gym Equipment Shuttle Balance chains red Details bal fwd/bck, side Therapeutic Exercises Supine Exercises supine clam Comments HEP chest press Comments HEP shoulder flex Comments HEP glut set Comments HEP HS stretch Comments done in sitting today scap retraction Reps/Minutes 10x Comments bent elbows, cues for core activation, pain-free intensity ball squeeze Comments HEP pec stretch Reps/Minutes 30 x 1 Comments pillows under arms chin tuck Reps/Minutes 5x5 TrA Reps/Minutes 5x5 Sidelying Exercises TrA Reps/Minutes 5x Sitting Exercises HS stretch Reps/Minutes 2x30 Comments cues for hip hings piriformis stretch Reps/Minutes 2x30 deep breathing Reps/Minutes 3 min Comments cues for inc time exhale sit to stand Reps/Minutes 10x, 5x Comments cues for hip hinge, LE alignment Standing Exercises HS stretch Reps/Minutes 2x quad stretch Equipment Used stair Reps/Minutes 2x HC stretch Reps/Minutes 2x Comments wall Manual Therapy Treatment Taping T7-S1 Body Location jose antonio paraspinals Treatment Focus pain relief, inhibition Type of Tape kinesiotape Skin Inspection intact Self-Care/Home Management Treatment Education Patient Education Body Mechanics,Home Exercise Program,Pain Management PT-OP-R Modalities Start: 08/29/22 09:45 Freq: Status: Active Protocol: Document 09/30/22 07:56 [facility] (Rec: 09/30/22 08:46 [facility] [id number]) Hot Pack/Cold Pack Treatment Hot Pack Location t/s,l/s Patient Position Hooklying Treatment Duration (minutes) 15 Patient Tolerance Good PT-OP-T Assessment and Plan Start: 08/29/22 09:45 Freq: Status: Active Protocol: Document 09/30/22 07:56 [facility] (Rec: 09/30/22 08:46 [facility] [id number]) Physical Therapy Assessment Impairments Impairments Activity Tolerance,Gait,Pain, Posture,ROM,Strength Goals 3 Impairment Decreased function per DOM score 32/100. Impairment Decreased pelvic floor endurance Drawing Press Operator Goal (LTG) Pt will improve core stability , improve thoracic/hip mobility to obtain improved function to improve post-op fusion care or through improved DOM score. LTG Duration 10/16/22 2 Impairment Pt lacks pre-rehab self care for T8-L5 fusion. Impairment pt reports decreased sensation that he needs to void Custodial Goal (LTG) Pt will be educated and able to demonstrate appropriate pre -rehab exercises in prep for fusion of T8-L5. LTG Duration 10/16/22 1 Impairment Pt lacks appropriate self care HEP for post fusion care. Impairment urinary retention and pt need to self catheterize 3 times per day Short Term Goal (STG) Pt will be educated in proper body mechanics for ADLs, proper sitting/standing posture. STG Duration 09/20/22 Drawing Press Operator Goal (LTG) Pt will be independent in an effective self care HEP for core/hip strengthening, thoracic and hip mobility ex's . LTG Duration 10/16/22 Assessment Summary Assessment Patient pain level high today due to projects at home, awkward positions. Continued PT with emphasis on core stabilization in different positions, inc flexibility ex. Physical Therapy Plan Frequency and Duration Frequency of Treatment 2x/Week Plan of Care Start Date 08/29/22 Plan of Care End Date 10/16/22 Therapeutic Interventions Therapeutic Interventions Home Exercise Program,Joint Mobilizations,Manual Therapy, Patient/Caregiver Education, Self-Care/Home Management,Soft Tissue Mobilization,Taping, Therapeutic Activities, Therapeutic Exercises Modalities Cold Pack/Ice Massage,Hot Packs Next Visit Focus/Plan Next Note Type Treatment Note Next Visit Plan Continue gentle progression of core strengthening and stabilizaiton.
--- NOTE | 2022-10-02 09:02 | PT.OTN ---
Current Diagnoses Postural kyphosis, thoracic region (10/02/22) Muscle weakness (generalized) (10/02/22) Arthrodesis status (10/02/22) Physical Therapy Treatment Note PT-OP-A Visit Information Start: 08/29/22 09:45 Freq: Status: Active Protocol: Document 10/02/22 07:58 [facility] (Rec: 10/02/22 09:02 [facility] [id number]) Out-Patient Physical Therapy Visit Information Visit Information Visit Type Treatment Note Visit Start Time 08:00 Visit Stop Time 08:45 Total Visit Minutes 45 Visit Number 5 Evaluation Information Evaluation Date 08/29/22 Precautions Precautions 05/2015-Neurostim implant (L2- T12), in Dec new pulse generator; and Lyrica med for LB/Buttocks/leg pain, R TKA, 5 level fusion (L2-S1) with follow up redo of fusion, Cervical fusion 1998 three levels (C2-C4), bladder CA 2011. PT-OP-B Current Condition Start: 08/29/22 09:45 Freq: Status: Active Protocol: Document 10/02/22 07:58 [facility] (Rec: 10/02/22 09:02 [facility] [id number]) Current Condition History of Current Condition Onset Date 2016 Current Complaints Pain down posterior thighs, across LB and up spine to neck . History of Current Condition Progressive worsing of back/ hips/posterior thighs since 2016, diminishing activity leve. Pt states he is here for a pre-rehab of surgery for fusion T8-L2. He reports having a 5 level fusion in 2014 (L2-S1) when he was living on [facility] but now lives in [place]. 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 States he had a 2nd surgery to redo and correct the non- union and did hospital PT at [facility] following the surgery. Was told his scoliosis was so bad that he would eventually have to do more surgery. Had a mylogram in 2016 and given of option of doing what is planned next month, another 5 level fusion or to let it fuse on it's own. His pain level made him ex intolerant and could only walk 1 mile for the past couple of years. He finally decided to do the surgery, but was not able because of the pandemic. Curvature of spine has gotten bad. T9, T10, T11 is causing the cored to be compressed. Pt states his spinal cord and the nerve coming out of the spine is being pinched. It is being considered to put screws into pelvis as well. Prior Treatments and Tests See above. Treatment Goals Patient/Caregiver Goals Pt goal is to get pre-rehab in prep for fusion of T8-L5. and he is agreeable to a self senior living program. Personal Factors Other Personal Factors That May Effect R TKA, 5 level fusion (L2-S1) Therapy/Recovery with follow up redo of fusion, Cervical fusion 1998 three levels (C2-C4), bladder CA 2011, recent tests show clear. PT-OP-C Subjective Start: 08/29/22 09:45 Freq: Status: Active Protocol: Document 10/02/22 07:58 [facility] (Rec: 10/02/22 09:02 [facility] [id number]) OP-PT Subjective Patient Comments Patient Comments One miserable day after another, awaiting surgery. Has questions about post- surgery. PT-OP-H Neuro Start: 08/29/22 09:45 Freq: Status: Active Protocol: Document 08/29/22 09:46 [facility] (Rec: 08/29/22 15:02 [facility] [id number]) Sensation Evaluation Gross Sensation Gross Sensation WNL PT-OP-J Posture/Palpation/Skin Start: 08/29/22 09:45 Freq: Status: Active Protocol: Document 08/29/22 09:46 [facility] (Rec: 08/29/22 15:02 [facility] [id number]) Posture Evaluation Position Standing Head/C-Spine Posture Forward Head T-Spine Posture Increased Kyphosis L-Spine Posture Flattened Shoulder Posture (L) Rounded,(R) Rounded,(R) Elevated Scapula Posture (L) Protracted Arm Posture (L) Neutral,(R) Neutral Weight Distribution Balanced Hip Posture (L) Externally Rotated,(R) Externally Rotated Palpation Assessment Location Low Back Palpation Location Across low back at sacral level Palpation Findings Tenderness Palpation Details Pt sensitive to touch in the low back and spine. PT-OP-K Range of Motion Start: 08/29/22 09:45 Freq: Status: Active Protocol: Document 08/29/22 09:46 [facility] (Rec: 08/29/22 15:02 [facility] [id number]) Lumbar Spine Range of Motion Lumbar Spine Active Degrees Testing Position Standing Flexion 60 Extension 0 Rotation Left 0 Rotation Right 0 Lateral Flexion Left 0 Lateral Flexion Right 0 Comments Trunk flexion is with 58 deg's hip flexion. Hip Goniometric Range of Motion Hip Right Passive Testing Position Supine Extension 0 Internal Rotation 35 External Rotation 65 Left Passive Testing Position Supine Internal Rotation 40 External Rotation 65 Comments Hip Ext: Lacks 2 deg's to neutral due to onset mid back pain. PT-OP-M Strength Start: 08/29/22 09:45 Freq: Status: Active Protocol: Document 08/29/22 09:46 [facility] (Rec: 08/29/22 15:02 [facility] [id number]) Trunk Strength Trunk Manual Muscle Testing Testing Position Sitting Flexion 3+ Fair+ Extension 3+ Fair+ Rotation Left 3+ Fair+ Rotation Right 3+ Fair+ Lateral Flexion Left 4 Good Lateral Flexion Right 3 Fair Core Stabilization Right SB limited due to back pain. Hip Strength Hip Manual Muscle Testing Right Comments Deferred due to back pain. Left Comments Deferred due to back pain. PT-OP-Q Treatments Start: 08/29/22 09:45 Freq: Status: Active Protocol: Document 10/02/22 07:58 [facility] (Rec: 10/02/22 09:02 [facility] [id number]) Gym Equipment Shuttle Balance chains red Details bal and wt shift fwd/bck, side Therapeutic Exercises Supine Exercises figure 4 stretch Reps/Minutes 2x30 HS stretch Equipment Used strap Reps/Minutes 2x30 Comments prefers supine scap retraction Reps/Minutes 10x Comments bent elbows, cues for core activation, pain-free intensity Standing Exercises postural correction Reps/Minutes 1 min Comments pt ed step ups Equipment Used 4 stair Reps/Minutes 10x wt shift Standing Exercise Name fwd/bck Comments cues for gluteal actiation hip extension Equipment Used parallel bars, mirror Reps/Minutes 10x hip abduction Equipment Used parallel bars, mirror Reps/Minutes 10x quad stretch Equipment Used chair Reps/Minutes 2x HC stretch Comments HEP Manual Therapy Treatment Taping T7-S1 Comments not helpful, not done Self-Care/Home Management Treatment Education Patient Education Body Mechanics,Home Exercise Program,Pain Management, Posture Other Education post-op education; no bending, lifting twisting PT-OP-R Modalities Start: 08/29/22 09:45 Freq: Status: Active Protocol: Document 09/30/22 07:56 [facility] (Rec: 09/30/22 08:46 [facility] [id number]) Hot Pack/Cold Pack Treatment Hot Pack Location t/s,l/s Patient Position Hooklying Treatment Duration (minutes) 15 Patient Tolerance Good PT-OP-T Assessment and Plan Start: 08/29/22 09:45 Freq: Status: Active Protocol: Document 10/02/22 07:58 [facility] (Rec: 10/02/22 09:02 [facility] [id number]) Physical Therapy Assessment Impairments Impairments Activity Tolerance,Gait,Pain, Posture,ROM,Strength Goals 3 Impairment Decreased function per DOM score 32/100. Impairment Decreased pelvic floor endurance Interior Surface Insulation Worker Goal (LTG) Pt will improve core stability , improve thoracic/hip mobility to obtain improved function to improve post-op fusion care or through improved DOM score. LTG Duration 10/16/22 2 Impairment Pt lacks pre-rehab self care for T8-L5 fusion. Impairment pt reports decreased sensation that he needs to void Interior Surface Insulation Worker Goal (LTG) Pt will be educated and able to demonstrate appropriate pre -rehab exercises in prep for fusion of T8-L5. LTG Duration 10/16/22 1 Impairment Pt lacks appropriate self care HEP for post fusion care. Impairment urinary retention and pt need to self catheterize 3 times per day Short Term Goal (STG) Pt will be educated in proper body mechanics for ADLs, proper sitting/standing posture. STG Duration 09/20/22 Interior Surface Insulation Worker Goal (LTG) Pt will be independent in an effective self care HEP for core/hip strengthening, thoracic and hip mobility ex's . LTG Duration 10/16/22 Assessment Summary Assessment Patient demonstrating improved posture and body mechanics understanding and demonstrated good understanding of gluteal activation with instruction, demonstration, wt shift and step ups. Cont to be conservative with core ex due to recent hernia surgery Physical Therapy Plan Frequency and Duration Frequency of Treatment 2x/Week Plan of Care Start Date 08/29/22 Plan of Care End Date 10/16/22 Therapeutic Interventions Therapeutic Interventions Home Exercise Program,Joint Mobilizations,Manual Therapy, Patient/Caregiver Education, Self-Care/Home Management,Soft Tissue Mobilization,Taping, Therapeutic Activities, Therapeutic Exercises Modalities Cold Pack/Ice Massage,Hot Packs Next Visit Focus/Plan Next Note Type Treatment Note Next Visit Plan Final PT appointment for pre- op rehab. Continue body mechanics education, core stab , gait mechanics and muscle activation for post-op.
--- NOTE | 2022-10-07 11:24 | PT.OTN ---
Current Diagnoses Postural kyphosis, thoracic region (10/07/22) Muscle weakness (generalized) (10/07/22) Arthrodesis status (10/07/22) Physical Therapy Treatment Note PT-OP-A Visit Information Start: 08/29/22 09:45 Freq: Status: Active Protocol: Document 10/07/22 10:23 [facility] (Rec: 10/07/22 11:24 [facility] [id number]) Out-Patient Physical Therapy Visit Information Visit Information Visit Type Treatment Note Visit Start Time 10:30 Total Visit Minutes 45 Visit Number 6 Evaluation Information Evaluation Date 08/29/22 Precautions Precautions 05/2015-Neurostim implant (L2- T12), in Dec new pulse generator; and Lyrica med for LB/Buttocks/leg pain, R TKA, 5 level fusion (L2-S1) with follow up redo of fusion, Cervical fusion 1998 three levels (C2-C4), bladder CA 2011. PT-OP-B Current Condition Start: 08/29/22 09:45 Freq: Status: Active Protocol: Document 10/07/22 10:23 [facility] (Rec: 10/07/22 11:24 [facility] [id number]) Current Condition History of Current Condition Onset Date 2016 Current Complaints Pain down posterior thighs, across LB and up spine to neck . History of Current Condition Progressive worsing of back/ hips/posterior thighs since 2016, diminishing activity leve. Pt states he is here for a pre-rehab of surgery for fusion T8-L2. He reports having a 5 level fusion in 2014 (L2-S1) when he was living on [facility], but now lives in [place]. 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 States he had a 2nd surgery to redo and correct the non- union and did hospital PT at [facility] following the surgery. Was told his scoliosis was so bad that he would eventually have to do more surgery. Had a mylogram in 2016 and given of option of doing what is planned next month, another 5 level fusion or to let it fuse on it's own. His pain level made him ex intolerant and could only walk 1 mile for the past couple of years. He finally decided to do the surgery, but was not able because of the pandemic. Curvature of spine has gotten bad. T9, T10, T11 is causing the cored to be compressed. Pt states his spinal cord and the nerve coming out of the spine is being pinched. It is being considered to put screws into pelvis as well. Prior Treatments and Tests See above. Treatment Goals Patient/Caregiver Goals Pt goal is to get pre-rehab in prep for fusion of T8-L5. and he is agreeable to a self senior living program. Personal Factors Other Personal Factors That May Effect R TKA, 5 level fusion (L2-S1) Therapy/Recovery with follow up redo of fusion, Cervical fusion 1998 three levels (C2-C4), bladder CA 2011, recent tests show clear. PT-OP-C Subjective Start: 08/29/22 09:45 Freq: Status: Active Protocol: Document 10/07/22 10:23 [facility] (Rec: 10/07/22 11:24 [facility] [id number]) OP-PT Subjective Patient Comments Patient Comments Concerned about terrace steps in backyard, steep driveway. 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 PT-OP-H Neuro Start: 08/29/22 09:45 Freq: Status: Active Protocol: Document 08/29/22 09:46 [facility] (Rec: 08/29/22 15:02 [facility] [id number]) Sensation Evaluation Gross Sensation Gross Sensation WNL PT-OP-J Posture/Palpation/Skin Start: 08/29/22 09:45 Freq: Status: Active Protocol: Document 08/29/22 09:46 [facility] (Rec: 08/29/22 15:02 [facility] [id number]) Posture Evaluation Position Standing Head/C-Spine Posture Forward Head T-Spine Posture Increased Kyphosis L-Spine Posture Flattened Shoulder Posture (L) Rounded,(R) Rounded,(R) Elevated Scapula Posture (L) Protracted Arm Posture (L) Neutral,(R) Neutral Weight Distribution Balanced Hip Posture (L) Externally Rotated,(R) Externally Rotated Palpation Assessment Location Low Back Palpation Location Across low back at sacral level Palpation Findings Tenderness Palpation Details Pt sensitive to touch in the low back and spine. PT-OP-K Range of Motion Start: 08/29/22 09:45 Freq: Status: Active Protocol: Document 08/29/22 09:46 [facility] (Rec: 08/29/22 15:02 [facility] [id number]) Lumbar Spine Range of Motion Lumbar Spine Active Degrees Testing Position Standing Flexion 60 Extension 0 Rotation Left 0 Rotation Right 0 Lateral Flexion Left 0 Lateral Flexion Right 0 Comments Trunk flexion is with 58 deg's hip flexion. Hip Goniometric Range of Motion Hip Right Passive Testing Position Supine Extension 0 Internal Rotation 35 External Rotation 65 Left Passive Testing Position Supine Internal Rotation 40 External Rotation 65 Comments Hip Ext: Lacks 2 deg's to neutral due to onset mid back pain. PT-OP-M Strength Start: 08/29/22 09:45 Freq: Status: Active Protocol: Document 08/29/22 09:46 [facility] (Rec: 08/29/22 15:02 [facility] [id number]) Trunk Strength Trunk Manual Muscle Testing Testing Position Sitting Flexion 3+ Fair+ Extension 3+ Fair+ Rotation Left 3+ Fair+ Rotation Right 3+ Fair+ Lateral Flexion Left 4 Good Lateral Flexion Right 3 Fair Core Stabilization Right SB limited due to back pain. Hip Strength Hip Manual Muscle Testing Right Comments Deferred due to back pain. Left Comments Deferred due to back pain. PT-OP-Q Treatments Start: 08/29/22 09:45 Freq: Status: Active Protocol: Document 10/07/22 10:23 [facility] (Rec: 10/07/22 11:24 [facility] [id number]) Cardio Equipment Recumbent Stepper (Sci-Fit) Duration (Minutes) 8 Resistance 1 Seat Position 12 Therapeutic Exercises Standing Exercises sidestep Equipment Used L1 TB Reps/Minutes 10x Comments cues for core stab Manual Therapy Treatment Soft Tissue Mobilization thoracolumbar paraspinals Mobilization Type Myofascial Release,Strumming Intensity/Depth Moderate Body Position Sidelying Self-Care/Home Management Treatment Education Patient Education Body Mechanics,Home Exercise Program,Pain Management, Posture Other Education post-op education; no bending, lifting twisting, importance of deep breathing, mobility for bowels and pain management , minimize sitting for prolonged periods, use of ice, core stab PT-OP-R Modalities Start: 08/29/22 09:45 Freq: Status: Active Protocol: Document 09/30/22 07:56 [facility] (Rec: 09/30/22 08:46 [facility] [id number]) Hot Pack/Cold Pack Treatment Hot Pack Location t/s,l/s Patient Position Hooklying Treatment Duration (minutes) 15 Patient Tolerance Good PT-OP-T Assessment and Plan Start: 08/29/22 09:45 Freq: Status: Active Protocol: Document 10/07/22 10:23 [facility] (Rec: 10/07/22 11:24 [facility] [id number]) Physical Therapy Assessment Impairments Impairments Activity Tolerance,Gait,Pain, Posture,ROM,Strength Goals 3 Impairment Decreased function per DOM score 32/100. Impairment Decreased pelvic floor endurance Skilled Nursing Goal (LTG) Pt will improve core stability , improve thoracic/hip mobility to obtain improved function to improve post-op fusion care or through improved DOM score. 10/07/22: goal met LTG Duration 10/16/22 2 Impairment Pt lacks pre-rehab self care for T8-L5 fusion. Impairment pt reports decreased sensation that he needs to void Skilled Nursing Goal (LTG) Pt will be educated and able to demonstrate appropriate pre -rehab exercises in prep for fusion of T8-L5. 10/03/22: goal met LTG Duration 10/16/22 1 Impairment Pt lacks appropriate self care HEP for post fusion care. Impairment urinary retention and pt need to self catheterize 3 times per day Short Term Goal (STG) Pt will be educated in proper body mechanics for ADLs, proper sitting/standing posture. 10/03/22: goal met STG Duration 09/20/22 Director Engineering Goal (LTG) Pt will be independent in an effective self care HEP for core/hip strengthening, thoracic and hip mobility ex's . 10/03/22: goal met LTG Duration 10/16/22 Assessment Summary Assessment Patient demonstrates good understanding of all education pre-op as above. Is independent with HEP. Anxious about surgery. Deep breathing encouraged for relaxation, lunge expansion, pain management; gentle manual facilitation for improved breathing. Patient having surgery in 2 days and will be discharged. Encouraged to schedule for post-op PT soon due to PT schedule anticipating several weeks until surgeon will want PT Physical Therapy Plan Discharge Physical Therapy Discharge Reasons Goals Met Discharge Comments Patient having spinal fusion
--- NOTE | 2022-10-07 16:06 | PT.OPDS ---
Current Diagnoses Postural kyphosis, thoracic region (10/07/22) Muscle weakness (generalized) (10/07/22) Arthrodesis status (10/07/22) Visit Care Team Role Provider Type Terrance Abdalla DO Family Provider Physician Primary Care Provider Specialty: Family Practice Address: [address] [place] [address], [id number] Email: Duong Donald MD Attending Provider Non-Staff Referring Provider Specialty: Orthopedic Surgery Address: [place], [address] Email: Visit Number Visit Number 6 Discharge Summary PT-OP-B Current Condition Start: 08/29/22 09:45 Freq: Status: Active Protocol: Document 10/07/22 10:23 [facility] (Rec: 10/07/22 11:24 [facility] [id number]) Current Condition History of Current Condition Onset Date 2016 Current Complaints Pain down posterior thighs, across LB and up spine to neck . History of Current Condition Progressive worsing of back/ hips/posterior thighs since 2017, diminishing activity leve. Pt states he is here for a pre-rehab of surgery for fusion T8-L2. He reports having a 5 level fusion in 2014 (L2-S1) when he was living on [facility], but now lives in [place]. 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 States he had a 2nd surgery to redo and correct the non- union and did hospital PT at [facility] following the surgery. Was told his scoliosis was so bad that he would eventually have to do more surgery. Had a mylogram in 2017 and given of option of doing what is planned next month, another 5 level fusion or to let it fuse on it's own. His pain level made him ex intolerant and could only walk 1 mile for the past couple of years. He finally decided to do the surgery, but was not able because of the pandemic. Curvature of spine has gotten bad. T9, T10, T11 is causing the cored to be compressed. Pt states his spinal cord and the nerve coming out of the spine is being pinched. It is being considered to put screws into pelvis as well. Prior Treatments and Tests See above. Treatment Goals Patient/Caregiver Goals Pt goal is to get pre-rehab in prep for fusion of T8-L5. and he is agreeable to a self nursing home program. Personal Factors Other Personal Factors That May Effect R TKA, 5 level fusion (L2-S1) Therapy/Recovery with follow up redo of fusion, Cervical fusion 1998 three levels (C2-C4), bladder CA 2011, recent tests show clear. PT-OP-C Subjective Start: 08/29/22 09:45 Freq: Status: Active Protocol: Document 10/07/22 10:23 [facility] (Rec: 10/07/22 11:24 [facility] [id number]) OP-PT Subjective Patient Comments Patient Comments Concerned about terrace steps in backyard, steep driveway. 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 PT-OP-H Neuro Start: 08/29/22 09:45 Freq: Status: Active Protocol: Document 08/29/22 09:46 [facility] (Rec: 08/29/22 15:02 [facility] [id number]) Sensation Evaluation Gross Sensation Gross Sensation WNL PT-OP-J Posture/Palpation/Skin Start: 08/29/22 09:45 Freq: Status: Active Protocol: Document 08/29/22 09:46 [facility] (Rec: 08/29/22 15:02 [facility] [id number]) Posture Evaluation Position Standing Head/C-Spine Posture Forward Head T-Spine Posture Increased Kyphosis L-Spine Posture Flattened Shoulder Posture (L) Rounded,(R) Rounded,(R) Elevated Scapula Posture (L) Protracted Arm Posture (L) Neutral,(R) Neutral Weight Distribution Balanced Hip Posture (L) Externally Rotated,(R) Externally Rotated Palpation Assessment Location Low Back Palpation Location Across low back at sacral level Palpation Findings Tenderness Palpation Details Pt sensitive to touch in the low back and spine. PT-OP-K Range of Motion Start: 08/29/22 09:45 Freq: Status: Active Protocol: Document 08/29/22 09:46 [facility] (Rec: 08/29/22 15:02 [facility] [id number]) Lumbar Spine Range of Motion Lumbar Spine Active Degrees Testing Position Standing Flexion 60 Extension 0 Rotation Left 0 Rotation Right 0 Lateral Flexion Left 0 Lateral Flexion Right 0 Comments Trunk flexion is with 58 deg's hip flexion. Hip Goniometric Range of Motion Hip Right Passive Testing Position Supine Extension 0 Internal Rotation 35 External Rotation 65 Left Passive Testing Position Supine Internal Rotation 40 External Rotation 65 Comments Hip Ext: Lacks 2 deg's to neutral due to onset mid back pain. PT-OP-M Strength Start: 08/29/22 09:45 Freq: Status: Active Protocol: Document 08/29/22 09:46 [facility] (Rec: 08/29/22 15:02 [facility] [id number]) Trunk Strength Trunk Manual Muscle Testing Testing Position Sitting Flexion 3+ Fair+ Extension 3+ Fair+ Rotation Left 3+ Fair+ Rotation Right 3+ Fair+ Lateral Flexion Left 4 Good Lateral Flexion Right 3 Fair Core Stabilization Right SB limited due to back pain. Hip Strength Hip Manual Muscle Testing Right Comments Deferred due to back pain. Left Comments Deferred due to back pain. PT-OP-T Assessment and Plan Start: 08/29/22 09:45 Freq: Status: Active Protocol: Document 10/07/22 10:23 [facility] (Rec: 10/07/22 11:24 [facility] [id number]) Physical Therapy Assessment Impairments Impairments Activity Tolerance,Gait,Pain, Posture,ROM,Strength Goals 3 Impairment Decreased function per DOM score 32/100. Impairment Decreased pelvic floor endurance Fpc Goal (LTG) Pt will improve core stability , improve thoracic/hip mobility to obtain improved function to improve post-op fusion care or through improved DOM score. 10/07/22: goal met LTG Duration 10/16/22 2 Impairment Pt lacks pre-rehab self care for T8-L5 fusion. Impairment pt reports decreased sensation that he needs to void Fpc Goal (LTG) Pt will be educated and able to demonstrate appropriate pre -rehab exercises in prep for fusion of T8-L5. 10/03/22: goal met LTG Duration 10/16/22 1 Impairment Pt lacks appropriate self care HEP for post fusion care. Impairment urinary retention and pt need to self catheterize 3 times per day Short Term Goal (STG) Pt will be educated in proper body mechanics for ADLs, proper sitting/standing posture. 10/03/22: goal met STG Duration 09/20/22 Assembler Filters Goal (LTG) Pt will be independent in an effective self care HEP for core/hip strengthening, thoracic and hip mobility ex's . 10/03/22: goal met LTG Duration 10/16/22 Assessment Summary Assessment Patient demonstrates good understanding of all education pre-op as above. Is independent with HEP. Anxious about surgery. Deep breathing encouraged for relaxation, lunge expansion, pain management; gentle manual facilitation for improved breathing. Patient having surgery in 2 days and will be discharged. Encouraged to schedule for post-op PT soon due to PT schedule anticipating several weeks until surgeon will want PT Physical Therapy Plan Discharge Physical Therapy Discharge Reasons Goals Met Discharge Comments Patient having spinal fusion
== END 2022-10-30 11:09 | disposition home or self-care (01) ==
LOC: PHYS 10:30
PROVIDERS: Family Provider Family Medicine; PCP Family Medicine; Referring Provider Orthopaedic Surgery; Visit Provider Orthopaedic Surgery
DX: Z98.1 Arthrodesis status (principal); M62.81 Muscle weakness (generalized); M40.04 Postural kyphosis, thoracic region
CPT/HCPCS: 97110; 97140; 97162; 97535

== ENCOUNTER → 2022-11-12 09:19 | Outpatient (CLI) | payer MEDICARE, OTHER, SELFPAY ==
[2022-02-05 20:39] VITALS: BMI 28.1
[2022-02-06 13:26] VITALS: PULSE 104; RESP 22; O2SAT 95
--- NOTE | 2022-11-12 | DI.RAD.S_ITS ---
PROCEDURE: XR LUMBAR SPINE 2-3V INDICATIONS: Arthrodesis status TECHNIQUE: 3 views of the lumbar spine were acquired. COMPARISON: [facility], CT, CT LUMBAR MYELOGRAM, 07/23/2022, 9:24. [facility], CR, L-SPINE MINIMUM 4 VIEWS, 12/13/2014, 12:40. [facility], CR, L-SPINE MINIMUM 4 VIEWS, 01/27/2014, 9:56. FINDINGS: Bones: 5 [id number]-[id number] vertebrae are present. Posterior spinal fixation extending from the iliac bones superiorly out of the field of view. L5-S1 anterior fusion. Multilevel discectomy throughout the lumbar spine. Multilevel degenerative changes. Decreased osseous mineralization. There is normal bony alignment. No vertebral body compression fractures. No suspicious bony lesions. Soft tissues: Overlying bowel gas pattern is normal. No suspicious soft tissue calcifications. Spinal cord stimulator in place. Atherosclerotic vascular calcifications. IMPRESSION: Posterior spinal fixation extending from the iliac bones superiorly out of the field of view. Multilevel discectomy of the lumbar spine. Multilevel degenerative changes are present. Decreased osseous mineralization. Dictated by: Torres Holder M.D. on 11/12/2022 at 11:59 Approved by: Torres Holder M.D. on 11/12/2022 at 12:02
== END ==
PROVIDERS: Family Provider Family Medicine; PCP Family Medicine; Referring Provider Student in an Organized Health Care Education/Training Program; Visit Provider Student in an Organized Health Care Education/Training Program
DX: M47.816 Spondylosis without myelopathy or radiculopathy, lumbar region (principal); Z98.1 Arthrodesis status
CPT/HCPCS: 72100

== ENCOUNTER → 2022-11-14 09:12 | Outpatient (CLI) | payer MEDICARE, OTHER, SELFPAY ==
[2022-02-05 20:39] VITALS: BMI 28.1
[2022-02-06 13:26] VITALS: PULSE 104; RESP 22; O2SAT 95
--- NOTE | 2022-11-14 | DI.RAD.S_ITS ---
PROCEDURE: XR THORACIC SPINE 2V INDICATIONS: Fusion of spine, site unspecified TECHNIQUE: 3 views of the thoracic spine were acquired. COMPARISON: None. FINDINGS: Bones: Three views of the thoracic spine demonstrate multilevel thoracolumbar fusion with pedicular screw and nelia fixation. There has been T11-12 laminectomy and discectomy. A stimulator is seen with 3 leads extending to the midthoracic spine. There is also been fixation in the lower cervical spine. Anterior osteophytes are seen at multiple levels. There is kyphosis of the upper thoracic spine. Perihardware lucency of the pedicular screws is seen. Soft tissues: No paravertebral stripe thickening. IMPRESSION: 1. Postoperative changes of the thoracolumbar spine and cervical spine. 1. Multilevel degenerative changes. Dictated by: Anupam Arredondo M.D. on 11/14/2022 at 11:47 Approved by: Anupam Arredondo M.D. on 11/14/2022 at 12:09
== END ==
PROVIDERS: Family Provider Family Medicine; PCP Family Medicine; Referring Provider Student in an Organized Health Care Education/Training Program; Visit Provider Student in an Organized Health Care Education/Training Program
DX: M47.814 Spondylosis without myelopathy or radiculopathy, thoracic region (principal); M40.204 Unspecified kyphosis, thoracic region; Z98.1 Arthrodesis status; Z96.82 Presence of neurostimulator
CPT/HCPCS: 72072

== ENCOUNTER → 2023-01-06 08:34 | Outpatient (CLI) | payer MEDICARE, OTHER, SELFPAY ==
[2022-02-05 20:39] VITALS: BMI 28.1
[2022-02-06 13:26] VITALS: PULSE 104; RESP 22; O2SAT 95
--- NOTE | 2023-01-06 | DI.RAD.S_ITS ---
PROCEDURE: XR LUMBAR SPINE 2-3V INDICATIONS: FUSION OF SPINE TECHNIQUE: 3 views of the lumbar spine were acquired. COMPARISON: [facility], CR, XR THORACIC SPINE 2V, 01/06/2023, 8:43. [facility], CR, XR LUMBAR SPINE 2-3V, 11/12/2022, 9:28. FINDINGS: Bones: Postoperative changes of pedicular screw and posterior nelia fixation and multilevel laminectomy. There is been ACDF at L5-S1. No perihardware lucency to suggest loosening and no hardware fracture. Discectomy at the remaining levels in the lumbar spine. 5 [id number] vertebrae are present. There is normal bony alignment. No vertebral body compression fractures. No suspicious bony lesions. Soft tissues: Overlying bowel gas pattern is normal. No suspicious soft tissue calcifications. Stimulator device is seen with leads extending into the thoracolumbar spine. IMPRESSION: Postoperative changes of thoracolumbosacral fusion without complication. Dictated by: Anupam Arredondo M.D. on 01/06/2023 at 10:47 Approved by: Anupam Arredondo M.D. on 01/06/2023 at 10:49
--- NOTE | 2023-01-06 | DI.RAD.S_ITS ---
PROCEDURE: XR THORACIC SPINE 2V INDICATIONS: FUSION OF SPINE TECHNIQUE: 3 views of the thoracic spine were acquired. COMPARISON: [facility], CR, XR THORACIC SPINE 2V, 11/14/2022, 9:18. FINDINGS: Bones: Multilevel thoracolumbar fixation from T9 inferiorly. Leads from a spinal stimulator device are seen with the tips in the midthoracic spine. No perihardware lucency to suggest loosening. No hardware fracture. There is kyphosis of the thoracic spine. No fractures or dislocations. No suspicious bony lesions. 12 pairs of ribs are noted, and appear intact where visualized. Rightward curvature of the thoracic spine with the right apex at T9 and a Valadez angle of 12?. Soft tissues: No paravertebral stripe thickening. IMPRESSION: Postoperative changes of thoracolumbar fusion without complication. Dictated by: Anupam Arredondo M.D. on 01/06/2023 at 10:49 Approved by: Anupam Arredondo M.D. on 01/06/2023 at 10:53
== END ==
PROVIDERS: Family Provider Family Medicine; PCP Family Medicine; Referring Provider Student in an Organized Health Care Education/Training Program; Visit Provider Student in an Organized Health Care Education/Training Program
DX: Z98.1 Arthrodesis status (principal); M43.20 Fusion of spine, site unspecified
CPT/HCPCS: 72070; 72100

== ENCOUNTER 2023-01-09 08:00 | Outpatient (RCR) | payer MEDICARE, OTHER, SELFPAY ==
[2022-02-05 20:39] VITALS: BMI 28.1
[2022-02-06 13:26] VITALS: PULSE 104; RESP 22; O2SAT 95
--- NOTE | 2022-12-05 14:53 | PT.OIE ---
Current Diagnoses Fusion of spine, site unspecified (12/05/22) Dorsalgia, unspecified (12/05/22) Arthrodesis status (12/05/22) Past Medical History (Last Reviewed 08/19/22 @ 13:45 by Allen Temple, ONEIL) Arthritis Asthma (~2016) Chaparro's esophagus Bladder cancer (~2009) Bladder cancer Cervical spine disease (~1997) Chronic bilateral thoracic back pain Degenerative joint disease (DJD) of lumbar spine (~2012) Depression (~1997) Diverticulosis Elevated blood pressure reading without diagnosis of hypertension Elevated PSA, between 10 and less than 20 ng/ml Fractures (~2000) GERD (gastroesophageal reflux disease) Hearing loss (~2011) History of arthritis History of kidney stones History of primary bladder cancer Hyperlipidemia, mixed Insomnia Macular degeneration of right eye (01/2022) Presence of neurostimulator (01/25/22) Prostate cancer Recurrent malignant neoplasm of bladder Right nephrolithiasis Self-catheterizes urinary bladder Umbilical hernia without obstruction or gangrene Urinary retention Urinary retention Vitamin D deficiency Wears glasses Past Surgical History (Last Reviewed 08/19/22 @ 13:45 by Allen Temple RN) Anesthesia History of bladder surgery (~2009) History of fusion of cervical spine (~1997) History of fusion of lumbar spine (~2012) History of knee replacement (09/2019) History of surgery (~2014) History of urologic surgery (10/05/21) Hx of appendectomy (1963) Hx of colonoscopy (10/12/20) Hx of prostate biopsy Hx of right inguinal hernia repair (1971) Hx of vasectomy Visit Care Team Role Provider Type Terrance Abdalla DO Family Provider Physician Primary Care Provider Specialty: Family Practice Address: [address] [place] [address], [id number] Email: Tommy Trevino PA-C Attending Provider Non-Staff Referring Provider Specialty: Medical Address: [address] [place] [address], [phone] Fax: Email: Physical Therapy Initial Evaluation PT-OP-A Visit Information Start: 12/04/22 16:15 Freq: Status: Active Protocol: Document 12/05/22 08:49 PAZ (Rec: 12/05/22 09:32 [facility]AK [id number]) Out-Patient Physical Therapy Visit Information Visit Information Visit Type Initial Evaluation Visit Start Time 08:49 Visit Stop Time 09:40 Total Visit Minutes 51 Visit Number 1 Evaluation Information Evaluation Date 12/05/22 PT-OP-B Current Condition Start: 12/04/22 16:15 Freq: Status: Active Protocol: Document 12/05/22 08:49 [facility] (Rec: 12/05/22 09:32 [facility] [id number]) Current Condition History of Current Condition Onset Date 10/09/22 History of Current Condition [id number] fusion. Had transfusion due to blood loss, on table 2 hrs longer than expected. Has been doing isometric and pelvic floor exercises. Difficult to lay on back. Has been riding his bicycle per ok from physician, has been lifting his bike on and off rack, 30# bike and felt he did it in awkward position and feels more sore today. Not lifting from floor . Right ribcage soreness from spinal straitening during surgery. No ice or heat. Prior Treatments and Tests surgery as above. T4-T9 is self fused. Future Testing and Treatments Planned Telemed appt Jan 15 Treatment Goals Patient/Caregiver Goals return to PLF Prior Functional Status Baseline Function- ADL's Modified Independent Baseline Function- Mobility Modified Independent Baseline Function- Gait no difficulty Baseline Function- Recreation/Hobbies bike riding indep Current Functional Impairments (Reported) Functional Limitations- ADL's modified indep Functional Limitations- Mobility/Gait limited and painful Functional Limitations- Work/School retired Functional Limitations- Recreation/ starting to ride his bike Hobbies again PT-OP-C Subjective Start: 12/04/22 16:15 Freq: Status: Active Protocol: Document 12/05/22 08:49 [facility] (Rec: 12/05/22 14:53 [facility] [id number]) OP-PT Pain Assessment Pain Assessment Grid Paper Pain Assessment Grid Completed Yes Location jose antonio l/s Intensity 6 PT-OP-G Mobility & Gait Start: 12/04/22 16:15 Freq: Status: Active Protocol: Document 12/05/22 08:49 [facility] (Rec: 12/05/22 14:53 [facility] [id number]) OP Mobility Evaluation Bed Mobility Rolling indep with logroll OP Gait Assessment Gait Gait Assistance Required: Independent Assistive Devices Assistive Device None Gait Deviations General Gait Pattern Decreased Stride Length, Decreased Feet Clearance PT-OP-H Neuro Start: 12/04/22 16:15 Freq: Status: Active Protocol: Document 12/05/22 08:49 [facility] (Rec: 12/05/22 14:53 [facility] [id number]) Sensation Evaluation Gross Sensation Gross Sensation WNL PT-OP-J Posture/Palpation/Skin Start: 12/04/22 16:15 Freq: Status: Active Protocol: Document 12/05/22 08:49 [facility] (Rec: 12/05/22 09:32 [facility] [id number]) Posture Evaluation Position Standing Head/C-Spine Posture Forward Head T-Spine Posture Increased Kyphosis Shoulder Posture (L) Rounded,(R) Rounded Scapula Posture (L) Protracted,(R) Protracted Arm Posture (L) Internally Rotated,(R) Internally Rotated Hip Posture (L) Internally Rotated,(R) Internally Rotated Palpation Assessment Location l/s paraspinals Palpation Findings Soft Tissue Tightness,Muscle Guarding Skin Assessment Incisional Assessment Incision Appearance/Comments healing well, no signs or symptoms of infection. Has neurostim device but doesn't have to use as often. PT-OP-K Range of Motion Start: 12/04/22 16:15 Freq: Status: Active Protocol: Document 12/05/22 08:49 [facility] (Rec: 12/05/22 09:32 [facility] [id number]) Lumbar Spine Range of Motion Lumbar Spine Active Comments WFL, not formally tested due to fusion Shoulder Goniometric Range of Motion Shoulder jose antonio Flexion 125 Abduction 120 Comments thoracic pain with elevation in sitting Hip Goniometric Range of Motion Hip jose antonio Hip ROM WFL No Hip ROM Limitations Comments mod tight hamstrings Knee Goniometric Range of Motion Knee jose antonio Knee ROM WFL Yes Ankle and Foot Goniometric Range of Motion Ankle and Foot lbil Dorsiflexion with Knee Flexed 5 Dorsiflexion with Knee Extended 0 PT-OP-M Strength Start: 12/04/22 16:15 Freq: Status: Active Protocol: Document 12/05/22 08:49 [facility] (Rec: 12/05/22 14:53 [facility] [id number]) Hip Strength Hip Manual Muscle Testing jose antonio Comments grossly 3+/5, no MMT due to recent spinal surgery Knee Strength Knee Manual Muscle Testing jose antonio Flexion (S2) 4 Good Extension (L3) 4 Good Ankle/Foot Strength Ankle and Foot Manual Muscle Testing jose antonio Dorsiflexion (L4) 4 Good PT-OP-Q Treatments Start: 12/04/22 16:15 Freq: Status: Active Protocol: Document 12/05/22 08:49 [facility] (Rec: 12/05/22 09:32 [facility] [id number]) Self-Care/Home Management Treatment Education Patient Education Body Mechanics,Home Exercise Program,Pain Management, Posture,Safety Other Education use of ice and heat as needed pay careful attention to body mechanics PT-OP-R Modalities Start: 12/04/22 16:15 Freq: Status: Active Protocol: Document 12/05/22 08:49 [facility] (Rec: 12/05/22 14:53 [facility] [id number]) Hot Pack/Cold Pack Treatment Hot Pack Location thoracolumbar paraspinals Patient Position Sitting Treatment Duration (minutes) 15 Patient Tolerance Good PT-OP-T Assessment and Plan Start: 12/04/22 16:15 Freq: Status: Active Protocol: Document 12/05/22 08:49 [facility] (Rec: 12/05/22 14:53 [facility] [id number]) Physical Therapy Assessment Rehab Potential Rehabilitation Potential Good Evaluation Complexity Number of Personal Factors/Comorbidities 1-2 Number of Body Systems Impaired 3 Clinical Presentation at Evaluation Evolving Impairments Impairments Activity Tolerance,Pain,ROM, Soft Tissue Mobility,Strength Goals 3 Impairment pain Chcf Goal (LTG) Decrease pain by at least 50% with all usual activities in the home and community LTG Duration 02/04/23 2 Impairment weakness Impairment core and LE weakness Short Term Goal (STG) Patient to be instructed in progressive individualized therapeutic exercise program to address strength impairments and improve his function STG Duration 01/04/23 Farm Equipment Engine Mechanic Goal (LTG) Patient to be independent and compliant with HEP and demonstrate improvement in strength to at least 4+/5 throughout to help him tolerate his usual activities in the home and community 1 Impairment activity tolerance Impairment Oswestry disability index score Farm Equipment Engine Mechanic Goal (LTG) Decrease Oswestry disability index score to no greater than 25% LTG Duration 02/04/23 Assessment Summary Assessment Patient presents to PT with function-limiting pain, weakness, and decreased activity tolerance s/p lumbar fusion with instrumentation almost 8 weeks ago. His incision has healed well with no signs or symptoms of infection. Has been doing isometric core exercises and pelvic floor exercises as previously instructed and started riding his bike again after he reports he was cleared by his physician. Feel he would benefit from PT to address strength and flexibility impairments, work on core stabilization, and address muscle tightness and pain through ther ex as well as manual therapy andmodalities PRN. Treatment will include posture and body mechanics education and review for back protection moving forward following this extensive fusion. Discussed POC and patient was in agreement. Physical Therapy Plan Frequency and Duration Frequency of Treatment 2x/Week Duration of treatment (weeks) 8 Plan of Care Start Date 12/05/22 Plan of Care End Date 02/04/23 Therapeutic Interventions Therapeutic Interventions Home Exercise Program,Manual Therapy,Neuromuscular Re- education,Patient/Caregiver Education,Self-Care/Home Management,Soft Tissue Mobilization,Taping, Therapeutic Activities, Therapeutic Exercises Modalities Cold Pack/Ice Massage,Hot Packs,Infrared Therapy, Ultrasound Next Visit Focus/Plan Next Note Type Treatment Note Next Visit Plan Review HEP, gentle progression as tolerated with emphasis on core stabilization. Posture and body mechanics review and progression. Soft tissue mobilization of scar and thoracolumbar paraspinals.
--- NOTE | 2022-12-05 14:54 | PT.OPPOC ---
Physical, Occupational & Speech Therapy At [facility] Current Diagnoses Fusion of spine, site unspecified (12/05/22) Dorsalgia, unspecified (12/05/22) Arthrodesis status (12/05/22) Visit Care Team Role Provider Type Terrance Abdalla DO Family Provider Physician Primary Care Provider Specialty: Family Practice Address: [address] [place] [address], [facility] Email: Tommy Trevino PA-C Attending Provider Non-Staff Referring Provider Specialty: Medical Address: [address] [place] [address], [phone] Fax: Email: Plan Of Care PT-OP-T Assessment and Plan Start: 12/04/22 16:15 Freq: Status: Active Protocol: Document 12/05/22 08:49 [facility] (Rec: 12/05/22 14:53 [facility] [id number]) Physical Therapy Assessment Rehab Potential Rehabilitation Potential Good Evaluation Complexity Number of Personal Factors/Comorbidities 1-2 Number of Body Systems Impaired 3 Clinical Presentation at Evaluation Evolving Impairments Impairments Activity Tolerance,Pain,ROM, Soft Tissue Mobility,Strength Goals 3 Impairment pain Longterm Goal (LTG) Decrease pain by at least 50% with all usual activities in the home and community LTG Duration 02/04/23 2 Impairment weakness Impairment core and LE weakness Short Term Goal (STG) Patient to be instructed in progressive individualized therapeutic exercise program to address strength impairments and improve his function STG Duration 01/04/23 Qa Analyst Goal (LTG) Patient to be independent and compliant with HEP and demonstrate improvement in strength to at least 4+/5 throughout to help him tolerate his usual activities in the home and community 1 Impairment activity tolerance Impairment Oswestry disability index score Longterm Goal (LTG) Decrease Oswestry disability index score to no greater than 25% LTG Duration 02/04/23 Assessment Summary Assessment Patient presents to PT with function-limiting pain, weakness, and decreased activity tolerance s/p lumbar fusion with instrumentation almost 8 weeks ago. His incision has healed well with no signs or symptoms of infection. Has been doing isometric core exercises and pelvic floor exercises as previously instructed and started riding his bike again after he reports he was cleared by his physician. Feel he would benefit from PT to address strength and flexibility impairments, work on core stabilization, and address muscle tightness and pain through ther ex as well as manual therapy andmodalities PRN. Treatment will include posture and body mechanics education and review for back protection moving forward following this extensive fusion. Discussed POC and patient was in agreement. Physical Therapy Plan Frequency and Duration Frequency of Treatment 2x/Week Duration of treatment (weeks) 8 Plan of Care Start Date 12/05/22 Plan of Care End Date 02/04/23 Therapeutic Interventions Therapeutic Interventions Home Exercise Program,Manual Therapy,Neuromuscular Re- education,Patient/Caregiver Education,Self-Care/Home Management,Soft Tissue Mobilization,Taping, Therapeutic Activities, Therapeutic Exercises Modalities Cold Pack/Ice Massage,Hot Packs,Infrared Therapy, Ultrasound Next Visit Focus/Plan Next Note Type Treatment Note Next Visit Plan Review HEP, gentle progression as tolerated with emphasis on core stabilization. Posture and body mechanics review and progression. Soft tissue mobilization of scar and thoracolumbar paraspinals. Plan of Care Dates Plan of Care Start Date 12/05/22 Plan of Care End Date 02/04/23 Electronically Signed by: Mckenna Grace, PT 12/05/22 2007 If you are in agreement with this Plan of Care, please return a signed and dated copy. I have reviewed this Plan of Care and certify that the skilled therapy services above are required to meet the patient?s needs. Physician Signature Date Printed Name and Credentials Clinical Instructor Signature Printed Name and Credentials
--- NOTE | 2022-12-09 11:38 | PT.OTN ---
Current Diagnoses Fusion of spine, site unspecified (12/09/22) Dorsalgia, unspecified (12/09/22) Arthrodesis status (12/09/22) Physical Therapy Treatment Note PT-OP-A Visit Information Start: 12/04/22 16:15 Freq: Status: Active Protocol: Document 12/09/22 10:33 [facility] (Rec: 12/09/22 11:20 [facility] [id number]) Out-Patient Physical Therapy Visit Information Visit Information Visit Type Treatment Note Visit Note Reports having more pain the past few days. Took a long walk, and states sore from leaning to the side and having to fight against that. Using neurostimulator moer often. Rode his bike 6 miles, walked further than he has since the surgery, probably overdid. Visit Start Time 10:34 Visit Stop Time 11:30 Total Visit Minutes 55 Evaluation Information Evaluation Date 12/05/22 PT-OP-B Current Condition Start: 12/04/22 16:15 Freq: Status: Active Protocol: Document 12/09/22 10:33 [facility] (Rec: 12/09/22 11:20 [facility] [id number]) Current Condition History of Current Condition Onset Date 10/09/22 History of Current Condition [id number] fusion. Had transfusion due to blood loss, on table 2 hrs longer than expected. Has been doing isometric and pelvic floor exercises. Difficult to lay on back. Has been riding his bicycle per ok from physician, has been lifting his bike on and off rack, 30# bike and felt he did it in awkward position and feels more sore today. Not lifting from floor . Right ribcage soreness from spinal straitening during surgery. No ice or heat. Prior Treatments and Tests surgery as above. T4-T9 is self fused. Future Testing and Treatments Planned Telemed appt Jan 15 PT-OP-C Subjective Start: 12/04/22 16:15 Freq: Status: Active Protocol: Document 12/05/22 08:49 [facility] (Rec: 12/05/22 14:53 [facility] [id number]) OP-PT Pain Assessment Pain Assessment Grid Paper Pain Assessment Grid Completed Yes Location jose antonio l/s Intensity 6 PT-OP-G Mobility & Gait Start: 12/04/22 16:15 Freq: Status: Active Protocol: Document 12/05/22 08:49 [facility] (Rec: 12/05/22 14:53 [facility] [id number]) OP Mobility Evaluation Bed Mobility Rolling indep with logroll OP Gait Assessment Gait Gait Assistance Required: Independent Assistive Devices Assistive Device None Gait Deviations General Gait Pattern Decreased Stride Length, Decreased Feet Clearance PT-OP-H Neuro Start: 12/04/22 16:15 Freq: Status: Active Protocol: Document 12/05/22 08:49 [facility] (Rec: 12/05/22 14:53 [facility] [id number]) Sensation Evaluation Gross Sensation Gross Sensation WNL PT-OP-J Posture/Palpation/Skin Start: 12/04/22 16:15 Freq: Status: Active Protocol: Document 12/05/22 08:49 [facility] (Rec: 12/05/22 09:32 [facility] [id number]) Posture Evaluation Position Standing Head/C-Spine Posture Forward Head T-Spine Posture Increased Kyphosis Shoulder Posture (L) Rounded,(R) Rounded Scapula Posture (L) Protracted,(R) Protracted Arm Posture (L) Internally Rotated,(R) Internally Rotated Hip Posture (L) Internally Rotated,(R) Internally Rotated Palpation Assessment Location l/s paraspinals Palpation Findings Soft Tissue Tightness,Muscle Guarding Skin Assessment Incisional Assessment Incision Appearance/Comments healing well, no signs or symptoms of infection. Has neurostim device but doesn't have to use as often. PT-OP-K Range of Motion Start: 12/04/22 16:15 Freq: Status: Active Protocol: Document 12/05/22 08:49 [facility] (Rec: 12/05/22 09:32 [facility] [id number]) Lumbar Spine Range of Motion Lumbar Spine Active Comments WFL, not formally tested due to fusion Shoulder Goniometric Range of Motion Shoulder jose antonio Flexion 125 Abduction 120 Comments thoracic pain with elevation in sitting Hip Goniometric Range of Motion Hip jose antonio Hip ROM WFL No Hip ROM Limitations Comments mod tight hamstrings Knee Goniometric Range of Motion Knee jose antonio Knee ROM WFL Yes Ankle and Foot Goniometric Range of Motion Ankle and Foot lbil Dorsiflexion with Knee Flexed 5 Dorsiflexion with Knee Extended 0 PT-OP-M Strength Start: 12/04/22 16:15 Freq: Status: Active Protocol: Document 12/05/22 08:49 [facility] (Rec: 12/05/22 14:53 [facility] [id number]) Hip Strength Hip Manual Muscle Testing jose antonio Comments grossly 3+/5, no MMT due to recent spinal surgery Knee Strength Knee Manual Muscle Testing jose antonio Flexion (S2) 4 Good Extension (L3) 4 Good Ankle/Foot Strength Ankle and Foot Manual Muscle Testing jose antonio Dorsiflexion (L4) 4 Good PT-OP-Q Treatments Start: 12/04/22 16:15 Freq: Status: Active Protocol: Document 12/09/22 10:33 [facility] (Rec: 12/09/22 11:38 [facility] [id number]) Therapeutic Exercises Sitting Exercises isometric chair push Sitting Exercise Name down into chair arms, to side Side bilateral Reps/Minutes 5x5 Self-Care/Home Management Treatment Education Patient Education Home Exercise Program Other Education verbal review of HEP, modifications made for improved tolerance with patient demonstrating good understanding. Cautioned against pushing too hard to fast with increasing his activity, especially walking on uneven ground. Bed positioning sidelying with pillows under head and neck, not shoulder, pillows between knees, towel under side and belly; good tolerance. Emphasis on neutral alignment with patient demonstrating good understanding. PT-OP-R Modalities Start: 12/04/22 16:15 Freq: Status: Active Protocol: Document 12/09/22 10:33 [facility] (Rec: 12/09/22 11:38 [facility] [id number]) Hot Pack/Cold Pack Treatment Hot Pack Location thoracolumbar paraspinals Patient Position Sidelying Treatment Duration (minutes) 15 Patient Tolerance Good PT-OP-T Assessment and Plan Start: 12/04/22 16:15 Freq: Status: Active Protocol: Document 12/09/22 10:33 [facility] (Rec: 12/09/22 11:20 [facility] [id number]) Physical Therapy Assessment Goals 3 Impairment pain Fdc Goal (LTG) Decrease pain by at least 50% with all usual activities in the home and community LTG Duration 02/04/23 2 Impairment weakness Impairment core and LE weakness Short Term Goal (STG) Patient to be instructed in progressive individualized therapeutic exercise program to address strength impairments and improve his function STG Duration 01/04/23 Solar Thermal Technician Goal (LTG) Patient to be independent and compliant with HEP and demonstrate improvement in strength to at least 4+/5 throughout to help him tolerate his usual activities in the home and community 1 Impairment activity tolerance Impairment Oswestry disability index score 54% Solar Thermal Technician Goal (LTG) Decrease Oswestry disability index score to no greater than 25% LTG Duration 02/04/23 Assessment Summary Assessment Increase in pain likely due to increase in activity which included walking on some uneven trail. Worked on bed positioning on side with support of towel at side and under belly in addition to pillows between legs. Also worked on correct positioning of pillows under head not shoulder; patient demonstrated good understanding Physical Therapy Plan Frequency and Duration Frequency of Treatment 2x/Week Duration of treatment (weeks) 8 Plan of Care Start Date 12/05/22 Plan of Care End Date 02/04/23 Therapeutic Interventions Therapeutic Interventions Home Exercise Program,Manual Therapy,Neuromuscular Re- education,Patient/Caregiver Education,Self-Care/Home Management,Soft Tissue Mobilization,Taping, Therapeutic Activities, Therapeutic Exercises Modalities Cold Pack/Ice Massage,Hot Packs,Infrared Therapy, Ultrasound Next Visit Focus/Plan Next Note Type Treatment Note Next Visit Plan Continue gentle ther ex progression emphasizing core stabilization, postural correction, body mechanics. Modalities and manual therapy PRN.
--- NOTE | 2022-12-12 10:26 | PT.OTN ---
Current Diagnoses Fusion of spine, site unspecified (12/12/22) Dorsalgia, unspecified (12/12/22) Arthrodesis status (12/12/22) Physical Therapy Treatment Note PT-OP-A Visit Information Start: 12/04/22 16:15 Freq: Status: Active Protocol: Document 12/12/22 09:30 SAK (Rec: 12/12/22 10:26 [facility] [id number]) Out-Patient Physical Therapy Visit Information Visit Information Visit Type Treatment Note Visit Start Time 09:30 Total Visit Minutes 55 Visit Number 3 PT-OP-B Current Condition Start: 12/04/22 16:15 Freq: Status: Active Protocol: Document 12/12/22 09:30 SAK (Rec: 12/12/22 10:26 [facility] [id number]) Current Condition History of Current Condition Onset Date 10/09/22 History of Current Condition [id number] fusion. Had transfusion due to blood loss, on table 2 hrs longer than expected. Has been doing isometric and pelvic floor exercises. Difficult to lay on back. Has been riding his bicycle per ok from physician, has been lifting his bike on and off rack, 30# bike and felt he did it in awkward position and feels more sore today. Not lifting from floor . Right ribcage soreness from spinal straitening during surgery. No ice or heat. Prior Treatments and Tests surgery as above. T4-T9 is self fused. Future Testing and Treatments Planned Telemed appt Jan 15 PT-OP-C Subjective Start: 12/04/22 16:15 Freq: Status: Active Protocol: Document 12/12/22 09:30 SAK (Rec: 12/12/22 10:26 [facility] [id number]) OP-PT Subjective Patient Comments Patient Comments Feels a little better today. PT-OP-G Mobility & Gait Start: 12/04/22 16:15 Freq: Status: Active Protocol: Document 12/05/22 08:49 SAK (Rec: 12/05/22 14:53 [facility] [id number]) OP Mobility Evaluation Bed Mobility Rolling indep with logroll OP Gait Assessment Gait Gait Assistance Required: Independent Assistive Devices Assistive Device None Gait Deviations General Gait Pattern Decreased Stride Length, Decreased Feet Clearance PT-OP-H Neuro Start: 12/04/22 16:15 Freq: Status: Active Protocol: Document 12/05/22 08:49 SAK (Rec: 12/05/22 14:53 [facility] [id number]) Sensation Evaluation Gross Sensation Gross Sensation WNL PT-OP-J Posture/Palpation/Skin Start: 12/04/22 16:15 Freq: Status: Active Protocol: Document 12/05/22 08:49 [facility] (Rec: 12/05/22 09:32 [facility] [id number]) Posture Evaluation Position Standing Head/C-Spine Posture Forward Head T-Spine Posture Increased Kyphosis Shoulder Posture (L) Rounded,(R) Rounded Scapula Posture (L) Protracted,(R) Protracted Arm Posture (L) Internally Rotated,(R) Internally Rotated Hip Posture (L) Internally Rotated,(R) Internally Rotated Palpation Assessment Location l/s paraspinals Palpation Findings Soft Tissue Tightness,Muscle Guarding Skin Assessment Incisional Assessment Incision Appearance/Comments healing well, no signs or symptoms of infection. Has neurostim device but doesn't have to use as often. PT-OP-K Range of Motion Start: 12/04/22 16:15 Freq: Status: Active Protocol: Document 12/05/22 08:49 [facility] (Rec: 12/05/22 09:32 [facility] [id number]) Lumbar Spine Range of Motion Lumbar Spine Active Comments WFL, not formally tested due to fusion Shoulder Goniometric Range of Motion Shoulder jose antonio Flexion 125 Abduction 120 Comments thoracic pain with elevation in sitting Hip Goniometric Range of Motion Hip jose antonio Hip ROM WFL No Hip ROM Limitations Comments mod tight hamstrings Knee Goniometric Range of Motion Knee jose antonio Knee ROM WFL Yes Ankle and Foot Goniometric Range of Motion Ankle and Foot lbil Dorsiflexion with Knee Flexed 5 Dorsiflexion with Knee Extended 0 PT-OP-M Strength Start: 12/04/22 16:15 Freq: Status: Active Protocol: Document 12/05/22 08:49 [facility] (Rec: 12/05/22 14:53 [facility] [id number]) Hip Strength Hip Manual Muscle Testing jose antonio Comments grossly 3+/5, no MMT due to recent spinal surgery Knee Strength Knee Manual Muscle Testing jose antonio Flexion (S2) 4 Good Extension (L3) 4 Good Ankle/Foot Strength Ankle and Foot Manual Muscle Testing jose antonio Dorsiflexion (L4) 4 Good PT-OP-Q Treatments Start: 12/04/22 16:15 Freq: Status: Active Protocol: Document 12/12/22 09:30 [facility] (Rec: 12/12/22 10:26 [facility] [id number]) Gym Equipment Sport Cord green Exercise Details fwd, side Cord/Resistance green Reps/Duration 5x fwd, 3x side each Therapeutic Exercises Standing Exercises heel/toe raises Reps/Minutes 10x Therapeutic Activity Therapeutic Activity sit to stand Reps/Minutes 5x Comments ecourage hip hinge, no UE's Manual Therapy Treatment Soft Tissue Mobilization thoracolumbar paraspinals Mobilization Type Myofascial Release,Strumming Body Position Sidelying Neuro Re-Education Treatment Balance Activities standing bal Details EO, EC Surface foam, tiltboard Comments cues for posture, core activation Self-Care/Home Management Treatment Education Patient Education Home Exercise Program PT-OP-R Modalities Start: 12/04/22 16:15 Freq: Status: Active Protocol: Document 12/12/22 09:30 [facility] (Rec: 12/12/22 10:26 [facility] [id number]) Hot Pack/Cold Pack Treatment Hot Pack Location thoracolumbar paraspinals Patient Position Sidelying Treatment Duration (minutes) 15 Patient Tolerance Good Comments 2 straps hooked together, under table PT-OP-T Assessment and Plan Start: 12/04/22 16:15 Freq: Status: Active Protocol: Document 12/12/22 09:30 [facility] (Rec: 12/12/22 10:26 [facility] [id number]) Physical Therapy Assessment Goals 3 Impairment pain Impairment Decreased pelvic floor endurance [facility] Goal (LTG) Decrease pain by at least 50% with all usual activities in the home and community LTG Duration 02/04/23 2 Impairment weakness Impairment core and LE weakness Short Term Goal (STG) Patient to be instructed in progressive individualized therapeutic exercise program to address strength impairments and improve his function STG Duration 01/04/23 Edi Analyst Goal (LTG) Patient to be independent and compliant with HEP and demonstrate improvement in strength to at least 4+/5 throughout to help him tolerate his usual activities in the home and community 1 Impairment activity tolerance Impairment Oswestry disability index score 54% Edi Analyst Goal (LTG) Decrease Oswestry disability index score to no greater than 25% LTG Duration 02/04/23 Assessment Summary Assessment Progression of core ex incorporating balance, sport cord. Added HC stretch. Decreased pain level today, though reported was inc yesterday after a walk on mildly uneven ground Physical Therapy Plan Frequency and Duration Frequency of Treatment 2x/Week Duration of treatment (weeks) 8 Plan of Care Start Date 12/05/22 Plan of Care End Date 02/04/23 Therapeutic Interventions Therapeutic Interventions Home Exercise Program,Manual Therapy,Neuromuscular Re- education,Patient/Caregiver Education,Self-Care/Home Management,Soft Tissue Mobilization,Taping, Therapeutic Activities, Therapeutic Exercises Modalities Cold Pack/Ice Massage,Hot Packs,Infrared Therapy, Ultrasound Next Visit Focus/Plan Next Note Type Treatment Note Next Visit Plan Core stabilization ex, flexibility through hips and LE's. Continue use of mirror for self-correction of posture
--- NOTE | 2022-12-16 10:15 | PT.OTN ---
Current Diagnoses Fusion of spine, site unspecified (12/16/22) Dorsalgia, unspecified (12/16/22) Arthrodesis status (12/16/22) Physical Therapy Treatment Note PT-OP-A Visit Information Start: 12/04/22 16:15 Freq: Status: Active Protocol: Document 12/16/22 09:31 SAK (Rec: 12/16/22 10:15 [facility] [id number]) Out-Patient Physical Therapy Visit Information Visit Information Visit Type Treatment Note Visit Start Time 09:30 Visit Stop Time 10:25 Total Visit Minutes 55 Visit Number 3 PT-OP-B Current Condition Start: 12/04/22 16:15 Freq: Status: Active Protocol: Document 12/16/22 09:31 SAK (Rec: 12/16/22 10:15 [facility] [id number]) Current Condition History of Current Condition Onset Date 10/09/22 History of Current Condition [id number] fusion. Had transfusion due to blood loss, on table 2 hrs longer than expected. Has been doing isometric and pelvic floor exercises. Difficult to lay on back. Has been riding his bicycle per ok from physician, has been lifting his bike on and off rack, 30# bike and felt he did it in awkward position and feels more sore today. Not lifting from floor . Right ribcage soreness from spinal straitening during surgery. No ice or heat. Prior Treatments and Tests surgery as above. T4-T9 is self fused. Future Testing and Treatments Planned Telemed appt Jan 15 PT-OP-C Subjective Start: 12/04/22 16:15 Freq: Status: Active Protocol: Document 12/16/22 09:31 SAK (Rec: 12/16/22 10:15 [facility] [id number]) OP-PT Subjective Patient Comments Patient Comments Feels getting a little stronger. Wants to work a little more on flexibility. PT-OP-G Mobility & Gait Start: 12/04/22 16:15 Freq: Status: Active Protocol: Document 12/05/22 08:49 SAK (Rec: 12/05/22 14:53 [facility] [id number]) OP Mobility Evaluation Bed Mobility Rolling indep with logroll OP Gait Assessment Gait Gait Assistance Required: Independent Assistive Devices Assistive Device None Gait Deviations General Gait Pattern Decreased Stride Length, Decreased Feet Clearance PT-OP-H Neuro Start: 12/04/22 16:15 Freq: Status: Active Protocol: Document 12/05/22 08:49 [facility] (Rec: 12/05/22 14:53 [facility] [id number]) Sensation Evaluation Gross Sensation Gross Sensation WNL PT-OP-J Posture/Palpation/Skin Start: 12/04/22 16:15 Freq: Status: Active Protocol: Document 12/05/22 08:49 [facility] (Rec: 12/05/22 09:32 [facility] [id number]) Posture Evaluation Position Standing Head/C-Spine Posture Forward Head T-Spine Posture Increased Kyphosis Shoulder Posture (L) Rounded,(R) Rounded Scapula Posture (L) Protracted,(R) Protracted Arm Posture (L) Internally Rotated,(R) Internally Rotated Hip Posture (L) Internally Rotated,(R) Internally Rotated Palpation Assessment Location l/s paraspinals Palpation Findings Soft Tissue Tightness,Muscle Guarding Skin Assessment Incisional Assessment Incision Appearance/Comments healing well, no signs or symptoms of infection. Has neurostim device but doesn't have to use as often. PT-OP-K Range of Motion Start: 12/04/22 16:15 Freq: Status: Active Protocol: Document 12/05/22 08:49 [facility] (Rec: 12/05/22 09:32 [facility] [id number]) Lumbar Spine Range of Motion Lumbar Spine Active Comments WFL, not formally tested due to fusion Shoulder Goniometric Range of Motion Shoulder jose antonio Flexion 125 Abduction 120 Comments thoracic pain with elevation in sitting Hip Goniometric Range of Motion Hip jose antonio Hip ROM WFL No Hip ROM Limitations Comments mod tight hamstrings Knee Goniometric Range of Motion Knee jose antonio Knee ROM WFL Yes Ankle and Foot Goniometric Range of Motion Ankle and Foot lbil Dorsiflexion with Knee Flexed 5 Dorsiflexion with Knee Extended 0 PT-OP-M Strength Start: 12/04/22 16:15 Freq: Status: Active Protocol: Document 12/05/22 08:49 [facility] (Rec: 12/05/22 14:53 [facility] [id number]) Hip Strength Hip Manual Muscle Testing jose antonio Comments grossly 3+/5, no MMT due to recent spinal surgery Knee Strength Knee Manual Muscle Testing jose antonio Flexion (S2) 4 Good Extension (L3) 4 Good Ankle/Foot Strength Ankle and Foot Manual Muscle Testing jose antonio Dorsiflexion (L4) 4 Good PT-OP-Q Treatments Start: 12/04/22 16:15 Freq: Status: Active Protocol: Document 12/16/22 09:31 [facility] (Rec: 12/16/22 10:15 [facility] [id number]) Gym Equipment Sport Cord green Exercise Details fwd, side Cord/Resistance green Reps/Duration 5x fwd, 3x side each Therapeutic Exercises Supine Exercises chest press Resistance 2lbs Reps/Minutes 10x LTR Reps/Minutes 5x Comments cues for small motion. HS stretch Reps/Minutes 2x30 Comments manual march Reps/Minutes 5 Comments cues for core stab Sitting Exercises hamstring stretch Reps/Minutes 2x30 piriformis stretch Reps/Minutes 2x30 figure 4 Reps/Minutes 2x30 Standing Exercises Hamstring curl Reps/Minutes 10x Comments cues for postural alignment calf stretch Equipment Used SANTOS Reps/Minutes 2x30 heel/toe raises Reps/Minutes 10x Self-Care/Home Management Treatment Education Patient Education Home Exercise Program,Pain Management,Posture PT-OP-R Modalities Start: 12/04/22 16:15 Freq: Status: Active Protocol: Document 12/16/22 09:31 [facility] (Rec: 12/16/22 10:15 [facility] [id number]) Hot Pack/Cold Pack Treatment Hot Pack Location thoracolumbar paraspinals Patient Position Sidelying Treatment Duration (minutes) 15 Patient Tolerance Good Comments 2 straps hooked together, under table PT-OP-T Assessment and Plan Start: 12/04/22 16:15 Freq: Status: Active Protocol: Document 12/16/22 09:31 [facility] (Rec: 12/16/22 10:15 [facility] [id number]) Physical Therapy Assessment Goals 3 Impairment pain Impairment Decreased pelvic floor endurance [employer] Developer Goal (LTG) Decrease pain by at least 50% with all usual activities in the home and community LTG Duration 02/04/23 2 Impairment weakness Impairment core and LE weakness Short Term Goal (STG) Patient to be instructed in progressive individualized therapeutic exercise program to address strength impairments and improve his function STG Duration 01/04/23 Ext Js Developer Goal (LTG) Patient to be independent and compliant with HEP and demonstrate improvement in strength to at least 4+/5 throughout to help him tolerate his usual activities in the home and community 1 Impairment activity tolerance Impairment Oswestry disability index score 54% [facility] Goal (LTG) Decrease Oswestry disability index score to no greater than 25% LTG Duration 02/04/23 Progress Towards Goals Progress Towards Goals Progressing Toward Goals Assessment Summary Assessment Good pain control today, some inc pain with step up with sport cord so discontinued. Improved postural awareness noted today Physical Therapy Plan Frequency and Duration Frequency of Treatment 2x/Week Duration of treatment (weeks) 8 Plan of Care Start Date 12/05/22 Plan of Care End Date 02/04/23 Therapeutic Interventions Therapeutic Interventions Home Exercise Program,Manual Therapy,Neuromuscular Re- education,Patient/Caregiver Education,Self-Care/Home Management,Soft Tissue Mobilization,Taping, Therapeutic Activities, Therapeutic Exercises Modalities Cold Pack/Ice Massage,Hot Packs,Infrared Therapy, Ultrasound Next Visit Focus/Plan Next Note Type Treatment Note Next Visit Plan Core stabilization ex, flexibility through hips and LE's. Continue use of mirror for self-correction of posture
--- NOTE | 2022-12-20 08:20 | PT.OTN ---
Current Diagnoses Fusion of spine, site unspecified (12/20/22) Dorsalgia, unspecified (12/20/22) Arthrodesis status (12/20/22) Physical Therapy Treatment Note PT-OP-A Visit Information Start: 12/04/22 16:15 Freq: Status: Active Protocol: Document 12/20/22 07:33 SP (Rec: 12/20/22 08:22 SP [id number]) Out-Patient Physical Therapy Visit Information Visit Information Visit Type Treatment Note Visit Start Time 07:33 Visit Stop Time 08:20 Total Visit Minutes 47 Visit Number 4 Number of HOUSEKEEPER/LAUNDRY ASSISTANT Visits 1 Evaluation Information Evaluation Date 12/05/22 PT-OP-B Current Condition Start: 12/04/22 16:15 Freq: Status: Active Protocol: Document 12/16/22 09:31 SAK (Rec: 12/16/22 10:15 SAK [id number]) Current Condition History of Current Condition Onset Date 10/09/22 History of Current Condition [id number] fusion. Had transfusion due to blood loss, on table 2 hrs longer than expected. Has been doing isometric and pelvic floor exercises. Difficult to lay on back. Has been riding his bicycle per ok from physician, has been lifting his bike on and off rack, 30# bike and felt he did it in awkward position and feels more sore today. Not lifting from floor . Right ribcage soreness from spinal straitening during surgery. No ice or heat. Prior Treatments and Tests surgery as above. T4-T9 is self fused. Future Testing and Treatments Planned Telemed appt Jan 15 PT-OP-C Subjective Start: 12/04/22 16:15 Freq: Status: Active Protocol: Document 12/20/22 07:33 SP (Rec: 12/20/22 08:22 SP [id number]) OP-PT Subjective Patient Comments Patient Comments Pt reports has been compliant with HEP, walking about 6 miles and low back starts to bother him. Wants to work on flexibility. PT-OP-G Mobility & Gait Start: 12/04/22 16:15 Freq: Status: Active Protocol: Document 12/05/22 08:49 SAK (Rec: 12/05/22 14:53 SAK [id number]) OP Mobility Evaluation Bed Mobility Rolling indep with logroll OP Gait Assessment Gait Gait Assistance Required: Independent Assistive Devices Assistive Device None Gait Deviations General Gait Pattern Decreased Stride Length, Decreased Feet Clearance PT-OP-H Neuro Start: 12/04/22 16:15 Freq: Status: Active Protocol: Document 12/05/22 08:49 [facility] (Rec: 12/05/22 14:53 [facility] [id number]) Sensation Evaluation Gross Sensation Gross Sensation WNL PT-OP-J Posture/Palpation/Skin Start: 12/04/22 16:15 Freq: Status: Active Protocol: Document 12/05/22 08:49 [facility] (Rec: 12/05/22 09:32 [facility] [id number]) Posture Evaluation Position Standing Head/C-Spine Posture Forward Head T-Spine Posture Increased Kyphosis Shoulder Posture (L) Rounded,(R) Rounded Scapula Posture (L) Protracted,(R) Protracted Arm Posture (L) Internally Rotated,(R) Internally Rotated Hip Posture (L) Internally Rotated,(R) Internally Rotated Palpation Assessment Location l/s paraspinals Palpation Findings Soft Tissue Tightness,Muscle Guarding Skin Assessment Incisional Assessment Incision Appearance/Comments healing well, no signs or symptoms of infection. Has neurostim device but doesn't have to use as often. PT-OP-K Range of Motion Start: 12/04/22 16:15 Freq: Status: Active Protocol: Document 12/05/22 08:49 [facility] (Rec: 12/05/22 09:32 [facility] [id number]) Lumbar Spine Range of Motion Lumbar Spine Active Comments WFL, not formally tested due to fusion Shoulder Goniometric Range of Motion Shoulder jose antonio Flexion 125 Abduction 120 Comments thoracic pain with elevation in sitting Hip Goniometric Range of Motion Hip jose antonio Hip ROM WFL No Hip ROM Limitations Comments mod tight hamstrings Knee Goniometric Range of Motion Knee jose antonio Knee ROM WFL Yes Ankle and Foot Goniometric Range of Motion Ankle and Foot lbil Dorsiflexion with Knee Flexed 5 Dorsiflexion with Knee Extended 0 PT-OP-M Strength Start: 12/04/22 16:15 Freq: Status: Active Protocol: Document 12/05/22 08:49 [facility] (Rec: 12/05/22 14:53 [facility] [id number]) Hip Strength Hip Manual Muscle Testing jose antonio Comments grossly 3+/5, no MMT due to recent spinal surgery Knee Strength Knee Manual Muscle Testing jose antonio Flexion (S2) 4 Good Extension (L3) 4 Good Ankle/Foot Strength Ankle and Foot Manual Muscle Testing jose antonio Dorsiflexion (L4) 4 Good PT-OP-Q Treatments Start: 12/04/22 16:15 Freq: Status: Active Protocol: Document 12/20/22 07:33 SP (Rec: 12/20/22 08:22 SP [id number]) Therapeutic Exercises Supine Exercises chin tuck Supine Exercise Name initiated in PT- review more next tx for HEP Equipment Used 1 pillow and towel roll under head/neck Reps/Minutes 5 SH x10 Comments challenging at first, improved post SCM manual and towel roll add support Prone Exercises scap/CS retraction Prone Exercise Name trialed in PT (only)- challenged maintain chin tuck with slight head lift Resistance AROM post manual Reps/Minutes 5 SH x5 Comments 1. chin tuck/slight lift from cradle 2. Ts- cued chin tuck, no UT recruit Standing Exercises shld ext, rows Standing Exercise Name trialed rows/ext: added Shld Ext for HEP Side bilateral Resistance TB #1 peach Reps/Minutes 2x5 reps Comments cued shld fwd over pelvis, scap retract/depressed, CS chin tuck/slight ext paloff press Standing Exercise Name in PT Side bilateral Resistance TB #1 Reps/Minutes x10 Comments challenged no LS/hip ext and no UT recruitment- in PT only for Max cues Manual Therapy Treatment Soft Tissue Mobilization neck Body Location brief: B R>L SCM, suboccipitals, post scap ( discussed rhomboid, ES) Mobilization Type Myofascial Release,Sustained Pressure,Other Body Position Hooklying w/ pillow/towel roll under head/neck Comments manual pincer knead SCM/ sustained pressure, MWM head nod/ rotation small range and ed self application MWM use theracane suboccipital, ball wall posterior UT/Rhomboid. thoracolumbar paraspinals Mobilization Type Instrument Assisted,Myofascial Release,Strumming Intensity/Depth Superficial Body Position Prone over pillows Comments cupping over ES, scars- noted light pink hyperemia over T6- 10. Reported less tension in mid back. Self-Care/Home Management Treatment Education Patient Education Home Exercise Program,Pain Management,Posture Other Education Short time spent end tx discussed but not performed instruction self STMs post neck/scap theracane and ball wall. Assimulate what HOUSEKEEPER/LAUNDRY ASSISTANT helped with. Education alignment to decreased pec/fwd head/LS and hip ext during shld rows, ext. Cued: R trunk SB (level shld) and CS L SB&rotation L to neutral alignment, slight fwd upper body over pelvis. Pt improved self corrections during shld ext so provided HO for recall at home. PT-OP-R Modalities Start: 12/04/22 16:15 Freq: Status: Active Protocol: Document 12/16/22 09:31 SAK (Rec: 12/16/22 10:15 SAK [id number]) Hot Pack/Cold Pack Treatment Hot Pack Location thoracolumbar paraspinals Patient Position Sidelying Treatment Duration (minutes) 15 Patient Tolerance Good Comments 2 straps hooked together, under table PT-OP-T Assessment and Plan Start: 12/04/22 16:15 Freq: Status: Active Protocol: Document 12/20/22 07:33 SP (Rec: 12/20/22 08:22 SP [id number]) Physical Therapy Assessment Goals 3 Impairment pain Impairment Decreased pelvic floor endurance Mcfp Goal (LTG) Decrease pain by at least 50% with all usual activities in the home and community LTG Duration 02/04/23 2 Impairment weakness Impairment core and LE weakness Short Term Goal (STG) Patient to be instructed in progressive individualized therapeutic exercise program to address strength impairments and improve his function STG Duration 01/04/23 Cylinder Press Operator Helper Goal (LTG) Patient to be independent and compliant with HEP and demonstrate improvement in strength to at least 4+/5 throughout to help him tolerate his usual activities in the home and community 1 Impairment activity tolerance Impairment Oswestry disability index score 54% Cylinder Press Operator Helper Goal (LTG) Decrease Oswestry disability index score to no greater than 25% LTG Duration 02/04/23 Assessment Summary Assessment Pt good response to manual. He demonstrated improved understanding postural alignment correction cues during added shld ext with decreased mid back and neck tension. Provided #1 peach TB and HO for carryover home. Brief discussed but not performed MWM theracane posterior neck and ball wall scap for self relief home massage carryover. Next tx: review self demonstration with HOs to utilize MWM. Physical Therapy Plan Frequency and Duration Frequency of Treatment 2x/Week Duration of treatment (weeks) 8 Plan of Care Start Date 12/05/22 Plan of Care End Date 02/04/23 Therapeutic Interventions Therapeutic Interventions Home Exercise Program,Manual Therapy,Neuromuscular Re- education,Patient/Caregiver Education,Self-Care/Home Management,Soft Tissue Mobilization,Taping, Therapeutic Activities, Therapeutic Exercises Modalities Cold Pack/Ice Massage,Hot Packs,Infrared Therapy, Ultrasound Next Visit Focus/Plan Next Note Type Treatment Note Next Visit Plan Ask response to manual, added shld ext. NExt add open book, chin tuck&scap retraction isometric to HEP w/ HO. POC: Core stabilization ex, flexibility through hips and LE's. Continue use of mirror for self-correction of posture
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
--- NOTE | 2022-12-27 08:15 | PT.OTN ---
Current Diagnoses Fusion of spine, site unspecified (12/27/22) Dorsalgia, unspecified (12/27/22) Arthrodesis status (12/27/22) Physical Therapy Treatment Note PT-OP-A Visit Information Start: 12/04/22 16:15 Freq: Status: Active Protocol: Document 12/27/22 07:30 SP (Rec: 12/27/22 08:17 SP [id number]) Out-Patient Physical Therapy Visit Information Visit Information Visit Type Treatment Note Visit Start Time 07:30 Visit Stop Time 08:15 Total Visit Minutes 45 Visit Number 6 Number of GEAR HOBBER Visits 1 Evaluation Information Evaluation Date 12/05/22 PT-OP-B Current Condition Start: 12/04/22 16:15 Freq: Status: Active Protocol: Document 12/25/22 08:01 SAK (Rec: 12/25/22 08:47 SAK [id number]) Current Condition History of Current Condition Onset Date 10/09/22 History of Current Condition [id number] fusion. Had transfusion due to blood loss, on table 2 hrs longer than expected. Has been doing isometric and pelvic floor exercises. Difficult to lay on back. Has been riding his bicycle per ok from physician, has been lifting his bike on and off rack, 30# bike and felt he did it in awkward position and feels more sore today. Not lifting from floor . Right ribcage soreness from spinal straitening during surgery. No ice or heat. Prior Treatments and Tests surgery as above. T4-T9 is self fused. Future Testing and Treatments Planned Telemed appt Jan 15 PT-OP-C Subjective Start: 12/04/22 16:15 Freq: Status: Active Protocol: Document 12/27/22 07:30 SP (Rec: 12/27/22 08:17 SP [id number]) OP-PT Subjective Patient Comments Patient Comments Pt reports that has been performing self massage with hands R lateral neck as needed for decreasing tension with good results, seems like helps his head more centered. He reports I feel like I am standing a little taller and now my seems shorter. Compliant with instructed HEP. He states has been able to increase his reps, can do the push up from wall 6 reps and lay on his back longer. Feeling the benefits of the resisted rows and extension with scapular retraction now, trying to be aware of not raising his shoulder blades. It feels so good to get out and walk again. He reports is doing and finds small range LTRs is ok without excessive range. PT-OP-G Mobility & Gait Start: 12/04/22 16:15 Freq: Status: Active Protocol: Document 12/05/22 08:49 [facility] (Rec: 12/05/22 14:53 [facility] [id number]) OP Mobility Evaluation Bed Mobility Rolling indep with logroll OP Gait Assessment Gait Gait Assistance Required: Independent Assistive Devices Assistive Device None Gait Deviations General Gait Pattern Decreased Stride Length, Decreased Feet Clearance PT-OP-H Neuro Start: 12/04/22 16:15 Freq: Status: Active Protocol: Document 12/05/22 08:49 [facility] (Rec: 12/05/22 14:53 [facility] [id number]) Sensation Evaluation Gross Sensation Gross Sensation WNL PT-OP-J Posture/Palpation/Skin Start: 12/04/22 16:15 Freq: Status: Active Protocol: Document 12/05/22 08:49 [facility] (Rec: 12/05/22 09:32 [facility] [id number]) Posture Evaluation Position Standing Head/C-Spine Posture Forward Head T-Spine Posture Increased Kyphosis Shoulder Posture (L) Rounded,(R) Rounded Scapula Posture (L) Protracted,(R) Protracted Arm Posture (L) Internally Rotated,(R) Internally Rotated Hip Posture (L) Internally Rotated,(R) Internally Rotated Palpation Assessment Location l/s paraspinals Palpation Findings Soft Tissue Tightness,Muscle Guarding Skin Assessment Incisional Assessment Incision Appearance/Comments healing well, no signs or symptoms of infection. Has neurostim device but doesn't have to use as often. PT-OP-K Range of Motion Start: 12/04/22 16:15 Freq: Status: Active Protocol: Document 12/05/22 08:49 [facility] (Rec: 12/05/22 09:32 [facility] [id number]) Lumbar Spine Range of Motion Lumbar Spine Active Comments WFL, not formally tested due to fusion Shoulder Goniometric Range of Motion Shoulder jose antonio Flexion 125 Abduction 120 Comments thoracic pain with elevation in sitting Hip Goniometric Range of Motion Hip jose antonio Hip ROM WFL No Hip ROM Limitations Comments mod tight hamstrings Knee Goniometric Range of Motion Knee jose antonio Knee ROM WFL Yes Ankle and Foot Goniometric Range of Motion Ankle and Foot lbil Dorsiflexion with Knee Flexed 5 Dorsiflexion with Knee Extended 0 PT-OP-M Strength Start: 12/04/22 16:15 Freq: Status: Active Protocol: Document 12/05/22 08:49 SAK (Rec: 12/05/22 14:53 SAK [id number]) Hip Strength Hip Manual Muscle Testing jose antonio Comments grossly 3+/5, no MMT due to recent spinal surgery Knee Strength Knee Manual Muscle Testing jose antonio Flexion (S2) 4 Good Extension (L3) 4 Good Ankle/Foot Strength Ankle and Foot Manual Muscle Testing jose antonio Dorsiflexion (L4) 4 Good PT-OP-Q Treatments Start: 12/04/22 16:15 Freq: Status: Active Protocol: Document 12/27/22 07:30 SP (Rec: 12/27/22 08:17 SP [id number]) Cardio Equipment Recumbent Stepper (Sci-Fit) Duration (Minutes) 6 Resistance 1>3.5 Seat Position 12 Other UE/LEs,42-45 RPM, 0.69 Therapeutic Exercises Supine Exercises bug Supine Exercise Name initiated Modified bug: UE then LE ext, challenged together Reps/Minutes 3 reps each side before needed get up. Comments feet on table/arms front then alternate ext- limited range w /maintain TA chest press Supine Exercise Name HEP reviewed Side bilateral Resistance 2lbs DBs Reps/Minutes 10x Comments cued allow scap retract return . Sitting Exercises STS Equipment Used mesh chair, arms across chest- cues slower descent last 1 Reps/Minutes x12 Comments initially BLE shaky, good chest lift lead strong posture alignment Standing Exercises paleoff press Standing Exercise Name HEP reviewed Side bilateral Resistance L1 TB Reps/Minutes x12 reps Comments cues for neutral postural alignment, ribcage over pelvis shld ext, rows Standing Exercise Name Reviewed HEP Side bilateral Resistance TB #1 peach (orange rows next? ) Reps/Minutes x10 reps Comments cued CS chin tuck/slight ext, no UT recruitment through range Hamstring curl Side bilateral Resistance 4# leg wt Equipment Used contact bottom step rail Reps/Minutes 10x Comments good postural alignment heel/toe raises Side bilateral Resistance 4# leg wt Equipment Used contact bottom step rail Reps/Minutes 10x, last 3 reps no rail support Comments good postural alignment PT-OP-R Modalities Start: 12/04/22 16:15 Freq: Status: Active Protocol: Document 12/25/22 08:01 SAK (Rec: 12/25/22 12:45 SAK [id number]) Hot Pack/Cold Pack Treatment Hot Pack Location thoracolumbar spine Patient Position Prone Treatment Duration (minutes) 15 Comments prone over pillows PT-OP-T Assessment and Plan Start: 12/04/22 16:15 Freq: Status: Active Protocol: Document 12/27/22 07:30 SP (Rec: 12/27/22 08:17 SP [id number]) Physical Therapy Assessment Goals 3 Impairment pain Impairment Decreased pelvic floor endurance [facility] Goal (LTG) Decrease pain by at least 50% with all usual activities in the home and community LTG Duration 02/04/23 2 Impairment weakness Impairment core and LE weakness Short Term Goal (STG) Patient to be instructed in progressive individualized therapeutic exercise program to address strength impairments and improve his function STG Duration 01/04/23 [facility] Goal (LTG) Patient to be independent and compliant with HEP and demonstrate improvement in strength to at least 4+/5 throughout to help him tolerate his usual activities in the home and community 1 Impairment activity tolerance Impairment Oswestry disability index score 54% Conservation Educator Goal (LTG) Decrease Oswestry disability index score to no greater than 25% LTG Duration 02/04/23 Assessment Summary Assessment Pt required decreased cues for scapular positioning of no UT recruitment during ther ex but continued postural corrections ribcage more forward over pelvis. Pt was able to increase time tolerance of resisted ther ex hooklying today. Initiated modified bug LE contact table up to 3 reps before back started to increase tension stresses and needed to sit up, cues for core/PPT and only range painfree UE or LE, challenged together. Pt improved elevated posturing during STS without UE support and improved eccentric control post cues for hip hinge little more with slower pacing descent. Pt demonstrated more upright elongated posture with decreased LS ext by end tx Physical Therapy Plan Frequency and Duration Frequency of Treatment 2x/Week Duration of treatment (weeks) 8 Plan of Care Start Date 12/05/22 Plan of Care End Date 02/04/23 Therapeutic Interventions Therapeutic Interventions Home Exercise Program,Manual Therapy,Neuromuscular Re- education,Patient/Caregiver Education,Self-Care/Home Management,Soft Tissue Mobilization,Taping, Therapeutic Activities, Therapeutic Exercises Modalities Cold Pack/Ice Massage,Hot Packs,Infrared Therapy, Ultrasound Next Visit Focus/Plan Next Note Type Treatment Note Next Visit Plan Continue assess LTR response and ROM allowance, if can increase resistance to rows, revisit modified bug in PT at this time. Trial bird dog. POC for core stabilization. Continue manual work.
--- NOTE | 2022-12-30 15:14 | PT.OTN ---
Current Diagnoses Fusion of spine, site unspecified (12/30/22) Dorsalgia, unspecified (12/30/22) Arthrodesis status (12/30/22) Physical Therapy Treatment Note PT-OP-A Visit Information Start: 12/04/22 16:15 Freq: Status: Active Protocol: Document 12/30/22 07:58 SAK (Rec: 12/30/22 08:49 [facility] [id number]) Out-Patient Physical Therapy Visit Information Visit Information Visit Type Treatment Note Visit Start Time 08:00 Visit Stop Time 09:00 Total Visit Minutes 600 Visit Number 7 Number of FILM FLAT INSPECTOR Visits 0 Evaluation Information Evaluation Date 12/05/22 PT-OP-B Current Condition Start: 12/04/22 16:15 Freq: Status: Active Protocol: Document 12/30/22 07:58 SAK (Rec: 12/30/22 08:49 [facility] [id number]) Current Condition History of Current Condition Onset Date 10/09/22 History of Current Condition [id number] fusion. Had transfusion due to blood loss, on table 2 hrs longer than expected. Has been doing isometric and pelvic floor exercises. Difficult to lay on back. Has been riding his bicycle per ok from physician, has been lifting his bike on and off rack, 30# bike and felt he did it in awkward position and feels more sore today. Not lifting from floor . Right ribcage soreness from spinal straitening during surgery. No ice or heat. Prior Treatments and Tests surgery as above. T4-T9 is self fused. Future Testing and Treatments Planned Telemed appt Jan 15 PT-OP-C Subjective Start: 12/04/22 16:15 Freq: Status: Active Protocol: Document 12/30/22 07:58 [facility] (Rec: 12/30/22 08:49 [facility] [id number]) OP-PT Subjective Patient Comments Patient Comments Walked 2 1/4 miles yesterday, some elevation. Doing exercises with weights, painful at top of incision. Hasn't been stretching his hamstrings as much since not riding his bike as much, was part of his routine. Asking about hamstring stretch with strap on back. PT-OP-G Mobility & Gait Start: 12/04/22 16:15 Freq: Status: Active Protocol: Document 12/05/22 08:49 SAK (Rec: 12/05/22 14:53 SAK [id number]) OP Mobility Evaluation Bed Mobility Rolling indep with logroll OP Gait Assessment Gait Gait Assistance Required: Independent Assistive Devices Assistive Device None Gait Deviations General Gait Pattern Decreased Stride Length, Decreased Feet Clearance PT-OP-H Neuro Start: 12/04/22 16:15 Freq: Status: Active Protocol: Document 12/05/22 08:49 [facility] (Rec: 12/05/22 14:53 [facility] [id number]) Sensation Evaluation Gross Sensation Gross Sensation WNL PT-OP-J Posture/Palpation/Skin Start: 12/04/22 16:15 Freq: Status: Active Protocol: Document 12/05/22 08:49 [facility] (Rec: 12/05/22 09:32 [facility] [id number]) Posture Evaluation Position Standing Head/C-Spine Posture Forward Head T-Spine Posture Increased Kyphosis Shoulder Posture (L) Rounded,(R) Rounded Scapula Posture (L) Protracted,(R) Protracted Arm Posture (L) Internally Rotated,(R) Internally Rotated Hip Posture (L) Internally Rotated,(R) Internally Rotated Palpation Assessment Location l/s paraspinals Palpation Findings Soft Tissue Tightness,Muscle Guarding Skin Assessment Incisional Assessment Incision Appearance/Comments healing well, no signs or symptoms of infection. Has neurostim device but doesn't have to use as often. PT-OP-K Range of Motion Start: 12/04/22 16:15 Freq: Status: Active Protocol: Document 12/05/22 08:49 [facility] (Rec: 12/05/22 09:32 [facility] [id number]) Lumbar Spine Range of Motion Lumbar Spine Active Comments WFL, not formally tested due to fusion Shoulder Goniometric Range of Motion Shoulder jose antonio Flexion 125 Abduction 120 Comments thoracic pain with elevation in sitting Hip Goniometric Range of Motion Hip jose antonio Hip ROM WFL No Hip ROM Limitations Comments mod tight hamstrings Knee Goniometric Range of Motion Knee jose antonio Knee ROM WFL Yes Ankle and Foot Goniometric Range of Motion Ankle and Foot lbil Dorsiflexion with Knee Flexed 5 Dorsiflexion with Knee Extended 0 PT-OP-M Strength Start: 12/04/22 16:15 Freq: Status: Active Protocol: Document 12/05/22 08:49 [facility] (Rec: 12/05/22 14:53 [facility] [id number]) Hip Strength Hip Manual Muscle Testing jose antonio Comments grossly 3+/5, no MMT due to recent spinal surgery Knee Strength Knee Manual Muscle Testing jose antonio Flexion (S2) 4 Good Extension (L3) 4 Good Ankle/Foot Strength Ankle and Foot Manual Muscle Testing jose antonio Dorsiflexion (L4) 4 Good PT-OP-Q Treatments Start: 12/04/22 16:15 Freq: Status: Active Protocol: Document 12/30/22 07:58 [facility] (Rec: 12/30/22 08:49 [facility] [id number]) Cardio Equipment Recumbent Stepper (Sci-Fit) Duration (Minutes) 8 Resistance 1>3.5 Seat Position 12 Other UE/LEs,42-45 RPM, 0.69 Gym Equipment Shuttle Recovery Bilateral Squats Resistance 50 Shuttle Recovery Platform Stable Reps/Time 10x2 Sport Cord green Exercise Details fwd, side Cord/Resistance green Reps/Duration 5x fwd, then end range fwd/bck wt shift Comments cues for neutral posture and gluteal activation Therapeutic Exercises Supine Exercises bug Supine Exercise Name UE then LE ext, challenged together Reps/Minutes 5 reps each side Comments feet on table/arms front then alternate ext- limited range w /maintain TA Standing Exercises paleoff press Standing Exercise Name HEP reviewed Side bilateral Resistance L1 TB Reps/Minutes x12 reps Comments cues for neutral postural alignment, ribcage over pelvis shld ext, rows Side bilateral Resistance TB #1 peach Equipment Used standing on blue foam Reps/Minutes x10 reps Comments cued CS chin tuck/slight ext, no UT recruitment through range heel/toe raises Side bilateral Resistance 4# leg wt Equipment Used contact bottom step rail Reps/Minutes 10x, last 3 reps no rail support Comments good postural alignment Manual Therapy Treatment Soft Tissue Mobilization thoracolumbar paraspinals Mobilization Type Instrument Assisted,Myofascial Release,Strumming Intensity/Depth Superficial Body Position Prone over pillows Comments cupping over ES, scars- noted light pink hyperemia over T6- 10. Reported less tension in mid back. PT-OP-R Modalities Start: 12/04/22 16:15 Freq: Status: Active Protocol: Document 12/30/22 07:58 [facility] (Rec: 12/30/22 15:12 [facility] [id number]) Hot Pack/Cold Pack Treatment Hot Pack Location thoracolumbar spine Patient Position Prone Treatment Duration (minutes) 15 Comments prone over pillows PT-OP-T Assessment and Plan Start: 12/04/22 16:15 Freq: Status: Active Protocol: Document 12/30/22 07:58 [facility] (Rec: 12/30/22 08:49 [facility] [id number]) Physical Therapy Assessment Goals 3 Impairment pain Impairment Decreased pelvic floor endurance Group Home Goal (LTG) Decrease pain by at least 50% with all usual activities in the home and community LTG Duration 02/04/23 2 Impairment weakness Impairment core and LE weakness Short Term Goal (STG) Patient to be instructed in progressive individualized therapeutic exercise program to address strength impairments and improve his function STG Duration 01/04/23 Group Home Goal (LTG) Patient to be independent and compliant with HEP and demonstrate improvement in strength to at least 4+/5 throughout to help him tolerate his usual activities in the home and community 1 Impairment activity tolerance Impairment Oswestry disability index score 54% [facility] Home Goal (LTG) Decrease Oswestry disability index score to no greater than 25% LTG Duration 02/04/23 Progress Towards Goals Progress Towards Goals Progressing Toward Goals Assessment Summary Assessment Good progress toward goals with increased activity tolerance, improved postural alignment and core stab, tolerating progression of ther ex. Physical Therapy Plan Frequency and Duration Frequency of Treatment 2x/Week Duration of treatment (weeks) 8 Plan of Care Start Date 12/05/22 Plan of Care End Date 02/04/23 Therapeutic Interventions Therapeutic Interventions Home Exercise Program,Manual Therapy,Neuromuscular Re- education,Patient/Caregiver Education,Self-Care/Home Management,Soft Tissue Mobilization,Taping, Therapeutic Activities, Therapeutic Exercises Modalities Cold Pack/Ice Massage,Hot Packs,Infrared Therapy, Ultrasound Next Visit Focus/Plan Next Note Type Treatment Note Next Visit Plan Continue assess LTR response and ROM allowance, if can increase resistance to rows, revisit modified bug in PT at this time. Trial bird dog. POC for core stabilization. Continue manual work.
--- NOTE | 2023-01-02 10:45 | PT.OTN ---
Current Diagnoses Fusion of spine, site unspecified (01/02/23) Dorsalgia, unspecified (01/02/23) Arthrodesis status (01/02/23) Physical Therapy Treatment Note PT-OP-A Visit Information Start: 12/04/22 16:15 Freq: Status: Active Protocol: Document 01/02/23 09:59 SP (Rec: 01/02/23 10:48 SP [id number]) Out-Patient Physical Therapy Visit Information Visit Information Visit Type Treatment Note Visit Start Time 10:00 Visit Stop Time 10:45 Total Visit Minutes 45 Visit Number 8 Number of PREMIUM CARD CANCELLATION CLERK Visits 1 Evaluation Information Evaluation Date 12/05/22 PT-OP-B Current Condition Start: 12/04/22 16:15 Freq: Status: Active Protocol: Document 12/30/22 07:58 SAK (Rec: 12/30/22 08:49 SAK [id number]) Current Condition History of Current Condition Onset Date 10/09/22 History of Current Condition [id number] fusion. Had transfusion due to blood loss, on table 2 hrs longer than expected. Has been doing isometric and pelvic floor exercises. Difficult to lay on back. Has been riding his bicycle per ok from physician, has been lifting his bike on and off rack, 30# bike and felt he did it in awkward position and feels more sore today. Not lifting from floor . Right ribcage soreness from spinal straitening during surgery. No ice or heat. Prior Treatments and Tests surgery as above. T4-T9 is self fused. Future Testing and Treatments Planned Telemed appt Jan 15 PT-OP-C Subjective Start: 12/04/22 16:15 Freq: Status: Active Protocol: Document 01/02/23 09:59 SP (Rec: 01/02/23 10:48 SP [id number]) OP-PT Subjective Patient Comments Patient Comments Pt reports was sore after last tx. He thinks the scar isn't as mature and mobile and 2 lb weight over head at home put little more stress on back. He wants to start with massage because always lessens tension on back for exercise. He states performing small gentle range LTR painfiree. He states heading out of town for winter on . PT-OP-G Mobility & Gait Start: 12/04/22 16:15 Freq: Status: Active Protocol: Document 12/05/22 08:49 [facility] (Rec: 12/05/22 14:53 [facility] [id number]) OP Mobility Evaluation Bed Mobility Rolling indep with logroll OP Gait Assessment Gait Gait Assistance Required: Independent Assistive Devices Assistive Device None Gait Deviations General Gait Pattern Decreased Stride Length, Decreased Feet Clearance PT-OP-H Neuro Start: 12/04/22 16:15 Freq: Status: Active Protocol: Document 12/05/22 08:49 [facility] (Rec: 12/05/22 14:53 [facility] [id number]) Sensation Evaluation Gross Sensation Gross Sensation WNL PT-OP-J Posture/Palpation/Skin Start: 12/04/22 16:15 Freq: Status: Active Protocol: Document 12/05/22 08:49 [facility] (Rec: 12/05/22 09:32 [facility] [id number]) Posture Evaluation Position Standing Head/C-Spine Posture Forward Head T-Spine Posture Increased Kyphosis Shoulder Posture (L) Rounded,(R) Rounded Scapula Posture (L) Protracted,(R) Protracted Arm Posture (L) Internally Rotated,(R) Internally Rotated Hip Posture (L) Internally Rotated,(R) Internally Rotated Palpation Assessment Location l/s paraspinals Palpation Findings Soft Tissue Tightness,Muscle Guarding Skin Assessment Incisional Assessment Incision Appearance/Comments healing well, no signs or symptoms of infection. Has neurostim device but doesn't have to use as often. PT-OP-K Range of Motion Start: 12/04/22 16:15 Freq: Status: Active Protocol: Document 12/05/22 08:49 [facility] (Rec: 12/05/22 09:32 [facility] [id number]) Lumbar Spine Range of Motion Lumbar Spine Active Comments WFL, not formally tested due to fusion Shoulder Goniometric Range of Motion Shoulder jose antonio Flexion 125 Abduction 120 Comments thoracic pain with elevation in sitting Hip Goniometric Range of Motion Hip jose antonio Hip ROM WFL No Hip ROM Limitations Comments mod tight hamstrings Knee Goniometric Range of Motion Knee jose antonio Knee ROM WFL Yes Ankle and Foot Goniometric Range of Motion Ankle and Foot lbil Dorsiflexion with Knee Flexed 5 Dorsiflexion with Knee Extended 0 PT-OP-M Strength Start: 12/04/22 16:15 Freq: Status: Active Protocol: Document 12/05/22 08:49 [facility] (Rec: 12/05/22 14:53 SAK [id number]) Hip Strength Hip Manual Muscle Testing jose antonio Comments grossly 3+/5, no MMT due to recent spinal surgery Knee Strength Knee Manual Muscle Testing jose antonio Flexion (S2) 4 Good Extension (L3) 4 Good Ankle/Foot Strength Ankle and Foot Manual Muscle Testing jose antonio Dorsiflexion (L4) 4 Good PT-OP-Q Treatments Start: 12/04/22 16:15 Freq: Status: Active Protocol: Document 01/02/23 09:59 SP (Rec: 01/02/23 10:48 SP [id number]) Gym Equipment Shuttle Recovery Bilateral Squats Resistance 50# (2 new bands) Shuttle Recovery Platform Stable Reps/Time 15 x2 Therapeutic Exercises Supine Exercises bug Supine Exercise Name UE then LE ext, challenged together Side bilateral Resistance AROM Reps/Minutes 5 reps each side Comments feet on table/arms front then alternate ext- limited range w /maintain TA LTR Supine Exercise Name gentle, small movement- HEP reviewed Reps/Minutes 8x Comments good lateral hips and mid ribcage light muscular stretch /painfree Standing Exercises HS stretch Standing Exercise Name self HEP review Side bilateral Equipment Used 2nd step, rail support Reps/Minutes 30 x2 Comments good feedback stretch, good back alignment and gentle stretch step ups Standing Exercise Name initiated in PT Resistance 4# leg wt Equipment Used 4 step + blue foam Reps/Minutes 5 reps step, x10 reps + blue foam paleoff press Standing Exercise Name HEP reviewed Side bilateral Resistance Tb #1>3# green (doubled) Equipment Used standing on foam Comments cues for neutral postural alignment, ribcage over pelvis shld ext, rows Side bilateral Resistance TB #1>2>3 green TB Equipment Used standing on blue foam Reps/Minutes 2x10 reps Comments good form Hamstring curl Side bilateral Resistance 4# leg wt Equipment Used near TM rail, contact Reps/Minutes 5 reps no UE support, x10 light rail contact Comments no UE support challenge stab/ align, good postural alignment w/ UE light HR calf stretch Side bilateral Equipment Used bottom step, rail support Reps/Minutes 2x30 Comments good feedback stretch heel/toe raises Side bilateral Resistance 4# leg wt Equipment Used near TM rail (not needed) Reps/Minutes 10x2 alternate with HS curls Comments good postural alignment Manual Therapy Treatment Soft Tissue Mobilization thoracolumbar paraspinals Mobilization Type Instrument Assisted,Myofascial Release,Strumming Intensity/Depth Superficial Body Position Prone over pillows Comments cupping over ES, scars- noted light pink hyperemia over T6-8 . Reported less tension in mid back. PT-OP-R Modalities Start: 12/04/22 16:15 Freq: Status: Active Protocol: Document 12/30/22 07:58 SAK (Rec: 12/30/22 15:12 SAK [id number]) Hot Pack/Cold Pack Treatment Hot Pack Location thoracolumbar spine Patient Position Prone Treatment Duration (minutes) 15 Comments prone over pillows PT-OP-T Assessment and Plan Start: 12/04/22 16:15 Freq: Status: Active Protocol: Document 01/02/23 09:59 SP (Rec: 01/02/23 10:48 SP [id number]) Physical Therapy Assessment Goals 3 Impairment pain Impairment Decreased pelvic floor endurance Half-Way Goal (LTG) Decrease pain by at least 50% with all usual activities in the home and community LTG Duration 02/04/23 2 Impairment weakness Impairment core and LE weakness Short Term Goal (STG) Patient to be instructed in progressive individualized therapeutic exercise program to address strength impairments and improve his function STG Duration 01/04/23 Route Deliverer Goal (LTG) Patient to be independent and compliant with HEP and demonstrate improvement in strength to at least 4+/5 throughout to help him tolerate his usual activities in the home and community 1 Impairment activity tolerance Impairment Oswestry disability index score 54% Half-Way Goal (LTG) Decrease Oswestry disability index score to no greater than 25% LTG Duration 02/04/23 Assessment Summary Assessment Pt good feedback response to myofascial cupping over thoracic region and scaring, noted more hyperemia and mobility T6-8 after with scapular mobility during ther ex. He was able to tolerate increase resistance during ther ex today, provided Green TB for home. He improved stability with postural corrections during initiated uneven step ups today, this can help me with stepping on elevated uneven surfaces is challenging. Good feedback response to gentle ROM during LTR for lateral hip stretch and light lateral ribcage without discomfort in LS, performing as HEP. Physical Therapy Plan Frequency and Duration Frequency of Treatment 2x/Week Duration of treatment (weeks) 8 Plan of Care Start Date 12/05/22 Plan of Care End Date 02/04/23 Therapeutic Interventions Therapeutic Interventions Home Exercise Program,Manual Therapy,Neuromuscular Re- education,Patient/Caregiver Education,Self-Care/Home Management,Soft Tissue Mobilization,Taping, Therapeutic Activities, Therapeutic Exercises Modalities Cold Pack/Ice Massage,Hot Packs,Infrared Therapy, Ultrasound Next Visit Focus/Plan Next Note Type Treatment Note Next Visit Plan Continue revisit modified bug in PT at this time. Trial bird dog next tx. POC: for core stabilization. Continue manual work.
--- NOTE | 2023-01-06 08:20 | PT.OTN ---
Current Diagnoses Fusion of spine, site unspecified (01/06/23) Dorsalgia, unspecified (01/06/23) Arthrodesis status (01/06/23) Physical Therapy Treatment Note PT-OP-A Visit Information Start: 12/04/22 16:15 Freq: Status: Active Protocol: Document 01/06/23 07:32 SP (Rec: 01/06/23 09:23 SP [id number]) Out-Patient Physical Therapy Visit Information Visit Information Visit Type Treatment Note Visit Start Time 07:32 Visit Stop Time 08:20 Total Visit Minutes 48 Visit Number 9 Number of LIFE SKILLS SPECIALIST Visits 2 Evaluation Information Evaluation Date 12/05/22 PT-OP-B Current Condition Start: 12/04/22 16:15 Freq: Status: Active Protocol: Document 12/30/22 07:58 SAK (Rec: 12/30/22 08:49 SAK [id number]) Current Condition History of Current Condition Onset Date 10/09/22 History of Current Condition [id number] fusion. Had transfusion due to blood loss, on table 2 hrs longer than expected. Has been doing isometric and pelvic floor exercises. Difficult to lay on back. Has been riding his bicycle per ok from physician, has been lifting his bike on and off rack, 30# bike and felt he did it in awkward position and feels more sore today. Not lifting from floor . Right ribcage soreness from spinal straitening during surgery. No ice or heat. Prior Treatments and Tests surgery as above. T4-T9 is self fused. Future Testing and Treatments Planned Telemed appt Jan 15 PT-OP-C Subjective Start: 12/04/22 16:15 Freq: Status: Active Protocol: Document 01/06/23 07:32 SP (Rec: 01/06/23 09:23 SP [id number]) OP-PT Subjective Patient Comments Patient Comments Pt reports had some L lateral knee swelling over the weekend gets at times, realizes he tends to wt shift WB more into RLE and L side trunk lean over the years and probably contributing to L knee pain. He wasn't sure if any wts performed last tx could have contributed to the swelling. He stated is aware of his history spinal alignment tendencies and trying to be aware to self correct to L, asked is there anything can do to improve this more automatic with out having to think about it as much? Pt stated the paloff press doubled Green TB caused irritation over L clavicle and UT over the weekend so stopped for now, thought might decrease resistance and see if still ok to do with less resistance and allow continue strengthening. He reports supine 2# DB supine chest press still causes stress over middle back so decreased to using light wt bolster pillow pressing and noted less mid back tension. He stated may not use wts so body can work on remodeling soft tissue for better mobility until gets better. I have 1 more appt after today and [place] so next appt will be his last. PT-OP-G Mobility & Gait Start: 12/04/22 16:15 Freq: Status: Active Protocol: Document 12/05/22 08:49 [facility] (Rec: 12/05/22 14:53 [facility] [id number]) OP Mobility Evaluation Bed Mobility Rolling indep with logroll OP Gait Assessment Gait Gait Assistance Required: Independent Assistive Devices Assistive Device None Gait Deviations General Gait Pattern Decreased Stride Length, Decreased Feet Clearance PT-OP-H Neuro Start: 12/04/22 16:15 Freq: Status: Active Protocol: Document 12/05/22 08:49 [facility] (Rec: 12/05/22 14:53 [facility] [id number]) Sensation Evaluation Gross Sensation Gross Sensation WNL PT-OP-J Posture/Palpation/Skin Start: 12/04/22 16:15 Freq: Status: Active Protocol: Document 12/05/22 08:49 [facility] (Rec: 12/05/22 09:32 [facility] [id number]) Posture Evaluation Position Standing Head/C-Spine Posture Forward Head T-Spine Posture Increased Kyphosis Shoulder Posture (L) Rounded,(R) Rounded Scapula Posture (L) Protracted,(R) Protracted Arm Posture (L) Internally Rotated,(R) Internally Rotated Hip Posture (L) Internally Rotated,(R) Internally Rotated Palpation Assessment Location l/s paraspinals Palpation Findings Soft Tissue Tightness,Muscle Guarding Skin Assessment Incisional Assessment Incision Appearance/Comments healing well, no signs or symptoms of infection. Has neurostim device but doesn't have to use as often. PT-OP-K Range of Motion Start: 12/04/22 16:15 Freq: Status: Active Protocol: Document 12/05/22 08:49 [facility] (Rec: 12/05/22 09:32 [facility] [id number]) Lumbar Spine Range of Motion Lumbar Spine Active Comments WFL, not formally tested due to fusion Shoulder Goniometric Range of Motion Shoulder jose antonio Flexion 125 Abduction 120 Comments thoracic pain with elevation in sitting Hip Goniometric Range of Motion Hip jose antonio Hip ROM WFL No Hip ROM Limitations Comments mod tight hamstrings Knee Goniometric Range of Motion Knee jose antonio Knee ROM WFL Yes Ankle and Foot Goniometric Range of Motion Ankle and Foot lbil Dorsiflexion with Knee Flexed 5 Dorsiflexion with Knee Extended 0 PT-OP-M Strength Start: 12/04/22 16:15 Freq: Status: Active Protocol: Document 12/05/22 08:49 SAK (Rec: 12/05/22 14:53 SAK [id number]) Hip Strength Hip Manual Muscle Testing jose antonio Comments grossly 3+/5, no MMT due to recent spinal surgery Knee Strength Knee Manual Muscle Testing jose antonio Flexion (S2) 4 Good Extension (L3) 4 Good Ankle/Foot Strength Ankle and Foot Manual Muscle Testing jose antonio Dorsiflexion (L4) 4 Good PT-OP-Q Treatments Start: 12/04/22 16:15 Freq: Status: Active Protocol: Document 01/06/23 07:32 SP (Rec: 01/06/23 09:23 SP [id number]) Cardio Equipment Recumbent Stepper (Sci-Fit) Duration (Minutes) 6 Resistance 2 Seat Position 12- 0.58 miles Other BUEs/BLEs, 35RPM this am to decrease risk R knee irritation further Therapeutic Exercises Supine Exercises shld HABD w/ hip add isometric Supine Exercise Name Self HEP review Side bilateral Resistance AROM, #1 peach TB Reps/Minutes 5 SH pec stretch, x5 reps w/ peach TB to progress to Comments cued better PPT & TA with active pec stretch w/ Rhomboid bug Supine Exercise Name DC bug, challenge and UT/ shld recruitment Comments 01/06/23 chin tuck Supine Exercise Name review- incorporated with chest press/HABD UEs Equipment Used towel roll under neck (no pillow) Comments improved alignment, towel feedback neutral neck chest press Supine Exercise Name HEP reviewed self addition: w/ resisted clam RTB Side bilateral Resistance AROM dowel Reps/Minutes 10x Comments cued allow scap retract return . Sitting Exercises UT, scalene stretch Sitting Exercise Name initiated end tx (no HOs given ) Resistance R>L Reps/Minutes 20 SH Comments Good feedback lateral & front neck stretch Standing Exercises paleoff press Standing Exercise Name HEP reviewed Side bilateral Resistance TB #2 orange Equipment Used floor Reps/Minutes x10 Comments cues for neutral postural alignment, ribcage over pelvis , wt shift over LLE shld ext, rows Standing Exercise Name Ext only (DC rows, L shld irritation/UT recruitment) Side bilateral Resistance TB #3 green TB Equipment Used floor Reps/Minutes 2x10 reps Comments cued wt shift into LLE little more (light R heel) Self-Care/Home Management Treatment Education Other Education *Extra time spent education on trunk/postural alignment awareness will be continuous: elongated posture, neutral CS needed, wt shift into L centering equal WB, level shld to allow neuro re-ed body self awareness corrections for comfort and relief. *Discussed has good response to manual therapy and can utilize massage/manual therapist find good customization for his needs, could acquire cups and show how can gentle gliding for him while traveling. PT-OP-R Modalities Start: 12/04/22 16:15 Freq: Status: Active Protocol: Document 12/30/22 07:58 SAK (Rec: 12/30/22 15:12 SAK [id number]) Hot Pack/Cold Pack Treatment Hot Pack Location thoracolumbar spine Patient Position Prone Treatment Duration (minutes) 15 Comments prone over pillows PT-OP-T Assessment and Plan Start: 12/04/22 16:15 Freq: Status: Active Protocol: Document 01/06/23 07:32 SP (Rec: 01/06/23 09:23 SP [id number]) Physical Therapy Assessment Goals 3 Impairment pain Impairment Decreased pelvic floor endurance Custodial Goal (LTG) Decrease pain by at least 50% with all usual activities in the home and community LTG Duration 02/04/23 2 Impairment weakness Impairment core and LE weakness Short Term Goal (STG) Patient to be instructed in progressive individualized therapeutic exercise program to address strength impairments and improve his function 01/06/23: HEP review: supine chest press w/ resisted isometric hip abd, HABD AROM ( progress later TB #1 TB) w/ isometric hip add, resisted shld ext (#3TB), paloff press (#2TB). Didn't get to LE strengthening HEP, continue next tx. STG Duration 01/04/23 updated 01/06/23 Certified Cytotechnologist Goal (LTG) Patient to be independent and compliant with HEP and demonstrate improvement in strength to at least 4+/5 throughout to help him tolerate his usual activities in the home and community 1 Impairment activity tolerance Impairment Oswestry disability index score 54% Certified Cytotechnologist Goal (LTG) Decrease Oswestry disability index score to no greater than 25% LTG Duration 02/04/23 Assessment Summary Assessment Extra time spent education with posture, cues for centering neutral alignment and form corrections for no UT and anterior L shld irritation during standing and supine ther ex. Improved response painfree irritation. He requested review his self coupling isometric hip abd w/ chest press and isometric hip add with BUE HABD, good TA and no UT recruitment response. Pt reports plans on finding a manual therapist for self MFR mobility to couple with HEP when away for progression self care. Pt reports less shld/ neck tension end tx post demo neck stretching R>L post ex. Next tx give HO. Physical Therapy Plan Frequency and Duration Frequency of Treatment 2x/Week Duration of treatment (weeks) 8 Plan of Care Start Date 12/05/22 Plan of Care End Date 02/04/23 Therapeutic Interventions Therapeutic Interventions Home Exercise Program,Manual Therapy,Neuromuscular Re- education,Patient/Caregiver Education,Self-Care/Home Management,Soft Tissue Mobilization,Taping, Therapeutic Activities, Therapeutic Exercises Modalities Cold Pack/Ice Massage,Hot Packs,Infrared Therapy, Ultrasound Next Visit Focus/Plan Next Note Type Discharge Summary Next Visit Plan Next tx, [place] (moving [place] winter) Finalize HEP review. Decide if trial bird dog next tx. POC: for core stabilization. Continue manual work.
--- NOTE | 2023-01-09 09:02 | PT.OTN ---
Current Diagnoses Fusion of spine, site unspecified (01/09/23) Dorsalgia, unspecified (01/09/23) Arthrodesis status (01/09/23) Physical Therapy Treatment Note PT-OP-A Visit Information Start: 12/04/22 16:15 Freq: Status: Active Protocol: Document 01/09/23 07:58 SAK (Rec: 01/09/23 09:01 [facility] [id number]) Out-Patient Physical Therapy Visit Information Visit Information Visit Type Discharge Summary Visit Start Time 07:58 Visit Stop Time 08:57 Total Visit Minutes 59 Visit Number 10 Number of [employer] EM[employer]MENT [employer] Visits 0 Evaluation Information Evaluation Date 12/05/22 PT-OP-B Current Condition Start: 12/04/22 16:15 Freq: Status: Active Protocol: Document 01/09/23 07:58 SAK (Rec: 01/09/23 09:01 [facility] [id number]) Current Condition History of Current Condition Onset Date 10/09/22 History of Current Condition [id number] fusion. Had transfusion due to blood loss, on table 2 hrs longer than expected. Has been doing isometric and pelvic floor exercises. Difficult to lay on back. Has been riding his bicycle per ok from physician, has been lifting his bike on and off rack, 30# bike and felt he did it in awkward position and feels more sore today. Not lifting from floor . Right ribcage soreness from spinal straitening during surgery. No ice or heat. Prior Treatments and Tests surgery as above. T4-T9 is self fused. Future Testing and Treatments Planned Telemed appt Jan 15 PT-OP-C Subjective Start: 12/04/22 16:15 Freq: Status: Active Protocol: Document 01/09/23 07:58 SAK (Rec: 01/09/23 09:01 [facility] [id number]) OP-PT Subjective Patient Comments Patient Comments [place], has gotten help with loading vehicle. Reports compliance to HEP, has made adjustments to strength of theraband for improved tolerance. After review posture, body mechanics, HEP today reports no further questions, he feels comfortable with what we have done in PT. PT-OP-G Mobility & Gait Start: 12/04/22 16:15 Freq: Status: Active Protocol: Document 12/05/22 08:49 SAK (Rec: 12/05/22 14:53 SAK [id number]) OP Mobility Evaluation Bed Mobility Rolling indep with logroll OP Gait Assessment Gait Gait Assistance Required: Independent Assistive Devices Assistive Device None Gait Deviations General Gait Pattern Decreased Stride Length, Decreased Feet Clearance PT-OP-H Neuro Start: 12/04/22 16:15 Freq: Status: Active Protocol: Document 12/05/22 08:49 [facility] (Rec: 12/05/22 14:53 [facility] [id number]) Sensation Evaluation Gross Sensation Gross Sensation WNL PT-OP-J Posture/Palpation/Skin Start: 12/04/22 16:15 Freq: Status: Active Protocol: Document 12/05/22 08:49 [facility] (Rec: 12/05/22 09:32 [facility] [id number]) Posture Evaluation Position Standing Head/C-Spine Posture Forward Head T-Spine Posture Increased Kyphosis Shoulder Posture (L) Rounded,(R) Rounded Scapula Posture (L) Protracted,(R) Protracted Arm Posture (L) Internally Rotated,(R) Internally Rotated Hip Posture (L) Internally Rotated,(R) Internally Rotated Palpation Assessment Location l/s paraspinals Palpation Findings Soft Tissue Tightness,Muscle Guarding Skin Assessment Incisional Assessment Incision Appearance/Comments healing well, no signs or symptoms of infection. Has neurostim device but doesn't have to use as often. PT-OP-K Range of Motion Start: 12/04/22 16:15 Freq: Status: Active Protocol: Document 12/05/22 08:49 [facility] (Rec: 12/05/22 09:32 [facility] [id number]) Lumbar Spine Range of Motion Lumbar Spine Active Comments WFL, not formally tested due to fusion Shoulder Goniometric Range of Motion Shoulder jose antonio Flexion 125 Abduction 120 Comments thoracic pain with elevation in sitting Hip Goniometric Range of Motion Hip jose antonio Hip ROM WFL No Hip ROM Limitations Comments mod tight hamstrings Knee Goniometric Range of Motion Knee jose antonio Knee ROM WFL Yes Ankle and Foot Goniometric Range of Motion Ankle and Foot lbil Dorsiflexion with Knee Flexed 5 Dorsiflexion with Knee Extended 0 PT-OP-M Strength Start: 12/04/22 16:15 Freq: Status: Active Protocol: Document 12/05/22 08:49 [facility] (Rec: 12/05/22 14:53 [facility] [id number]) Hip Strength Hip Manual Muscle Testing jose antonio Comments grossly 3+/5, no MMT due to recent spinal surgery Knee Strength Knee Manual Muscle Testing jose antonio Flexion (S2) 4 Good Extension (L3) 4 Good Ankle/Foot Strength Ankle and Foot Manual Muscle Testing jose antonio Dorsiflexion (L4) 4 Good PT-OP-Q Treatments Start: 12/04/22 16:15 Freq: Status: Active Protocol: Document 01/09/23 07:58 [facility] (Rec: 01/09/23 09:01 [facility] [id number]) Therapeutic Exercises Sitting Exercises UT, scalene stretch Sitting Exercise Name HO given Resistance R>L Reps/Minutes 20 SH Comments Good feedback lateral & front neck stretch Other Exercises bird dog Other Exercise Name HO issued Reps/Minutes 3x Comments cues for neutral spine, small lift, no pain Manual Therapy Treatment Soft Tissue Mobilization thoracolumbar paraspinals Mobilization Type Instrument Assisted,Myofascial Release,Strumming Intensity/Depth Superficial Body Position Prone over pillows Comments cupping over ES, scars- noted light pink hyperemia over T6-8 . Reported less tension in mid back. Self-Care/Home Management Treatment Education Other Education Further ed in postural alignment, weight shifting, use of mirror, lifting. ADded bird dog exercise. PT-OP-R Modalities Start: 12/04/22 16:15 Freq: Status: Active Protocol: Document 01/09/23 07:58 [facility] (Rec: 01/09/23 09:02 [facility] [id number]) Hot Pack/Cold Pack Treatment Hot Pack Location thoracolumbar spine Patient Position Prone Treatment Duration (minutes) 15 Comments prone over pillows PT-OP-T Assessment and Plan Start: 12/04/22 16:15 Freq: Status: Active Protocol: Document 01/09/23 07:58 [facility] (Rec: 01/09/23 09:01 [facility] [id number]) Physical Therapy Assessment Goals 3 Impairment pain Impairment Decreased pelvic floor endurance Detention Goal (LTG) Decrease pain by at least 50% with all usual activities in the home and community LTG Duration 02/04/23 2 Impairment weakness Impairment core and LE weakness Short Term Goal (STG) Patient to be instructed in progressive individualized therapeutic exercise program to address strength impairments and improve his function 01/06/23: HEP review: supine chest press w/ resisted isometric hip abd, HABD AROM ( progress later TB #1 TB) w/ isometric hip add, resisted shld ext (#3TB), paloff press (#2TB). Didn't get to LE strengthening HEP, continue next tx. STG Duration goal met Carbide Operator Goal (LTG) Patient to be independent and compliant with HEP and demonstrate improvement in strength to at least 4+/5 throughout to help him tolerate his usual activities in the home and community 01/09/23: goal met 1 Impairment activity tolerance Impairment Oswestry disability index score 54% Detention Goal (LTG) Decrease Oswestry disability index score to no greater than 25% 01/09/23: DOM decreased to 24% , goal met LTG Duration 02/04/23 Assessment Summary Assessment Patient doing well with HEP, maryjane good understanding of bird dog with ability to hold neutral posture with small lift, urged gentle progression . Goals mostly achieved. [place] so will be discharged from PT. Physical Therapy Plan Discharge Physical Therapy Discharge Reasons Goals Met
== END 2023-01-13 12:01 | disposition home or self-care (01) ==
LOC: PHYS 08:00
PROVIDERS: Family Provider Family Medicine; PCP Family Medicine; Referring Provider Physician Assistant Surgical; Visit Provider Physician Assistant Surgical
DX: M43.20 Fusion of spine, site unspecified (principal); Z98.1 Arthrodesis status; M54.9 Dorsalgia, unspecified
CPT/HCPCS: 97110; 97140; 97162; 97535

== ENCOUNTER → 2023-03-18 10:56 | Outpatient (CLI) | payer MEDICARE, OTHER, SELFPAY ==
[2022-02-05 20:39] VITALS: BMI 28.1
[2022-02-06 13:26] VITALS: PULSE 104; RESP 22; O2SAT 95
--- NOTE | 2023-03-18 10:59 | DI.RAD.S_ITS ---
PROCEDURE: XR THORACIC SPINE 2V INDICATIONS: ARTHRODESIS STATUS TECHNIQUE: 2 views of the thoracic spine were acquired. COMPARISON: [facility], CR, XR THORACIC SPINE 2V, 01/06/2023, 8:43. [facility], CR, XR THORACIC SPINE 2V, 11/14/2022, 9:18. FINDINGS: Bones: Cervical spine fusion. Lower at thoracolumbar spine fusion. No fractures or dislocations. No suspicious bony lesions. 12 pairs of ribs are noted, and appear intact where visualized. Soft tissues: No paravertebral stripe thickening. Thecal leads projecting in the mid thorax. IMPRESSION: No acute bony abnormality. Thoracolumbar spine fusion appears stable. Dictated by: Ignacio Alcantara M.D. on 03/18/2023 at 12:42 Approved by: Ignacio Alcantara M.D. on 03/18/2023 at 12:43
--- NOTE | 2023-03-18 10:59 | DI.RAD.S_ITS ---
PROCEDURE: XR LUMBAR SPINE 2-3V INDICATIONS: ARTHRODESIS STATUS TECHNIQUE: 3 views of the lumbar spine were acquired. COMPARISON: [facility], CR, XR LUMBAR SPINE 2-3V, 01/06/2023, 8:43. [facility], CR, XR LUMBAR SPINE 2-3V, 11/12/2022, 9:28. FINDINGS: Bones: Thoracolumbosacral fusion is stable in appearance. No hardware fracture. 5 aep-aoe-npdrrtz vertebrae are present. Alignment is unchanged. No vertebral body compression fractures. No suspicious bony lesions. Soft tissues: Overlying bowel gas pattern is normal. No suspicious soft tissue calcifications. Spine stimulator device. IMPRESSION: No compression fracture. Spine fusion is stable in appearance. Dictated by: Ignacio Alcantara M.D. on 03/18/2023 at 12:39 Approved by: Ignacio Alcantara M.D. on 03/18/2023 at 12:41
== END ==
PROVIDERS: Family Provider Family Medicine; PCP Family Medicine; Referring Provider Student in an Organized Health Care Education/Training Program; Visit Provider Student in an Organized Health Care Education/Training Program
DX: M43.20 Fusion of spine, site unspecified (principal); Z98.1 Arthrodesis status
CPT/HCPCS: 72070; 72100

== ENCOUNTER → 2023-07-21 06:59 | Outpatient (CLI) | payer MEDICARE, OTHER, SELFPAY ==
[2022-02-05 20:39] VITALS: BMI 28.1
[2022-02-06 13:26] VITALS: PULSE 104; RESP 22; O2SAT 95
[2023-07-21 08:52] LABS: Prostate Specific Antigen 18.9 ng/mL (0.10-4.00)
== END ==
PROVIDERS: Family Provider Family Medicine; PCP Family Medicine; Referring Provider Urology; Visit Provider Urology
DX: C61 Malignant neoplasm of prostate (principal)
CPT/HCPCS: 36415; 84153

== ENCOUNTER → 2023-08-26 06:58 | Outpatient (CLI) | payer MEDICARE, OTHER, SELFPAY ==
[2023-08-15 15:54] VITALS: PULSE 104; RESP 22; O2SAT 95; BMI 28.1
[2023-08-26 08:06] LABS: Add Manual Diff / Slide Review NO; Basophils Absolute Auto 100 /uL (0-100); Basophils Percent Auto 0.8 % (0-2); Eosinophils Absolute Auto 200 /uL (0-450); Eosinophils Percent Auto 2.8 % (2-4); Hematocrit 34.1 % (41-53); Lymphocytes Absolute Auto 1700 /uL (1100-4500); Lymphocytes Percent Auto 20.4 % (25-40); Mean Corpuscular HGB Conc 32.3 % (30-36); Mean Corpuscular Volume 74.2 fL (80-100); Monocytes Absolute Auto 500 /uL (0-900); Monocytes Percent Auto 6.2 % (3-14); Neutrophils Absolute Auto 5800 /uL (1500-7000); Neutrophils Percent Auto 69.8 % (50-75); Platelet Count 275 X10^3/uL (150-400); Red Cell Distribution Width 16.2 % (11.6-14.8); White Blood Cell Count 8.3 X10^3/uL (4.5-11.0)
[2023-08-26 08:25] LABS: Hemoglobin A1C% w Est Avg Glu 5.6 % (4.0-6.0)
[2023-08-26 08:42] LABS: Alanine Aminotransferase 8 IU/L (<50); Albumin 4.4 g/dL (3.5-5.0); Albumin Globulin Ratio 1.9 (1.0-2.8); Alkaline Phosphatase 68 U/L (38-126); Aspartate Aminotransferase 15 IU/L (17-59); BUN Creatinine Ratio 20.8 (6-22); Bilirubin Total 0.6 mg/dL (0.2-1.3); Blood Urea Nitrogen 26 mg/dL (9-20); Calcium 9.7 mg/dL (8.4-10.2); Carbon Dioxide 21 mmol/L (22-32); Chloride 106 mmol/L (98-107); Cholesterol 214 mg/dL (140-199); Estimated Glomerular Filt Rate > 60 mL/min (>60); Globulin 2.3 g/dL (1.7-4.1); Glucose 102 mg/dL (80-110); HDL Cholesterol 44 mg/dL (40-60); HEMOLYSIS < 15 (0-50); LDL Cholesterol Calculated 142 mg/dL (<100); Potassium 5.1 mmol/L (3.4-5.1); Sodium 134 mmol/L (137-145); Total Protein 6.7 g/dL (6.3-8.2); Triglycerides 141 mg/dL (35-150)
[2023-08-26 08:59] LABS: TSH w/ Reflex to FT4 0.49 uIU/mL (0.47-4.68)
== END ==
PROVIDERS: Family Provider Family Medicine; PCP Family Medicine; Referring Provider Urology; Visit Provider Urology
DX: E78.2 Mixed hyperlipidemia (principal); R73.03 Prediabetes; R33.9 Retention of urine, unspecified
CPT/HCPCS: 36415; 80053; 80061; 83036; 84443; 85025; 87077; 87086

== ENCOUNTER → 2023-08-27 16:36 | Outpatient (CLI) | payer MEDICARE, OTHER, SELFPAY ==
[2023-08-15 15:54] VITALS: PULSE 104; RESP 22; O2SAT 95; BMI 28.1
--- NOTE | 2023-08-27 16:38 | DI.US.S_ITS ---
PROCEDURE: US RENAL COMPLETE INDICATIONS: URINARY RETENTION TECHNIQUE: Real-time scanning was performed of the kidneys and bladder, with image documentation. COMPARISON: , , US RENAL COMPLETE, 08/31/2020, 9:19. FINDINGS: Kidneys: Kidneys are normal in size. Right kidney measures 9.3 cm long; left kidney measures 9.3 cm long. Right renal cortical thickness is 1.5 cm; left renal cortical thickness is 1.5 cm. Renal cortical echotexture is normal. No hydronephrosis or nephrolithiasis. No suspicious solid mass lesions. Bladder: Pre-void bladder volume is 363 mL. Post-void residual is 0 mL. Pre-void images demonstrate no intraluminal masses or stones. On pre-void images, neither ureteral jets are noted with color Doppler interrogation. (Of note, ureteral jets may not be detectable in up to 25% of cases due to insufficient differences in specific gravity between ureteral and bladder urine). Miscellaneous: No free pelvic fluid. IMPRESSION: No measurable postvoid residual. Dictated by: Ayla Crooks M.D. on 08/28/2023 at 20:08 Approved by: Ayla Crooks M.D. on 08/28/2023 at 20:09
== END ==
PROVIDERS: Family Provider Family Medicine; PCP Family Medicine; Referring Provider Urology; Visit Provider Urology
DX: R33.9 Retention of urine, unspecified (principal)
CPT/HCPCS: 76770

== ENCOUNTER → 2023-09-25 08:49 | Outpatient (CLI) | payer MEDICARE, OTHER, SELFPAY ==
[2023-08-15 15:54] VITALS: PULSE 104; RESP 22; O2SAT 95; BMI 28.1
== END ==
LOC: LAB 08:51
PROVIDERS: Family Provider Family Medicine; PCP Family Medicine; Referring Provider Urology; Visit Provider Urology
DX: R33.9 Retention of urine, unspecified (principal)
CPT/HCPCS: 87077; 87086; 87186

== ENCOUNTER → 2023-10-14 14:46 | Outpatient (CLI) | payer MEDICARE, OTHER, SELFPAY ==
[2023-08-15 15:54] VITALS: PULSE 104; RESP 22; O2SAT 95; BMI 28.1
== END ==
PROVIDERS: Family Provider Family Medicine; PCP Family Medicine; Visit Provider Student in an Organized Health Care Education/Training Program
DX: R50.9 Fever, unspecified (principal)
CPT/HCPCS: 87086

== ENCOUNTER → 2023-11-01 12:31 | Outpatient (CLI) | payer MEDICARE, OTHER, SELFPAY ==
[2023-08-15 15:54] VITALS: PULSE 104; RESP 22; O2SAT 95; BMI 28.1
--- NOTE | 2023-11-01 12:32 | DI.CT.S_ITS ---
PROCEDURE: CT IVP A/P W/WO INDICATIONS: BLADDER CANCER,INVASIVE TECHNIQUE: Optional 5 mm thick noncontrast images acquired from the diaphragm to the symphysis pubis. After the administration of intravenous contrast, 5 mm thick images acquired from the diaphragm to the symphysis pubis after a 10-minute delay. 2 mm thick coronal and sagittal reformats were then performed of the kidneys and ureters. For radiation dose reduction, the following was used: automated exposure control, adjustment of mA and/or kV according to patient size. COMPARISON: None. FINDINGS: Image quality: Suboptimal due to motion artifact. Kidneys and Ureters: Both kidneys are normal in size, without hydronephrosis. 3-4 mm nonobstructing stone in the inferior calyx of the right kidney. Possible punctate nonobstructing left-sided nephrolithiasis. No perinephric fat stranding. There is normal bilateral renal enhancement. Renal calyces appear normal in morphology when filled with contrast. Opacified portions of both ureters demonstrate normal caliber. Duplex left renal collecting system Bladder: Bladder wall thickness is normal. No calcified bladder stones. OTHER: Lower chest: Large hiatal hernia. Liver: No solid mass. Gallbladder: No radiopaque gallstones or wall thickening. Biliary ducts: No biliary dilation. Pancreas: Coarse calcifications throughout the parenchyma. Mild atrophy. No definite ductal dilation, although contrast timing is suboptimal. Spleen: Size is within normal limits. Adrenal Glands: No adrenal nodules. Stomach and Bowel: Normal colonic caliber, without significant wall thickening. Colonic diverticulosis without evidence of diverticulitis. Fecal debris within the small bowel, usually indicating small intestinal bacterial overgrowth. Peritoneum: No abnormal intraperitoneal fluid. No free air. Ventral Wall: No hernia. Abdominal Nodes: No retroperitoneal or mesenteric adenopathy by size criteria. Vessels: Aorta and inferior vena cava are normal in size. PELVIS: Pelvic Organs: Unremarkable. Pelvic Nodes: No enlarged lymph nodes. Miscellaneous: Small left inguinal hernia containing fat. Bones: No aggressive osseous abnormality. Surgical fusion of the thoracolumbar spine. Spinal stimulator present. IMPRESSION: No filling defects within the opacified renal collecting system or ureters. No pelvic adenopathy. Dictated by: Edy Torres M.D. on 11/02/2023 at 12:00 Approved by: Edy Torres M.D. on 11/02/2023 at 12:05
[2023-11-01 13:09] LABS: Estimated Glomerular Filt Rate 54 mL/min (>60)
== END ==
PROVIDERS: Radiology Diagnostic Radiology; Family Provider Family Medicine; PCP Family Medicine
DX: C67.9 Malignant neoplasm of bladder, unspecified (principal); K57.90 Diverticulosis of intestine, part unspecified, without perforation or abscess without bleeding; K44.9 Diaphragmatic hernia without obstruction or gangrene; N20.0 Calculus of kidney; K40.90 Unilateral inguinal hernia, without obstruction or gangrene, not specified as recurrent; Z97.0 Presence of artificial eye; Z96.82 Presence of neurostimulator
CPT/HCPCS: 36415; 74178; 82565; Q9967

== ENCOUNTER → 2023-12-29 10:32 | Outpatient (CLI) | payer MEDICARE, OTHER, SELFPAY ==
[2023-08-15 15:54] VITALS: PULSE 104; RESP 22; O2SAT 95; BMI 28.1
[2023-12-29 13:08] LABS: Prostate Specific Antigen 17.8 ng/mL (0.10-4.00)
== END ==
PROVIDERS: Family Provider Family Medicine; PCP Family Medicine; Referring Provider Urology; Visit Provider Urology
DX: C61 Malignant neoplasm of prostate (principal)
CPT/HCPCS: 36415; 84153

== ENCOUNTER → 2024-09-03 07:20 | Outpatient (CLI) | payer MEDICARE, OTHER, SELFPAY ==
[2023-08-15 15:54] VITALS: PULSE 104; RESP 22; O2SAT 95; BMI 28.1
[2024-09-03 07:43] LABS: Add Manual Diff / Slide Review NO; Basophils Absolute Auto 100 /uL (0-100); Basophils Percent Auto 0.8 % (0-2); Eosinophils Absolute Auto 200 /uL (0-450); Eosinophils Percent Auto 2.9 % (2-4); Hematocrit 39.6 % (41-53); Hemoglobin 13.4 g/dL (13.5-17.5); Lymphocytes Absolute Auto 2400 /uL (1100-4500); Lymphocytes Percent Auto 27.9 % (25-40); Mean Corpuscular HGB Conc 33.7 % (30-36); Mean Corpuscular Hemoglobin 28.8 PG (26-34); Mean Corpuscular Volume 85.3 fL (80-100); Monocytes Absolute Auto 600 /uL (0-900); Monocytes Percent Auto 6.6 % (3-14); Neutrophils Absolute Auto 5200 /uL (1500-7000); Neutrophils Percent Auto 61.8 % (50-75); Platelet Count 208 X10^3/uL (150-400); Red Blood Cell Count 4.64 X10^6/uL (4.5-5.9); White Blood Cell Count 8.5 X10^3/uL (4.5-11.0)
[2024-09-03 08:03] LABS: Alanine Aminotransferase 14 IU/L (<50); Albumin 4.5 g/dL (3.5-5.0); Alkaline Phosphatase 59 U/L (38-126); Aspartate Aminotransferase 18 IU/L (17-59); BUN Creatinine Ratio 26.3 (6-22); Bilirubin Total 0.6 mg/dL (0.2-1.3); Blood Urea Nitrogen 30 mg/dL (9-20); Calcium 9.7 mg/dL (8.4-10.2); Carbon Dioxide 20 mmol/L (22-32); Chloride 107 mmol/L (98-107); Cholesterol 232 mg/dL (140-199); Estimated Glomerular Filt Rate > 60 mL/min (>60); Globulin 2.3 g/dL (1.7-4.1); Glucose 90 mg/dL (70-99); HDL Cholesterol 41 mg/dL (40-60); HEMOLYSIS < 15 (0-50); LDL Cholesterol Calculated 153 mg/dL (<100); Sodium 137 mmol/L (137-145); Total Protein 6.8 g/dL (6.3-8.2); Triglycerides 190 mg/dL (35-150)
== END ==
PROVIDERS: Family Provider Family Medicine; PCP Family Medicine; Referring Provider Family Medicine; Visit Provider Family Medicine
DX: E78.00 Pure hypercholesterolemia, unspecified (principal); R73.03 Prediabetes; I95.1 Orthostatic hypotension; E78.2 Mixed hyperlipidemia; D50.9 Iron deficiency anemia, unspecified
CPT/HCPCS: 36415; 80053; 80061; 85025

== ENCOUNTER → 2024-09-10 08:41 | Outpatient (CLI) | payer MEDICARE, OTHER, SELFPAY ==
[2023-08-15 15:54] VITALS: PULSE 104; RESP 22; O2SAT 95; BMI 28.1
--- NOTE | 2024-09-10 08:46 | DI.RAD.S_ITS ---
PROCEDURE: XR T AND L SPINE 2 TO 3 VIEWS INDICATIONS: SPINAL FUSION TECHNIQUE: 2 views acquired of the thoracolumbar spine. COMPARISON: [facility], CR, XR THORACIC SPINE 2V, 03/18/2023, 11:36. FINDINGS: Extensive postoperative changes with pedicle screws and posterior fixation rods, spinal fusion from approximately T9-S1 unchanged. Multilevel degenerative changes with disc space narrowing, osteophytes, facet osseous hypertrophic changes again noted unchanged. Spinal stimulator leads with posterior left battery pack again noted unchanged. Moderate vascular calcifications of the aorta and iliac vessels unchanged. No radiographic evidence of fracture or subluxation. IMPRESSION: Postoperative changes with spinal fusion approximately T9-S1 unchanged. Degenerative changes unchanged. If symptoms persist or worsen, or there is high clinical suspicion of thoracolumbar abnormality, MRI could be performed. Dictated by: Woo Shah M.D. on 09/11/2024 at 15:52 Approved by: Woo Shah M.D. on 09/11/2024 at 16:01
== END ==
PROVIDERS: Family Provider Family Medicine; PCP Family Medicine; Referring Provider Student in an Organized Health Care Education/Training Program; Visit Provider Student in an Organized Health Care Education/Training Program
DX: M47.815 Spondylosis without myelopathy or radiculopathy, thoracolumbar region (principal); Z98.1 Arthrodesis status
CPT/HCPCS: 72082

== ENCOUNTER → 2024-10-14 08:00 | Outpatient (CLI) | payer MEDICARE, OTHER, SELFPAY ==
[2023-08-15 15:54] VITALS: PULSE 104; RESP 22; O2SAT 95; BMI 28.1
--- NOTE | 2024-10-14 08:01 | DI.US.S_ITS ---
PROCEDURE: US SCROTUM INDICATIONS: testicular pain TECHNIQUE: Real-time scanning was performed of the scrotum and testicles, with image documentation. Color and pulse Doppler interrogation was performed of both testicles. COMPARISON: None. FINDINGS: Right: Testicle is normal in size, and homogenous in echotexture. Nonspecific scattered microcalcifications are present. 1.8 cm epididymal cyst. Dancing paulino sperm, which can be from vasectomy changes. No hydrocele or varicoceles. Overlying scrotal skin is normal in thickness. Left: Testicle is normal in size, and homogeneous in echotexture. Epididymis is normal in overall size and morphology. Dancing paulino sperm, which can be from vasectomy changes. No hydrocele or varicoceles. Overlying scrotal skin is normal in thickness. Doppler: Color and pulse Doppler demonstrate normal and symmetric arterial flow in both testicles. Right inguinal region pain noted with a small fat containing hernia suspected. IMPRESSION: Suspect right inguinal small fat containing hernia, probably corresponding to the region of pain. No acute torsion. Dictated by: Nj Infante M.D. on 10/14/2024 at 9:18 Approved by: Nj Infante M.D. on 10/14/2024 at 9:22
== END ==
PROVIDERS: Family Provider Family Medicine; PCP Family Medicine; Referring Provider Family Medicine; Visit Provider Family Medicine
DX: N50.811 Right testicular pain (principal); R10.31 Right lower quadrant pain; N50.3 Cyst of epididymis
CPT/HCPCS: 76870; 93975

== ENCOUNTER 2024-12-08 08:27 | Day surgery (SDC) | payer MEDICARE, OTHER, SELFPAY ==
[2023-08-15 15:54] VITALS: PULSE 104; RESP 22; O2SAT 95; BMI 28.1
[2024-12-02 14:38] VITALS: BMI 26.6
[2024-12-08] VITALS (10 sets, daily range): BP systolic 134–171; BP diastolic 62–85; PULSE 61–91; RESP 12–23; TEMP 36.5–36.7; O2SAT 95–100; BMI 26.6
[2024-12-08] MEDS: LACTATED RINGERS 1,000 ML 42 ML IV (09:00)
[2024-12-08] MEDS: ACETAMINOPHEN 325 MG TABLET 975 MG PO (09:00)
--- NOTE | 2024-12-08 09:55 | PM.HP.IH.1 ---
History of Present Illness History of Present Illness Date Patient Seen: 12/08/24 Time Patient Seen: 09:55 Chief complaint: Robotic recurrent R inguinal hernia repair w/mesh Narrative: Fabian is a 74 year old man with a recurrent right inguinal hernia. He has had an open right inguinal hernia many years ago. See office note for more details. [facility] Medical History (Updated 12/02/24 @ 15:02 by Kamla Ngo RN) Sepsis (01/2022) Thoracic back pain Elevated BUN Right groin pain Right testicular pain Hyperlipidemia Anxiety Insomnia disorder, with non-sleep disorder mental comorbidity, persistent Microcytic anemia Orthostatic hypotension Pre-diabetes Bladder cancer Chaparro's esophagus Diverticulosis Arthritis Chronic bilateral thoracic back pain Umbilical hernia without obstruction or gangrene Insomnia Self-catheterizes urinary bladder Macular degeneration of right eye (01/2022) Presence of neurostimulator (01/25/22) Urinary retention Recurrent malignant neoplasm of bladder Right nephrolithiasis History of primary bladder cancer Urinary retention Prostate cancer History of kidney stones History of arthritis Elevated blood pressure reading without diagnosis of hypertension Hyperlipidemia, mixed Elevated PSA, between 10 and less than 20 ng/ml GERD (gastroesophageal reflux disease) Vitamin D deficiency Wears glasses Asthma (~2016) Depression (~1997) Degenerative joint disease (DJD) of lumbar spine (~2012) Fractures (~2000) Cervical spine disease (~1997) Hearing loss (~2011) Bladder cancer (~2009) Surgical History (Updated 12/02/24 @ 15:02 by Kamla Ngo RN) History of lumbar fusion Hx of hernia repair (08/06/22) History of surgical procedure on thoracic spine Hx of right inguinal hernia repair (1971) Hx of appendectomy (1963) History of urologic surgery (10/05/21) Hx of colonoscopy (10/12/20) Hx of vasectomy Hx of prostate biopsy History of knee replacement (09/2019) Anesthesia History of surgery (~2014) History of fusion of lumbar spine (~2012) History of bladder surgery (~2009) History of fusion of cervical spine (~1997) Family History (Updated 12/03/23 @ 15:53 by Terrance Abdalla DO) Father Cancer Mother Renal failure Hyperlipidemia Cardiac arrhythmia Brother Cancer Hypertension Brother Cancer Grandfather History of heart disease Grandmother History of heart disease Grandfather Black lung disease Grandmother Stroke Mother Renal failure Daughter Urinary tract infection Son Kidney stones Social History marital status: number of children: 2 household members: spouse lives independently: Yes occupational status: previously employed Smoking Status: Former smoker Tobacco: How many years used: 10 alcohol intake: former substance use type: does not use caffeine: Yes Type(s) of exercise: independent ambulation, bicycling and regular exercise frequency: daily duration: > 90 minutes/day Meds Home Medications and Allergies Home Medications ?Medication ?Instructions ?Recorded ?Confirmed ?Type ascorbic acid (vitamin C) 500 mg 500 mg PO DAILY ##0 02/19/10 12/08/24 History tablet (Vitamin C) glucosamine sulfate 500 mg tablet 1 tab PO DAILY ##0 02/19/10 12/08/24 History acetaminophen 500 mg capsule 1,300 mg PO TID 01/04/20 12/08/24 History trazodone 50 mg tablet 100 mg (2 x 50 mg) PO BEDTIME PRN 03/02/24 12/08/24 Rx insomnia #180 tabs albuterol sulfate 90 mcg/actuation 2 puff inhalation Q4-6H PRN 04/06/24 12/08/24 Rx aerosol inhaler shortness of breath or wheezing #8.5 grams rosuvastatin 20 mg tablet 20 mg PO DAILY #90 tabs 10/06/24 12/08/24 Rx vit C 250 mg-vit E 90 mg-zinc 40 1 tab PO BID 10/06/24 12/08/24 History mg-copper 1 [id number] capsule (PreserVision AREDS-2) Allergies Allergy/AdvReac Type Severity Reaction Status Date / Time amoxicillin (From Augmentin) AdvReac Intermediate nausea and Verified 12/08/24 08:40 vomiting clavulanic acid (From AdvReac Intermediate nausea and Verified 12/08/24 08:40 Augmentin) vomiting Exam Vital Signs (past 8 hours): - 12/08/24 08:47 Temperature 97.7 F Pulse Rate 61 Respiratory Rate 16 Blood Pressure 160/85 H Pulse Oximetry 100 Oxygen Delivery Method Room Air Oxygen Delivery Method Room Air Const General: No acute distress Resp Effort & Inspection: normal respiratory effort Assessment & Plan Assessment and plan (1) Recurrent right inguinal hernia: Status: Acute Plan Robotic right inguinal hernia repair with mesh Time-Based Coding :: [TOTAL MINUTES] spent with patient and on the chart (including review of chart, obtaining history, exam, reviewing outside data, placing orders, documenting exam and treatment plan, and counseling patient) on [DATE]. PROFEE Leather Toggler Document charge(s): No
--- NOTE | 2024-12-08 10:37 | SUR.OPER ---
Supine on pink padded OR bed, head on prone pillow, arms and IV sites padded and tucked at sides, legs uncrossed, safety belt at thigh, tape over blanket over lower legs .
--- NOTE | 2024-12-08 12:19 | P.OP_ITS ---
Operative Date/Time/Diagnoses Date of procedure: 12/08/24 Time of procedure: 12:19 Pre-op diagnosis: Recurrent right inguinal hernia Post-op diagnosis: same Procedure & Clinicians Procedure: Robotic recurrent right inguinal hernia repair with mesh Same procedure(s) as scheduled: Yes Surgeon: Aidan Toney Click Yes if Unassisted: Yes Anesthesia Type: General Operative Notes Findings: Indirect right inguinal hernia, adhesions from a McBurney incision Applied: none Estimated Blood Loss (mL): 5 Procedure in detail: The patient was given preoperative antibiotics. The patient was brought to the operating room, placed on the table in the supine position with the arms tucked and general anesthesia was induced. The abdomen was prepped and draped in the usual fashion. A time-out was performed. A 1 cm transverse incision was created superior to the umbilicus and dissection was carried down to the fascia. The fascia was grasped with a Rosa Maria clamp to elevate the abdominal wall. The fascia was scored transversely with cautery. A Peon clamp was used to duke the peritoneum. The 12 mm robotic port was placed and the abdomen was insuffl ated to 15 mmHg. The camera was inserted, there was no evidence of any injury from the entry. Next 8 mm ports were placed under direct vision in the mid left and mid right abdomen. The patient was positioned in Trendelenburg. The robot was docked. There were adhesions of omentum to the anterior abdominal wall in the right lower quadrant. These were taken down sharply with monopolar scissors. The omentum also appeared to be incarcerated in the indirect hernia defect. The tissue was dissected out of the internal ring. Next we created right peritoneal flap. The peritoneum was dissected off the right cord structures and the Sukhdev's ligament was exposed. An extra-large right Bard mesh was brought in and placed over the defect with the medial edge overlapping the pubic symphysis. The mesh was secured to Sukhdev's ligament with a single 3- 0 Vicryl stitch. We then closed the peritoneal flap with a running 3-0 barbed suture. The peritoneum was very thin especially where the McBurney scar overlapped the flap and there were several tears in the peritoneum here. We then brought in an additional 3-0 V lock to completely close up the flap. We took one last look around the abdomen and saw no other abnormalities. The suture was removed and accounted for. The robot was undocked. The 8 mm ports were removed under direct vision. The abdomen was desufflated. The 12 mm port was removed. Additional local was injected into the fascia and the fascial incision was closed with 2 interrupted 0 Vicryl sutures. The skin incisions were closed with 4 Monocryl, Steri-Strips and Band-Aids. Complications: none Post-operative Condition: stable Disposition: PACU
[2024-12-08] MEDS: hydrOXYzine 50 MG/ML INJ IM (12:32)
[2024-12-08] MEDS: METOCLOPRAMIDE 10 MG/2 ML INJ IV (12:36)
== END 2024-12-08 14:09 | disposition home or self-care (01) ==
PROVIDERS: Family Provider Family Medicine; PCP Family Medicine; Referring Provider Family Medicine; Visit Provider Surgery
PROC: 0YQ54ZZ Repair Right Inguinal Region, Percutaneous Endoscopic Approach (ICD-10-PCS; CPT 49651; principal; 2024-12-08 10:15)
DX: K40.91 Unilateral inguinal hernia, without obstruction or gangrene, recurrent (principal); K66.0 Peritoneal adhesions (postprocedural) (postinfection)
CPT/HCPCS: 49651; S2900; C1781; J0690; J1100; J1171; J1885; J2405; J2704; J2765; J3010; J3410; J3490

== ENCOUNTER 2024-12-27 08:55 | Emergency (ER) | payer MEDICARE, OTHER, SELFPAY ==
[2023-08-15 15:54] VITALS: PULSE 104; RESP 22; O2SAT 95; BMI 28.1
[2024-12-27] VITALS (10 sets, daily range): BP systolic 129–152; BP diastolic 65–85; PULSE 53–68; RESP 13–23; TEMP 37.1; O2SAT 97–100; BMI 25.0
[2024-12-27 09:23] LABS: Add Manual Diff / Slide Review NO; Hematocrit 37.4 % (41-53); Hemoglobin 12.7 g/dL (13.5-17.5); Lymphocytes Absolute Auto 1500 /uL (1100-4500); Mean Corpuscular HGB Conc 34.1 % (30-36); Mean Corpuscular Hemoglobin 28.4 PG (26-34); Mean Corpuscular Volume 83.2 fL (80-100); Platelet Count 225 X10^3/uL (150-400)
--- NOTE | 2024-12-27 09:24 | EKG_ITS ---
[address] [address] [address], [place] [address] Test Date: 2024-12-27 Pat Name: Fabian Woodward Department: Room: Gender: Male Hhas: MARK : 1950 Requested By: Order Number: [id number] Reading MD: Johnnie Brown Measurements Intervals [place] Rate: 56 P: 21 DC: 158 QRS: 2 QRSD: 98 T: 4 QT: 406 QTc: 391 Interpretive Statements Sinus bradycardia Electronically Signed On 12-29-2024 8:06:05 PDT by Johnnie Brown
[2024-12-27 09:40] LABS: Alanine Aminotransferase 16 IU/L (<50); Albumin 4.6 g/dL (3.5-5.0); Albumin Globulin Ratio 1.6 (1.0-2.8); Alkaline Phosphatase 70 U/L (38-126); Blood Urea Nitrogen 23 mg/dL (9-20); Calcium 9.3 mg/dL (8.4-10.2); Carbon Dioxide 20 mmol/L (22-32); Chloride 103 mmol/L (98-107); Estimated Glomerular Filt Rate > 60 mL/min (>60); Globulin 2.9 g/dL (1.7-4.1); Glucose 86 mg/dL (70-99); HEMOLYSIS < 15 (0-50); Lipase 88 U/L (23-300); Potassium 5.1 mmol/L (3.4-5.1); Sodium 134 mmol/L (137-145); Total Protein 7.5 g/dL (6.3-8.2)
[2024-12-27 09:57] LABS: Appearance Urine UA CLEAR; Bilirubin Urine UA NEGATIVE (NEGATIVE); Color Urine UA YELLOW; Glucose Urine UA NEGATIVE (Negative); Ketones Urine UA NEGATIVE (NEGATIVE); Leukocyte Esterase Urine UA NEGATIVE (NEGATIVE); Nitrite Urine UA NEGATIVE (Negative); Occult Blood Urine UA NEGATIVE (Negative); Protein Urine UA NEGATIVE (Negative); Specific Gravity Urine UA 1.010 (1.000-1.035); Urobilinogen Urine UA 0.2 E.U./dL (0.2); pH Urine UA 5.5 (4.5-8.0)
[2024-12-27 09:59] LABS: Culture Indicated Urine Cult Not Indicated
--- NOTE | 2024-12-27 10:25 | DI.CT.S_ITS ---
PROCEDURE: CT ABDOMEN PELVIS W CON INDICATIONS: llq abd pain TECHNIQUE: After the administration of intravenous contrast, axial sections acquired from the lung bases to the pubic symphysis. Coronal and sagittal reformats were performed. For radiation dose reduction, the following was used: automated exposure control, adjustment of mA and/or kV according to patient size. COMPARISON: Formerly [facility], CT, CT IVP A/P W/WO, 11/01/2023, 12:41. [facility], CT, ABDOMEN/PELVIS WITH CONTRAST, 12/27/2013, 16:54. FINDINGS: Image quality: Diagnostic. Lower Chest: No significant findings. ABDOMEN: Liver: No solid mass. Mild steatosis. Gallbladder: No radiopaque gallstones or wall thickening. Biliary ducts: No biliary dilation. Pancreas: No ductal dilation. Calcifications are present likely related to sequela prior inflammation. Spleen: Size is within normal limits. Adrenal Glands: No adrenal nodules. Kidneys and Ureters: No hydronephrosis. 4 mm inferior pole calcification previously measuring 2-3 mm. Additional punctate calcifications are present. Unchanged nonobstructing left renal calcifications. 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 Stomach and Bowel: Normal colonic caliber, without significant wall thickening. Prominent hiatal hernia. Diverticula without inflammatory change. Peritoneum: No abnormal intraperitoneal fluid. No free air. Ventral Wall: No significant ventral hernia. Abdominal Nodes: No retroperitoneal or mesenteric adenopathy by size criteria. Vessels: Aorta and inferior vena cava are normal in size. PELVIS: Pelvic Organs: Unremarkable. Bladder: No bladder wall thickening, accounting for underdistention. Pelvic Nodes: No enlarged lymph nodes. Miscellaneous: Fat containing left inguinal hernia. Bones: No aggressive osseous abnormality. Spinal stimulator. Thoracolumbar fusion extending to the sacrum, unchanged. IMPRESSION: Nonobstructing bilateral renal calculi. Diverticulosis. Prominent hiatal hernia. Dictated by: Ayla Crooks M.D. on 12/27/2024 at 10:58 Approved by: Ayla Crooks M.D. on 12/27/2024 at 11:01
--- NOTE | 2024-12-27 11:56 | ED_ITS ---
HPI - Abdominal Pain General Chief Complaint: Abdominal Pain Stated Complaint: Sent over from [facility] lower left stomach pain Time Seen by Provider: 12/27/24 09:06 Source: patient Mode of arrival: Ambulatory History of Present Illness HPI narrative: 74-year-old male with a history of recent right inguinal hernia repair complaining of left lower quadrant abdominal pain. He was seen in follow up by his surgeon on the 21 of December, I reviewed that note by Dr. Toney. This was follow up for a right inguinal hernia repair with mesh. Patient states he has had left lower quadrant abdominal pain for 4 days. He has not had nausea or vomiting notes his bowels have ?sluggish? but is having bowel movements. He is not having urinary symptoms he is not having fevers he has not had similar pain in the past. States he has not had diverticulitis in the past. Surgical history includes inguinal hernia with the above. Related Data Home Medications ?Medication ?Instructions ?Recorded ?Confirmed ascorbic acid (vitamin C) 500 mg 500 mg PO DAILY ##0 1 04/21/09 12/27/24 tablet (Vitamin C) glucosamine sulfate 500 mg tablet 1 tab PO DAILY ##0 1 04/21/09 12/27/24 acetaminophen 500 mg capsule 1,300 mg PO TID 01/04/20 12/27/24 vit C 250 mg-vit E 90 mg-zinc 40 1 tab PO BID 10/06/24 12/27/24 mg-copper 1 [id number] capsule (PreserVision AREDS-2) Previous Rx's ?Medication ?Instructions ?Recorded trazodone 50 mg tablet 100 mg (2 x 50 mg) PO BEDTIM E PRN 03/02/24 insomnia #180 tabs albuterol sulfate 90 mcg/actuation 2 puff inhalation Q 4-6H PRN 04/06/24 aerosol inhaler shortness of breath or wheez ing #8.5 grams rosuvastatin 20 mg tablet 20 mg PO DAILY #90 tabs 12/23 Allergies Allergy/AdvReac Type Severity Reaction Status Date / Time amoxicillin (From Augmentin) AdvReac Intermediate nausea and Verified 12/27/24 09:06 vomiting clavulanic acid (From AdvReac Intermediate nausea and Verified 12/27/24 09:06 Augmentin) vomiting Patient History Medical History (Updated 12/27/24 @ 12:18 by Kaiden Rosado MD) Sepsis (01/2022) Thoracic back pain Elevated BUN Right groin pain Right testicular pain Hyperlipidemia Anxiety Insomnia disorder, with non-sleep disorder mental comorbidity, persistent Microcytic anemia Orthostatic hypotension Pre-diabetes Bladder cancer Chaparro's esophagus Diverticulosis Arthritis Chronic bilateral thoracic back pain Umbilical hernia without obstruction or gangrene Insomnia Self-catheterizes urinary bladder Macular degeneration of right eye (01/2022) Presence of neurostimulator (01/25/22) Urinary retention Recurrent malignant neoplasm of bladder Right nephrolithiasis History of primary bladder cancer Urinary retention Prostate cancer History of kidney stones History of arthritis Elevated blood pressure reading without diagnosis of hypertension Hyperlipidemia, mixed Elevated PSA, between 10 and less than 20 ng/ml GERD (gastroesophageal reflux disease) Vitamin D deficiency Wears glasses Asthma (~2016) Depression (~1997) Degenerative joint disease (DJD) of lumbar spine (~2012) Fractures (~2000) Cervical spine disease (~1997) Hearing loss (~2011) Bladder cancer (~2009) Surgical History (Updated 12/02/24 @ 15:02 by Kamla Ngo RN) History of lumbar fusion Hx of hernia repair (08/06/22) History of surgical procedure on thoracic spine Hx of right inguinal hernia repair (1971) Hx of appendectomy (1963) History of urologic surgery (10/05/21) Hx of colonoscopy (10/12/20) Hx of vasectomy Hx of prostate biopsy History of knee replacement (09/2019) Anesthesia History of surgery (~2014) History of fusion of lumbar spine (~2012) History of bladder surgery (~2009) History of fusion of cervical spine (~1997) Family History (Updated 12/03/23 @ 15:53 by Terrance Abdalla DO) Father Cancer Mother Renal failure Hyperlipidemia Cardiac arrhythmia Brother Cancer Hypertension Brother Cancer Grandfather History of heart disease Grandmother History of heart disease Grandfather Black lung disease Grandmother Stroke Mother Renal failure Daughter Urinary tract infection Son Kidney stones Social History marital status: number of children: 2 household members: spouse lives independently: Yes occupational status: previously employed Tobacco: How many years used: 10 alcohol intake: former substance use type: does not use caffeine: Yes Type(s) of exercise: independent ambulation, bicycling and regular exercise frequency: daily duration: > 90 minutes/day Smoking Status: Former smoker alcohol intake frequency: a few times a month Exam Initial Vital Signs Initial Vital Signs: Vital Signs Temperature 98.7 F 12/27/24 09:06 Pulse Rate 68 12/27/24 09:06 Respiratory Rate 18 12/27/24 09:06 Blood Pressure 149/77 H 12/27/24 09:06 Pulse Oximetry 99 12/27/24 09:06 Oxygen Delivery Method Room Air 12/27/24 09:06 vital signs are reviewed Const General: cooperative and No acute distress HENMT Head: normocephalic and atraumatic Face and sinus: face symmetric Mouth: moist mucous membranes Eyes Pupils: PERRL EOM: EOM intact bilaterally Neck Neck: normal visual inspection, supple and No JVD Chest Chest: normal inspection of the chest Resp Effort & Inspection: normal respiratory effort and able to speak in complete sentences Auscultation: clear to auscultation bilaterally Cardio Rate: regular rate Rhythm: regular rhythm Heart Sounds: no murmurs Other: Normal heart rate GI Palpation: soft Auscultation: normal bowel sounds Other: Has tenderness in the left lower quadrant without guarding or rebound Other: Normal uncircumcised male genitalia, left testicle is not tender, no palpable hernia Back/Spine/Pelvis Back: normal to inspection Skin General: no rashes or lesions noted and warm Neuro General: patient alert, patient oriented x3 and moves all extremities Speech: speech normal Extrem General: full ROM Psych Appearance: grossly normal Course Orders Ordered: ED Orders 12/27/24 09:10 Complete Blood Count AUTO DIFF Stat Comprehensive Metabolic Panel Stat Lipase Stat 12/27/24 09:24 EKG-12 Lead Routine 12/27/24 09:43 UA Complete [Urinalysis and Microscopic] Stat 12/27/24 10:25 CT abdomen pelvis w con Stat Vital Signs Vital signs: Vital Signs - 8 hr 12/27/24 09:06 12/27/24 09:26 12/27/24 09:27 Temperature 98.7 F Pulse Rate 68 Respiratory Rate 18 Blood Pressure 149/77 H 129/69 Pulse Oximetry 99 98 Oxygen Delivery Method Room Air 12/27/24 09:27 12/27/24 09:30 12/27/24 09:30 Temperature Pulse Rate 57 L 59 L Respiratory Rate Blood Pressure 135/74 Pulse Oximetry 99 99 Oxygen Delivery Method 12/27/24 10:00 12/27/24 10:38 12/27/24 10:39 Temperature Pulse Rate 56 L 65 Respiratory Rate 13 23 Blood Pressure 152/85 H Pulse Oximetry 100 97 Oxygen Delivery Method 12/27/24 10:39 12/27/24 11:00 12/27/24 11:00 Temperature Pulse Rate 60 54 L Respiratory Rate 18 15 Blood Pressure 143/73 H Pulse Oximetry 98 98 Oxygen Delivery Method 12/27/24 11:30 12/27/24 11:30 12/27/24 12:00 Temperature Pulse Rate 53 L Respiratory Rate 17 Blood Pressure 133/65 138/76 Pulse Oximetry 97 Oxygen Delivery Method 12/27/24 12:00 Temperature Pulse Rate 55 L Respiratory Rate 17 Blood Pressure Pulse Oximetry 97 Oxygen Delivery Method MDM - Abdominal Pain Lab Data Lab results narrative: CBC with diff is unremarkable, chemistries are unremarkable and urinalysis without signs of infection or stone 12/27/24 09:10 12/27/24 09:10 Labs: Lab Results 12/27/24 12/27/24 Range/Units 09:10 09:43 WBC 8.6 (4.5-11.0) X10^3/uL RBC 4.49 L (4.5-5.9) X10^6/uL Hgb 12.7 L (13.5-17.5) g/dL Hct 37.4 L (41-53) % MCV 83.2 (80-100) fL MCH 28.4 (26-34) PG MCHC 34.1 (30-36) % RDW 13.7 (11.6-14.8) % Plt Count 225 (150-400) X10^3/uL Neut % (Auto) 71.8 (50-75) % Lymph % (Auto) 17.4 L (25-40) % [place] % (Auto) 5.6 (3-14) % Eos % (Auto) 4.4 H (2-4) % Baso % (Auto) 0.8 (0-2) % Neut # (Auto) 6200 (3663-8578) /uL Lymph # (Auto) 1500 (2443-4079) /uL [place] # (Auto) 500 (0-900) /uL Eos # (Auto) 400 (0-450) /uL Baso # (Auto) 100 (0-100) /uL Sodium 134 L (137-145) mmol/L Potassium 5.1 (3.4-5.1) mmol/L Chloride 103 (98-107) mmol/L Carbon Dioxide 20 L (22-32) mmol/L BUN 23 H (9-20) mg/dL Creatinine 1.09 (0.66-1.25) mg/dL Estimated GFR > 60 (>60) mL/min BUN/Creatinine Ratio 21.1 (6-22) Glucose 86 (70-99) mg/dL Calcium 9.3 (8.4-10.2) mg/dL Total Bilirubin 0.5 (0.2-1.3) mg/dL AST 21 (17-59) IU/L ALT 16 (<50) IU/L Alkaline Phosphatase 70 (38-126) U/L Total Protein 7.5 (6.3-8.2) g/dL Albumin 4.6 (3.5-5.0) g/dL Globulin 2.9 (1.7-4.1) g/dL Albumin/Globulin Ratio 1.6 (1.0-2.8) Lipase 88 (23-300) U/L Urine Color Yellow Urine Appearance Clear Urine pH 5.5 (4.5-8.0) Ur Specific [place] 1.010 (1.000-1.035) Urine Protein Negative (Negative) Urine Glucose (UA) Negative (Negative) g/dL Urine Ketones Negative (NEGATIVE) Urine Occult Blood Negative (Negative) Urine Nitrate Negative (Negative) Urine Bilirubin Negative (NEGATIVE) Urine Urobilinogen 0.2 (0.2) E.U./dL Ur Leukocyte Esterase Negative (NEGATIVE) Urine RBC None seen (0-5/HPF) Urine WBC None seen (0-5/HPF) Ur Squamous Epith Cells None seen (0-5/HPF) Urine Bacteria None seen (None) Ur Culture Indicated? Cult not indicated Vol Urine Centrifuged 10ml (spun) Point of care testing: Urine Dip Bedside Urine Glucose Negative Bedside Urine Bilirubin - Negative Bedside Urine Ketone - Negative Urine Specific [place] 1.015 Bedside Urine Occult Blood - Negative Bedside Urine pH 6.0 Bedside Urine Protein - Negative Bedside Urine Urobilinogen - Negative Bedside Urine Nitrite - Negative Bedside Urine Leukocytes - Negative Esterase Imaging Data CT scan - abdomen/pelvis: My Impression: Independently reviewed CT abdomen and pelvis, no ureteral stone, no clear inflammatory change in the left lower quadrant to suggest diverticulitis. Radiologist's Impression: [address] [address] [address] Scan Report Signed Patient: Fabian Woodward MR#: [id number] : 1950 Acct:[id number] Age/Sex: 74 / M Date of Service: 12/27/24 Loc: ED Accession Number: [id number] Procedure: CT abdomen pelvis w con Ordering Provider: Kaiden Rosado MD PROCEDURE: CT ABDOMEN PELVIS W CON INDICATIONS: llq abd pain TECHNIQUE: After the administration of intravenous contrast, axial sections acquired from the lung bases to the pubic symphysis. Coronal and sagittal reformats were performed. For radiation dose reduction, the following was used: automated exposure control, adjustment of mA and/or kV according to patient size. COMPARISON: [facility], CT, CT IVP A/P W/WO, 11/01/2023, 12:41. [facility], CT, ABDOMEN/PELVIS WITH CONTRAST, 12/27/2013, 16:54. FINDINGS: Image quality: Diagnostic. Lower Chest: No significant findings. ABDOMEN: Liver: No solid mass. Mild steatosis. Gallbladder: No radiopaque gallstones or wall thickening. Biliary ducts: No biliary dilation. Pancreas: No ductal dilation. Calcifications are present likely related to sequela prior inflammation. Spleen: Size is within normal limits. Adrenal Glands: No adrenal nodules. Kidneys and Ureters: No hydronephrosis. 4 mm inferior pole calcification previously measuring 2-3 mm. Additional punctate calcifications are present. Unchanged nonobstructing left renal calcifications. 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 Stomach and Bowel: Normal colonic caliber, without significant wall thickening. Prominent hiatal hernia. Diverticula without inflammatory change. Peritoneum: No abnormal intraperitoneal fluid. No free air. Ventral Wall: No significant ventral hernia. Abdominal Nodes: No retroperitoneal or mesenteric adenopathy by size criteria. Vessels: Aorta and inferior vena cava are normal in size. PELVIS: Pelvic Organs: Unremarkable. Bladder: No bladder wall thickening, accounting for underdistention. Pelvic Nodes: No enlarged lymph nodes. Miscellaneous: Fat containing left inguinal hernia. Bones: No aggressive osseous abnormality. Spinal stimulator. Thoracolumbar fusion extending to the sacrum, unchanged. IMPRESSION: Nonobstructing bilateral renal calculi. Diverticulosis. Prominent hiatal hernia. Dictated by: Ayla Crooks M.D. on 12/27/2024 at 10:58 Approved by: Ayla Crooks M.D. on 12/27/2024 at 11:01 ECG Data Attestation: I personally reviewed and interpreted this ECG as follows: (Sinus bradycardia at [address] segment changes no evidence of previous infarction) MDM Narrative Medical decision making narrative: 74-year-old male presenting with left lower quadrant abdominal pain. Has a history of right inguinal hernia with the recent surgery but seems to have recovered well from that. Differential diagnosis includes left inguinal hernia, ureteral stone, pyelonephritis, diverticulitis or bowel obstruction. Workup is generally reassuring without evidence of diverticulitis or bowel obstruction, urines do not suggest infection or stone nor does CT show hydronephrosis or stone. CT does show a small fat containing left inguinal hernia. Recommended symptomatic care and follow up with primary care and general surgery. Indications for return to emergency department were reviewed Discharge Plan Departure Patient Disposition: Home Clinical Impression: Abdominal pain, acute, left lower quadrant, Hernia, inguinal, left Activity Restrictions/Additional Instructions: Emergency department evaluation today is reassuring. CT shows a fat containing left inguinal hernia, I am not certain that this is the cause of your pain but that is a possibility. Therefore I recommend that you follow up with your surgeon for a recheck. It does not appear that you have diverticulitis or kidney problem. I would recommend a clear liquid diet for a few days to see if that helps and I would also recommend using a stool softener daily to keep your bowels working. Avoid heavy lifting or straining to have a bowel movement. Follow up soon with your surgeon and with your primary care provider. If you are having increasing abdominal pain vomiting fevers or other acute symptoms recheck in the emergency department Prescriptions: No Action ascorbic acid (vitamin C) [Vitamin C] 500 mg Tablet 500 mg PO DAILY Qty: 0 glucosamine sulfate 500 mg Tablet 1 tab PO DAILY Qty: 0 trazodone 50 mg tablet 100 mg PO BEDTIME MDD 2 PRN (Reason: insomnia) Qty: 180 3RF albuterol sulfate 90 mcg/actuation HFA aerosol inhaler 2 puff inhalation Q4-6H PRN (Reason: shortness of breath or wheezing) Qty: 8.5 2RF PreserVision AREDS-2 250-90-40-1 mg capsule 1 tab PO BID rosuvastatin 20 mg tablet 20 mg PO DAILY Qty: 90 3RF acetaminophen 500 mg capsule 1,300 mg PO TID Referrals: Terrance Abdalla DO [Primary Care Provider, Family Practice] Stand Alone Forms: Patient Portal/API
== END 2024-12-27 12:35 | disposition home or self-care (01) ==
PROVIDERS: Emergency Provider Emergency Medicine; PCP Family Medicine
DX: K40.90 Unilateral inguinal hernia, without obstruction or gangrene, not specified as recurrent (principal); R10.32 Left lower quadrant pain
CPT/HCPCS: 36415; 74177; 80053; 81001; 81003; 83690; 85025; 93005; 99283; 99284; Q9967

== ENCOUNTER → 2024-12-31 07:27 | Outpatient (CLI) | payer MEDICARE, OTHER, SELFPAY ==
[2023-08-15 15:54] VITALS: PULSE 104; RESP 22; O2SAT 95; BMI 28.1
[2024-12-31 08:45] LABS: Alanine Aminotransferase 13 IU/L (<50); Albumin 4.2 g/dL (3.5-5.0); Albumin Globulin Ratio 1.8 (1.0-2.8); Alkaline Phosphatase 72 U/L (38-126); Blood Urea Nitrogen 30 mg/dL (9-20); Calcium 9.6 mg/dL (8.4-10.2); Carbon Dioxide 21 mmol/L (22-32); Chloride 105 mmol/L (98-107); Cholesterol 135 mg/dL (140-199); Estimated Glomerular Filt Rate > 60 mL/min (>60); Globulin 2.4 g/dL (1.7-4.1); Glucose 96 mg/dL (70-99); HDL Cholesterol 43 mg/dL (40-60); HEMOLYSIS < 15 (0-50); Potassium 5.3 mmol/L (3.4-5.1); Sodium 136 mmol/L (137-145); Total Protein 6.6 g/dL (6.3-8.2); Triglycerides 151 mg/dL (35-150)
== END ==
PROVIDERS: PCP Family Medicine; Referring Provider Family Medicine; Visit Provider Family Medicine
DX: E78.00 Pure hypercholesterolemia, unspecified (principal); R79.9 Abnormal finding of blood chemistry, unspecified
CPT/HCPCS: 36415; 80053; 80061